=== PATIENT | male | born 1965 | race Caucasian/White ===

== ENCOUNTER 2017-12-07 05:53 | Inpatient (IN) | payer OTHER, SELFPAY ==
[2017-12-07] VITALS (35 sets, daily range): BP systolic 93–149; BP diastolic 59–102; PULSE 58–123; RESP 14–29; TEMP 36.5–36.9; O2SAT 84–98; BMI 33.0; BMI 33.1
[2017-12-07] MEDS: Heparin 10,000 UNITS/10 ML Vial 4000 UNITS IV (05:59)
[2017-12-07] MEDS: TICAGRELOR 90 MG TABLET 180 MG PO (06:00)
--- NOTE | 2017-12-07 06:00 | EKG12_ITS ---
Test Reason : RIGHT SIDED EKG Blood Pressure : / mmHG Vent. Rate : 061 BPM Atrial Rate : 111 BPM P-R Int : 000 ms QRS Dur : 126 ms QT Int : 470 ms P-R-T Axes : 057 -15 119 degrees QTc Int : 473 ms Poor data quality, interpretation may be adversely affected Sinus tachycardia with complete heart block and Wide QRS rhythm Left bundle branch block Abnormal ECG Confirmed by RAMON JEAN BAPTISTE, KATLIN ([id number]), associate entertainment editor MIREYA GUADALUPE ([id number]) on 12/10/2017 3:07:50 PM Referred By: Tena Freed Confirmed By:KATLIN NAVARRO MD
--- NOTE | 2017-12-07 06:00 | RAD_ITS ---
STUDY: X-RAY CHEST REASON FOR EXAM: Male, 52 years old. Chest pain TECHNIQUE: Single frontal view of the chest. COMPARISON: None. FINDINGS: The lungs are clear and expanded. There is no demonstrated pleural abnormality. Normal size heart. Normal mediastinum and tigre. Normal visualized pulmonary arteries. Normal visualized aortic arch and descending thoracic aorta. Normal visualized thoracic spine. There is degenerative osteoarthritis of the bilateral shoulders. There is no demonstrated abnormality of the visualized soft tissue structures of the upper abdomen. RAD/Chest 1 View (Portable) IMPRESSION: No acute pulmonary findings. Electronically Signed: Lang Cao MD at 6:20 EDT Tel , Service support ,
[2017-12-07] MEDS: 0.9% Normal Saline 1,000 ML 150 ML IV (06:06)
--- NOTE | 2017-12-07 06:06 | ED.DCSUM_ITS ---
- ER Visit Summary Date of Service: 12/07/17 Chief Complaint: Chest tightness History of Present Illness: The patient is a 52 M presents to the emergency department with chest tightness. Patient states he woke about 4 this morning to use the bathroom. States he got up and began to feel very dizzy and lightheaded. He began to have some significant chest pressure and mild shortness of breath. He did call squad. On squad arrival, patient was diaphoretic. EKG done in the field showed inferior ST elevation. The patient denies any history of cardiac disease. He does not follow with primary care physician. He states he has not seen a doctor in years. He does smoke but denies any history of diabetes or hypertension. He states that he was actually out square dancing last night and had no pain. He does not take any daily medications. Physical Examination: Vital signs reviewed General: Well-nourished, well-developed Head: Normocephalic, atraumatic Eyes: Pupils equal and reactive, extraocular muscles intact Neck, supple, no lymphadenopathy Heart: Regular rate and rhythm Respiratory: No distress, clear bilaterally Abdomen: Soft, nontender, nondistended, no peritoneal signs Back: Nontender Extremities: Nontender, no edema, no cords Skin: Normal color no rash Neuro: Alert and oriented, no focal or lateralizing deficits Test Results: [] Emergency Department Course and Treatment: EKG was repeated on arrival. The patient has inferior ST elevation with some mild lateral elevation. There is anterior depression. STEMI had already been activated prior to patient arrival. I discussed the patient with Dr. Mansfield. The patient had artery received aspirin. He was given Brilinta and heparin on arrival. He was consented for cardiac catheterization. Patient will be transported to [facility] for cardiac intervention. Treatment Plan: [] Disposition: To [facility] Impression: 1. STEMI This note was generated with Pop[employer]it dictation software. It may contain incorrect words, spelling, and punctuation that were not noted in review of the chart prior to signing ED Disposition - Plan for ED Patient: Chief Complaint: Chest Pain Referrals: Care Physician,No Primary [Primary Care Provider] -
--- NOTE | 2017-12-07 06:20 | EKG12_ITS ---
Test Reason : STEMI Blood Pressure : / mmHG Vent. Rate : 068 BPM Atrial Rate : 066 BPM P-R Int : 000 ms QRS Dur : 120 ms QT Int : 434 ms P-R-T Axes : 000 -12 116 degrees QTc Int : 461 ms Wide QRS rhythm Incomplete left bundle branch block ST elevation consider inferolateral injury or acute infarct ACUTE ME / STEMI Consider right ventricular involvement in acute inferior infarct Abnormal ECG Confirmed by RAMON JEAN BAPTISTE, KATLIN ([id number]), supervising editor news reel MIREYA GUADALUPE ([id number]) on 12/10/2017 3:12:57 PM Referred By: Tena Freed Confirmed By:KATLIN NAVARRO MD
[2017-12-07 06:26] LABS: Prothrombin Time (Protime)PT. 12.9 SECONDS (11.7-14.9)
[2017-12-07 06:27] LABS: Partial Thromboplast Time 24.1 Seconds (24.1-36.2)
[2017-12-07 06:32] LABS: Absolute Lymphocyte Count 6.23 X10^3/ul (0.83-4.51); Basophil# 0.04 X10^3/uL; Basophil% 0.2 % (0-1); Eosinophil# 0.34 X10^3/uL; Hematocrit 47.7 % (40-54); Hemoglobin 16.2 g/dl (13.0-16.5); Lymphocyte # 6.23 X10^3/ul (4.0); Lymphocyte % 37.6 % (19-41); Mean Corpuscular Hgb 29.8 pg (27.0-32.0); Mean Corpuscular Volume 87.7 fL (80-94); Mean Platelet Vol. 10.4 fl (6.2-12.0); Monocyte# 1.97 X10^3/uL; Monocyte% 11.9 % (0-10); Neutrophil # 7.95 X10^3/uL (2.7-7.7); Neutrophil % 47.9 % (47-70); Platelet Count 301 K/mm3 (150-450); RBC Distribution Width CV 12.7 % (11.6-14.6); RBC Distribution Width SD 40.4 fl (35.1-43.9); Red Blood Count 5.44 M/mm3 (4.6-6.2); White Blood Count 16.6 K/mm3 (4.4-11.0)
[2017-12-07 06:39] LABS: Differential Indicated SCAN CRITERIA MET; POSITIVE COUNT NO; POSITIVE DIFFERENTIAL YES; POSITIVE MORPHOLOGY YES
--- NOTE | 2017-12-07 06:49 | ED.RN ---
LAB CALLS WITH CRITICAL RESULT, BLOOD GLUCOSE [id number], ICU STAFF MADE AWARE.
[2017-12-07 06:50] LABS: Anion Gap 14 (5-15); BUN 18 mg/dL (7-18); BUN/Creat Ratio 12.1 RATIO (10-20); Chloride 93 mmol/L (98-107); Creatinine, Serum 1.49 mg/dL (0.70-1.30); EST Glomerular Filtration Rate 52 mL/min (>60); Est Glom Filt Rate - Afr Amer 63 mL/min (>60); Estimated Creatinine Clearance 62.21 ml/min; Glucose 539 mg/dL (74-106); Potassium 3.6 mmol/L (3.5-5.1); Sodium Level 131 mmol/L (136-145)
[2017-12-07 07:09] LABS: Differential Comment SCANNED; Reactive Lymphocyte 3+
[2017-12-07 07:51] LABS: ACT Activated Clotting Time 208 sec (74-137)
--- NOTE | 2017-12-07 07:52 | CL.I_ITS ---
Patient Name: HUMBLE ECHOLS Study Date: 12/07/2017 Performing: Reilly Mansfield MD Ht: 72.04 inches 183 cm : 1965 Wt: 244.71 lbs 111 kg Age: 52 Gender: male BSA: 2.32 PROCEDURE(S) PERFORMED [id number]/COR/LV [id number], ONELIA AND/OR PTCA, ARTERY OR GRAFT, SINGLE VESSEL CLINICAL PROFILE AND CO-MORBIDITIES Indications: New Onset Angina <= 2 months, ACS <= 24 hrs, Cardiac Transplantation evaluation - po stoperative Heart Failure: None Stress/Imaging Stress/Image Study Performed: No Angina Classification Anginal Classification w/in 2 Weeks: No symptoms CAD Presentations: STEMI. Symptom onset Date/Time: 12/07/2017 Time Not Available Comorbidities/Risk Factors: Hypertension Current/Recent Smoker (< 1year) CONCLUSIONS Single vessel CAD of the LCX Non obstructive coronary arteries Segmented LV systolic dysfunction- Moderate Successful PCI with Drug eluting stent and PTCA to the with thrombectomy assistance utilizing a 3.0 x 16 Promus Synergy, post dilated to 3.5 and 4.0 proximally; unable to cannulate OM branch despite mul tiple attempts with multiple wires due to acute angle of OM takeoff. RECOMMENDATIONS Referred for immediate PCI Highly recommend quitting all tobacco products Follow up with primary buildings and grounds coordinator Risk factor modification ASA Indefinitley Brilinta for life. Routine post interventional care Refer for Outpatient Cardiac Rehab Manual sheath removal per protocol Follow up with Dr. Mansfield Medical managment of OM ostial lesion. DESCRIPTION OF PROCEDURE The patient arrived to the procedure lab. The risks and benefits of the procedure as well as a full d escription of our services here and lack of surgical backup were fully explained to the patient and/o r their significant other prior to the catheterization. The Timeout was completed, verifying the makenzie ect patient and procedure. The patient's procedural site was prepped and draped in the usual fashion. Local anesthetic was given subcutaneously to right groin region with Lidocaine 2%. Using a modified Seldinger technique, arterial access was obtained via the right femoral artery, a 6Fr sheath was inse rted.. Left Coronary Artery selective angiography was performed in multiple views using a 4 Fr. JL5 catheter. Right Coronary Artery selective angiography was then performed in multiple views using a 4 Fr. 3DRC catheter. Left Ventriculography was performed in GIRALDO projection using a 4 Fr. Pigtail cathet er. LV to AO pullback pressures were then recorded ebu 3.75 Guide catheter was inserted and engaged into the LCA. runthrough Guide wire was advanced to the Circumflex. Campo AP inserted Pass # 1 Campo AP Removed emerge 2.0x12 Balloon catheter was inse rted. PTCA balloon inflated at 8 atms for 14 secs PTCA balloon inflated at 8 atms for 8 secs bmw Guid e wire was inserted as a gabriela wire to OM Angiogram performed post balloon dilatation. synergy 3.00x1 6 Drug Eluting stent was inserted Angiogram performed post stent deployment. nc emerge 4.00x8 Balloon catheter was inserted. PTCA balloon inflated at 10 atms for 10 secs PTCA balloon inflated at 12 atms for 10 secs Campo AP inserted Pass # 2 Campo AP Removed Angiogram performed post balloon dilatatio n. zinger Guide wire was advanced to the 1st OM. nc emerge 3.50x12 Balloon catheter was inserted. nc emerge 3.50x8 Balloon catheter was inserted. PTCA balloon inflated at 12 atms for 9 secs PTCA balloon inflated at 14 atms for 9 secs PTCA balloon inflated at 12 atms for 9 secs 4.00x8 Balloon catheter w as inserted. PTCA balloon inflated at 12 atms for 11 secs PTCA balloon inflated at 14 atms for 14 sec s Angiogram performed post balloon dilatation. runthrough Guide wire was inserted to OM zinger Guide wire was advanced to the 1st OM. emerge 2.00x8 Balloon catheter was inserted. Angiogram performed pos t balloon dilatation.. . The arterial sheath was sutured in place and capped. CORONARY ANGIOGRAPHY DOMINANCE: Left Dominant LEFT HEART ASSESSMENT Left Ventricular Ejection Fraction: by LV Gram 45-50 % Depressed Left Ventricular systolic function Inferior Mid Hypokinesis - Moderate LEFT MAIN: Angiographically normal LEFT ANTERIOR DECENDING ARTERY: MID LAD: Mild luminal irregularities less than 30% CIRCUMFLEX ARTERY: is occluded RIGHT CORONARY ARTERY: Mild luminal irregularities less than 30% INTERVENTION INFORMATION LESION SITE: Circumflex (Proximal) Lesion Complexity: High/C, lesion at bifurcation: Yes, thrombus present: Yes, lesion length: 16 mm, c ulprit lesion: Yes Pre intervention MARTÍNEZ flow: 0 PROCEDURE: Balloon Angioplasty, Drug Eluting Stent with pre and post dilatation, Thrombectomy Post Stenosis: 0 % Post intervention MARTÍNEZ flow: 3 Lesion Devices: Medtronic 6 Fr. Campo AP Aspiration Catheter Medtronic 6 Fr EBU3.75 100cm Guide Catheter Yonis Sci EMERGE MR 2.00x12 BALLOON Cuellar .014 BMW Rudyard Straight 190cm Yonis Sci Synergy MR ONELIA 3.00x16 Yonis Sci NC EMERGE MR 4.00x08 BALLOON Yonis Sci NC EMERGE MR 3.50x12 BALLOON Medtronic .014 Zinger medium wire 180cm straight Yonis Sci NC EMERGE MR 3.50x08 BALLOON Terumo .014 Runthrough Extra Floppy 180cm straight Medtronic .014 Zinger medium wire 180cm straight Yonis Sci EMERGE MR 2.00x08 BALLOON Yonis Sci .014 Choice PT Xtra Support wire 182cm COMPLICATIONS No Complications PROCEDURE MEDICATIONS Fentanyl 25 mcg IV Oxygen: 2 L/min via nasal cannula Oxygen: 100 % FiO2 via non-rebreather mask Atropine 1mg/10ml 0.25 mg @ 12/07/2017 06:42:17 Heparin 6000 unit(s) IV 12/07/2017 06:41:38 Heparin 4000 unit(s) IV 12/07/2017 07:20:32 Heparin 4000 unit(s) IV 12/07/2017 07:39:37 Nitro 200 mcg IC 12/07/2017 06:47:31 Nitro 200 mcg IC 12/07/2017 06:47:31 Zofran 2 mg IV 12/07/2017 06:50:45 IV Bolus: .9 NaCl 1500ml total 12/07/2017 06:37:04 SUMMARY OF HEMODYNAMIC DATA Time AIR REST ECG 06:24:13 AO 89/62 (72) SA 06:41:03 LV 111/-1, 20 07:36:08 LV 111/-1, 20 07:36:15 LVp 113/-2, 18 07:36:20 AOp 95/64 (75) 07:36:25 ECG 07:42:12 Signed By Reilly Mansfield MD On 12/07/2017 07:51:33 Reilly Mansfield MD
--- NOTE | 2017-12-07 07:52 | EKG12_ITS ---
Test Reason : POST STENT Blood Pressure : / mmHG Vent. Rate : 099 BPM Atrial Rate : 099 BPM P-R Int : 194 ms QRS Dur : 074 ms QT Int : 362 ms P-R-T Axes : 044 103 084 degrees QTc Int : 464 ms Normal sinus rhythm Low voltage QRS ST elevation consider inferior injury or acute infarct ACUTE DE / STEMI Consider right ventricular involvement in acute inferior infarct Abnormal ECG Confirmed by RAMON JEAN BAPTISTE, KATLIN ([id number]), video effects editor MIREYA GUADALUPE ([id number]) on 12/10/2017 3:50:18 PM Referred By: Tena Freed Confirmed By:KATLIN NAVARRO MD
[2017-12-07 08:26] LABS: Hematocrit 47.2 % (40-54); Hemoglobin 16.9 g/dl (13.0-16.5); Mean Corp Hgb Conc 35.8 g/gl (32-36); Mean Corpuscular Hgb 30.4 pg (27.0-32.0); Mean Corpuscular Volume 84.9 fL (80-94); Mean Platelet Vol. 10.1 fl (6.2-12.0); Platelet Count 296 K/mm3 (150-450); RBC Distribution Width CV 12.6 % (11.6-14.6); RBC Distribution Width SD 38.6 fl (35.1-43.9); Red Blood Count 5.56 M/mm3 (4.6-6.2); White Blood Count 16.6 K/mm3 (4.4-11.0)
[2017-12-07 08:27] LABS: Scan Indicated on CBC? Y/N NO
[2017-12-07 08:57] LABS: CPK Total, Creatine Kinase 6534 U/L (39-308)
--- NOTE | 2017-12-07 08:57 | NURSING ---
dr dobson notified pulse ox sats 88 on 4l continous moist cough, pt states feels like drowning given lasix 40mg ivp as per order
[2017-12-07] MEDS: Furosemide 40 MG/4 ML Vial IV (08:59)
[2017-12-07 09:48] LABS: M R Staph aureus DNA By PCR Negative (Negative); Probe Check PASS; Specimen Processing Control PASS
--- NOTE | 2017-12-07 10:04 | PCM.PN.BLA ---
Progress Note Patient is scheduled for a post hospital/STEMI follow-up with the [facility] on January 06 at 2:00 PM with Cassandra Physician Mold Machine Operator. He will follow-up with Dr. Grubbs longterm. If he has has questions, concerns, or needs to reschedule this appointment, he should contact the [facility] at [phone].
--- NOTE | 2017-12-07 10:24 | PCM.HP.STD ---
Problem List (1) Acute ST elevation myocardial infarction (STEMI) Status: Acute Qualifiers: Involved coronary artery: other inferior wall coronary artery Qualified Code(s): I21.19 - ST elevation (STEMI) myocardial infarction involving other coronary artery of inferior wall (2) Nicotine use disorder Status: Chronic History of Present Illness Date of Admission: 12/07/17 Chief Complaint: Chest pain. The patient is a 52 year old M with chronic smoker comes in with complaints of chest pain described as substernal central pressure, which started this morning around 4:00. Patient woke up and started having central chest pressure associated with lightheadedness and diaphoresis and feeling of just not being well. He called the EMS and was found to be diaphoretic, EKG done showed acute STEMI in the inferior leads. Patient was brought to the ED, vitals were stable, STEMI alert was called, patient was sent to the [facility]. Findings included CAD of the left circumflex with successful thrombectomy and ONELIA placement. Patient was seen and examined in ICU. He had complained of shortness of breath. Apparently was given about 4 L of fluid in the ED. Patient's oxygen saturation was 88% on 3 L of oxygen. Giving Lasix 40 mg IV ?1. Being managed per Post cardiac cath protocol Past Medical History Past Medical History (Chronic Problems): Chronic Problems Nicotine use disorder (Chronic) Allergies No Known Allergies Allergy (Verified 12/07/17 06:05) Home Medications: Ambulatory Orders Medication Instructions Recorded NK [NK] 12/07/17 Surgical History: no surgical history Psychiatric History: No pertinent psych hx Lives: Alone Smoking Status: Light Smoker (<10/day) Tobacco Use: Cigarettes Alcohol: None Drugs: None - *Family History Maternal History Items: COPD Paternal History Items: No pertinent history Review of Systems Constitutional: Denies: Anorexia, Chills, Fever, Weakness, Weight Change Eyes: Denies: Blurred vision, Cataracts, Conjunctivae Inflammation HEENT: Denies: Head Aches, Hearing Changes, Nasal bleeding, Sinus Congestion, Sinus Drainage Cardiovascular: Reports: Chest Pain, Chest Pressure, Chest Tightness, Light Headedness. Denies: Orthopnea, Palpitations, Paroxysmal Noc. Dyspnea, Syncope Respiratory: Denies: Cough, Hemoptysis, Pleuritic Pain, Shortness of breath at rest, Shortness of breath upon exertion, Sputum production Gastrointestinal: Denies: Abdominal Pain, Constipation, Hematemesis, Hematochezia, Nausea, Vomiting Genitourinary: Denies: Dysuria, Frequency, Incontinence, Nocturia Musculoskeletal: Denies: Arm Pain, Back Pain, Joint Pain, Joint stiffness, Joint swelling, Joint Tenderness Skin: Denies: Dryness, Jaundice, Pruritis, Rash, Wounds Neurological: Denies: Difficulty swallowing, Focal weakness, Numbness, Tingling Psychiatric: Denies: Anxiety, Depression, Homicidal Ideations, Suicidal Ideations Hematologic/ Lymphatic: Denies: Easy Bruising, Easy Bleeding VTE Information - Inpt Only VTE Present on Admission: No VTE Pharm Prophylaxis ordered?: Yes Patient Problems: Active and Suspected Problems Acute ST elevation myocardial infarction (STEMI) (Acute) - Physical Exam General: Alert, Oriented x3, Cooperative, - - slightly SOB, able to answer questions. HEENT: Atraumatic, PERRLA, EOMI, Normocephalic Oral: Moist Mucosa Neck: Supple Lungs: Clear to auscultation, Normal air movement Cardiovascular: Regular rate, Regular Rhythm, Normal S1, Normal S2, No murmurs Abdomen: Bowel Sounds Present, Soft, Non Tender, Non-Distended, No Hepato-splenomegaly Extremities: No edema Skin: No rashes, No breakdown Musculoskeletal: No Tenderness to Palpation of Joints or Extremities Lymphatic: No Cervical, Supraclavicular, or Inguinal Adenopathy Neurological: Cranial nerves II-XII grossly intact Psych/Mental Status: Normal Affect, Appropriate Vital Signs Temp Pulse Resp BP Pulse Ox 97.7 F L 105 H 25 H 136/100 H 95 12/07/17 08:15 12/07/17 09:30 12/07/17 09:30 12/07/17 09:30 12/07/17 09:30 Oxygen Flow Rate (L/min) 15 Oxygen Delivery Method Non-Rebreather Weight: 110.3 kg Body Mass Index (BMI) 33.0 Laboratory Tests Past 24 Hrs 12/07/17 12/07/17 12/07/17 08:05 08:17 08:17 WBC 16.6 H RBC 5.56 Hgb 16.9 H Hct 47.2 MCV 84.9 MCH 30.4 MCHC 35.8 RDW 12.6 RDW Differential 38.6 Plt Count 296 MPV 10.1 Total Creatine Kinase 6534 H Troponin I MRSA (PCR) Negative 12/07/17 08:17 WBC RBC Hgb Hct MCV MCH MCHC RDW RDW Differential Plt Count MPV Total Creatine Kinase Troponin I 123.00 H* MRSA (PCR) Assessment/Plan Active and Suspected Problems Acute ST elevation myocardial infarction (STEMI) (Acute) 52 year old M with chronic smoker comes in with complaints of chest pain described as substernal central pressure, which started this morning around 4:00. Patient woke up and started having central chest pressure associated with lightheadedness and diaphoresis and feeling of just not being well. 1. Acute STEMI, MARTÍNEZ score 3/4, status post cardiac cath, status post ONELIA and thrombectomy to left circumflex. Obtuse marginal artery reportedly involved. On aspirin, Brilinta, statin, metoprolol, Lisinopril, managed in ICU per protocol, monitor telemetry closely 2. Hyperglycemia, newly diagnosed DM, HbA1c is 11.0, will start patient on Levemir will require dietitian, and close follow-up with endocrinology. 3. Hypertension, lisinopril and metoprolol, will continue to monitor closely on telemetry 4. Leucocytosis, likely reactive, no signs of infection, would monitor with repeat lab in a.m. 5. Chronic nicotine use disorder, will put on replacement 6. DVT prophylaxis with Lovenox subcu Code Visit Inpatient E&M: [id number] Init Hosp L3
[2017-12-07 10:25] LABS: ACT Activated Clotting Time 158 sec (74-137)
--- NOTE | 2017-12-07 11:01 | ECHOCS_ITS ---
Reason For Study: CAD/ASHD Procedure This was a 2D Doppler, Color Flow transthoracic echocardiogram. The study was technically difficult. Contrast injection was performed. Exam performed portable in ICU/CCU. Left Ventricle Normal size and thickness. The estimated ejection fraction is 45-50 %. Normal diastology for age. There are regional wall motion abnormalities as specified. Lateral-Basal: Mildly hypokinetic. Posterior-Basal: Mildly hypokinetic. Infero-Basal: Mildly hypokinetic. Right Ventricle Normal size and thickness. Normal systolic function. Atria Normal left atrium. Normal right atrium. Normal atrial septum. Mitral Valve The mitral valve is structurally normal. No prolapse or stenosis seen. Tricuspid Valve Normal tricuspid valve. Trivial tricuspid valve insufficiency. Right ventricular systolic pressure estimated to be 26 mmHg. Aortic Valve Normal aortic valve. Trisinus/trileaflet aortic valve. Pulmonic Valve Normal pulmonic valve. Great Vessels Normal aortic root. Normal arch. Normal inferior vena cava. Inferior vena cava collapse with sniff. Pericardium/Pleural No pericardial effusion. Medication Diluted definity 1.0ml given slow IV push to enhance endocardial definition. MMode/2D Measurements & Calculations LVIDd: 4.5 cm IVSd: 1.3 cm Ao root diam: 3.1 cm LVIDs: 3.4 cm LVPWd: 1.3 cm FS: 23.6 % LAV(MOD-bp): 52.7 ml LA A4 area: 16.7 cm2 LAV(MOD-bp) Indexed: 22.8 ml/m2 LAV(MOD-sp2): 51.8 ml LAV(MOD-sp4): 48.2 ml Doppler Measurements & Calculations MV E max vinod: 76.4 cm/sec Lat Peak E' Vinod: 5.2 cm/sec Med Peak E' Vinod: 4.3 cm/sec MV A max vinod: 57.4 cm/sec E/E' lat: 14.5 E/E' med: 17.6 MV E/A: 1.3 Ao V2 max: 85.5 cm/sec LV V1 max: 68.9 cm/sec PA V2 max: 72.8 cm/sec Ao max P.9 mmHg LV V1 max P.9 mmHg TR max vinod: 230.9 cm/sec TR max P.3 mmHg Interpretation Summary The estimated ejection fraction is 45-50 %. Normal diastology for age. There are regional wall motion abnormalities as specified. Lateral-Basal: Mildly hypokinetic Posterior-Basal: Mildly hypokinetic Infero-Basal: Mildly hypokinetic Trivial tricuspid valve insufficiency. Right ventricular systolic pressure estimated to be 26 mmHg. The study was technically difficult. There is no comparison study available. Contrast injection was performed. Ordering Physician: Reilly Mansfield Referring Physician: Tena Freed Performed By: Dee Lucero RDCS, RVT
--- NOTE | 2017-12-07 11:55 | CRPHASE1 ---
Patient Data/Charges Start Phase II:: FOLLOWING OFFICE VISIT WITH PERMASTONE MECHANIC Risk Factors/Lifestyle Smoking Status: Current every day smoker Hx Hypertension: Yes Hx Diabetes Mellitus Type 1: No - BLOOD SUGARS EXTREMELY HIGH THIS ADMISSION Hx Diabetes Mellitus Type 2: No Hx Metabolic Disorders: Yes Hx Dyslipidemia: Yes Hx Obesity: Yes Height: 6 ft - BMI 33.0 Stress: Home/Family Substance Abuse: No Risk Factor for Sedentary Lifestyle: Moderate Risk Phase I Education Given On:: [place], Nutrition, Antiplatelet medication, Smoking cessation Issues Affecting Care:: None Knowledge of Condition:: Yes Learning Preferences: Verbal, Written Hospital Course Presenting Symptoms:: EMERGENT PCI / UNSTABLE ANGINA Medical/Surgical History [place]:: No Angina:: Yes Diabetes:: No Hypertension:: Yes Dyslipidemia:: Yes Discharge/Home/Social Eval Discharge Disposition: Home
--- NOTE | 2017-12-07 11:58 | CRPHASE1_ITS ---
Patient Data/Charges Start Phase II:: FOLLOWING OFFICE VISIT WITH FRUIT ROOM HAND Risk Factors/Lifestyle Smoking Status: Current every day smoker Hx Hypertension: Yes Hx Diabetes Mellitus Type 1: No - BLOOD SUGARS EXTREMELY HIGH THIS ADMISSION Hx Diabetes Mellitus Type 2: No Hx Metabolic Disorders: Yes Hx Dyslipidemia: Yes Hx Obesity: Yes Height: 6 ft - BMI 33.0 Stress: Home/Family Substance Abuse: No Risk Factor for Sedentary Lifestyle: Moderate Risk Phase I Education Given On:: [place], Nutrition, Antiplatelet medication, Smoking cessation Issues Affecting Care:: None Knowledge of Condition:: Yes Learning Preferences: Verbal, Written Hospital Course Presenting Symptoms:: EMERGENT PCI / UNSTABLE ANGINA Medical/Surgical History [place]:: No Angina:: Yes Diabetes:: No Hypertension:: Yes Dyslipidemia:: Yes Discharge/Home/Social Eval Discharge Disposition: Home
--- NOTE | 2017-12-07 11:58 | CRPH1.INSTRU ---
General Education CAD and cardiac anatomy and function:: Patient communicates acknowledgment Explanation of diagnoses and procedures:: Patient communicates acknowledgment Sign/Symptoms of [place]:: Patient communicates acknowledgment Antiplatelet therapy: Patient communicates acknowledgment Proper use of NTG-SL: Patient communicates acknowledgment Emergency procedures and activation of EMS: Patient communicates acknowledgment Compliance of all prescribed medications: Patient communicates acknowledgment Smoking Patient Nicotine/Smoking Risk Factors Are:: Cigarettes Recommendations Include:: Participation in a smoking cessation program Nicotine/Smoking Response Code:: Patient communicates acknowledgment Dyslipidemia Patient Dyslipidemia Risk Factors Are:: Total Cholesterol, Triglycerides, HDL, LDL Recommendations Include:: Lipid profile not available, Reviewed NCEP/ATP guidelines, Therapeutic Lifestyle Change dietary guidelines Dyslipidemia Response Code:: Patient communicates acknowledgment Overweight/Obesity Patient Overweight/Obesity Risk Factors Are:: Obesity - > or = 30 Recommendations Include:: Weight loss of 5-10%, Reduced calorie diet, Exercise 5-7 times/week Overweight/Obesity:: Patient communicates acknowledgment Hypertension Recommendations Include:: Maintain BP <130/85, DASH dietary guidelines, Decrease/maintain normal body weight, Moderation of ETOH Hypertension:: Patient communicates acknowledgment Heart Disease Heart Disease Response Code:: Patient communicates acknowledgment Diabetes Patient Diabetes Risk Factors Are:: No documented hx of diabetes - BLOOD SUGARS EXTREMELY HIGH THIS ADMISSION BUT NOT YET DIAGNOSED WITH DIABETES Metabolic Syndrome Patient Metabolic Syndrome Risk Factors Are [3 of 5]:: Waist circumference > 35 [female] or 40 [male], High triglyceride >150, Hypertension, Low HDL <40 [male] or < 50 [female] Recommendations Include:: Reinforce compliance to risk factor modifications, Encouraged follow-up with Primary Care Physician Metabolic Syndrome Response Code:: Patient communicates acknowledgment Sedentary Patient Sedentary Risk Factors Are:: Lack of regular exercise Recommendations Include:: Aerobic exercise 5-7 times/week for 20-30 minutes continuously, Benefits of regular exercise, Discussed home walking program, Monitored Outpatient Cardiac Rehab Sedentary Response Code:: Patient communicates acknowledgment Stress Recommendations Include:: Identification of stressors, and assessment of coping skills, Stress management techniques Stress Response Code:: Patient communicates acknowledgment
--- NOTE | 2017-12-07 12:01 | CRPH1.INST_ITS ---
General Education CAD and cardiac anatomy and function:: Patient communicates acknowledgment Explanation of diagnoses and procedures:: Patient communicates acknowledgment Sign/Symptoms of [place]:: Patient communicates acknowledgment Antiplatelet therapy: Patient communicates acknowledgment Proper use of NTG-SL: Patient communicates acknowledgment Emergency procedures and activation of EMS: Patient communicates acknowledgment Compliance of all prescribed medications: Patient communicates acknowledgment Smoking Patient Nicotine/Smoking Risk Factors Are:: Cigarettes Recommendations Include:: Participation in a smoking cessation program Nicotine/Smoking Response Code:: Patient communicates acknowledgment Dyslipidemia Patient Dyslipidemia Risk Factors Are:: Total Cholesterol, Triglycerides, HDL, LDL Recommendations Include:: Lipid profile not available, Reviewed NCEP/ATP guidelines, Therapeutic Lifestyle Change dietary guidelines Dyslipidemia Response Code:: Patient communicates acknowledgment Overweight/Obesity Patient Overweight/Obesity Risk Factors Are:: Obesity - > or = 30 Recommendations Include:: Weight loss of 5-10%, Reduced calorie diet, Exercise 5 -7 times/week Overweight/Obesity:: Patient communicates acknowledgment Hypertension Recommendations Include:: Maintain BP <130/85, DASH dietary guidelines, Decrease /maintain normal body weight, Moderation of ETOH Hypertension:: Patient communicates acknowledgment Heart Disease Heart Disease Response Code:: Patient communicates acknowledgment Diabetes Patient Diabetes Risk Factors Are:: No documented hx of diabetes - BLOOD SUGARS EXTREMELY HIGH THIS ADMISSION BUT NOT YET DIAGNOSED WITH DIABETES Metabolic Syndrome Patient Metabolic Syndrome Risk Factors Are [3 of 5]:: Waist circumference > 35 [female] or 40 [male], High triglyceride >150, Hypertension, Low HDL <40 [ male] or < 50 [female] Recommendations Include:: Reinforce compliance to risk factor modifications, Encouraged follow-up with Primary Care Physician Metabolic Syndrome Response Code:: Patient communicates acknowledgment Sedentary Patient Sedentary Risk Factors Are:: Lack of regular exercise Recommendations Include:: Aerobic exercise 5-7 times/week for 20-30 minutes continuously, Benefits of regular exercise, Discussed home walking program, Monitored Outpatient Cardiac Rehab Sedentary Response Code:: Patient communicates acknowledgment Stress Recommendations Include:: Identification of stressors, and assessment of coping skills, Stress management techniques Stress Response Code:: Patient communicates acknowledgment
[2017-12-07 12:05] LABS: Bedside Glucose 417 mg/dL (70-110)
[2017-12-07] MEDS: Metoprolol Tartrate 25 MG Tablet 12.5 MG PO ×2 (13:13→21:15)
[2017-12-07] MEDS: Lisinopril 2.5 MG Tablet PO (13:13)
[2017-12-07] MEDS: 0.9% NaCl Peripheral Flush Adult/Peds IV (13:14)
--- NOTE | 2017-12-07 13:59 | CASEMGMT ---
See RN CM assessment Link. DC Plan: home on discharge. Brilinta savings card given and explained. Pt will f/u with cardiology on dc; list of PCP's given. Billy YUN RN ACM
[2017-12-07 14:33] LABS: Pathologist Review Reviewed
[2017-12-07 14:42] LABS: Hematocrit 47.3 % (40-54); Mean Corp Hgb Conc 35.9 g/gl (32-36); Mean Corpuscular Volume 83.6 fL (80-94); Mean Platelet Vol. 10.3 fl (6.2-12.0); Platelet Count 290 K/mm3 (150-450); RBC Distribution Width CV 12.5 % (11.6-14.6); RBC Distribution Width SD 38.1 fl (35.1-43.9); Red Blood Count 5.66 M/mm3 (4.6-6.2); Scan Indicated on CBC? Y/N NO; White Blood Count 19.9 K/mm3 (4.4-11.0)
[2017-12-07 15:35] LABS: ACT Activated Clotting Time 147 sec (74-137)
[2017-12-07 16:06] LABS: CPK Total, Creatine Kinase 8014 U/L (39-308)
[2017-12-07 16:56] LABS: Bedside Glucose 407 mg/dL (70-110)
[2017-12-07 20:02] LABS: Hematocrit 47.8 % (40-54); Hemoglobin 16.7 g/dl (13.0-16.5); Mean Corp Hgb Conc 34.9 g/gl (32-36); Mean Corpuscular Hgb 30.4 pg (27.0-32.0); Mean Corpuscular Volume 87.1 fL (80-94); Mean Platelet Vol. 10.2 fl (6.2-12.0); Platelet Count 253 K/mm3 (150-450); RBC Distribution Width CV 12.7 % (11.6-14.6); RBC Distribution Width SD 40.5 fl (35.1-43.9); Red Blood Count 5.49 M/mm3 (4.6-6.2); Scan Indicated on CBC? Y/N NO; White Blood Count 19.6 K/mm3 (4.4-11.0)
[2017-12-07] MEDS: TICAGRELOR 90 MG TABLET PO (20:07)
[2017-12-07] MEDS: Atorvastatin Calcium 80 MG Tablet PO (21:15)
[2017-12-07 21:25] LABS: CPK Total, Creatine Kinase 5926 U/L (39-308)
[2017-12-07 21:26] LABS: Bedside Glucose 326 mg/dL (70-110)
[2017-12-08] VITALS (23 sets, daily range): BP systolic 87–122; BP diastolic 64–80; PULSE 72–100; RESP 16–23; TEMP 36.5–37.3; O2SAT 90–95
[2017-12-08 03:33] LABS: Hematocrit 44.4 % (40-54); Hemoglobin 15.3 g/dl (13.0-16.5); Mean Corp Hgb Conc 34.5 g/gl (32-36); Mean Corpuscular Hgb 29.7 pg (27.0-32.0); Mean Corpuscular Volume 86.2 fL (80-94); Mean Platelet Vol. 10.1 fl (6.2-12.0); Platelet Count 223 K/mm3 (150-450); RBC Distribution Width CV 12.7 % (11.6-14.6); RBC Distribution Width SD 39.8 fl (35.1-43.9); Red Blood Count 5.15 M/mm3 (4.6-6.2); White Blood Count 17.3 K/mm3 (4.4-11.0)
[2017-12-08 03:38] LABS: Scan Indicated on CBC? Y/N NO
[2017-12-08 03:58] LABS: Anion Gap 10 (5-15); BUN 19 mg/dL (7-18); BUN/Creat Ratio 18.6 RATIO (10-20); Calcium,Total 8.7 mg/dL (8.5-10.1); Chloride 98 mmol/L (98-107); Cholesterol 145 mg/dL (200); Creatinine, Serum 1.02 mg/dL (0.70-1.30); EST Glomerular Filtration Rate 81 mL/min (>60); Est Glom Filt Rate - Afr Amer 98 mL/min (>60); Estimated Creatinine Clearance 90.87 ml/min; Glucose 294 mg/dL (74-106); High Density Lipoprotein 26 mg/dL; Potassium 3.8 mmol/L (3.5-5.1); Sodium Level 134 mmol/L (136-145); Triglycerides 345 mg/dL; Very Low Density Lipoprotein 69 mg/dL (5-40)
[2017-12-08 06:51] LABS: Bedside Glucose 292 mg/dL (70-110)
--- NOTE | 2017-12-08 07:42 | PCM.PN.HOSP ---
Patient Problems: Active and Suspected Problems Acute ST elevation myocardial infarction (STEMI) (Acute) Subjective: Patient was seen and examined. No acute events overnight. He feels better. He denies any chest pressure, dizziness or palpitations. BS are better but not controlled. Objective: Physical Exam General: Alert, Oriented x3, Cooperative,not pale or jaundiced, obese HEENT: Atraumatic, PERRLA, EOMI, Normocephalic Oral: Moist Mucosa Neck: Supple Lungs: Clear to auscultation, Normal air movement Cardiovascular: Regular rate, Regular Rhythm, Normal S1, Normal S2, No murmurs Abdomen: Bowel Sounds Present, Soft, Non Tender, Non-Distended, No Hepato-splenomegaly Extremities: No edema Skin: No rashes, No breakdown Musculoskeletal: No Tenderness to Palpation of Joints or Extremities Lymphatic: No Cervical, Supraclavicular, or Inguinal Adenopathy Neurological: Cranial nerves II-XII grossly intact Psych/Mental Status: Normal Affect, Appropriate Vitals/I&O's: Vital Signs Temp Pulse Resp BP Pulse Ox 98.2 F 86 17 99/75 93 12/08/17 04:00 12/08/17 07:25 12/08/17 07:00 12/08/17 07:00 12/08/17 07:00 Oxygen Flow Rate (L/min) 2 Oxygen Delivery Method Room Air Weight: 110.5 kg Body Mass Index (BMI) 33.0 Intake and Output for Last 24 Hours 12/06/17 12/07/17 12/08/17 23:59 23:59 23:59 Intake Total 1050 / 1050 150 / 150 Output Total 3150 / 3150 250 / 250 Balance -2100 / -2100 -100 / -100 Laboratory Results 12/07/17 08:05: MRSA (PCR) Negative 12/07/17 08:17: Total Creatine Kinase 6534 H 12/07/17 08:17: WBC 16.6 H, RBC 5.56, Hgb 16.9 H, Hct 47.2, MCV 84.9, MCH 30.4, MCHC 35.8, RDW 12.6, RDW Differential 38.6, Plt Count 296, MPV 10.1 12/07/17 08:17: Troponin I 123.00 H* 12/07/17 10:11: Activated Clotting Time 158 H 12/07/17 12:01: POC Glucose 417 H 12/07/17 14:20: WBC 19.9 H, RBC 5.66, Hgb 17.0 H, Hct 47.3, MCV 83.6, MCH 30.0, MCHC 35.9, RDW 12.5, RDW Differential 38.1, Plt Count 290, MPV 10.3 12/07/17 14:20: Total Creatine Kinase 8014 H 12/07/17 14:20: Troponin I > 200.00 H* 12/07/17 16:49: POC Glucose 407 H 12/07/17 19:55: WBC 19.6 H, RBC 5.49, Hgb 16.7 H, Hct 47.8, MCV 87.1, MCH 30.4, MCHC 34.9, RDW 12.7, RDW Differential 40.5, Plt Count 253, MPV 10.2 12/07/17 19:55: Total Creatine Kinase 5926 H 12/07/17 19:55: Troponin I > 200.00 H* 12/07/17 21:12: POC Glucose 326 H 12/08/17 03:11: WBC 17.3 H, RBC 5.15, Hgb 15.3, Hct 44.4, MCV 86.2, MCH 29.7, MCHC 34.5, RDW 12.7, RDW Differential 39.8, Plt Count 223, MPV 10.1 12/08/17 03:11: Sodium 134 L, Potassium 3.8, Chloride 98, Carbon Dioxide 26.0, Anion Gap 10, BUN 19 H, Creatinine 1.02, Estim Creat Clear Calc 90.87, Est GFR (MDRD) Af Amer 98, Est GFR (MDRD) Non-Af 81, BUN/Creatinine Ratio 18.6, Glucose 294 H, Calcium 8.7, Triglycerides 345 H, Cholesterol 145, LDL Cholesterol 50, VLDL Cholesterol 69 H, HDL Cholesterol 26 L 12/08/17 06:46: POC Glucose 292 H Current Medications Acetaminophen (Tylenol) 325 - 650 mg PO Q6H PRN PRN PRN Reason: PAIN Aspirin (Ecotrin) 81 mg PO DAILY@0800 [facility] Atorvastatin Calcium (Lipitor) 80 mg PO QHS [facility] Last Admin: 12/07/17 21:15 Dose: 80 mg Atropine Sulfate () 0.5 mg IV UD PRN PRN Reason: HR <50 bpm Dextrose (D50w Syringe) 0 gm IV X1 PRN; Protocol PRN Reason: Hypoglycemia Dextrose (D50w Syringe) 0 gm IV X1 PRN; Protocol PRN Reason: Hypoglycemia Diazepam (Valium) 5 mg PO Q6H PRN PRN PRN Reason: BACK SPASMS/ANXIETY Enoxaparin Sodium (Lovenox) 40 mg SC DAILY [facility] Glucagon () 1 mg IM .X1 PRN PRN Reason: Hypoglycemia Glucagon () 1 mg IM .X1 PRN PRN Reason: Hypoglycemia Sodium Chloride () 1,000 mls @ 15 mls/hr IV .Q48H [facility] Last Admin: 12/07/17 20:05 Dose: Not Given Insulin Aspart (Novolog Flexpen (Bkc)) 5 units SC DINNER [facility] Last Admin: 12/07/17 17:39 Dose: 5 u Insulin Aspart (Novolog Flexpen (Bkc)) 5 units SC BREAKFAST [place]EN[place] Insulin Aspart (Novolog Flexpen (Bkc)) 5 units SC LUNCH KEN[place] Insulin Aspart (Novolog Flexpen (Bkc)) 0 units SC ACHS [facility] PRN Reason: Protocol Last Admin: 12/07/17 21:14 Dose: 8 u Insulin Detemir (Levemir (Bkc)) 15 units SC QHS [facility] Lisinopril (Zestril) 2.5 mg PO DAILY [facility] Last Admin: 12/07/17 13:13 Dose: 2.5 mg Metoclopramide HCl (Reglan) 5 mg IV Q6H PRN PRN PRN Reason: NAUSEA/VOMITING Metoprolol Tartrate (Lopressor (Beta Silvestre)) 12.5 mg PO BID [facility] Last Admin: 12/07/17 21:15 Dose: 12.5 mg Nicotine (Nicoderm Cq (Pbkc)) 21 mg TRANSDERM. DAILY [facility] Nicotine Polacrilex (Rugby Nicotine (Bkc)) 2 mg PO Q2H PRN PRN PRN Reason: Nicotine Craving Sodium Chloride () 500 ml IV BOLUS PRN PRN Reason: VASO-VAGAL PROTOCOL Sodium Chloride () 5 - 30 ml IV UD PRN PRN Reason: SALINE FLUSH Last Admin: 12/07/17 13:14 Dose: 10 ml Ticagrelor (Brilinta) 90 mg PO BID [facility] Last Admin: 12/07/17 20:07 Dose: 90 mg Medical Necessity - Tobacco Use Smoking Status: Light Smoker (<10/day) Tobacco Use: Cigarettes Assessment/Plan Active and Suspected Problems Acute ST elevation myocardial infarction (STEMI) (Acute) 52 year old M with chronic smoker comes in with complaints of chest pain described as substernal central pressure, which started this morning around 4:00. Patient woke up and started having central chest pressure associated with lightheadedness and diaphoresis and feeling of just not being well. 1. Acute STEMI, MARTÍNEZ score 3, status post cardiac cath, status post ONELIA and thrombectomy to left circumflex artery, CAD, stable, no acute telemetry events, On aspirin, Brilinta, statin, metoprolol, Lisinopril, managed in ICU per protocol, monitor telemetry closely 2. Newly diagnosed DM, HbA1c is 11.0, BS are uncontrolled, started on Levemir 10 units, with pre-meal insulin, would increase Levemir to 15 units, 5 units NovoLog pre-meal as well as insulin sliding scale, dietitian consulted, patient will need intensive education as he is quite in denial that he has diabetes. 3. Hypertension, controlled, on lisinopril and metoprolol. 4. Leucocytosis, likely reactive, no signs of infection, improving, will continue to monitor 5. Chronic nicotine use disorder, continue nicotine replacement 6. Hyperlipidemia, triglycerides at 345, total cholesterol 45, LDL is 50, HDL is 26, on atorvastatin 80 mg p.o. daily, continue with low fat diet 7. DVT prophylaxis with Lovenox subcu 8. Disposition: Per cardiology recommendation; patient is stable to be in PCU status Code Visit Inpatient E&M: 10734 Subs Hosp L2
--- NOTE | 2017-12-08 07:52 | EKG12_ITS ---
Test Reason : AM Blood Pressure : / mmHG Vent. Rate : 089 BPM Atrial Rate : 089 BPM P-R Int : 166 ms QRS Dur : 084 ms QT Int : 384 ms P-R-T Axes : 062 -81 -04 degrees QTc Int : 467 ms Normal sinus rhythm Left axis deviation Inferior-posterior infarct , possibly acute ACUTE MT / STEMI Abnormal ECG When compared with ECG of 07-DEC-2017 06:13, MANUAL COMPARISON REQUIRED, DATA IS UNCONFIRMED Confirmed by RAMON JEAN BAPTISTE, KATLIN ([id number]), editor newspaper MIREYA GUADALUPE ([id number]) on 12/10/2017 3:50:01 PM Referred By: Tena Freed Confirmed By:KATLIN NAVARRO MD
[2017-12-08] MEDS: Aspirin E.C. 81 MG Tablet PO (07:55)
[2017-12-08 08:10] LABS: Bedside Glucose 320 mg/dL (70-110)
[2017-12-08 08:18] LABS: Hematocrit 41.1 % (40-54); Hemoglobin 14.5 g/dl (13.0-16.5); Mean Corp Hgb Conc 35.3 g/gl (32-36); Mean Corpuscular Hgb 30.6 pg (27.0-32.0); Mean Corpuscular Volume 86.7 fL (80-94); Mean Platelet Vol. 10.4 fl (6.2-12.0); Platelet Count 225 K/mm3 (150-450); RBC Distribution Width CV 12.6 % (11.6-14.6); RBC Distribution Width SD 39.3 fl (35.1-43.9); Red Blood Count 4.74 M/mm3 (4.6-6.2); White Blood Count 15.5 K/mm3 (4.4-11.0)
[2017-12-08 08:19] LABS: Scan Indicated on CBC? Y/N NO
[2017-12-08] MEDS: Lisinopril 2.5 MG Tablet PO (09:16)
[2017-12-08] MEDS: Metoprolol Tartrate 25 MG Tablet 12.5 MG PO ×2 (09:16→21:19)
[2017-12-08] MEDS: Enoxaparin 40 MG/0.4 ML Syringe SC (09:16)
[2017-12-08] MEDS: TICAGRELOR 90 MG TABLET PO ×2 (09:16→21:19)
--- NOTE | 2017-12-08 11:15 | PN.CARD_ITS ---
Subjectve: Patient did well overnight, no chest pain, right groin is clean/dry/intact, no thrills, bruits or hematoma. Telemetry showed normal sinus rhythm with rare PVC. Hemoglobin and creatinine stable. Troponin peaked over 200, CKs over 6000 but rapidly trending downward suggesting washout. Objective: Vital Signs Temp Pulse Resp BP Pulse Ox 98.0 F 95 20 H 98/73 95 12/08/17 07:51 12/08/17 09:16 12/08/17 09:00 12/08/17 09:16 12/08/17 09:00 Oxygen Flow Rate (L/min) 2 Oxygen Delivery Method Room Air Weight: 243 lb 9.773 oz Body Mass Index (BMI) 33.0 Intake and Output for Last 24 Hours 12/06/17 12/07/17 12/08/17 23:59 23:59 23:59 Intake Total 1050 / 1050 150 / 150 Output Total 3150 / 3150 250 / 250 Balance -2100 / -2100 -100 / -100 General: Awake, Alert, Oriented x 3 HEENT: PERRL, EOMI, Sclera Non Icteric Neck: Supple, Good ROM, No Lymph Node Enlargement Lungs: Clear to auscultation Cardiovascular: Regular Rhythm, Normal S1, Normal S2, No Murmurs, No Rubs, No Gallops Vascular: No Carotid Bruits, Normal Femoral Pulses, Normal Radial Pulses, Normal Dorsalis Pedal Pulse, Normal Posterior Tibial Pulses Abdomen: Bowel Sounds Present, Soft, Non Tender, No HSM, No Organomegaly Extremities: No Cyanosis, No Clubbing, No edema Neurological: No Focal Motor or Sensory Deficit 12/07/17 14:20: WBC 19.9 H, RBC 5.66, Hgb 17.0 H, Hct 47.3, MCV 83.6, MCH 30.0, MCHC 35.9, RDW 12.5, RDW Differential 38.1, Plt Count 290, MPV 10.3 12/07/17 14:20: Troponin I > 200.00 H* 12/07/17 19:55: WBC 19.6 H, RBC 5.49, Hgb 16.7 H, Hct 47.8, MCV 87.1, MCH 30.4, MCHC 34.9, RDW 12.7, RDW Differential 40.5, Plt Count 253, MPV 10.2 12/07/17 19:55: Troponin I > 200.00 H* 12/08/17 03:11: WBC 17.3 H, RBC 5.15, Hgb 15.3, Hct 44.4, MCV 86.2, MCH 29.7, MCHC 34.5, RDW 12.7, RDW Differential 39.8, Plt Count 223, MPV 10.1 12/08/17 03:11: Sodium 134 L, Potassium 3.8, Chloride 98, Carbon Dioxide 26.0, Anion Gap 10, BUN 19 H, Creatinine 1.02, Est GFR (MDRD) Af Amer 98, Est GFR ( MDRD) Non-Af 81, BUN/Creatinine Ratio 18.6, Glucose 294 H, Calcium 8.7, Triglycerides 345 H, Cholesterol 145, LDL Cholesterol 50, VLDL Cholesterol 69 H , HDL Cholesterol 26 L 12/08/17 08:00: WBC 15.5 H, RBC 4.74, Hgb 14.5, Hct 41.1, MCV 86.7, MCH 30.6, MCHC 35.3, RDW 12.6, RDW Differential 39.3, Plt Count 225, MPV 10.4 Rhythm: EKG: ECHO: LVEF of 45-50% with mild to moderate inferior, posterior and lateral hypokinesis. Normal RVSP. No MR noted. Stress Test: Cardiac Cath: PCI: CT Surgery: Holter monitor: EPS: PPM: CXR: Chest CT Scan: Medical Necessity - Tobacco Use Smoking Status: Light Smoker (<10/day) Tobacco Use: Cigarettes Assessment/Plan 1. Coronary artery disease status post acute inferior lateral wall myocardial infarction with emergent thrombectomy, angioplasty and drug-eluting stent to the proximal left circumflex. Due to the acute angle of the obtuse marginal we were unable to cannulate it with 3 different wires. Patient's LVEF at the end of the procedure was around 45% with inferior posterior hypokinesis, confirmed by echocardiogram. Patient's troponins have peaked over 200 and his CKs are rapidly trending downwards, hopefully suggesting rapid washout of thrombotic particles. I recommended continuing Lopressor 12.5 mg's p.o. twice daily, low-dose lisinopril for his hypertension, aspirin and Brilinta. Patient status may be decreased to stepdown but would request that he remain in the ICU for arrhythmia monitoring. If the patient's bed is needed for an acute patient he may be transferred down to PCU. 2. Hyperlipidemia: The patient's LDL is 50 and HDL is 26. Lipitor started. Repeat lipid profile in 6 weeks time. Hopefully tobacco cessation will improve his HDL. 3. Diabetes: The patient apparently was a non-diagnosed diabetic, and diabetic management per hospitalist. 4. Thank you very much for the opportunity to participate in the cardiac care of your patient. Code Visit Inpatient E&M: 82885 Subs Hosp L2
[2017-12-08 13:21] LABS: Bedside Glucose 326 mg/dL (70-110)
[2017-12-08 20:26] LABS: Bedside Glucose 292 mg/dL (70-110)
[2017-12-08] MEDS: Atorvastatin Calcium 80 MG Tablet PO (21:20)
[2017-12-08 21:36] LABS: Bedside Glucose 244 mg/dL (70-110)
[2017-12-09 02:36] LABS: Bedside Glucose 233 mg/dL (70-110)
[2017-12-09 02:39] VITALS: BP 93/59; PULSE 72; RESP 22; TEMP 36.8; O2SAT 95
[2017-12-09 03:43] VITALS: PULSE 79
[2017-12-09 04:55] LABS: Anion Gap 7 (5-15); BUN 20 mg/dL (7-18); BUN/Creat Ratio 20.1 RATIO (10-20); Calcium,Total 8.1 mg/dL (8.5-10.1); Chloride 100 mmol/L (98-107); Creatinine, Serum 0.99 mg/dL (0.70-1.30); EST Glomerular Filtration Rate 83 mL/min (>60); Est Glom Filt Rate - Afr Amer 101 mL/min (>60); Estimated Creatinine Clearance 93.63 ml/min; Glucose 242 mg/dL (74-106); Potassium 3.6 mmol/L (3.5-5.1); Sodium Level 136 mmol/L (136-145)
--- NOTE | 2017-12-09 05:55 | EKG12_ITS ---
Test Reason : AM Blood Pressure : / mmHG Vent. Rate : 081 BPM Atrial Rate : 081 BPM P-R Int : 226 ms QRS Dur : 080 ms QT Int : 388 ms P-R-T Axes : 057 268 -69 degrees QTc Int : 450 ms Sinus rhythm with 1st degree A-V block with occasional Premature ventricular complexes Inferior-posterior infarct , age undetermined Abnormal ECG Confirmed by RAMON JEAN BAPTISTE, KATLIN ([id number]), visual effects editor MIREYA GUADALUPE ([id number]) on 12/13/2017 2:40:05 PM Referred By: Tena Freed Confirmed By:KATLIN NAVARRO MD
[2017-12-09 06:42] VITALS: O2SAT 95
[2017-12-09 06:55] LABS: Bedside Glucose 288 mg/dL (70-110)
[2017-12-09 07:49] VITALS: BP 91/69; PULSE 80; RESP 14; TEMP 36.4; O2SAT 95
[2017-12-09] MEDS: Aspirin E.C. 81 MG Tablet PO (07:57)
--- NOTE | 2017-12-09 07:57 | DCINST_ITS ---
- Discharge Diagnoses Current Active Problems: Current Active and Chronic Problems Acute ST elevation myocardial infarction (STEMI) (Acute) Nicotine use disorder (Chronic) Reason(s) for Visit for Discharge Instructions: Chest pain You will use the following diet at home:: Calorie/Carbohydrate Controlled ( specify 1200, 1400, etc), Cardiac Your food should be the consistency of: Regular Your liquids should be the consistency of: Regular/Thin Discharge Activity: Return to Normal Activity Additional Instructions: Follow all the instructions as given by the cardiology team including follow-up. Take all your medications as instructions. Go to the ED or call your doctor if you develop chest pain. Keep a log of your blood sugars and follow-up with endocrinology in the outpatient within 2 weeks. Note the signs of low blood sugar. Follow a strict low calorie diet, cardiac as taught in the hospital. Allergies/Adverse Reactions: Allergies No Known Allergies Allergy (Verified 12/07/17 06:05) Medications to take at Discharge Aspirin E.C. [Ecotrin] 81 mg PO DAILY@0800 #30 tab 12/09/17 Atorvastatin Calcium [Lipitor] 80 mg PO QHS #30 tab 12/09/17 Insulin Detemir [Levemir FlexPen] 25 units SC QHS #1 insuln.pen 12/09/17 Lisinopril [Zestril] 2.5 mg PO DAILY #30 tab 12/09/17 Metformin HCl [Glucophage] 500 mg PO BIDCM #60 tab 12/09/17 Metoprolol Tartrate [Lopressor (beta suleman)] 12.5 mg PO BID #60 tab 12/09/17 Ticagrelor [Brilinta] 90 mg PO BID #60 tab 12/09/17 The following prescriptions were given: Aspirin E.C. [Ecotrin] 81 mg PO DAILY@0800 #30 tab Atorvastatin Calcium [Lipitor] 80 mg PO QHS #30 tab Insulin Detemir [Levemir FlexPen] 25 units SC QHS #1 insuln.pen Lisinopril [Zestril] 2.5 mg PO DAILY #30 tab Metformin HCl [Glucophage] 500 mg PO BIDCM #60 tab Metoprolol Tartrate [Lopressor (beta suleman)] 12.5 mg PO BID #60 tab Ticagrelor [Brilinta] 90 mg PO BID #60 tab Primary Care Physician: Care Physician,No Primary [Primary Care Provider] - Please follow up with your Primary Care Physician in: within 2 weeks Please Follow Up With: Reilly Mansfield MD When: as scheduled Please Follow Up With: Alondra Graham NP-C When: within 2 weeks Proposed Discharge Date: 12/09/17
--- NOTE | 2017-12-09 07:57 | PCM.DC.SUM ---
Discharge Date and Diagnosis Date of Admission: 12/07/17 Date of Discharge: 12/09/17 - Primary Discharge Diagnosis Active and Suspected Problems Acute ST elevation myocardial infarction (STEMI) (Acute) CAD s/p ONELIA Newly diagnosed DM Hyperlipidemia Hypertension Leucocytosis - Secondary Discharge Diagnosis Chronic Problems Nicotine use disorder (Chronic) Hospital Course and Treatment Imaging Results: Clinical Impression(s) from Imaging Studies Chest X-Ray 12/07/17 06:00 IMPRESSION: No acute pulmonary findings. Electronically Signed: Lang Cao MD at 6:20 EDT Tel , Service support , None Operations: None Procedures: None Summary of Care Provided: 52 year old M with chronic smoker comes in with complaints of chest pain described as substernal central pressure, which started this morning around 4:00. Patient woke up and started having central chest pressure associated with lightheadedness and diaphoresis and feeling of just not being well. 1. Acute STEMI, MARTÍNEZ score 3, status post cardiac cath, status post ONELIA and thrombectomy to left circumflex artery, CAD, on aspirin, Brilinta, statin, metoprolol, Lisinopril, managed in ICU , no acute events. Discharged home on above, to follow-up with cardiology per post cath protocol 2. Newly diagnosed DM, HbA1c is 11.0, BS were uncontrolled, started on Levemir, discharged on Levemir 20 units and metformin. 3. Hypertension, controlled, on low dose lisinopril and metoprolol. 4. Leucocytosis, likely reactive, no signs of infection. 5. Chronic nicotine use disorder, advised to quit, started on nicotine replacement. 6. Hyperlipidemia, triglycerides at 345, total cholesterol 45, LDL is 50, HDL is 26, on atorvastatin 80 mg p.o. daily, advised on low-fat diet, exercises. Discharge Diet: Low fat/ Low Cholesterol, 2000 mg Sodium Diet, Carb Control Diet Discharge Activity: Return to Normal Activity Home Medications: Medications to take at Discharge Aspirin E.C. [Ecotrin] 81 mg PO DAILY@0800 #30 tab 12/09/17 Atorvastatin Calcium [Lipitor] 80 mg PO QHS #30 tab 12/09/17 Insulin Detemir [Levemir FlexPen] 25 units SC QHS #1 insuln.pen 12/09/17 Lisinopril [Zestril] 2.5 mg PO DAILY #30 tab 12/09/17 Metformin HCl [Glucophage] 500 mg PO BIDCM #60 tab 12/09/17 Metoprolol Tartrate [Lopressor (beta silvestre)] 12.5 mg PO BID #60 tab 12/09/17 Ticagrelor [Brilinta] 90 mg PO BID #60 tab 12/09/17 Following Prescrptions Were Given to Patient: Aspirin E.C. [Ecotrin] 81 mg PO DAILY@0800 #30 tab Atorvastatin Calcium [Lipitor] 80 mg PO QHS #30 tab Insulin Detemir [Levemir FlexPen] 25 units SC QHS #1 insuln.pen Lisinopril [Zestril] 2.5 mg PO DAILY #30 tab Metformin HCl [Glucophage] 500 mg PO BIDCM #60 tab Metoprolol Tartrate [Lopressor (beta silvestre)] 12.5 mg PO BID #60 tab Ticagrelor [Brilinta] 90 mg PO BID #60 tab Other Amb Orders: Glucometer Location: None Selected Primary Care Physician: Care Physician,No Primary [Primary Care Provider] - Please follow up with your Primary Care Physician in: within 2 weeks Please Follow Up With: Reilly Mansfield MD When: as scheduled Please Follow Up With: Alondra Graham PRODUCT PICKER-C When: within 2 weeks Disposition: Home Minutes spent on discharge:: 45 Patient Condition:: Stable Medical Necessity - Tobacco Use Smoking Status: Light Smoker (<10/day) Tobacco Use: Cigarettes Meaningful Use Info Meaningful Use Diagnoses (Choose all that apply): AMI - AMI Aspirin given w/in 24hrs of arrival?: Yes ASA at discharge?: Yes Statins at discharge?: Yes Silviano/ARB at discharge?: Yes Beta Silvestre at discharge?: Yes Done w/ Acute [place] measure.: Yes Code Visit Inpatient E&M: 45016 Disch Hosp
--- NOTE | 2017-12-09 08:01 | DS.PCM_ITS ---
Discharge Date and Diagnosis Date of Admission: 12/07/17 Date of Discharge: 12/09/17 - Primary Discharge Diagnosis Active and Suspected Problems Acute ST elevation myocardial infarction (STEMI) (Acute) CAD s/p ONELIA Newly diagnosed DM Hyperlipidemia Hypertension Leucocytosis - Secondary Discharge Diagnosis Chronic Problems Nicotine use disorder (Chronic) Hospital Course and Treatment Imaging Results: Clinical Impression(s) from Imaging Studies Chest X-Ray 12/07/17 06:00 IMPRESSION: No acute pulmonary findings. Electronically Signed: Lang Cao MD at 6:20 EDT Tel , Service support , None Operations: None Procedures: None Summary of Care Provided: 52 year old M with chronic smoker comes in with complaints of chest pain described as substernal central pressure, which started this morning around 4: 00. Patient woke up and started having central chest pressure associated with lightheadedness and diaphoresis and feeling of just not being well. 1. Acute STEMI, MARTÍNEZ score 3, status post cardiac cath, status post ONELIA and thrombectomy to left circumflex artery, CAD, on aspirin, Brilinta, statin, metoprolol, Lisinopril, managed in ICU , no acute events. Discharged home on above, to follow-up with cardiology per post cath protocol 2. Newly diagnosed DM, HbA1c is 11.0, BS were uncontrolled, started on Levemir, discharged on Levemir 20 units and metformin. 3. Hypertension, controlled, on low dose lisinopril and metoprolol. 4. Leucocytosis, likely reactive, no signs of infection. 5. Chronic nicotine use disorder, advised to quit, started on nicotine replacement. 6. Hyperlipidemia, triglycerides at 345, total cholesterol 45, LDL is 50, HDL is 26, on atorvastatin 80 mg p.o. daily, advised on low-fat diet, exercises. Discharge Diet: Low fat/ Low Cholesterol, 2000 mg Sodium Diet, Carb Control Diet Discharge Activity: Return to Normal Activity Home Medications: Medications to take at Discharge Aspirin E.C. [Ecotrin] 81 mg PO DAILY@0800 #30 tab 12/09/17 Atorvastatin Calcium [Lipitor] 80 mg PO QHS #30 tab 12/09/17 Insulin Detemir [Levemir FlexPen] 25 units SC QHS #1 insuln.pen 12/09/17 Lisinopril [Zestril] 2.5 mg PO DAILY #30 tab 12/09/17 Metformin HCl [Glucophage] 500 mg PO BIDCM #60 tab 12/09/17 Metoprolol Tartrate [Lopressor (beta silvestre)] 12.5 mg PO BID #60 tab 12/09/17 Ticagrelor [Brilinta] 90 mg PO BID #60 tab 12/09/17 Following Prescrptions Were Given to Patient: Aspirin E.C. [Ecotrin] 81 mg PO DAILY@0800 #30 tab Atorvastatin Calcium [Lipitor] 80 mg PO QHS #30 tab Insulin Detemir [Levemir FlexPen] 25 units SC QHS #1 insuln.pen Lisinopril [Zestril] 2.5 mg PO DAILY #30 tab Metformin HCl [Glucophage] 500 mg PO BIDCM #60 tab Metoprolol Tartrate [Lopressor (beta silvestre)] 12.5 mg PO BID #60 tab Ticagrelor [Brilinta] 90 mg PO BID #60 tab Other Amb Orders: Glucometer Location: None Selected Primary Care Physician: Care Physician,No Primary [Primary Care Provider] - Please follow up with your Primary Care Physician in: within 2 weeks Please Follow Up With: Reilly Mansfield MD When: as scheduled Please Follow Up With: Alondra Graham [employer]AIN[employer]ACHINE-C When: within 2 weeks Disposition: Home Minutes spent on discharge:: 45 Patient Condition:: Stable Medical Necessity - Tobacco Use Smoking Status: Light Smoker (<10/day) Tobacco Use: Cigarettes Meaningful Use Info Meaningful Use Diagnoses (Choose all that apply): AMI - AMI Aspirin given w/in 24hrs of arrival?: Yes ASA at discharge?: Yes Statins at discharge?: Yes Silviano/ARB at discharge?: Yes Beta Silvestre at discharge?: Yes Done w/ Acute ME measure.: Yes Code Visit Inpatient E&M: 50624 Disch Hosp
--- NOTE | 2017-12-09 09:50 | PN.CARD_ITS ---
Subjectve: Patient feeling great, no chest pain, no arrhythmias, vital signs are stable. Patient ambulated around the unit yesterday without difficulty. Right groin is clean/dry/intact. Objective: Vital Signs Temp Pulse Resp BP Pulse Ox 97.5 F L 80 14 91/69 95 12/09/17 07:49 12/09/17 07:49 12/09/17 07:49 12/09/17 07:49 12/09/17 07:49 Oxygen Flow Rate (L/min) 2 Oxygen Delivery Method Room Air Weight: 247 lb 5.738 oz Body Mass Index (BMI) 33.0 Intake and Output for Last 24 Hours 12/07/17 12/08/17 12/09/17 23:59 23:59 23:59 Intake Total 1050 / 1050 1150 / 1150 400 / 400 Output Total 3150 / 3150 1625 / 1625 300 / 300 Balance -2100 / -2100 -475 / -475 100 / 100 General: Awake, Alert, Oriented x 3 HEENT: PERRL, EOMI, Sclera Non Icteric Neck: Supple, Good ROM, No Lymph Node Enlargement Lungs: Clear to auscultation Cardiovascular: Regular Rhythm, Normal S1, Normal S2, No Murmurs, No Rubs, No Gallops Vascular: No Carotid Bruits, Normal Femoral Pulses, Normal Radial Pulses, Normal Dorsalis Pedal Pulse, Normal Posterior Tibial Pulses Abdomen: Bowel Sounds Present, Soft, Non Tender, No HSM, No Organomegaly Extremities: No Cyanosis, No Clubbing, No edema Neurological: No Focal Motor or Sensory Deficit 12/09/17 04:30: Sodium 136, Potassium 3.6, Chloride 100, Carbon Dioxide 29.0, Anion Gap 7, BUN 20 H, Creatinine 0.99, Est GFR (MDRD) Af Amer 101, Est GFR ( MDRD) Non-Af 83, BUN/Creatinine Ratio 20.1 H, Glucose 242 H, Calcium 8.1 L Rhythm: Normal sinus rhythm, no ventricular arrhythmias. EKG: Normal sinus rhythm with recent inferior posterior wall myocardial infarction. ECHO: Echocardiogram from 12/08/17 showed mild inferior posterior and lateral hypokinesis with an EF of approximately 45-50%. Normal RVSP. Stress Test: Cardiac Cath: PCI: CT Surgery: Holter monitor: EPS: PPM: CXR: Chest CT Scan: Medical Necessity - Tobacco Use Smoking Status: Light Smoker (<10/day) Tobacco Use: Cigarettes Assessment/Plan 1. Coronary artery disease status post acute inferior lateral wall myocardial infarction with emergent thrombectomy, angioplasty and drug-eluting stent to the proximal left circumflex. Due to the acute angle of the obtuse marginal we were unable to cannulate it with 3 different wires. Patient's LVEF at the end of the procedure was around 45% with inferior posterior hypokinesis, confirmed by echocardiogram. Patient's troponins have peaked over 200 and his CKs are rapidly trending downwards, hopefully suggesting rapid washout of thrombotic particles. We will confirm this with repeat echocardiogram at the conclusion of cardiac rehab in 3 months time. I recommended continuing Lopressor 12.5 mg's p.o. twice daily, low-dose lisinopril for his hypertension, aspirin and Brilinta. Patient may be discharged home with follow-up with Dr. Mansfield going forward. 2. Hyperlipidemia: The patient's LDL is 50 and HDL is 26. Lipitor started. Repeat lipid profile in 6 weeks time. Hopefully tobacco cessation will improve his HDL. 3. Diabetes: The patient apparently was a non-diagnosed diabetic, and diabetic management per hospitalist. 4. Thank you very much for the opportunity to participate in the cardiac care of your patient. Patient may be discharged home. I given the patient's instructions not to go back to work for at least 2 weeks time. Cardiac rehab to start at the end of December. Patient voiced understanding and agrees to comply. Code Visit Inpatient E&M: 84224 Subs Hosp L2
== END 2017-12-09 09:40 | disposition home or self-care (01) | DRG 247 ==
LOC: ED 06:27 → ICU 07:24
PROVIDERS: Internal Medicine Cardiovascular Disease; Admitting Provider Internal Medicine; Emergency Provider Emergency Medicine; Visit Provider Internal Medicine
DX: I21.19 ST elevation (STEMI) myocardial infarction involving other coronary artery of inferior wall (principal); I25.119 Atherosclerotic heart disease of native coronary artery with unspecified angina pectoris; I10 Essential (primary) hypertension; F17.210 Nicotine dependence, cigarettes, uncomplicated; E11.65 Type 2 diabetes mellitus with hyperglycemia; E78.5 Hyperlipidemia, unspecified; D72.829 Elevated white blood cell count, unspecified; Z79.82 Long term (current) use of aspirin; Z79.4 Long term (current) use of insulin; Z79.84 Long term (current) use of oral hypoglycemic drugs; Z79.899 Other long term (current) drug therapy
CPT/HCPCS: 71045; 80048; 80061; 82550; 82962; 83036; 84484; 85025; 85027; 85347; 85610; 85730; 87641; 92941; 93005; 93306; 93458; 97802; 99152; 99153; 99285; J7030; Q9957; Q9967; A4216; C1725; C1757; C1769; C1874; C1887; C8929; C9606; J1940; J2405

== ENCOUNTER 2017-12-11 20:39 | Emergency (ER) | payer OTHER, SELFPAY ==
[2017-12-11 20:41] VITALS: BP 100/57; PULSE 80; RESP 18; TEMP 37; O2SAT 96; BMI 32.2
--- NOTE | 2017-12-11 21:00 | RAD_ITS ---
STUDY: X-RAY CHEST REASON FOR EXAM: Male, 52 years old. MS. Weakness and dizziness. TECHNIQUE: Single frontal view of the chest. COMPARISON: 12/07/2017. FINDINGS: Normal lung volumes. Mild but increasing diffuse interstitial prominence and Miles B lines. Findings are consistent with mild interstitial edema. No focal infiltrates. No pleural effusions. Normal size heart. Normal mediastinum and tigre. Normal visualized pulmonary arteries. Normal visualized aortic arch and descending thoracic aorta. Normal visualized thoracic spine. Normal visualized ribs, clavicles, and shoulders. There is no demonstrated abnormality of the visualized soft tissue structures of the upper abdomen. RAD/Chest 1 View (Portable) IMPRESSION: Mild but increasing diffuse interstitial prominence and Miles B lines. Findings are consistent with mild interstitial edema. Electronically Signed: Ford Lara MD at 21:29 EDT , Service support ,
--- NOTE | 2017-12-11 21:00 | EKG12_ITS ---
Test Reason : Blood Pressure : / mmHG Vent. Rate : 078 BPM Atrial Rate : 078 BPM P-R Int : 174 ms QRS Dur : 076 ms QT Int : 372 ms P-R-T Axes : 038 -83 -18 degrees QTc Int : 424 ms Normal sinus rhythm Left anterior fascicular block Inferior-posterior infarct , age undetermined Nonspecific T wave abnormality Abnormal ECG Confirmed by THIEN JEAN BAPTISTE, HOLLY ([id number]), editor map MIREYA GUADALUPE ([id number]) on 12/15/2017 1:50:47 PM Referred By: MIGEL Confirmed By:HOLLY NEUMANN MD
--- NOTE | 2017-12-11 21:01 | ED.VISSUMM ---
- ER Visit Summary Date of Service: 12/11/17 Chief Complaint: Dizziness History of Present Illness: The patient is a 52 M with newly diagnosed diabetes, and status post cardiac catheterization discharged 2 days ago who presents for dizziness. Patient states he felt well when he was discharged 2 days ago. He was not on any medications when he was admitted for his acute coronary syndrome, and now is on aspirin, atorvastatin, insulin, metformin, lisinopril, metoprolol and Brilinta. Yesterday he began feeling dizzy, feeling like the room was pulsing. No change with position. No spinning sensation or sensation that he is going to pass out. He felt like his head was actually moving, and stated the head was shaking. He has had episodes of shortness of breath while sleeping, where he feels he needs to take a deep breath. Currently denies any shortness of breath, chest pain, nausea, vomiting, abdominal pain, numbness or weakness in the arms or legs. No vision changes. Physical Examination: Vital signs: afebrile, mildly hypotensive, no hypoxia on room air General: well nourished, well developed, in no distress Skin: warm, dry, no rash, no pallor HEENT: normocephalic and atraumatic; PERRL, EOMI, moist mucous membranes Cardiovascular: regular rate and rhythm without murmurs, no peripheral edema, 2+ pulses all distal extremities Respiratory: No increased work of breathing, mild rhonchi right lung, left lung is clear Abdominal: Abdomen is soft, nontender with normoactive bowel sounds, no guarding or rebound, no masses MSK: Moves all extremities, no deformities, normal strength Neuro: Awake and alert, oriented ?4. No facial droop, sensation and motor function intact and symmetric Test Results: Abnormal Lab Results 12/11/17 12/11/17 12/11/17 21:20 21:20 21:20 WBC 12.6 H RBC 4.74 Hgb 14.2 Hct 40.8 MCV 86.1 MCH 30.0 MCHC 34.8 RDW 12.5 RDW Differential 39.4 Plt Count 246 MPV 10.6 Immature Gran % (Auto) 0.300 Neut % (Auto) 61.3 Lymph % (Auto) 27.6 [place] % (Auto) 9.8 Eos % (Auto) 0.9 Baso % (Auto) 0.1 Absolute Neuts (auto) 7.7 Absolute Lymphs (auto) 3.47 Total Counted Not Reportable PT Cancelled INR Cancelled APTT Cancelled Sodium 134 L Potassium 4.8 Chloride 106 Carbon Dioxide 20.0 L Anion Gap 8 BUN 18 Creatinine 0.92 Estim Creat Clear Calc 100.75 Est GFR (MDRD) Af Amer 110 Est GFR (MDRD) Non-Af 91 BUN/Creatinine Ratio 19.6 Glucose 196 H Calcium 8.2 L Magnesium 1.8 Troponin I 18.20 H* TSH 4.89 H 12/11/17 21:50 WBC RBC Hgb Hct MCV MCH MCHC RDW RDW Differential Plt Count MPV Immature Gran % (Auto) Neut % (Auto) Lymph % (Auto) [place] % (Auto) Eos % (Auto) Baso % (Auto) Absolute Neuts (auto) Absolute Lymphs (auto) Total Counted PT 13.9 INR 1.1 APTT 26.3 Sodium Potassium Chloride Carbon Dioxide Anion Gap BUN Creatinine Estim Creat Clear Calc Est GFR (MDRD) Af Amer Est GFR (MDRD) Non-Af BUN/Creatinine Ratio Glucose Calcium Magnesium Troponin I TSH Clinical Impression(s) from Imaging Studies Chest X-Ray 12/11/17 21:00 IMPRESSION: Mild but increasing diffuse interstitial prominence and Miles B lines. Findings are consistent with mild interstitial edema. Electronically Signed: Ford Lara MD at 21:29 EDT , Service support , Emergency Department Course and Treatment: Patient is on multiple new medications since his heart attack and catheterization. His complaint of dizziness and not feeling well in conjunction with a low blood pressure on multiple new medications, patient was given IV hydration. Afterwards he stated that he felt better and the dizziness had resolved. EKG was performed that showed no ischemic changes and no new findings compared to a prior EKG. Troponin elevated at 18, which is an improvement compared to greater than 200 a few days ago. Chest x-ray showed mild interstitial edema. At this finding, fluids were discontinued, and patient received 700 cc. Patient was discussed with Dr. Navarro, who suspected that the patient's complaints are secondary to the new medications he is on, with the shortness of breath possibly being due to the Brilinta. However the benefits of the medications currently outweighed the risks and patient should continue. Patient was instructed to continue his medications and to call Dr. Mansfield's office on Wednesday to set up a follow-up appointment for reevaluation. Upon further discussion with the patient he stated he had had a 4 hour coughing episode productive of mucus 2 nights ago, and felt better afterwards. He attributed it to taking the lisinopril. He does not have a constant cough or any signs of angioedema, and thus was encouraged to continue the medication until he can follow-up with Dr. Mansfield to see if a change needs to be made. Patient was feeling much better at time of discharge. He will return if any further concerns. Discharge home. Treatment Plan: [] Disposition: [] Impression: Medication side effects, recent diagnosis of diabetes and acute coronary syndrome This note was generated with [employer]ation software. It may contain incorrect words, spelling, and punctuation that were not noted in review of the chart prior to signing ED Disposition - Plan for ED Patient: Disposition: Home or Assisted Living Chief Complaint: Weakness Instructions: ED Drug React Adverse Other Referrals: Reilly Mansfield MD [STAFF PHYSICIAN] - 2 Days Care Physician,No Primary [Primary Care Provider] - Additional Instructions: Your dizziness and other symptoms today are most likely due to the medications you have been on since your heart attack. These medications are important, so please continue to take them until you can follow-up with your allergy physician on Wednesday. Please call Dr. Mansfield's office first thing Wednesday morning to schedule a follow-up. If you have any worsening of your dizziness, shortness of breath, develop any chest pain, vomiting, fever, lightheadedness or have any other concerns, please return immediately to the emergency department for another evaluation or call 911.
[2017-12-11 21:29] VITALS: O2SAT 96
[2017-12-11] MEDS: 0.9% Normal Saline 1,000 ML 1000 ML IV (21:30)
[2017-12-11 21:32] LABS: Absolute Lymphocyte Count 3.47 X10^3/ul (0.83-4.51); Absolute Neutrophil Count 7.7 X10^3/uL (2.0-7.7); Basophil# 0.01 X10^3/uL; Basophil% 0.1 % (0-1); Eosinophil# 0.11 X10^3/uL; Eosinophils% 0.9 % (0-5); Hematocrit 40.8 % (40-54); Hemoglobin 14.2 g/dl (13.0-16.5); Lymphocyte # 3.47 X10^3/ul (4.0); Lymphocyte % 27.6 % (19-41); Mean Corp Hgb Conc 34.8 g/gl (32-36); Mean Corpuscular Volume 86.1 fL (80-94); Mean Platelet Vol. 10.6 fl (6.2-12.0); Monocyte# 1.23 X10^3/uL; Monocyte% 9.8 % (0-10); Neutrophil % 61.3 % (47-70); Platelet Count 246 K/mm3 (150-450); RBC Distribution Width CV 12.5 % (11.6-14.6); RBC Distribution Width SD 39.4 fl (35.1-43.9); Red Blood Count 4.74 M/mm3 (4.6-6.2); White Blood Count 12.6 K/mm3 (4.4-11.0)
[2017-12-11 21:33] LABS: POSITIVE COUNT NO; POSITIVE DIFFERENTIAL NO; POSITIVE MORPHOLOGY NO
--- NOTE | 2017-12-11 21:34 | ED.RN ---
PT STATES THAT HE FEELS THAT HE COUGHS AND FEELS LIKE HE IS DROWNING WHEN HE TAKES THE LISINOPRIL.
--- NOTE | 2017-12-11 21:52 | ED.RN ---
AWARE OF TROPONIN 18.2.
[2017-12-11 21:53] LABS: Anion Gap 8 (5-15); BUN 18 mg/dL (7-18); BUN/Creat Ratio 19.6 RATIO (10-20); Calcium,Total 8.2 mg/dL (8.5-10.1); Chloride 106 mmol/L (98-107); Creatinine, Serum 0.92 mg/dL (0.70-1.30); EST Glomerular Filtration Rate 91 mL/min (>60); Est Glom Filt Rate - Afr Amer 110 mL/min (>60); Estimated Creatinine Clearance 100.75 ml/min; Glucose 196 mg/dL (74-106); Magnesium 1.8 mg/dL (1.6-2.6); Potassium 4.8 mmol/L (3.5-5.1); Sodium Level 134 mmol/L (136-145); Thyroid Stim Hormone (TSH) 4.89 uIU/mL (0.358-3.74)
[2017-12-11 22:03] LABS: International Normalized Ratio 1.1; Partial Thromboplast Time 26.3 Seconds (24.1-36.2); Prothrombin Time (Protime)PT. 13.9 SECONDS (11.7-14.9)
[2017-12-11 22:28] VITALS: BP 105/72; PULSE 74; RESP 16; O2SAT 96
--- NOTE | 2017-12-11 22:54 | ED.DEP ---
ED Disposition - Plan for ED Patient: Disposition: Home or Assisted Living Chief Complaint: Weakness Instructions: ED Drug React Adverse Other Referrals: Care Physician,No Primary [Primary Care Provider] - Reilly Mansfield MD [STAFF PHYSICIAN] - 2 Days Additional Instructions: Your dizziness and other symptoms today are most likely due to the medications you have been on since your heart attack. These medications are important, so please continue to take them until you can follow-up with your loan servicing specialist on Wednesday. Please call Dr. Mansfield's office first thing Wednesday to schedule a follow-up. If you have any worsening of your dizziness, shortness of breath, develop any chest pain, vomiting, fever, lightheadedness or have any other concerns, please return immediately to the emergency department for another evaluation or call 911.
[2017-12-11 22:57] VITALS: BP 105/72; PULSE 74; RESP 16; O2SAT 94
--- NOTE | 2017-12-11 22:57 | DCINST.ED_ITS ---
ED Disposition - Plan for ED Patient: Disposition: Home or Assisted Living Chief Complaint: Weakness Instructions: ED Drug React Adverse Other Referrals: Care Physician,No Primary [Primary Care Provider] - Reilly Mansfield MD [STAFF PHYSICIAN] - 2 Days Additional Instructions: Your dizziness and other symptoms today are most likely due to the medications you have been on since your heart attack. These medications are important, so please continue to take them until you can follow-up with your mill roll rewinder on Wednesday. Please call Dr. Mansfield's office first thing Wednesday to schedule a follow-up. If you have any worsening of your dizziness, shortness of breath, develop any chest pain, vomiting, fever, lightheadedness or have any other concerns, please return immediately to the emergency department for another evaluation or call 911.
[2017-12-11 22:58] VITALS: BP 105/72; PULSE 74; RESP 16; O2SAT 94
== END 2017-12-11 23:10 | disposition home or self-care (01) ==
PROVIDERS: Emergency Provider Emergency Medicine
DX: R42 Dizziness and giddiness (principal); T50.905A Adverse effect of unspecified drugs, medicaments and biological substances, initial encounter; Y92.9 Unspecified place or not applicable; I25.10 Atherosclerotic heart disease of native coronary artery without angina pectoris; I25.2 Old myocardial infarction; I10 Essential (primary) hypertension; E11.9 Type 2 diabetes mellitus without complications; E66.9 Obesity, unspecified; Z68.32 Body mass index [BMI] 32.0-32.9, adult; Z79.4 Long term (current) use of insulin; Z79.84 Long term (current) use of oral hypoglycemic drugs; Z79.82 Long term (current) use of aspirin; Z79.899 Other long term (current) drug therapy
CPT/HCPCS: 71045; 80048; 83735; 84443; 84484; 85025; 85610; 85730; 93005; 96360; 99285; J7030; A4216

== ENCOUNTER → 2017-12-14 11:47 | Outpatient (CLI) | payer OTHER, SELFPAY ==
[2017-12-14 12:39] LABS: Absolute Lymphocyte Count 2.76 X10^3/ul (0.83-4.51); Absolute Neutrophil Count 8.8 X10^3/uL (2.0-7.7); Basophil# 0.01 X10^3/uL; Basophil% 0.1 % (0-1); Eosinophil# 0.13 X10^3/uL; Hematocrit 42.1 % (40-54); Hemoglobin 14.2 g/dl (13.0-16.5); Lymphocyte # 2.76 X10^3/ul (4.0); Lymphocyte % 21.5 % (19-41); Mean Corp Hgb Conc 33.7 g/gl (32-36); Mean Corpuscular Hgb 29.5 pg (27.0-32.0); Mean Corpuscular Volume 87.5 fL (80-94); Mean Platelet Vol. 10.9 fl (6.2-12.0); Monocyte# 1.09 X10^3/uL; Monocyte% 8.5 % (0-10); Neutrophil # 8.81 X10^3/uL (2.7-7.7); Neutrophil % 68.7 % (47-70); Platelet Count 292 K/mm3 (150-450); RBC Distribution Width CV 12.7 % (11.6-14.6); RBC Distribution Width SD 40.7 fl (35.1-43.9); Red Blood Count 4.81 M/mm3 (4.6-6.2); White Blood Count 12.8 K/mm3 (4.4-11.0)
[2017-12-14 12:42] LABS: POSITIVE COUNT NO; POSITIVE DIFFERENTIAL NO; POSITIVE MORPHOLOGY NO
[2017-12-14 13:14] LABS: ALB/GLOB Ratio 0.7 RATIO (0.9-2.4); AST(SGOT) 35 U/L (15-37); Alanine Aminotransfer ALT/SGPT 54 U/L (16-61); Albumin, Serum 2.8 g/dL (3.2-5.0); Alkaline Phosphatase 133 U/L (45-117); Anion Gap 10 (5-15); BUN 16 mg/dL (7-18); BUN/Creat Ratio 17.5 RATIO (10-20); CPK Total, Creatine Kinase 281 U/L (39-308); Calcium,Total 8.4 mg/dL (8.5-10.1); Chloride 105 mmol/L (98-107); Creatinine, Serum 0.91 mg/dL (0.70-1.30); EST Glomerular Filtration Rate 92 mL/min (>60); Est Glom Filt Rate - Afr Amer 111 mL/min (>60); Globulin 3.8 g/dL (2.2-4.2); Glucose 202 mg/dL (74-106); Potassium 3.8 mmol/L (3.5-5.1); Protein, Total 6.6 g/dL (6.4-8.2); Sodium Level 139 mmol/L (136-145)
== END ==
PROVIDERS: Visit Provider Physician Assistant Medical
DX: I25.10 Atherosclerotic heart disease of native coronary artery without angina pectoris (principal); I10 Essential (primary) hypertension; E78.5 Hyperlipidemia, unspecified
CPT/HCPCS: 36415; 80053; 82550; 85025

== ENCOUNTER 2018-01-05 11:28 | Outpatient (RCR) | payer OTHER, SELFPAY ==
--- NOTE | 2018-01-06 10:49 | PCM.CR.HP2 ---
CR - History & Physical - General Arrival date:: 01/06/18 Arrival time:: 10:49 Date of Referral:: 12/07/17 Date of CR Evaluation:: 01/06/18 Referring Physician: Dr. Uriel Grubbs for Dr. Reilly Mansfield Primary Diagnosis: STEMI w/PCI intervention and coronary stent - History of Present Cardiac Event Onset Date: Enter Onset Date of cardiac illnesses in Comment field below Acute Myocardial Infarction within 12 months:: Yes - STEMI 12/07/2017 PTCA or coronary stenting:: Yes - 12/07/2017 Type of Symptoms:: diaphoretic, sweating profusely, dioriented/confusion. Interventions with present event:: immediate cath and stented within an hour. Were there any complications?: low blood pressure after procedure; adjusted medications - Medications Home Medications: Ambulatory Orders Medication Instructions Recorded Aspirin E.C. [Ecotrin] 81 mg PO DAILY@0800 #30 tab 12/09/17 Atorvastatin Calcium [Lipitor] 80 mg PO QHS #30 tab 12/09/17 Ticagrelor [Brilinta] 90 mg PO BID #60 tab 12/09/17 insulin detemir (U-100) 100 13 unit SC QHS #1 ml 12/14/17 unit/mL (3 mL) subcutaneous pen furosemide 20 mg tablet 20 mg PO QDAY #30 tab 12/16/17 Metformin HCl [Metformin HCl ER] 1,000 mg PO 01/06/18 - Allergies Allergies/Adverse Reactions: Allergies No Known Allergies Allergy (Verified 12/14/17 10:47) - Sleep Disorder Evaluation Hx of Sleep Apnea: Yes Do you snore loudly (louder than talking or can be heard through closed doors)?: Yes Do you often feel tired/ fatigued/ sleepy during daytime?: No Has anyone observed you stop breathing during sleep?: No History of Hypertension (for STOP score): Yes - was told had ANIYAH test doen in [facility]; refuses to accept it. STOP Results: Positive Advanced Directives - Advanced Directives Power of Heavy Duty Press Operator: No Living Will: No Advance Directives Information Provided: Yes Advance Directives on File: No DNR Order?:: No - MOLST See MOLST form: No Past Medical History - Past Medical Illness Medical History: Past Medical History (Last Updated 12/14/17 @ 10:56 by GRUPO Good) Cardiomyopathy, ischemic (Acute) I25.5 EF 40% Hyperlipidemia (Acute) E78.5 Essential hypertension (Acute) I10 Diabetes (Acute) E11.9 CAD (coronary artery disease) (Acute) I25.10 Stent to Circumflex 12/07/2017 Nicotine use disorder (Chronic) F17.200 - Past Surgical History Surgical History: Past Surgical History (Last Reviewed 12/14/17 @ 10:47 by Adriana Araiza) S/P coronary artery stent placement (Acute) Z95.5 Stent to Circumflex 12/07/2017 Surgical History: no surgical history - Family History Summary Family History: Family History (Last Updated 12/14/17 @ 10:48 by Adriana Araiza) Mother Heart disease Father CVA (cerebral vascular accident) Myocardial infarction Social History - Smoking History Smoking Status: Former smoker Years Smokin Packs Smoked per Day: 10 - <less than 10 cigarettes Hx Smoking Cessation Date: 2015 Hx Tobacco Use: Yes Hx Smoking Exposure: No - Alcohol Use Alcohol Usage: No - Substance Abuse Hx Substance Use: No - Occupation Occupation (List type of work in comments):: Employed Hours worked per day:: 10 - summer time 10 hours Returned to work on:: 01/10/18 - released to return. Social Environment - Current Living Arrangements Living Environment:: Spouse - significant other - Assistance Do you need any assistance at home?: none Review of Systems - Review of Systems Hints: Right click = Denies ([place]). Left click = Reports ([place]) Review of Present Symptoms: Reports: Appetite - Normal, Appetite - Special Diet - Cardiac-Diabetic Diet, Sleep - Normal - 7-8 hours a night. Denies: Shortness of Breath at Rest, Shortness of Breath with Exertion, Dizziness/Lightheadedness, Fatigue, Heart Arrhythmia/Irregularities, Sexual Changes - Pain Is Patient Pain Free?: No Pain Location: none Risk Factor Assessment - Vital Signs Temperature: 98.7 F Respiratory Rate: 16 Pulse Ox: 96 Blood Pressure: 118/74 Nailbeds:: Kathleen - Pulse Pulse Rate: 71 Pulse Rhythm: Regular - Diabetes Diabetic History: Type II - new onset DM diagnosed Nutrition Referral for Diabetes: Yes - Obesity Height: 6 ft Weight:: 227 lb 12.8 oz Weight in Pounds: 227.8 lbs Body Mass Index (BMI): 30.9 Nutritional Referral for Obesity: Yes - Physical Inactivity Physical Inactivity: Reg Exercise 30 min/day, Physically demanding job, Recreational activity - Square Dancing - Risk Stratification Risk Guidelines: Lowest Risk: Risk Factor for Smoking, Risk Factor for Dyslipidemia, Risk Factor for Hypertension, Risk Factor for Sedentary Lifestyle, Risk Factor for Depression, Highest Risk: Risk Factor for Diabetes, Risk Factor for Obesity - For Smoking Smoking Risk Guidelines: Smoking Low Risk: None or quit greater than 6 months ago. Smoking Moderate Risk: Smoker or quit 6 months or less ago. Smoking High Risk: Smoker - For Dyslipidemia Dyslipidemia Risk Guidelines: Low Risk: Moderate Risk: High Risk: 15-25% fat 25.1-29% fat >/= 30% fat. <7% sat fat 7-9% sat fat >9% sat fat. <150 mg chol 150-299 mg chol >/= 300 mg chol. LDL <100 LDL 100-129 LDL >/= 130. Chol/HDL ratio <5.0 Chol/HDL ratio 5.0-6.0 Chol/HDL ratio >6.0. Triglycerides <100 Triglycerides 100-149 Triglycerides >/= 150 - For Diabetes Mellitus Diabetes Risk Guidelines: Diabetes Low Risk: HgA1c <6.5% and/or FBG <120. Diabetes Moderate Risk: HgA1c 6.6-7.9% and/or FBG 120-180. Diabetes High Risk: HgA1c >/= 8% and/or FBG >180 - For Obesity/Overweight Obesity/Overweight Risk Guidelines: Obesity Low Risk: BMI <25.0. Obesity Moderate Risk: BMI 25-29.9. Obesity High Risk: BMI >/= 30.0 - For Hypertension Hypertension Risk Guidelines: Hypertension Low Risk: Systolic <120 and Diastolic <80. Hypertension Moderate Risk: Systolic 120-139 and Diastolic 80-89. Hypertension High Risk: Systolic >/= 140 and Diastolic >/= 90 - For Sedentary Lifestyle Sedentary Lifestyle Risk Guidelines: Sedentary Lifestyle Low Risk: >/= 1,500 kcal/week. Sedentary Lifestyle Moderate Risk: 700-1,499 kcal/week. Sedentary Lifestyle High Risk: < 700 kcal/week - For Depression Depression Risk Guidelines: Depression Low Risk: Not clinically depressed. Depression Moderate Risk: Mildly depressed. Depression High Risk: Clinically depressed - Family History Family History: Family History (Last Updated 12/14/17 @ 10:48 by Adriana Araiza) Mother Heart disease Father CVA (cerebral vascular accident) Myocardial infarction Motivation - Motivation to Participate On a scale of 1 to 10, how prepared are you to commit to attending program?: 10 - unable to do the program due to 10 hour work schedule/CR hours conflict What do you see as barriers to successfully being able to complete the program?: hours of the program/work schedule. Patient is interested in [employer]. Do you have a spouse or signficant other, family or friends who will help support you to complete the program?: yes
--- NOTE | 2018-01-06 11:00 | CR.HP_ITS ---
CR - History & Physical - General Arrival date:: 01/06/18 Arrival time:: 10:49 Date of Referral:: 12/07/17 Date of CR Evaluation:: 01/06/18 Referring Physician: Dr. Uriel Grubbs for Dr. Reilly Mansfield Primary Diagnosis: STEMI w/PCI intervention and coronary stent - History of Present Cardiac Event Onset Date: Enter Onset Date of cardiac illnesses in Comment field below Acute Myocardial Infarction within 12 months:: Yes - STEMI 12/07/2017 PTCA or coronary stenting:: Yes - 12/07/2017 Type of Symptoms:: diaphoretic, sweating profusely, dioriented/confusion. Interventions with present event:: immediate cath and stented within an hour. Were there any complications?: low blood pressure after procedure; adjusted medications - Medications Home Medications: Ambulatory Orders Medication Instructions Recorded Aspirin E.C. [Ecotrin] 81 mg PO DAILY@0800 #30 tab 12/09/17 Atorvastatin Calcium [Lipitor] 80 mg PO QHS #30 tab 12/09/17 Ticagrelor [Brilinta] 90 mg PO BID #60 tab 12/09/17 insulin detemir (U-100) 100 13 unit SC QHS #1 ml 12/14/17 unit/mL (3 mL) subcutaneous pen furosemide 20 mg tablet 20 mg PO QDAY #30 tab 12/16/17 Metformin HCl [Metformin HCl ER] 1,000 mg PO 01/06/18 - Allergies Allergies/Adverse Reactions: Allergies No Known Allergies Allergy (Verified 12/14/17 10:47) - Sleep Disorder Evaluation Hx of Sleep Apnea: Yes Do you snore loudly (louder than talking or can be heard through closed doors)? : Yes Do you often feel tired/ fatigued/ sleepy during daytime?: No Has anyone observed you stop breathing during sleep?: No History of Hypertension (for STOP score): Yes - was told had ANIYAH test doen in [facility] 6; refuses to accept it. STOP Results: Positive Advanced Directives - Advanced Directives Power of Vegetable Tier: No Living Will: No Advance Directives Information Provided: Yes Advance Directives on File: No DNR Order?:: No - MOLST See MOLST form: No Past Medical History - Past Medical Illness Medical History: Past Medical History (Last Updated 12/14/17 @ 10:56 by GRUPO Good) Cardiomyopathy, ischemic (Acute) I25.5 EF 40% Hyperlipidemia (Acute) E78.5 Essential hypertension (Acute) I10 Diabetes (Acute) E11.9 CAD (coronary artery disease) (Acute) I25.10 Stent to Circumflex 12/07/2017 Nicotine use disorder (Chronic) F17.200 - Past Surgical History Surgical History: Past Surgical History (Last Reviewed 12/14/17 @ 10:47 by Adriana Araiza) S/P coronary artery stent placement (Acute) Z95.5 Stent to Circumflex 12/07/2017 Surgical History: no surgical history - Family History Summary Family History: Family History (Last Updated 12/14/17 @ 10:48 by Adriaan Araiza) Mother Heart disease Father CVA (cerebral vascular accident) Myocardial infarction Social History - Smoking History Smoking Status: Former smoker Years Smokin Packs Smoked per Day: 10 - <less than 10 cigarettes Hx Smoking Cessation Date: 2015 Hx Tobacco Use: Yes Hx Smoking Exposure: No - Alcohol Use Alcohol Usage: No - Substance Abuse Hx Substance Use: No - Occupation Occupation (List type of work in comments):: Employed Hours worked per day:: 10 - summer time 10 hours Returned to work on:: 01/10/18 - released to return. Social Environment - Current Living Arrangements Living Environment:: Spouse - significant other - Assistance Do you need any assistance at home?: none Review of Systems - Review of Systems Hints: Right click = Denies (Slash). Left click = Reports ([place]) Review of Present Symptoms: Reports: Appetite - Normal, Appetite - Special Diet - Cardiac-Diabetic Diet, Sleep - Normal - 7-8 hours a night. Denies: Shortness of Breath at Rest, Shortness of Breath with Exertion, Dizziness/Lightheadedness , Fatigue, Heart Arrhythmia/Irregularities, Sexual Changes - Pain Is Patient Pain Free?: No Pain Location: none Risk Factor Assessment - Vital Signs Temperature: 98.7 F Respiratory Rate: 16 Pulse Ox: 96 Blood Pressure: 118/74 Nailbeds:: [place] - Pulse Pulse Rate: 71 Pulse Rhythm: Regular - Diabetes Diabetic History: Type II - new onset DM diagnosed Nutrition Referral for Diabetes: Yes - Obesity Height: 6 ft Weight:: 227 lb 12.8 oz Weight in Pounds: 227.8 lbs Body Mass Index (BMI): 30.9 Nutritional Referral for Obesity: Yes - Physical Inactivity Physical Inactivity: Reg Exercise 30 min/day, Physically demanding job, Recreational activity - Square Dancing - Risk Stratification Risk Guidelines: Lowest Risk: Risk Factor for Smoking, Risk Factor for Dyslipidemia, Risk Factor for Hypertension, Risk Factor for Sedentary Lifestyle , Risk Factor for Depression, Highest Risk: Risk Factor for Diabetes, Risk Factor for Obesity - For Smoking Smoking Risk Guidelines: Smoking Low Risk: None or quit greater than 6 months ago. Smoking Moderate Risk: Smoker or quit 6 months or less ago. Smoking High Risk: Smoker - For Dyslipidemia Dyslipidemia Risk Guidelines: Low Risk: Moderate Risk: High Risk: 15-25% fat 25.1-29% fat >/= 30% fat. <7% sat fat 7-9% sat fat >9% sat fat. <150 mg chol 150-299 mg chol >/= 300 mg chol. LDL <100 LDL 100-129 LDL >/= 130. Chol/HDL ratio <5.0 Chol/HDL ratio 5.0-6.0 Chol/HDL ratio >6.0. Triglycerides <100 Triglycerides 100-149 Triglycerides >/= 150 - For Diabetes Mellitus Diabetes Risk Guidelines: Diabetes Low Risk: HgA1c <6.5% and/or FBG <120. Diabetes Moderate Risk: HgA1c 6.6-7.9% and/or FBG 120-180. Diabetes High Risk: HgA1c >/= 8% and/or FBG >180 - For Obesity/Overweight Obesity/Overweight Risk Guidelines: Obesity Low Risk: BMI <25.0. Obesity Moderate Risk: BMI 25-29.9. Obesity High Risk: BMI >/= 30.0 - For Hypertension Hypertension Risk Guidelines: Hypertension Low Risk: Systolic <120 and Diastolic <80. Hypertension Moderate Risk: Systolic 120-139 and Diastolic 80-89. Hypertension High Risk: Systolic >/= 140 and Diastolic >/= 90 - For Sedentary Lifestyle Sedentary Lifestyle Risk Guidelines: Sedentary Lifestyle Low Risk: >/= 1 ,500 kcal/week. Sedentary Lifestyle Moderate Risk: 700-1,499 kcal/week. Sedentary Lifestyle High Risk: < 700 kcal/week - For Depression Depression Risk Guidelines: Depression Low Risk: Not clinically depressed. Depression Moderate Risk: Mildly depressed. Depression High Risk: Clinically depressed - Family History Family History: Family History (Last Updated 12/14/17 @ 10:48 by Adriana Araiza) Mother Heart disease Father CVA (cerebral vascular accident) Myocardial infarction Motivation - Motivation to Participate On a scale of 1 to 10, how prepared are you to commit to attending program?: 10 - unable to do the program due to 10 hour work schedule/CR hours conflict What do you see as barriers to successfully being able to complete the program? : hours of the program/work schedule. Patient is interested in [facility]. Do you have a spouse or signficant other, family or friends who will help support you to complete the program?: yes
[2018-01-06 11:42] VITALS: BP 118/74; PULSE 71; RESP 16; TEMP 37.1; O2SAT 96; BMI 30.9
== END 2018-01-06 23:59 ==
LOC: DC 11:28
PROVIDERS: Visit Provider Family Medicine
DX: E11.8 Type 2 diabetes mellitus with unspecified complications (principal); Z79.4 Long term (current) use of insulin
CPT/HCPCS: 97802

== ENCOUNTER → 2018-01-06 10:43 | Outpatient (CLI) | payer OTHER, SELFPAY | PROVIDERS: Visit Provider Internal Medicine Cardiovascular Disease | DX: E11.8 Type 2 diabetes mellitus with unspecified complications (principal); Z79.4 Long term (current) use of insulin ==

== ENCOUNTER 2018-01-25 14:00 | Outpatient (RCR) | payer OTHER, SELFPAY ==
[2018-01-07 01:21] VITALS: BP 118/74; PULSE 71; RESP 16; TEMP 37.1; O2SAT 96
== END 2018-02-05 23:59 ==
LOC: DC 14:00
PROVIDERS: PCP Family Medicine; Visit Provider Family Medicine
DX: E11.8 Type 2 diabetes mellitus with unspecified complications (principal); Z79.4 Long term (current) use of insulin; Z71.3 Dietary counseling and surveillance
CPT/HCPCS: 97803; G0108

== ENCOUNTER 2018-02-22 17:00 | Outpatient (RCR) | payer OTHER, SELFPAY ==
[2018-02-06 01:05] VITALS: BP 118/74; PULSE 71; RESP 16; TEMP 37.1; O2SAT 96
== END 2018-03-08 23:59 ==
LOC: DC 17:00
PROVIDERS: PCP Family Medicine; Visit Provider Family Medicine
DX: E11.8 Type 2 diabetes mellitus with unspecified complications (principal); Z79.4 Long term (current) use of insulin; Z71.3 Dietary counseling and surveillance
CPT/HCPCS: 97803; G0109

== ENCOUNTER → 2018-03-11 08:56 | Outpatient (CLI) | payer OTHER, SELFPAY ==
--- NOTE | 2018-03-11 08:58 | ECHOCS_ITS ---
Reason For Study: CAD Procedure This was a 2D Doppler, Color Flow transthoracic echocardiogram. Exam performed in department. Left Ventricle Normal size and thickness. The estimated ejection fraction is 40 %. There are regional wall motion abnormalities as specified. Posterior-Basal: Mildly hypokinetic. Infero-Basal: Mildly hypokinetic. Mid-Posterior: Mildly hypokinetic. Right Ventricle Normal size and thickness. Normal systolic function. Atria The left atrium is mildly enlarged. Normal right atrium. Normal atrial septum. Mitral Valve The mitral valve is structurally normal. No prolapse or stenosis seen. Trivial mitral valve insufficiency. Tricuspid Valve Normal tricuspid valve. Trivial tricuspid valve insufficiency. Right ventricular systolic pressure estimated to be 38 mmHg. Mild pulmonary hypertension. Aortic Valve Normal aortic valve. Trisinus/trileaflet aortic valve. Pulmonic Valve Normal pulmonic valve. Great Vessels Normal aortic root. Normal arch. Normal inferior vena cava. Inferior vena cava collapse with sniff. Pericardium/Pleural No pericardial effusion. Medication 22 gauge I.V. with prn adaptor inserted into right arm. Diluted definity 5ml given slow IV push to enhance endocardial definition. MMode/2D Measurements & Calculations LVIDd: 4.7 cm IVSd: 1.0 cm Ao root diam: 2.9 cm LVIDs: 3.8 cm LVPWd: 1.0 cm LA dimension: 4.3 cm RVDd: 3.1 cm FS: 18.2 % LAV(MOD-bp): 62.5 ml LVAd ap4: 38.7 cm2 EDV(MOD-sp2): 106.5 ml LAV(MOD-bp) Indexed: 27.7 ml/m2 EDV(MOD-sp4): 133.4 ml EF(MOD-sp2): 37.8 % LAV(MOD-sp2): 63.1 ml EDV(sp4-el): 144.4 ml LAV(MOD-sp4): 59.9 ml LVAs ap4: 25.9 cm2 ESV(MOD-sp4): 74.6 ml ESV(sp4-el): 76.6 ml EF(MOD-sp4): 44.1 % EF(sp4-el): 47.0 % SV(MOD-sp4): 58.9 ml SV(MOD-sp2): 40.3 ml SV(sp4-el): 67.8 ml LA A4 area: 21.2 cm2 RA A4 area: 13.6 cm2 Time Measurements MV dec time: 0.19 sec Doppler Measurements & Calculations MV E max vinod: 96.3 cm/sec Lat Peak E' Vinod: 7.9 cm/sec Med Peak E' Vinod: 7.1 cm/sec MV A max vinod: 31.7 cm/sec E/E' lat: 12.2 E/E' med: 13.6 MV E/A: 3.0 Ao V2 max: 111.4 cm/sec LV V1 max: 89.4 cm/sec PA V2 max: 73.8 cm/sec Ao max P.0 mmHg LV V1 max P.2 mmHg TR max vinod: 286.3 cm/sec TR max P.8 mmHg Interpretation Summary The estimated ejection fraction is 40 %. There are regional wall motion abnormalities as specified. The left atrium is mildly enlarged. Trivial mitral valve insufficiency. Right ventricular systolic pressure estimated to be 38 mmHg. Mild pulmonary hypertension. Compared to echo report dated 12/07/2017, no appreciable changes noted. The study was technically difficult. Contrast injection was performed. Ordering Physician: Cassandra Snyder/Reilly Mansfield Referring Physician: Cassandra Snyder Performed By: Jacque Daly, SILVERIO, RVT
== END ==
PROVIDERS: PCP Family Medicine; Visit Provider Physician Assistant Medical
DX: I25.10 Atherosclerotic heart disease of native coronary artery without angina pectoris (principal); I25.5 Ischemic cardiomyopathy; I10 Essential (primary) hypertension
CPT/HCPCS: 93306; Q9957; A4216; C8929

== ENCOUNTER 2018-03-29 08:52 | Outpatient (RCR) | payer OTHER, SELFPAY ==
[2018-03-09 01:02] VITALS: BP 118/74; PULSE 71; RESP 16; TEMP 37.1; O2SAT 96
== END 2018-04-08 23:59 ==
LOC: DC 08:52
PROVIDERS: PCP Family Medicine; Visit Provider Family Medicine
DX: E11.8 Type 2 diabetes mellitus with unspecified complications (principal); Z79.4 Long term (current) use of insulin; Z71.3 Dietary counseling and surveillance
CPT/HCPCS: 97803

== ENCOUNTER 2018-04-14 11:55 | Outpatient (RCR) | payer OTHER, SELFPAY ==
[2018-04-09 01:08] VITALS: BP 118/74; PULSE 71; RESP 16; TEMP 37.1; O2SAT 96
== END 2018-05-08 23:59 ==
LOC: DC 11:55
PROVIDERS: PCP Family Medicine; Visit Provider Family Medicine
DX: E11.8 Type 2 diabetes mellitus with unspecified complications (principal); Z79.4 Long term (current) use of insulin; Z71.3 Dietary counseling and surveillance
CPT/HCPCS: G0109

== ENCOUNTER 2018-05-12 08:36 | Outpatient (RCR) | payer OTHER, SELFPAY ==
[2018-05-09 00:53] VITALS: BP 118/74; PULSE 71; RESP 16; TEMP 37.1; O2SAT 96
== END 2018-06-08 23:59 ==
LOC: DC 08:36
PROVIDERS: PCP Family Medicine; Visit Provider Family Medicine
DX: E11.8 Type 2 diabetes mellitus with unspecified complications (principal); Z79.4 Long term (current) use of insulin; Z71.3 Dietary counseling and surveillance
CPT/HCPCS: G0109

== ENCOUNTER 2018-06-15 09:56 | Outpatient (RCR) | payer OTHER, SELFPAY ==
[2018-06-09 00:56] VITALS: BP 118/74; PULSE 71; RESP 16; TEMP 37.1; O2SAT 96
== END 2018-07-08 23:59 ==
LOC: DC 09:56
PROVIDERS: PCP Family Medicine; Visit Provider Family Medicine
DX: E11.8 Type 2 diabetes mellitus with unspecified complications (principal); Z79.4 Long term (current) use of insulin; Z71.3 Dietary counseling and surveillance
CPT/HCPCS: G0109

== ENCOUNTER 2018-07-21 15:58 | Outpatient (RCR) | payer OTHER, SELFPAY ==
[2018-03-18 09:09] VITALS: BMI 31.7
[2018-07-09 00:55] VITALS: BP 118/74; PULSE 71; RESP 16; TEMP 37.1; O2SAT 96
== END 2018-08-08 23:59 ==
LOC: DC 15:58
PROVIDERS: PCP Family Medicine; Visit Provider Family Medicine
DX: E11.8 Type 2 diabetes mellitus with unspecified complications (principal); Z79.4 Long term (current) use of insulin; Z71.3 Dietary counseling and surveillance
CPT/HCPCS: 97803

== ENCOUNTER 2018-09-22 09:18 | Outpatient (RCR) | payer OTHER, SELFPAY ==
[2018-03-18 09:09] VITALS: BMI 31.7
[2018-08-09 00:44] VITALS: BP 118/74; PULSE 71; RESP 16; TEMP 37.1; O2SAT 96
== END 2018-10-06 23:59 ==
LOC: DC 09:18
PROVIDERS: PCP Family Medicine; Visit Provider Family Medicine
DX: E11.8 Type 2 diabetes mellitus with unspecified complications (principal); Z79.4 Long term (current) use of insulin; Z71.3 Dietary counseling and surveillance
CPT/HCPCS: 97803

== ENCOUNTER 2018-11-21 20:30 | Emergency (ER) | payer OTHER, SELFPAY ==
[2018-10-14 14:41] VITALS: BMI 30.7
[2018-11-21 20:32] VITALS: BP 148/100; PULSE 72; RESP 18; TEMP 36.6; O2SAT 98; BMI 29.5
--- NOTE | 2018-11-21 22:11 | ED.VISSUMM ---
- ER Visit Summary Date of Service: 11/21/18 Chief Complaint: Umbilical hernia History of Present Illness: The patient is a 53 M presenting with abdominal pain. Patient states he has an umbilical hernia that he has had for several years. Today he was leaning against a counter and his hernia came out. He was unable to reduce it for the next few hours. He states he then had 2 hours when it was reduced and felt comfortable. It then came out again. He states it was out for an additional 2 hours. On arrival to the ED his hernia is now reduced. Physical Examination: Vitals are stable. Patient is afebrile. Alert no acute distress. HEENT exam is unremarkable. Neck is supple. Lungs are clear and equal bilaterally. Heart is regular rate and rhythm. Abdomen is soft nontender nondistended. Reducible umbilical hernia Extremities are unremarkable. Skin is warm and dry. No focal neurologic deficit. Remainder of exam is unremarkable. Emergency Department Course and Treatment: Patient is pain-free and his hernia is reducible. Discussed with Dr. Casillas and she will see him in the office tomorrow at 2 PM. Patient is comfortable with this plan. Advised return to ED if worsening complaints. Disposition: Discharge home Impression: Umbilical hernia, reducible This note was generated with [employer] dictation software. It may contain incorrect words, spelling, and punctuation that were not noted in review of the chart prior to signing ED Disposition - Plan for ED Patient: Disposition: Home or Assisted Living Instructions: What Is a Hernia? Referrals: Dario Blank MD [Primary Care Provider] - Corazon Casillas MD [STAFF PHYSICIAN] - Additional Instructions: Follow up with Dr Casillas tomorrow at 2pm.
[2018-11-21 22:22] VITALS: BP 127/79; PULSE 68; RESP 17; O2SAT 95
== END 2018-11-21 22:23 | disposition home or self-care (01) ==
PROVIDERS: Emergency Provider Emergency Medicine; Family Provider Family Medicine; PCP Family Medicine
DX: K42.9 Umbilical hernia without obstruction or gangrene (principal); I25.10 Atherosclerotic heart disease of native coronary artery without angina pectoris; E11.9 Type 2 diabetes mellitus without complications; Z79.4 Long term (current) use of insulin; Z79.84 Long term (current) use of oral hypoglycemic drugs; Z79.82 Long term (current) use of aspirin; Z79.899 Other long term (current) drug therapy
CPT/HCPCS: 99283

== ENCOUNTER 2018-11-24 15:38 | Outpatient (RCR) | payer OTHER, SELFPAY ==
[2018-03-18 09:09] VITALS: BMI 31.7
[2018-10-07 00:18] VITALS: BP 118/74; PULSE 71; RESP 16; TEMP 37.1; O2SAT 96
== END 2018-12-06 23:59 ==
LOC: DC 15:38
PROVIDERS: Family Provider Family Medicine; PCP Family Medicine; Visit Provider Family Medicine
DX: E11.8 Type 2 diabetes mellitus with unspecified complications (principal); Z79.4 Long term (current) use of insulin; Z71.3 Dietary counseling and surveillance
CPT/HCPCS: 97803

== ENCOUNTER → 2018-11-29 10:24 | Outpatient (CLI) | payer OTHER, SELFPAY ==
[2018-11-21 20:32] VITALS: BMI 29.5
--- NOTE | 2018-11-29 10:34 | STEWCON_ITS ---
Reason For Study: CAD/ASHD, PRE-OP Stress Results Protocol: Dobutamine Stress Echocardiogram Maximum Predicted HR: 165 bpm Target HR: 140 bpm % Maximum Predicted HR: 88 % Heart Stage Duration Rate BP Dose Comment (mm:ss) (bpm) BASELINE 71 116/79 RARE ISOLATED PVC DSE- 10 MCG 3:41 75 125/6010.00RARE PVC DSE- 20 MCG 3:06 125 139/7420.00RARE PVCS, RARE VENTRICULAR COUPLETS DSE- 30 RARE PVCS, RARE VENTRICULAR COUPLETS, ONE VENTRICULAR MCG 3:42 146 149/9530.00TRIPLET. NO CP RECOVERY 88 125/63 Stress Duration: 10:29 mm:ss Maximum Stress HR: 146 bpm Baseline Echocardiogram Findings The estimated ejection fraction is 45 %. Stress Echo Wall motion Data Resting WM Intermediate WM Stress WM Resting Wall Motion Wall Motion Stress Posterior-Basal: Mildly All ordoñez contracted normally. hypokinetic. Infero-Basal: Mildly hypokinetic. Mid-Lateral : Mildly hypokinetic. EKG Data The baseline ECG displays normal sinus rhythm. The patient was titrated from 10 mcg to a maximun of 30 mcg of dobutamine during the stress. The maximum heart rate attained was 146 beats per minute. This was 88% of maximum predicted heart rate. During dobutamine infusion, there were no ST or T wave changes noted to suggest ischemia. No clinical angina was noted. Interpretation Summary The estimated ejection fraction is 45 %. Normal, adequate, dobutamine echocardiogram. The patient at baseline inferior lateral hypokinesis, which appeared to augment well at peak infusion. All other ordoñez contract normally. No anginal symptoms noted. Rare PVC noted. Appropriate blood pressure response to dobutamine. Test terminated due to attainment of target heart rate. Final LVEF of 65%. Ordering Physician: Donal^Reilly^^^ Referring Physician: Reilly Mansfield Performed By:
== END ==
PROVIDERS: Family Provider Family Medicine; PCP Family Medicine; Referring Provider Internal Medicine Cardiovascular Disease; Visit Provider Internal Medicine Cardiovascular Disease
DX: Z01.818 Encounter for other preprocedural examination (principal); I25.10 Atherosclerotic heart disease of native coronary artery without angina pectoris; I25.2 Old myocardial infarction; I25.5 Ischemic cardiomyopathy; Z95.5 Presence of coronary angioplasty implant and graft
CPT/HCPCS: 93017; 93350; J7040; A4216

== ENCOUNTER 2018-12-22 16:40 | Outpatient (RCR) | payer OTHER, SELFPAY ==
[2018-12-07 00:22] VITALS: BP 118/74; PULSE 71; RESP 16; TEMP 37.1; O2SAT 96
== END 2019-01-06 23:59 ==
LOC: DC 16:40
PROVIDERS: Family Provider Family Medicine; PCP Family Medicine; Visit Provider Family Medicine
DX: E11.8 Type 2 diabetes mellitus with unspecified complications (principal); Z79.4 Long term (current) use of insulin; Z71.3 Dietary counseling and surveillance
CPT/HCPCS: 97803

== ENCOUNTER → 2019-06-06 13:40 | Outpatient (CLI) | payer OTHER, SELFPAY ==
[2019-06-01 15:27] VITALS: BMI 30.5
--- NOTE | 2019-06-06 13:42 | ART_ITS ---
Reason For Study: Decreased pedal pulses Procedure A bilateral lower extremity continuous wave Doppler with analog waveform analysis,segmental pressures,and ankle brachial indexes without exercise. Left Segmental Pressures Left brachial= 104mmHg. Left posterior tibial artery = 119mmHg. Left dorsalis pedis artery = 120mmHg. Left digit = 107 mmHg. The left dorsalis pedis waveforms are triphasic. The left posterior tibial artery waveforms are triphasic. Right Segmental Pressures Right brachial= 108mmHg. Right posterior tibial artery = 118mmHg. Right dorsalis pedis artery = 119mmHg. Right digit = 86 mmHg. The right dorsalis pedis waveforms are triphasic. The right posterior tibial artery waveforms are triphasic. Indices The right ankle brachial index by the dorsalis pedis is 1.10. The right ankle brachial index by the posterior tibial artery is 1.09. The right digital-brachial index is 0.80. The left ankle brachial index by the dorsalis pedis is 1.11. The left ankle brachial index by the posterior tibial artery is 1.10. The left digital-brachial index is 0.99. Interpretation Summary Resting ankle-brachial indices appear bilaterally normal. Ordering Physician: Cassandra Snyder Referring Physician: Manuel Blank Performed By: Vicky Zhu RVT
== END ==
PROVIDERS: Family Provider Family Medicine; PCP Family Medicine; Referring Provider Physician Assistant Medical; Visit Provider Physician Assistant Medical
DX: I25.10 Atherosclerotic heart disease of native coronary artery without angina pectoris (principal); I73.9 Peripheral vascular disease, unspecified; I10 Essential (primary) hypertension; E78.00 Pure hypercholesterolemia, unspecified
CPT/HCPCS: 93923

== ENCOUNTER → 2019-12-16 09:44 | Outpatient (CLI) | payer OTHER, SELFPAY ==
[2019-12-15 10:07] VITALS: BMI 29.7
[2019-12-16 10:57] LABS: AST(SGOT) 19 U/L (15-37); Alanine Aminotransfer ALT/SGPT 29 U/L (16-61); Albumin, Serum 3.8 g/dL (3.2-5.0); Alkaline Phosphatase 86 U/L (45-117); Bilirubin, Direct 0.15 mg/dL (0.00-0.30); Cholesterol 195 mg/dL (200); Globulin 3.1 g/dL (2.2-4.2); High Density Lipoprotein 42 mg/dL; Protein, Total 6.9 g/dL (6.4-8.2); Triglycerides 115 mg/dL; Very Low Density Lipoprotein 23 mg/dL (5-40)
== END ==
PROVIDERS: PCP Family Medicine; Referring Provider Internal Medicine Cardiovascular Disease; Visit Provider Internal Medicine Cardiovascular Disease
DX: I25.10 Atherosclerotic heart disease of native coronary artery without angina pectoris (principal); E78.5 Hyperlipidemia, unspecified
CPT/HCPCS: 36415; 80061; 80076

== ENCOUNTER 2020-04-13 12:50 | Emergency (ER) | payer OTHER, SELFPAY ==
[2019-12-15 10:07] VITALS: BMI 29.7
[2020-04-13 12:52] VITALS: BP 160/101; PULSE 63; RESP 18; TEMP 36.3; O2SAT 99; BMI 30.6
--- NOTE | 2020-04-13 13:04 | ED.VIS.GEN ---
History of Present Illness Informant: Patient Onset: Today Current Severity: Moderate Narrative: 54-year-old male with PMH HTN, HLD, DM 2, ME status post stents presents with complaints of right shoulder pain that started upon awakening this morning. No known injury. States sometimes his shoulders will hurt in the morning but it is never felt like this. His shoulder has limited range of motion due to pain. This morning when the pain was severe he had transient nausea and diaphoresis. Denies chest pain tightness of breath and states this does not feel like his previous ME. His fevers, chills, cough, neck pain, radicular pain, numbness, or tingling. <Cammie Cotter - Last Filed: 04/13/20 15:23> <Sandra Fernández - Last Filed: 04/13/20 16:52> Chief Complaint: Upper Extremity Injury Past Medical History Past Medical History: - - ME s/p stents Surgical History: no surgical history Smoking Status: Former smoker - Family History Maternal Family History: Family History (Last Reviewed 12/15/19 @ 10:10 by Natalie Roth) Mother Heart disease Father CVA (cerebral vascular accident) Myocardial infarction Family History: Reports: COPD Paternal Family History: Family History (Last Reviewed 12/15/19 @ 10:10 by Natalie Roth) Mother Heart disease Father CVA (cerebral vascular accident) Myocardial infarction Family History: Reports: No pertinent history <Cammie Cotter - Last Filed: 04/13/20 15:23> - Family History Maternal Family History: Family History (Last Reviewed 12/15/19 @ 10:10 by Natalie Roth) Mother Heart disease Father CVA (cerebral vascular accident) Myocardial infarction Paternal Family History: Family History (Last Reviewed 12/15/19 @ 10:10 by Natalie Roth) Mother Heart disease Father CVA (cerebral vascular accident) Myocardial infarction <Sandra Fernández - Last Filed: 04/13/20 16:52> - Allergies and Home Meds Allergies/Adverse Reactions: Allergies losartan Adverse Reaction (Intermediate, Verified 04/13/20 12:54) myalgias lisinopril Adverse Reaction (Verified 04/13/20 12:54) cough Primary Care Physician: Dario Blank MD [Primary Care Provider] - Review of Systems General: Denies: Chills, Fever, Sweats Eyes: Denies: Visual changes - bilaterally, Diplopia ENT: Denies: Rhinorrhea, Sore throat Cardiovascular: Denies: Chest pain, Palpitations Respiratory: Denies: Dyspnea, Cough, Dyspnea on exertion Gastrointestinal: Denies: Abdominal pain, Nausea, Vomiting, Diarrhea, Melena, Hematochezia Genitourinary: Denies: Dysuria, Hematuria, Frequency Musculoskeletal: Reports: - - Shoulder pain. Denies: Back pain Skin: Denies: Rash, Wounds Neurological: Denies: Headache, Weakness, Numbness <Cammie Cotter - Last Filed: 04/13/20 15:23> Physical Exam Vital Signs/Narrative: Vital Signs Temp Pulse Resp BP Pulse Ox 04/13/20 12:52 97.4 F L 63 18 160/101 H 99 Inital Vital Signs reviewed: Yes General: Well nourished, Well developed, No Acute Distress Head: Normocephalic, Atraumatic Eyes: EOMI ENT: Moist mucous membranes, No rhinorrhea Neck: Supple, Nontender Cardiovascular: Regular rate, Regular rhythm, No murmurs Respiratory: No distress, CTA bilaterally, Chest nontender Back: Nontender, Normal Inspection Extremities: No edema, - - Normal inspection of both shoulders. Tender to palpation over anterior shoulder and pain with any range of motion. Passive range of motion intact to 90 degrees with flexion and abduction. 2+ radial pulses. Strength and sensation intact. Skin: Normal color, No rash Neurological: Alert, Oriented x3, Cranial nerves II-XII grossly intact, Normal Strength, Normal Sensation Psychological: Normal affect, Normal Mood <Cammie Cotter - Last Filed: 04/13/20 15:23> Vital Signs/Narrative: Vital Signs Temp Pulse Resp BP Pulse Ox 04/13/20 15:30 51 L 16 120/83 H 96 04/13/20 12:52 97.4 F L 63 18 160/101 H 99 <Sandra Fernández - Last Filed: 04/13/20 16:52> Diagnostic/Tx/Re-eval Clinical Impression(s) from Imaging Studies Shoulder X-Ray 04/13/20 13:29 IMPRESSION: Chronic moderate degenerative joint disease. Electronically Signed: Javed Fairbanks, at 14:02 EDT Tel , Service support , - Medical Decision Making Patient presented with acute right shoulder pain with no trauma. He is neurovascularly intact on exam. His shoulder pain is very reproducible with palpation and movement of the right upper extremity. He has no chest pain or cardiac symptoms and I have no suspicion for ACS. Patient was given morphine and on reassessment had decreased pain and improved ROM. X-ray shows chronic degenerative changes but no acute process. Patient has an orthopedist that he can follow-up with. I recommended ice, tylenol (he states he cannot take NSAIDs), and gentle range of motion. He was also given a short prescription of prednisone and advised that this will raise his blood sugars. His last A1c was 6.0 and he states he has been on steroid burst before with minimal issues. Patient was agreeable with this plan and discharged home in stable condition. <Cammie Cotter - Last Filed: 04/13/20 15:23> - Medical Decision Making Patient evaluated independently and in conjunction with physician project construction assistant manager. Agree with note above unless documented otherwise. Patient has significant pain with decreased range of motion of his shoulder. Initially he is not moving his arm but it all seems to be purely muscle skeletal no associated with his shoulder pain. He actively fights passive range of motion and does have strength and sensation of his arm. I do not think this is a neurovascular process. With pain control he does have increased range of motion. X-ray obtained which shows degenerative changes. Patient be given steroids and orthopedic follow-up. Exam is limited secondary to his pain and decreased ability to cooperate with exam. <Sandra Fernández - Last Filed: 04/13/20 16:52> ED Disposition <Cammie Cotter - Last Filed: 04/13/20 15:23> <Sandra Fernández - Last Filed: 04/13/20 16:52> - Plan for ED Patient: Disposition: Home or Assisted Living Diagnosis: Right anterior shoulder pain, Osteoarthritis Instructions: ED Shoulder Pain Uncertain Cause Prescriptions: Prednisone 20 mg PO DAILY 5 Days #5 tab Prescription Printed Referrals: Dario Blank MD [Primary Care Provider] -
--- NOTE | 2020-04-13 13:29 | RAD_ITS ---
STUDY: X-RAY - RIGHT SHOULDER REASON FOR EXAM: Male, 54 years old. no injury, woke up with right shoulder pain, hasn''t gone away all day TECHNIQUE: 4 view(s) of the shoulder. COMPARISON: None. FINDINGS: Normal glenohumeral articulation. Normal acromioclavicular joint. Normal acromion. There are moderate degenerative changes in the glenohumeral compartment. Normal humeral head and visualized proximal humerus. The soft tissue structures are unremarkable. Normal visualized pulmonary apex. RAD/Shoulder min 2 Views IMPRESSION: Chronic moderate degenerative joint disease. Electronically Signed: Javed Fairbanks, at 14:02 EDT Tel , Service support ,
[2020-04-13] MEDS: Morphine 4 MG/ML Syringe IM ×2 (13:31→14:45)
[2020-04-13 15:30] VITALS: BP 120/83; PULSE 50; PULSE 51; RESP 16; O2SAT 96
== END 2020-04-13 15:32 | disposition home or self-care (01) ==
PROVIDERS: Emergency Provider Physician Assistant; PCP Family Medicine
DX: M19.011 Primary osteoarthritis, right shoulder (principal); I10 Essential (primary) hypertension; I25.2 Old myocardial infarction; E11.9 Type 2 diabetes mellitus without complications; E78.5 Hyperlipidemia, unspecified; Z95.5 Presence of coronary angioplasty implant and graft; Z79.4 Long term (current) use of insulin; Z79.899 Other long term (current) drug therapy; Z87.891 Personal history of nicotine dependence
CPT/HCPCS: 73030; 96372; 99282

== ENCOUNTER → 2021-01-31 07:51 | Outpatient (CLI) | payer OTHER, SELFPAY ==
[2021-01-24 08:33] VITALS: BMI 32.3
--- NOTE | 2021-01-31 07:52 | ECHOCS_ITS ---
Reason For Study: ISCH CMP Procedure This was a 2D Doppler, Color Flow transthoracic echocardiogram. The study was technically difficult. Contrast injection was performed. Exam performed in department. Left Ventricle Normal LV size. Mild segmental systolic dysfunction (see wall motion). The estimated ejection fraction is 40 %. No evidence for diastolic dysfunction. Lateral-Basal: Hypokinetic. Posterior- Basal: Hypokinetic. Infero-Basal: Hypokinetic. Mid-Anterior : Hypokinetic. Mid-Lateral : Hypokinetic. Mid-Inferior: Hypokinetic. Anterior [place] : Hypokinetic. Lateral [place] : Hypokinetic. Right Ventricle Normal RV size. Normal systolic function. Atria The left atrium is mildly enlarged. Normal right atrium. No doppler evidence for ASD. Mitral Valve There is no mitral annular calcification. Normal mitral valve. Mild (1+) mitral valve insufficiency. Tricuspid Valve Normal tricuspid valve. Trivial tricuspid valve insufficiency. Unable to estimate RV systolic pressure/pulmonary artery pressure due to technically difficult study. Aortic Valve Trisinus/trileaflet aortic valve. Normal aortic valve. Pulmonic Valve The pulmonic valve is not well visualized. Great Vessels The aortic root is not well visualized. Pericardium/Pleural No pericardial effusion. Medication Diluted definity 3ml given slow IV push to enhance endocardial definition. MMode/2D Measurements & Calculations LVIDd: 5.0 cm IVSd: 1.3 cm LA dimension: 4.2 cm LVIDs: 3.9 cm LVPWd: 1.1 cm FS: 20.9 % LAV(MOD-bp): 49.2 ml LA A4 area: 20.3 cm2 RA A4 area: 12.3 cm2 LAV(MOD-bp) Indexed: 21.5 ml/m2 LAV(MOD-sp2): 44.1 ml LAV(MOD-sp4): 54.1 ml Time Measurements MV dec time: 0.22 sec Doppler Measurements & Calculations MV E max vinod: 99.3 cm/sec Lat Peak E' Vinod: 10.6 cm/sec Med Peak E' Vinod: 8.5 cm/sec MV A max vinod: 70.2 cm/sec E/E' lat: 9.3 E/E' med: 11.7 MV E/A: 1.4 MV V2 max: 94.9 cm/sec MV P1/2t max vinod: 95.4 cm/sec Ao V2 max: 125.8 cm/sec MV max P.6 mmHg MV P1/2t: 125.8 msec Ao max P.3 mmHg MV V2 mean: 51.3 cm/sec MV dec slope: 222.2 cm/sec2 MV mean P.2 mmHg MV V2 VTI: 36.0 cm MVA(P1/2t): 1.7 cm2 LV V1 max: 94.5 cm/sec PA V2 max: 75.1 cm/sec LV V1 max P.6 mmHg ECHO/Echo Complete W/ Contrast Interpretation Summary The study was technically difficult. Contrast injection was performed. Mild segmental systolic dysfunction (see wall motion). The estimated ejection fraction is 40 %. The left atrium is mildly enlarged. Mild (1+) mitral valve insufficiency. Trivial tricuspid valve insufficiency. Unable to estimate RV systolic pressure/pulmonary artery pressure due to techni hugh difficult study. No evidence for diastolic dysfunction. Ordering Physician: Williams Noel Referring Physician: Manuel Blank Performed By: Darrell Sherman RCS
== END ==
PROVIDERS: PCP Family Medicine; Referring Provider Nurse Practitioner Family; Visit Provider Nurse Practitioner Family
DX: I25.5 Ischemic cardiomyopathy (principal); I25.10 Atherosclerotic heart disease of native coronary artery without angina pectoris; I10 Essential (primary) hypertension; Z95.5 Presence of coronary angioplasty implant and graft
CPT/HCPCS: 93306; Q9957; A4216; C8929; J3490

== ENCOUNTER → 2021-04-25 08:13 | Outpatient (CLI) | payer OTHER, SELFPAY ==
[2021-04-25 10:21] LABS: Vitamin B12 427 pg/mL (211-911); Vitamin D,25 Hydroxy 31.9 ng/mL
[2021-04-25 10:31] LABS: AST(SGOT) 17 U/L (15-37); Alanine Aminotransfer ALT/SGPT 37 U/L (16-61); Albumin, Serum 3.3 g/dL (3.2-5.0); Alkaline Phosphatase 99 U/L (45-117); Anion Gap 6 (5-15); BUN 18 mg/dL (7-18); Calcium,Total 8.8 mg/dL (8.5-10.1); Chloride 101 mmol/L (98-107); Cholesterol 119 mg/dL (200); Creatinine, Serum 0.95 mg/dL (0.70-1.30); EST Glomerular Filtration Rate 87 mL/min (>60); Est Glom Filt Rate - Afr Amer 105 mL/min (>60); Globulin 3.4 g/dL (2.2-4.2); Glucose 176 mg/dL (74-106); High Density Lipoprotein 40 mg/dL; Potassium 3.7 mmol/L (3.5-5.1); Protein, Total 6.7 g/dL (6.4-8.2); Sodium Level 138 mmol/L (136-145); Thyroid Stim Hormone (TSH) 1.66 uIU/mL (0.358-3.74); Triglycerides 90 mg/dL; Very Low Density Lipoprotein 18 mg/dL (5-40)
[2021-04-25 10:35] LABS: Microalbumin,Random Urine 12.4 mg/L (NO RANGE EST.); Microalbumin:Creatinine Ratio 7.3 mg/g CRE (<30 mg/g CRE)
== END ==
PROVIDERS: PCP Family Medicine; Referring Provider Nurse Practitioner Family; Visit Provider Nurse Practitioner Family
DX: E11.8 Type 2 diabetes mellitus with unspecified complications (principal)
CPT/HCPCS: 36415; 80053; 80061; 82043; 82306; 82570; 82607; 84443

== ENCOUNTER → 2022-01-30 | Outpatient (CLI) | payer OTHER, SELFPAY ==
--- NOTE | 2022-01-30 07:43 | ECHOCS_ITS ---
Reason For Study: S/P LA Procedure This was a 2D Doppler, Color Flow transthoracic echocardiogram. The study was technically difficult. Contrast injection was performed. Exam performed in department. Left Ventricle Normal LV size. Mild segmental systolic dysfunction (see wall motion). The estimated ejection fraction is 45 %. No evidence for diastolic dysfunction. Posterior-Basal: Hypokinetic. Infero-Basal: Hypokinetic. Mid-Anterior : Hypokinetic. Mid-Lateral : Hypokinetic. Mid-Posterior: Hypokinetic. Mid- Inferior: Hypokinetic. Anterior [place] : Hypokinetic. Inferior [place] : Hypokinetic. Right Ventricle Normal RV size. Normal systolic function. Atria The left atrium is mildly enlarged. Normal right atrium. No doppler evidence for ASD. Mitral Valve There is no mitral annular calcification. Normal mitral valve. Trivial mitral valve insufficiency. Tricuspid Valve Normal tricuspid valve. Trivial tricuspid valve insufficiency. Unable to estimate RV systolic pressure/pulmonary artery pressure due to technically difficult study. Aortic Valve The aortic valve is not well visualized. Pulmonic Valve The pulmonic valve is not well visualized. Great Vessels The aortic root is not well visualized. Pericardium/Pleural No pericardial effusion. Medication 22 gauge I.V. with prn adaptor inserted into right arm. Diluted definity 2ml given slow IV push to enhance endocardial definition. MMode/2D Measurements & Calculations LVIDd: 4.7 cm IVSd: 1.2 cm LAV(MOD-bp): 80.5 ml LVIDs: 3.6 cm LVPWd: 1.4 cm RVDd: 3.1 cm FS: 22.8 % LAV(MOD-bp) Indexed: 35.5 ml/m2 LAV(MOD-sp2): 86.7 ml LAV(MOD-sp4): 70.7 ml SV(MOD-sp4): 99.5 ml SV(sp4-el): 101.7 ml LVAd ap4: 40.9 cm2 LVLd ap4: 9.0 cm EDV(MOD-sp4): 153.6 ml EDV(sp4-el): 157.8 ml LVAs ap4: 21.7 cm2 LVLs ap4: 7.1 cm ESV(MOD-sp4): 54.1 ml ESV(sp4-el): 56.1 ml EF(MOD-sp4): 64.8 % EF(sp4-el): 64.4 % LA A4 area: 22.5 cm2 RA A4 area: 12.8 cm2 Doppler Measurements & Calculations MV E max vinod: 95.0 cm/sec Lat Peak E' Vinod: 8.4 cm/sec Med Peak E' Vinod: 6.2 cm/sec MV A max vinod: 82.3 cm/sec E/E' lat: 11.3 E/E' med: 15.3 MV E/A: 1.2 Ao V2 max: 126.3 cm/sec LV V1 max: 90.9 cm/sec Ao max P.4 mmHg LV V1 max P.3 mmHg ECHO/Echo Complete W/ Contrast Interpretation Summary The study was technically difficult. Contrast injection was performed. Mild segmental systolic dysfunction (see wall motion). The estimated ejection fraction is 45 %. The left atrium is mildly enlarged. Trivial mitral valve insufficiency. Trivial tricuspid valve insufficiency. Unable to estimate RV systolic pressure/pulmonary artery pressure due to techni hugh difficult study. No evidence for diastolic dysfunction. Ordering Physician: Uriel Grubbs Referring Physician: Uriel Grubbs Performed By: Dafne Carbajal RCS
== END | disposition home or self-care (01) ==
LOC: CVS 07:43
PROVIDERS: Referring Provider Internal Medicine Cardiovascular Disease; Visit Provider Internal Medicine Cardiovascular Disease
DX: I25.2 Old myocardial infarction (principal)
CPT/HCPCS: 93306; Q9957; A4216; C8929

== ENCOUNTER → 2022-05-01 | Outpatient (CLI) | payer OTHER, SELFPAY ==
[2022-05-01 12:22] LABS: Absolute Lymphocyte Count 2.74 X10^3/uL (0.83-4.51); Absolute Neutrophil Count 5.4 X10^3/uL (2.0-7.7); Basophil# 0.04 X10^3/uL; Basophil% 0.4 % (0-1); Eosinophil# 0.26 X10^3/uL; Eosinophils% 2.8 % (0-5); Hematocrit 45.5 % (40-54); Hemoglobin 14.8 g/dL (13.0-16.5); Lymphocyte # 2.74 X10^3/ul (0.83-4.51); Lymphocyte % 29.1 % (19-41); Mean Corp Hgb Conc 32.5 g/dL (32-36); Mean Corpuscular Hgb 28.6 pg (27.0-32.0); Monocyte# 0.96 X10^3/uL; Monocyte% 10.2 % (0-10); NRBC Flagged by Analyzer 0 % (0-5); Neutrophil # 5.37 X10^3/uL (2.7-7.7); Neutrophil % 57.2 % (47-70); Platelet Count 265 K/mm3 (150-450); RBC Distribution Width CV 12.9 % (11.6-14.6); RBC Distribution Width SD 41.8 fl (35.1-43.9); Red Blood Count 5.17 M/mm3 (4.6-6.2); White Blood Count 9.4 K/mm3 (4.4-11.0)
[2022-05-01 12:40] LABS: Vitamin D,25 Hydroxy 31.5 ng/mL
[2022-05-01 12:55] LABS: ALB/GLOB Ratio 1.1 RATIO (0.9-2.4); AST(SGOT) 18 U/L (15-37); Alanine Aminotransfer ALT/SGPT 33 U/L (16-61); Albumin, Serum 3.6 g/dL (3.2-5.0); Alkaline Phosphatase 90 U/L (45-117); Anion Gap 7 (5-15); BUN 15 mg/dL (7-18); Calcium,Total 9.1 mg/dL (8.5-10.1); Chloride 102 mmol/L (98-107); Cholesterol 111 mg/dL (200); Creatinine, Serum 0.88 mg/dL (0.70-1.30); EST Glomerular Filtration Rate 94 mL/min (>60); Est Glom Filt Rate - Afr Amer 114 mL/min (>60); Globulin 3.3 g/dL (2.2-4.2); Glucose 123 mg/dL (74-106); High Density Lipoprotein 41 mg/dL; PSA,Total - Annual Screen 0.56 ng/mL (0.00-4.00); Potassium 4.1 mmol/L (3.5-5.1); Protein, Total 6.9 g/dL (6.4-8.2); Sodium Level 139 mmol/L (136-145); Thyroid Stim Hormone (TSH) 1.69 uIU/mL (0.358-3.74); Triglycerides 118 mg/dL; Very Low Density Lipoprotein 24 mg/dL (5-40)
== END | disposition home or self-care (01) ==
LOC: BIMLAB 10:24
PROVIDERS: Referring Provider Internal Medicine; Visit Provider Internal Medicine
DX: I25.10 Atherosclerotic heart disease of native coronary artery without angina pectoris (principal); E11.8 Type 2 diabetes mellitus with unspecified complications; I10 Essential (primary) hypertension; E55.9 Vitamin D deficiency, unspecified; E78.00 Pure hypercholesterolemia, unspecified; E66.09 Other obesity due to excess calories; Z68.31 Body mass index [BMI] 31.0-31.9, adult; Z95.5 Presence of coronary angioplasty implant and graft; Z12.5 Encounter for screening for malignant neoplasm of prostate
CPT/HCPCS: 36415; 80053; 80061; 82306; 84153; 84443; 85025; G0103

== ENCOUNTER → 2022-06-25 | Outpatient (CLI) | payer OTHER, SELFPAY ==
[2022-06-25 17:45] LABS: Anion Gap 5 (5-15); BUN 20 mg/dL (7-18); Calcium,Total 9.1 mg/dL (8.5-10.1); Chloride 102 mmol/L (98-107); Creatinine, Serum 0.95 mg/dL (0.70-1.30); EST Glomerular Filtration Rate 86 mL/min (>60); Est Glom Filt Rate - Afr Amer 104 mL/min (>60); Glucose 137 mg/dL (74-106); Potassium 5.1 mmol/L (3.5-5.1); Sodium Level 139 mmol/L (136-145); Thyroid Stim Hormone (TSH) 2.26 uIU/mL (0.358-3.74)
== END | disposition home or self-care (01) ==
LOC: LAB 16:48
PROVIDERS: Visit Provider Nurse Practitioner Gerontology
DX: I48.91 Unspecified atrial fibrillation (principal)
CPT/HCPCS: 36415; 80048; 83735; 84443

== ENCOUNTER → 2022-07-24 | Outpatient (CLI) | payer OTHER, SELFPAY | END | disposition home or self-care (01) | PROVIDERS: Referring Provider Nurse Practitioner Gerontology; Visit Provider Nurse Practitioner Gerontology | DX: I48.91 Unspecified atrial fibrillation (principal); G47.10 Hypersomnia, unspecified | CPT/HCPCS: 93225; 93226; 95811 ==

== ENCOUNTER → 2022-07-30 | Outpatient (CLI) | payer OTHER, SELFPAY | END | disposition home or self-care (01) | PROVIDERS: Visit Provider Nurse Practitioner Gerontology | DX: I48.91 Unspecified atrial fibrillation (principal) | CPT/HCPCS: 93225; 93226 ==

== ENCOUNTER → 2022-08-05 | Outpatient (CLI) | payer OTHER, SELFPAY ==
[2022-08-05 16:52] LABS: International Normalized Ratio 2.7; Prothrombin Time (Protime)PT. 28.6 SECONDS (11.7-14.9)
== END | disposition home or self-care (01) ==
LOC: LAB 15:54
PROVIDERS: Visit Provider Nurse Practitioner Gerontology
DX: Z79.01 Long term (current) use of anticoagulants (principal); I48.91 Unspecified atrial fibrillation
CPT/HCPCS: 36415; 85610

== ENCOUNTER → 2022-08-24 | Outpatient (CLI) | payer OTHER, SELFPAY | END | disposition home or self-care (01) | LOC: SL 07:59 | PROVIDERS: Visit Provider Nurse Practitioner Acute Care | DX: G47.10 Hypersomnia, unspecified (principal) ==

== ENCOUNTER 2022-08-26 15:49 | Outpatient (RCR) | payer OTHER, SELFPAY ==
[2022-08-14 17:15] LABS: Prothrombin Time (Protime)PT. 30.9 SECONDS (11.7-14.9)
[2022-08-19 17:45] LABS: International Normalized Ratio 3.1; Prothrombin Time (Protime)PT. 31.8 SECONDS (11.7-14.9)
[2022-08-19 17:58] LABS: Anion Gap 6 (5-15); BUN 21 mg/dL (7-18); BUN/Creat Ratio 22.4 RATIO (10-20); Calcium,Total 9.4 mg/dL (8.5-10.1); Chloride 103 mmol/L (98-107); Creatinine, Serum 0.94 mg/dL (0.70-1.30); EST Glomerular Filtration Rate 88 mL/min (>60); Est Glom Filt Rate - Afr Amer 106 mL/min (>60); Glucose 103 mg/dL (74-106); Sodium Level 142 mmol/L (136-145)
== END 2022-08-26 18:00 | disposition home or self-care (01) ==
LOC: LAB 15:49
PROVIDERS: Nurse Practitioner Family; Referring Provider Nurse Practitioner Gerontology; Visit Provider Nurse Practitioner Gerontology
DX: I48.91 Unspecified atrial fibrillation (principal); Z79.01 Long term (current) use of anticoagulants
CPT/HCPCS: 36415; 80048; 85610

== ENCOUNTER 2022-08-27 15:36 | Outpatient (CLI) | payer OTHER, SELFPAY ==
[2022-08-27 16:27] LABS: International Normalized Ratio 2.9; Prothrombin Time (Protime)PT. 30.1 SECONDS (11.7-14.9)
== END 2022-08-27 23:59 | disposition home or self-care (01) ==
LOC: LAB 15:37
PROVIDERS: Referring Provider Nurse Practitioner Gerontology; Visit Provider Nurse Practitioner Gerontology
DX: I48.91 Unspecified atrial fibrillation (principal); Z79.01 Long term (current) use of anticoagulants
CPT/HCPCS: 85610

== ENCOUNTER 2022-09-05 14:22 | Emergency (ER) | payer OTHER, SELFPAY ==
[2022-09-05 14:24] VITALS: BP 123/87; PULSE 84; RESP 16; TEMP 36.7; O2SAT 95; BMI 32.1
--- NOTE | 2022-09-05 14:39 | EKG12_ITS ---
Test Reason : SYNCOPE Blood Pressure : / mmHG Vent. Rate : 082 BPM Atrial Rate : 246 BPM P-R Int : 000 ms QRS Dur : 090 ms QT Int : 372 ms P-R-T Axes : 085 -32 009 degrees QTc Int : 434 ms Atrial flutter with variable A-V block Left axis deviation Inferior infarct , age undetermined T wave abnormality, consider lateral ischemia Abnormal ECG Confirmed by RAMON JEAN BAPTISTE, KATLIN ([id number]), photographic editor JESSICA PARDO ([id number]) on 09/07/2022 9:37:13 AM Referred By: Confirmed By:KATLIN NAVARRO MD
--- NOTE | 2022-09-05 14:40 | EX.ED.DYSGE1 ---
HPI History of Present Illness Chief Complaint: Syncope Informant: patient Onset/Context/Timing Onset: Today (JPTA) Context: Gradual Onset Timing: - (once; less than 1 min) Quality: near-syncope Current Severity: Gone Maximum Severity: Moderate Worsened by: standing up Relieved by: rest Narrative Narrative: Patient has had and cough productive of yellow and green sputum for the past 4 days. He went to urgent care near the onset and tested negative for COVID and influenza. They told him to drink plenty of fluids. He has a history of atrial flutter, he is anticoagulated on warfarin, he is on carvedilol without any recent medication changes, and has plans to follow-up with cardiology in order to attempt cardioversion when his INR has been therapeutic for 3 weeks. Today, he was sitting in his recliner with his home pulse oximeter on his finger, he was watching his oxygen levels and his heart rate both drop whenever he would be coughing. When his oxygen levels will drop down to 87%, he then would feel himself gasp for air transiently. Just after 1 of these episodes, he stood up, felt lightheaded, was near syncopal, his significant other was there to help him down to the ground, he states he remembers hearing her the whole time and did not lose consciousness completely and within less than 1 minute he was feeling better and back to normal while lying on the floor. It is for this reason he presents to the ER. He had no other prodromal symptoms such as chest pain, headache, focal neurologic symptoms, or acute dyspnea. He has had no leg pain or swelling recently. He states he has had paroxysmal nocturnal dyspnea in the past 4 days since he has been ill never had that before. [facility] Medical History Atherosclerotic heart disease of [place] coronary artery without angina pectoris Cardiomyopathy, ischemic Contact with and (suspected) exposure to other viral communicable diseases Diabetes Essential hypertension History of non-ST elevation myocardial infarction (NSTEMI) (12/07/17) Hyperlipidemia Nicotine use disorder Obesity Paresthesia URI (upper respiratory infection) Home Medications docusate sodium 100 mg capsule 100 mg PO DAILY stool softener 07/15/20 [History Last Taken Unknown] furosemide 20 mg tablet 20 mg PO QDAY PRN edema 06/25/22 [History Last Taken Unknown] insulin detemir U-100 100 unit/mL (3 mL) subcutaneous pen 28 unit subcut QHS diabetes 06/25/22 [History Last Taken Unknown] vitamins A,C,M-opqn-[id number] 4,296 mcg-226 mg-90 mg capsule (ICaps AREDS) 1 cap PO BID supplement 06/25/22 [History Last Taken Unknown] carvedilol 25 mg tablet 25 mg PO BID blood pressure/heart rate 08/11/22 [History Last Taken Unknown] benzonatate 200 mg capsule 200 mg PO TID PRN cough #20 caps 09/03/22 [Rx Last Taken Unknown] amoxicillin 875 mg-potassium clavulanate 125 mg tablet 875 mg PO Q12H #20 TABLETS 09/05/22 [Rx Last Taken Unknown] aspirin 81 mg tablet,delayed release 81 mg PO DAILY@0800 heart health 09/05/22 [History Last Taken Unknown] dulaglutide 3 mg/0.5 mL subcutaneous pen injector (Trulicity) 3 mg subcut QWEEK diabetes 09/05/22 [History Last Taken Unknown] duloxetine 30 mg capsule,delayed release 30 mg PO DAILY depression 09/05/22 [History Last Taken Unknown] metformin 500 mg 24 hr tablet,extended release 500 mg PO BID diabetes 09/05/22 [History Last Taken Unknown] rosuvastatin 10 mg tablet 10 mg PO DAILY cholesterol 09/05/22 [History Last Taken Unknown] valsartan 40 mg tablet 40 mg PO DAILY blood pressure 09/05/22 [History Last Taken Unknown] warfarin 4 mg tablet 2 - 4 mg PO DAILY blood thinner 09/05/22 [History Last Taken Unknown] Allergy/AdvReac Type Severity Reaction Status Date / Time losartan AdvReac Intermediate myalgias Verified 09/05/22 14:23 lisinopril AdvReac cough Verified 09/05/22 14:23 Family History Mother Heart disease Breast cancer Father CVA (cerebral vascular accident) Myocardial infarction Surgical History History of hernia repair S/P coronary artery stent placement (12/07/17) Social History Smoking Status: Former smoker Tobacco: How many years used: 5 alcohol intake: never substance use type: does not use caffeine: No what type of physical activity do you participate in: none seatbelt use: sometimes do you feel safe at home: Yes ROS ROS ED Constitutional Constitutional ED: Denies chills or fever(s) Eyes Eyes: Denies change in vision or diplopia ENT ENT ED: Reports rhinorrhea; Denies ear pain or sore throat Cardiovascular Cardiovascular: Reports as per HPI, lightheadedness and paroxysmal nocturnal dyspnea; Denies chest pain, orthopnea or palpitations Respiratory/Chest Respiratory/Chest: Reports cough, dyspnea, paroxysmal nocturnal dyspnea and sputum; Denies orthopnea Gastrointestinal Gastrointestinal: Denies abdominal pain, diarrhea, nausea or vomiting Genitourinary Genitourinary ED: Denies dysuria or hematuria Musculoskeletal Musculoskeletal: Denies back pain or neck pain Integumentary Denies abscess or rash Neurologic Neurologic: Denies headache(s), paresthesias or weakness Psychiatric Psychiatric: Denies anxiety or suicidal thoughts EXAM Physical Exam Const Vital Signs: 09/05/22 14:24 09/05/22 14:26 09/05/22 15:02 Temperature 98.0 F Temperature Source Oral Pulse Rate 84 84 Respiratory Rate 16 20 H Respiratory Effort Normal Non-Labored Respiratory Pattern Normal Blood Pressure 123/87 H 91/68 Blood Pressure Mean 99 75 Pulse Ox 95 94 Oxygen Delivery Method Room Air Room Air 09/05/22 16:00 Temperature Temperature Source Pulse Rate 87 Respiratory Rate 21 H Respiratory Effort Respiratory Pattern Blood Pressure 141/98 H Blood Pressure Mean 112 Pulse Ox 94 Oxygen Delivery Method Room Air Positive well nourished and well developed General Appearance ED: well developed and NAD HEENT Reports moist mucous membranes normocephalic and atraumatic Eyes PERRL and EOMs intact bilaterally Neck full ROM and supple Resp normal respiratory effort and clear to auscultation bilaterally Cardio no murmurs Rate: Negative for bradycardia or tachycardic Rhythm: abnormal rhythm irregularly irregular GI non-tender and non-distended Auscultation: normoactive bowel sounds Palpation: soft Back/Spine no CVA tenderness General Back: other FROM Extremity normal to inspection, full ROM and no calf tenderness General Extremety ED: Negative for edema, pulses abnormal or tenderness General Extremity: Negative for edema or pulses abnormal Neuro oriented x3, CN's II-XII intact bilaterally and no sensory deficits noted Sensorium / Orientation: awake and alert Motor Exam: strength 5/5 throughout Skin no rashes or lesions noted and no wounds MDM MDM MDM Narrative Medical decision making narrative: I reviewed the outside cardiology clinic note from his recent visit this month, several weeks ago. His current EKG shows atrial flutter, patient states he was diagnosed with that in the office. He has no acute ischemic abnormalities right now. I also reviewed his last echocardiogram from January last year that showed an ejection fraction of 45% a mildly enlarged left atrium. Patient states that his heart rate was going down into the 40s at times while he was watching his pulse ox. My suspicion is if he was mildly hypoxic and mildly bradycardic, then suddenly stood up from his chair, he had limited blood flow to the brain and had a near syncopal episode as a result of this. He had no other dangerous prodromal symptoms just lightheadedness. His heart rate is in the 80s now. He is on a relatively high dose of carvedilol, twice daily. 25 mg. He states that was recently increased from half that because he was tachycardic in the office. I discussed with Dr. Hoskins, he agrees with decreasing the dose and having the patient follow-up. I would recommend that he decrease to 12.5 mg twice daily, and if he becomes too tachycardic to go back up, taking care not to stand up too quickly especially if he is relatively bradycardic. I think that is why he had a near syncopal episode today, patient is in agreement with all of that. With regards to his two-view chest x-ray, my interpretation it does show some decreased airspace in the right base, radiology recommended a CT to further evaluate why his right hemidiaphragm is elevated acutely. I reviewed the CT images, appears to show an infiltrate in the right base which is probably causing this appearance. My interpretation of the CT disagrees with that of the radiologist. Therefore I spoke with the radiologist Dr. Rutherford regarding this, he reviewed the images and states that this appears to represent a noninfectious compressive atelectasis in the right lower lobe. Since the patient has cough, dyspnea, transient hypoxemia, and a mild leukocytosis, we will treat the patient empirically for pneumonia with antibiotics as an outpatient after an initial dose of Rocephin here; he is not hypoxic here or bradycardic, he has been between 70-95 throughout his stay and feeling fine at rest. He is comfortable treating as an outpatient as well. Close outpatient follow-up advised. Lab Data Attestation: I reviewed the patient's lab results. Labs: Laboratory Results - last 24 hr 09/05/22 09/05/22 09/05/22 14:32 14:32 14:32 WBC 12.4 H RBC 5.10 Hgb 14.2 Hct 44.8 MCV 87.8 MCH 27.8 MCHC 31.7 L RDW Std Deviation 41.7 RDW Coeff of Nusrat 12.8 Plt Count 300 MPV 10.0 Immature Gran % (Auto) 0.500 Neut % (Auto) 63.9 Lymph % (Auto) 20.1 [place] % (Auto) 13.2 H Eos % (Auto) 1.9 Baso % (Auto) 0.4 Absolute Neuts (auto) 7.9 H Absolute Lymphs (auto) 2.48 Nucleated RBC % 0 Differential Comment SCANNED Diff Path Review May foll PT INR Sodium 139 Potassium 4.4 Chloride 100 Carbon Dioxide 33.0 H Anion Gap 6 BUN 17 Creatinine 0.95 Estim Creat Clear Calc 91.89 Est GFR (MDRD) Af Amer 105 Est GFR (MDRD) Non-Af 86 BUN/Creatinine Ratio 17.9 Glucose 171 H Calcium 9.4 Troponin I High Sens 13 B-Natriuretic Peptide 135.7 H 09/05/22 14:32 WBC RBC Hgb Hct MCV MCH MCHC RDW Std Deviation RDW Coeff of Nusrat Plt Count MPV Immature Gran % (Auto) Neut % (Auto) Lymph % (Auto) [place] % (Auto) Eos % (Auto) Baso % (Auto) Absolute Neuts (auto) Absolute Lymphs (auto) Nucleated RBC % Differential Comment Diff Path Review PT 15.2 H INR 1.2 Sodium Potassium Chloride Carbon Dioxide Anion Gap BUN Creatinine Estim Creat Clear Calc Est GFR (MDRD) Af Amer Est GFR (MDRD) Non-Af BUN/Creatinine Ratio Glucose Calcium Troponin I High Sens B-Natriuretic Peptide Radiography Diagnostic Testing: Clinical Impression(s) from Imaging Studies Chest X-Ray 09/05/22 15:05 IMPRESSION: Elevated right hemidiaphragm, possible subpleural effusion versus other subphrenic process. Consider chest CT with contrast for evaluation. No acute consolidative process. Electronically Signed: Siddharth Rutherford MD at 15:25 EST , Chest CT 09/05/22 15:31 IMPRESSION: No acute pulmonary findings. Electronically Signed: Siddharth Rutherford MD at 16:46 EST , Rhythm Strip Rhythm Strip: Atrial flutter Rate: 85 Ectopy: None EKG Initial EKG: Attestation: I personally reviewed and interpreted this EKG as follows: Interpretation: No Acute Injury Pattern, Atrial Flutter (With variable conduction) and LAFB Prior EKG tracings: available for review (Morphology and axis is similar) Discharge Plan Triage Chief Complaint: Syncope ED Provider: Maynor Doyle Dx/Rx/DC Orders Clinical Impression: Pneumonia, Postural dizziness with near syncope, Atrial flutter, Subtherapeutic international normalized ratio (INR) Instructions: Orthostatic Hypotension, ED Pneumonia (Adult) Prescriptions: New amoxicillin-pot clavulanate [amoxicillin-pot clavulanate] 875-125 mg tablet 875 mg PO Q12H Qty: 20 0RF No Action docusate sodium 100 mg capsule 100 mg PO DAILY ICaps AREDS [id number] capsule 1 cap PO BID furosemide 20 mg tablet 20 mg PO QDAY PRN (Reason: edema) Rx Instructions: q 3rd day insulin detemir U-100 100 unit/mL (3 mL) insulin pen 28 unit SC QHS benzonatate 200 mg capsule 200 mg PO TID PRN (Reason: cough) Qty: 20 0RF aspirin 81 mg tablet,delayed release (DR/EC) 81 mg PO DAILY@0800 warfarin 4 mg tablet 2 - 4 mg PO DAILY Protocol: Dose Management Condition: Wednesday Dose/Route: 2 mg Instruction: 0.5 x 4 mg tablets Condition: Wednesday Dose/Route: 2 mg Instruction: 0.5 x 4 mg tablets Condition: Wednesday Dose/Route: 4 mg Instruction: 1 x 4 mg tablet Condition: Wednesday Dose/Route: 2 mg Instruction: 0.5 x 4 mg tablets Condition: Dose/Route: 4 mg Instruction: 1 x 4 mg tablet Condition: Wednesday Dose/Route: 2 mg Instruction: 0.5 x 4 mg tablets Condition: Wednesday Dose/Route: 2 mg Instruction: 0.5 x 4 mg tablets Protocol Text: Adjustment Start Date: 08/27/22 INR Value: 2.9 INR Date: 08/27/22 Recheck Date: 09/02/22 Rx Instructions: 2 SA, 4 valsartan 40 mg tablet 40 mg PO DAILY rosuvastatin 10 mg tablet 10 mg PO DAILY duloxetine 30 mg capsule,delayed release(DR/EC) 30 mg PO DAILY metformin 500 mg tablet,ER natty.retention 24 hr 500 mg PO BID Trulicity 3 mg/0.5 mL pen injector 3 mg subcut QWEEK Rx Instructions: carvedilol 25 mg tablet 25 mg PO BID Rx Instructions: must administer with a meal/food Primary Care Provider: Yaa Shelton Referrals: Yaa Shelton MD [Primary Care Provider] - 3-5 Days if not improving (and follow up with your manager revenue within the 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 If your heart rate stays in the 120-140 range, you may try going back to your 25 mg twice daily dosing, but be careful not to stand up too fast if your heart rate is below 50. Disposition Disposition: Home, Self Care
[2022-09-05 14:57] LABS: Absolute Lymphocyte Count 2.48 X10^3/uL (0.83-4.51); Absolute Neutrophil Count 7.9 X10^3/uL (2.0-7.7); Basophil# 0.05 X10^3/uL; Basophil% 0.4 % (0-1); Eosinophil# 0.23 X10^3/uL; Eosinophils% 1.9 % (0-5); Hematocrit 44.8 % (40-54); Hemoglobin 14.2 g/dL (13.0-16.5); Lymphocyte # 2.48 X10^3/ul (0.83-4.51); Lymphocyte % 20.1 % (19-41); Mean Corp Hgb Conc 31.7 g/dL (32-36); Mean Corpuscular Hgb 27.8 pg (27.0-32.0); Mean Corpuscular Volume 87.8 fL (80-94); Monocyte# 1.63 X10^3/uL; Monocyte% 13.2 % (0-10); NRBC Flagged by Analyzer 0 % (0-5); Neutrophil % 63.9 % (47-70); POSITIVE DIFFERENTIAL YES; Platelet Count 300 K/mm3 (150-450); RBC Distribution Width CV 12.8 % (11.6-14.6); RBC Distribution Width SD 41.7 fl (35.1-43.9); White Blood Count 12.4 K/mm3 (4.4-11.0)
[2022-09-05 14:59] LABS: Differential Indicated SCAN CRITERIA MET
[2022-09-05 15:02] VITALS: BP 91/68; PULSE 84; RESP 20; O2SAT 94
[2022-09-05 15:03] LABS: International Normalized Ratio 1.2; Prothrombin Time (Protime)PT. 15.2 SECONDS (11.7-14.9)
--- NOTE | 2022-09-05 15:05 | RAD_ITS ---
INDICATION: Cough and dyspnea EXAMINATION/TECHNIQUE: X-RAY - XR Chest 2 Views COMPARISON: 12/11/2017 FINDINGS: LINES/DEVICES: None. LUNGS: Interval elevation right hemidiaphragm. No consolidation or vascular congestion. MEDIASTINUM AND CARDIOVASCULAR STRUCTURES: Cardiac silhouette not enlarged. Central airways and mediastinal contour are unremarkable. BONES AND SOFT TISSUES: No acute changes. RAD/Chest PA and Lateral IMPRESSION: Elevated right hemidiaphragm, possible subpleural effusion versus other subphrenic process. Consider chest CT with contrast for evaluation. No acute consolidative process. Electronically Signed: Siddharth Rutherford MD at 15:25 EST ,
[2022-09-05 15:18] LABS: Anion Gap 6 (5-15); BUN 17 mg/dL (7-18); BUN/Creat Ratio 17.9 RATIO (10-20); Calcium,Total 9.4 mg/dL (8.5-10.1); Chloride 100 mmol/L (98-107); Creatinine, Serum 0.95 mg/dL (0.70-1.30); EST Glomerular Filtration Rate 86 mL/min (>60); Est Glom Filt Rate - Afr Amer 105 mL/min (>60); Estimated Creatinine Clearance 91.89 ml/min; Glucose 171 mg/dL (74-106); Potassium 4.4 mmol/L (3.5-5.1); Sodium Level 139 mmol/L (136-145); Troponin-I HS 13 pg/mL (3.0-78.0)
--- NOTE | 2022-09-05 15:31 | CT_ITS ---
INDICATION: sob, cough, abn CXR EXAMINATION: CT CHEST WITH CONTRAST - CT Chest W/ Contrast Injection TECHNIQUE: Helically acquired images were obtained of the chest following IV contrast. A radiation dose optimization technique was used for this scan. IV Contrast dosage and agent: 100 cc [id number] COMPARISON: Chest x-ray same date FINDINGS: LUNGS, PLEURA AND LARGE AIRWAYS: Elevated right hemidiaphragm with overlying right lower lobe subsegmental atelectasis. No consolidation or pleural effusion. No pulmonary mass lesion. No pneumothorax. THYROID: No thyroid lesions. HEART AND PERICARDIUM: Heart size is normal. No pericardial effusion. VESSELS: Thoracic aorta is not dilated. No aortic dissection. No obvious central pulmonary embolism although this study was not performed with the pulmonary embolism protocol. MEDIASTINUM AND JAMES: No mediastinal or hilar adenopathy. Esophagus is unremarkable. No hiatal hernia. UPPER ABDOMEN: No acute pathology. BONES: No acute or aggressive abnormality. CT/Chest WITH Contrast IMPRESSION: No acute pulmonary findings. Electronically Signed: Siddharth Rutherford MD at 16:46 EST ,
[2022-09-05 15:32] LABS: Differential Comment SCANNED
[2022-09-05 15:53] LABS: BNP,B-Type NATRIURETIC PEPTIDE 135.7 pg/mL (0-100)
[2022-09-05 16:00] VITALS: BP 141/98; PULSE 87; RESP 21; O2SAT 94
[2022-09-05] MEDS: Ceftriaxone 1 GM/50 ML BAG IV (16:50)
[2022-09-05 17:00] VITALS: BP 141/100; PULSE 97; RESP 20; O2SAT 94
[2022-09-07 13:51] LABS: Pathologist Review Reviewed
== END 2022-09-05 17:38 | disposition home or self-care (01) ==
PROVIDERS: Emergency Provider Emergency Medicine; Visit Provider Emergency Medicine
DX: J18.9 Pneumonia, unspecified organism (principal); I48.92 Unspecified atrial flutter; E11.9 Type 2 diabetes mellitus without complications; Z79.4 Long term (current) use of insulin; R79.1 Abnormal coagulation profile; R55 Syncope and collapse; R42 Dizziness and giddiness; E78.5 Hyperlipidemia, unspecified; I25.10 Atherosclerotic heart disease of native coronary artery without angina pectoris; I10 Essential (primary) hypertension; I25.2 Old myocardial infarction; I25.5 Ischemic cardiomyopathy; R06.00 Dyspnea, unspecified; Z87.891 Personal history of nicotine dependence; Z95.5 Presence of coronary angioplasty implant and graft; Z79.899 Other long term (current) drug therapy; Z79.82 Long term (current) use of aspirin; Z79.84 Long term (current) use of oral hypoglycemic drugs
CPT/HCPCS: 71046; 71260; 80048; 83880; 84484; 85025; 85610; 87811; 93005; 96361; 96365; 99285; J7040; Q9967

== ENCOUNTER 2022-09-30 16:09 | Outpatient (RCR) | payer OTHER, SELFPAY ==
[2022-09-17 17:09] LABS: International Normalized Ratio 1.5; Prothrombin Time (Protime)PT. 17.5 SECONDS (11.7-14.9)
[2022-09-24 17:28] LABS: Prothrombin Time (Protime)PT. 22.7 SECONDS (11.7-14.9)
[2022-09-30 17:39] LABS: International Normalized Ratio 3.2
== END 2022-09-30 18:00 | disposition home or self-care (01) ==
LOC: LAB 16:09
PROVIDERS: Referring Provider Nurse Practitioner Gerontology; Visit Provider Nurse Practitioner Gerontology
DX: I48.91 Unspecified atrial fibrillation (principal); Z79.01 Long term (current) use of anticoagulants
CPT/HCPCS: 36415; 85610

== ENCOUNTER 2022-10-16 10:39 | Day surgery (SDC) | payer OTHER, SELFPAY ==
[2022-10-13 16:53] LABS: Anion Gap 6 (5-15); BUN 19 mg/dL (7-18); BUN/Creat Ratio 20.3 RATIO (10-20); Calcium,Total 9.4 mg/dL (8.5-10.1); Chloride 101 mmol/L (98-107); Creatinine, Serum 0.94 mg/dL (0.70-1.30); EST Glomerular Filtration Rate 88 mL/min (>60); Est Glom Filt Rate - Afr Amer 106 mL/min (>60); Glucose 106 mg/dL (74-106); Potassium 3.8 mmol/L (3.5-5.1); Sodium Level 140 mmol/L (136-145)
[2022-10-15 08:09] VITALS: BMI 32.9
--- NOTE | 2022-10-16 08:52 | HP.PCM_ITS ---
History and Physical Date of Admission: 10/16/22 [facility] [address] [place], [place] [address] OFFICE VISIT Date of Service:? 09/30/22 MR#: [id number] Acct: [id number] Name:HUMBLE MELO Rep #: [id number] : 1965 ?Provider: ?GRUPO Snyder Age/Sex:? 57/M Location: [facility] Status: Signed HPI HPI History of Present Illness Details: HUMBLE ECHOLS, is a 57 year old white male who presents to the office today for a cardiovascular follow-up visit.? In December 2017 he was admitted to [facility] for acute inferior lateral wall myocardial infarction.? He underwent thrombectomy with angioplasty and stenting of his circumflex.? His LAD and RCA had minimal nonobstructive disease.? Ejection fraction was noted to be 40 to 45%.? He does have a history of coronary artery disease post STEMI post PCI, ischemic cardiomyopathy, hypertension, hyperlipidemia and diabetes.? In June 2022 he was noted to be in atrial fibrillation.? He was started on anticoagulation.? However he could not help afford his Eliquis.? He has since been switched to warfarin and we are trying to have 30 days of therapeutic INRs.? He tells me that he is concerned about his heart rate where he tells me at home they have consistently been between 101 130.? He is also just getting over pneumonia.? Patient states that he does note that he is short of breath when he bends over.? He might have a little bit more shortness of breath with exertion.? He does not have any chest discomfort.? He does not have any lower extremity edema.? He does not have any lightheadedness or dizziness. Intake Vital Signs ? 09/05/2313:24 09/30/2313:59 Height 6 ft 6 ft Weight: ? 243 lb BMI ? 32.9 BP ? 132/106 H Blood Pressure Location ? Lt brachial Position ? Sitting Respiration ? 18 Pulse ? 128 H Pulse Source ? Monitor Intake Visit Reasons:?ER for atrial flutter, pneumonia Yo[employer] De [employer] Test Manager Required: No Is patient in pain?: No Allergies losartan Adverse Reaction (Intermediate, Verified 09/30/22 14:57) myalgiaslisinopril Adverse Reaction (Verified 09/30/22 14:57) cough Medications docusate sodium 100 mg capsule 100 mg PO DAILY stool softener 07/15/20 [History Confirmed 09/30/22] furosemide 20 mg tablet 20 mg PO QDAY PRN edema 06/25/22 [History Confirmed 09/10 10/01] insulin detemir U-100 100 unit/mL (3 mL) subcutaneous pen 28 unit subcut QHS diabetes 06/25/22 [History Confirmed 09/30/22] vitamins A,C,Y-ksqa-gxjtwx 4,296 mcg-226 mg-90 mg capsule (ICaps AREDS) 1 cap PO BID supplement 06/25/22 [History Confirmed 09/30/22] carvedilol 25 mg tablet 25 mg PO BID blood pressure/heart rate 08/11/22 [History Confirmed 09/30/22] benzonatate 200 mg capsule 200 mg PO TID PRN cough #20 caps 09/03/22 [Rx Confirmed 09/30/22] aspirin 81 mg tablet,delayed release 81 mg PO DAILY@0800 heart health 09/05/22 [History Confirmed 09/30/22] dulaglutide 3 mg/0.5 mL subcutaneous pen injector (Trulicity) 3 mg subcut QWEEK diabetes 09/05/22 [History Confirmed 09/30/22] metformin 500 mg 24 hr tablet,extended release 500 mg PO BID diabetes 09/05/22 [History Confirmed 09/30/22] rosuvastatin 10 mg tablet 10 mg PO DAILY cholesterol 09/05/22 [History Confirmed 09/30/22] valsartan 40 mg tablet 40 mg PO DAILY blood pressure 09/05/22 [History Confirmed 09/30/22] warfarin 4 mg tablet 2 - 4 mg PO DAILY blood thinner 09/05/22 [History Confirmed 09/30/22] duloxetine 30 mg capsule,delayed release 30 mg PO DAILY depression #90 caps 09/17/22 [Rx Confirmed 09/30/22] apixaban 5 mg tablet (Eliquis) 5 mg PO BID #60 tabs 09/30/22 [Rx Confirmed 09/30/22] diltiazem HCl 120 mg capsule,24 hr,extended release 120 mg PO DAILY #30 caps 09/30/22 [Rx Confirmed 09/30/22] [facility] Medical History? Atherosclerotic heart disease of [place] coronary artery without angina pectoris Cardiomyopathy, ischemic Contact with and (suspected) exposure to other viral communicable diseases Diabetes Essential hypertension History of non-ST elevation myocardial infarction (NSTEMI) (12/07/17) Hyperlipidemia Nicotine use disorder Obesity Paresthesia URI (upper respiratory infection) Surgical History? History of hernia repair S/P coronary artery stent placement (12/07/17) Family History? Mother?? Heart disease Breast cancerFather?? CVA (cerebral vascular accident) Myocardial infarction Social History? Smoking Status:? Former smoker Tobacco: How many years used:? 5 alcohol intake:? never substance use type:? does not use caffeine:? No what type of physical activity do you participate in:? none seatbelt use:? sometimes do you feel safe at home:? Yes ROS Const Const: Negative for fatigue, weakness, body ache, fever(s) or chills ENT ENT: Negative for dizziness or Nosebleed/epistaxis Cardio Chest Pain: No Palpitations: No Edema: None Muscle aches with walking: None Resp Respiratory: Positive for SOB with activity (bending forward); Negative for SOB at rest, SOB orthopnea\SOB lying down, Cough or paroxysmal nocturnal dyspnea GI GI: Negative nausea, vomiting blood/hematemesis, bright, red blood in stools or black,tarry stools : Negative for hematuria or frequent nighttime urination/ nocturia Musc Musc: Negative for muscle aches/ myalgia Skin Skin: Negative non-healing lesions or rash Neuro Neuro: Negative for dizziness, lightheadedness, near syncope, syncope, orthostatic symptoms or weakness Endo Endo: Negative for fatigue Allergy Allergy/Immunology: Negative for rash Cardiology Exam Const Appearance: cooperative, healthy appearing, comfortable, no acute distress and well developed Orientation: alert, awake and oriented x3 Head Head: normal to inspection Ears: hearing grossly normal bilaterally Nose: external nose normal Face and Sinus: face symmetric Mouth: oral mucosae normal, lip normal and moist mucous membranes Eyes General: appearance normal, both eyes and all related structures Eyelids: eyelids normal Conjunctivae: conjunctivae normal Pupils: PERRL EOM: EOM intact bilaterally Neck Neck: normal visual inspection and trachea midline; Negative no JVD Carotids: Negative bruit Chest Chest inspection: normal inspection of the chest Auscultation: Bilateral: Clear to Auscultation Cardio Palpation: normal PMI Rate: tachycardic Rhythm: irregularly irregular Heart sounds: S1 normal and S2 normal; Negative rub, gallop or murmur GI GI: soft, no hepatosplenomegaly and bowel sounds present Neuro General: patient alert, patient awake, patient oriented x3 and CN's II-XI intact bilaterally Extremities Pulses: Normal: Right Posterior Tibial Pulse, Left Posterior Tibial Pulse, Right Radial Pulse and Left Radial Pulse Lower Extremity Edema: None: Bilateral Psych Psychological: normal affect Supplemental Info Supplemental Information Echocardiogram 01/30/2022: Interpretation Summary The study was technically difficult. Contrast injection was performed. ? Mild segmental systolic dysfunction (see wall motion). The estimated ejection fraction is 45 %. The left atrium is mildly enlarged. Trivial mitral valve insufficiency. Trivial tricuspid valve insufficiency. Unable to estimate RV systolic pressure/pulmonary artery pressure due to technically difficult study. No evidence for diastolic dysfunction. Transthoracic echocardiogram: 01-31-2021 Interpretation Summary The study was technically difficult. Contrast injection was performed. ? Mild segmental systolic dysfunction (see wall motion). The estimated ejection fraction is 40 %. The left atrium is mildly enlarged. Mild (1+) mitral valve insufficiency. Trivial tricuspid valve insufficiency. Unable to estimate RV systolic pressure/pulmonary artery pressure due to technically difficult study. No evidence for diastolic dysfunction. Heart catheterization from 12/07/2017: CONCLUSIONS Single vessel CAD of the LCX Non obstructive coronary arteries Segmented LV systolic dysfunction- Moderate Successful PCI with Drug eluting stent and PTCA to the with thrombectomy assistance utilizing a 3.0 x 16 Promus Synergy, post dilated to 3.5 and 4.0 proximally; unable to cannulate OM branch despite multiple attempts with multiple wires due to acute angle of OM takeoff. RECOMMENDATIONS Referred for immediate PCI Highly recommend quitting all tobacco products Follow up with primary measurement superintendent Risk factor modification ASA Indefinitley Brilinta for life. Routine post interventional care Refer for Outpatient Cardiac Rehab Manual sheath removal per protocol Follow up with Dr. Mansfield Medical managment of OM ostial lesion. CORONARY ANGIOGRAPHY DOMINANCE:? Left Dominant LEFT HEART ASSESSMENT Left Ventricular Ejection Fraction: by LV Gram 45-50 % Depressed Left Ventricular systolic function Inferior Mid Hypokinesis - Moderate LEFT MAIN: Angiographically normal LEFT ANTERIOR DESCENDING ARTERY: MID LAD: Mild luminal irregularities less than 30% CIRCUMFLEX ARTERY: is occluded RIGHT CORONARY ARTERY: Mild luminal irregularities less than 30% Stress echocardiogram from 11/29/2018: Interpretation Summary The estimated ejection fraction is 45 %. Normal, adequate, dobutamine echocardiogram. The patient at baseline inferior lateral hypokinesis, which appeared to augment well at peak infusion. All other ordoñez contract normally. No anginal symptoms noted. Rare PVC noted. Appropriate blood pressure response to dobut amine. Test terminated due to attainment of target heart rate. Final LVEF of 65%. Holter monitor from 07/30/2022: Minimum heart rate 68 bpm. Average heart rate 109 bpm. Maximal heart 152 bpm. Ventricular ectopy 3.4%. Supraventricular ectopy 0.0%. Longest R to R interval 1.0 seconds. Atrial fibrillation at 96.6%. 1 ventricular run at 4 beats. The patient kept a diary with no symptoms noted. Labs: ?? ? No Data to Display Diagnostics: ?? ? Electrocardiogram ? Chest X-Ray ? Pulmonary: ?? ? No Data to Display Assessment and Plan Assessment and Plan (1) Atrial fibrillation: ?Status:?Acute ?Plan: This has been persistent.? Unfortunately his INRs have not been therapeutic.? We will see if he can obtain Eliquis through a co-pay card.? He will call us back with an update.? After his INRs have been therapeutic or if he has been able to switch to Eliquis he has been on them for 3 weeks we will then proceed with a cardioversion.? In the meantime he will continue with his current dose of metoprolol.? I am adding diltiazem to help with his heart rate. (2) S/P coronary artery stent placement: ?Status:?Chronic ?Comment: Stent to Circumflex 12/07/2017 ?Plan: Patient has a history of coronary artery disease with stent placement in 2018 to his circumflex. He appears stable at this time, and denies any recent symptoms or events. He will continue with his current medical therapy, along with aggressive risk factor and lifestyle modifications. (3) Cardiomyopathy, ischemic: ?Status:?Chronic ?Comment: EF 40% ?Plan: Ischemic cardiomyopathy: Echocardiogram 01/30/2022-EF: 45% Twelve-lead EC08/14/2022-atrial fibrillation at rate of 88 bpm and QRS 106 [place] [employer] Functional Class: 1 ACC/AHA stage: C Guideline Directed Medical Therapy: Carvedilol 25 mg p.o. twice daily Valsartan 40 mg p.o. daily Lasix 20 mg p.o. as needed Patient currently does not have any symptoms of acute congestive heart failure.? Will not make any changes. (4) Hyperlipidemia: ?Status:?Chronic ?Qualifiers: ?Hyperlipidemia type:?pure hypercholesterolemia? Qualified Code(s):? E78.00 - Pure hypercholesterolemia, unspecified; E78.0 - Pure hypercholesterolemia ?Plan: Patient has a history of hyperlipidemia. His most recent lipid panel from 05/01/2022: cholesterol 111, HDL 41, LDL 46, triglycerides 118. He will continue rosuvastatin 10mg daily, along with aggressive risk factor and lifestyle modifications. (5) Essential hypertension: ?Status:?Chronic ?Plan: Blood pressure is slightly elevated, would like to add diltiazem.? Feel that this will also help with his heart rate.? Will reevaluate after cardioversion. (6) DENISE (dyspnea on exertion): ?Status:?Acute (7) ANYIAH (obstructive sleep apnea): ?Status:?Acute ?Comment: AHI noted to be 31.3 start trial of CPAP 5 cm of water ?Plan: Patient does continue with his CPAP. ? ? ? Orders: Orders 12 Lead EKG performed by [facility] 09/30/22 I48.91 - Unspeci fied atrial fibrillation ? Medications: New apixaban (Eliquis) 5 mg? PO BID 60 tabs 11RF ? ? diltiazem HCl ER 120 mg? PO DAILY 30 caps 3RF ? ? Plan Details Additional Comments: Thank you for allowing us to participate in the patients plan of care, if you have any questions please do not hesitate to call. This note was generated using a voice recognition system and there may be incorrect words, spelling or punctuation that were not noted when reviewing the office note prior to saving. Portions of this documentation were copied and pasted from previous office visit notes to provide a cohesive continuity of the history. The note has been reviewed, edited, and updated, as necessary. Coding Level of Care Code Off vis,est,level 4 Diagnoses Atrial fibrillation? I48.91 S/P coronary artery stent placement? Z95.5 Cardiomyopathy, ischemic? I25.5 Hyperlipidemia? E78.00; E78.0 ? ? ? Hyperlipidemia type: pure hypercholesterolemia Essential hypertension? I10 DENISE (dyspnea on exertion)? R06.09 ANIYAH (obstructive sleep apnea)? G47.33 Coding Level of Care Code Off vis,est,level 4 Diagnoses Atrial fibrillation? I48.91 S/P coronary artery stent placement? Z95.5 Cardiomyopathy, ischemic? I25.5 Hyperlipidemia? E78.00; E78.0 ? ? ? Hyperlipidemia type: pure hypercholesterolemia Essential hypertension? I10 DENISE (dyspnea on exertion)? R06.09 ANIYAH (obstructive sleep apnea)? G47.33 10/01/22 1353 <Electronically signed by Cassandra LOMBARDO> Date Cassandra LOMBARDO Cosigner Signature: Date (if applicable) CC:? Yaa Shelton MD ~ Assessment & Plan Addt'l Comments Addendum: 10/16/2022 I have examined the patient the following changes are noted: The patient is reported as having appropriate anticoagulation therapy between his various anticoagulants for an appropriate period of time to proceed with synchronized biphasic DC cardioversion. The patient's case was discussed and reviewed with him. The procedure and risk were discussed and reviewed with him. He was agreeable to this approach. This note was generated using a voice recognition system and there may be incorrect words, spelling or punctuation that were not noted when reviewing the office note prior to saving.
--- NOTE | 2022-10-16 12:57 | PCM.OP.PRO ---
Procedure Report Date of Procedure: 10/16/22 CONSCIOUS SEDATION REPORT DATE OF SERVICE: October 16, 2022 BRIEF HISTORY OF PRESENT ILLNESS: The patient is a 57-year-old male who presented to [facility] for elective outpatient cardioversion due to underlying atrial flutter/fibrillation. The patient has never previously undergone a cardioversion. He denied any prior anesthetic complications. He is systemically anticoagulated on Eliquis. His last surface echocardiogram demonstrated an ejection fraction of approximately 45%. The patient does have a history of obstructive sleep apnea, for which he reports compliance with use of nocturnal CPAP therapy. PHYSICAL EXAMINATION: VITAL SIGNS: Reviewed and were acceptable. GENERAL: The patient is an obese male, in no apparent distress, speaking in full sentences. HEENT: Normocephalic, atraumatic. Mucous membranes are moist and pink. Good mouth opening noted. Trachea is midline. Good neck mobility. CHEST: S1, S2 irregularly irregular. No murmurs, rubs or gallops were noted. LUNGS: Clear to auscultation bilaterally without appreciable wheezes, rales or rhonchi. ABDOMEN: Soft, nontender, nondistended. Positive bowel sounds. EXTREMITIES: There is no clubbing, cyanosis or edema. ASA Class: II DESCRIPTION OF PROCEDURE: After confirmation of informed consent, the patient's anesthesia plan was reviewed in detail. Propofol was chosen. Risks and benefits were reviewed and the patient agreed to proceed. At 1238, the patient was given 40 mg of propofol. The patient achieved an appropriate level of sedation, which then facilitated 2 separate attempts at cardioversion, the first at 50 J and the second at 200 J, the latter of which was successful in achieving normal sinus rhythm. The patient was monitored until 1250, at which time he reached his baseline mental status and function. The patient tolerated the procedure well. COMPLICATIONS: None ESTIMATED BLOOD LOSS: None RECOMMENDATIONS: Okay to recover in usual fashion. Procedures Pulmonary 9xxxx: [id number] Con Sedation
--- NOTE | 2022-10-16 13:16 | CARDIOVERS ---
Cardioversion Cardioversion: Date: 10-16-2022 Procedure: Synchronized Biphasic DC Cardioversion Indications: Atrial flutter Consent: Per the Patient Anesthesia: per Dr. Dudley of pulmonology and critical care medicine with propofol 40 mg IV push total Procedure: Synchronized Biphasic DC Cardioversion: 50 J x 1: Result: Atrial fibrillation Synchronized Biphasic DC cardioversion: 200 J x 1: Result: Sinus rhythm Complications: no apparent complications This note was generated with [employer] software. It may contain incorrect words, spelling, and punctuation that were not noted in checking the note before signing.
== END 2022-10-16 13:50 | disposition home or self-care (01) ==
LOC: CLSP 10:40
PROVIDERS: Physician Assistant Medical; Referring Provider Internal Medicine Cardiovascular Disease; Visit Provider Internal Medicine Cardiovascular Disease
DX: I48.91 Unspecified atrial fibrillation (principal); I48.92 Unspecified atrial flutter; E11.9 Type 2 diabetes mellitus without complications; Z79.4 Long term (current) use of insulin; I25.5 Ischemic cardiomyopathy; I25.10 Atherosclerotic heart disease of native coronary artery without angina pectoris; G47.33 Obstructive sleep apnea (adult) (pediatric); I10 Essential (primary) hypertension; I25.2 Old myocardial infarction; E78.00 Pure hypercholesterolemia, unspecified; Z95.5 Presence of coronary angioplasty implant and graft; Z79.82 Long term (current) use of aspirin; Z79.84 Long term (current) use of oral hypoglycemic drugs; Z79.899 Other long term (current) drug therapy; Z87.891 Personal history of nicotine dependence
CPT/HCPCS: 36415; 80048; 92960; 93005; J7040

== ENCOUNTER → 2022-10-24 | Outpatient (CLI) | payer OTHER, SELFPAY ==
[2022-10-24 10:04] LABS: Anion Gap 7 (5-15); BUN 15 mg/dL (7-18); BUN/Creat Ratio 15.9 RATIO (10-20); Calcium,Total 9.4 mg/dL (8.5-10.1); Chloride 101 mmol/L (98-107); Creatinine, Serum 0.94 mg/dL (0.70-1.30); EST Glomerular Filtration Rate 87 mL/min (>60); Est Glom Filt Rate - Afr Amer 105 mL/min (>60); Glucose 157 mg/dL (74-106); Potassium 4.3 mmol/L (3.5-5.1); Sodium Level 141 mmol/L (136-145)
[2022-10-24 10:06] LABS: Microalbumin,Random Urine 9.5 mg/L (NO RANGE EST.); Microalbumin:Creatinine Ratio 8.6 mg/g CRE (<30 mg/g CRE)
[2022-10-24 10:32] LABS: Cholesterol 95 mg/dL (200); High Density Lipoprotein 35 mg/dL; Thyroid Stim Hormone (TSH) 2.35 uIU/mL (0.358-3.74); Triglycerides 101 mg/dL; Very Low Density Lipoprotein 20 mg/dL (5-40)
[2022-10-26 08:22] LABS: Vitamin D,25 Hydroxy 36.6 ng/mL
== END | disposition home or self-care (01) ==
LOC: LAB 09:05
PROVIDERS: Internal Medicine Endocrinology, Diabetes & Metabolism; PCP Internal Medicine; Visit Provider Nurse Practitioner Gerontology
DX: R06.09 Other forms of dyspnea (principal); E11.8 Type 2 diabetes mellitus with unspecified complications; I10 Essential (primary) hypertension; E78.00 Pure hypercholesterolemia, unspecified; E55.9 Vitamin D deficiency, unspecified
CPT/HCPCS: 36415; 80048; 80061; 82043; 82306; 82570; 83880; 84443

== ENCOUNTER 2023-03-11 10:26 | Day surgery (SDC) | payer OTHER, SELFPAY ==
[2023-03-10 11:54] LABS: Anion Gap 4 (5-15); BUN 16 mg/dL (7-18); BUN/Creat Ratio 17.8 RATIO (10-20); Calcium,Total 9.2 mg/dL (8.5-10.1); Chloride 103 mmol/L (98-107); EST Glomerular Filtration Rate 92 mL/min (>60); Est Glom Filt Rate - Afr Amer 111 mL/min (>60); Glucose 134 mg/dL (74-106); Potassium 3.6 mmol/L (3.5-5.1); Sodium Level 138 mmol/L (136-145)
[2023-03-10 14:21] VITALS: BMI 33.6
--- NOTE | 2023-03-11 12:51 | PCM.OP.PRO ---
Procedure Report Date of Procedure: 03/11/23 CONSCIOUS SEDATION REPORT BRIEF HISTORY OF PRESENT ILLNESS: The patient is a 57-year-old male who presented to [facility] for an elective outpatient cardioversion due to underlying atrial fibrillation. The patient reports no PO intake since midnight, but is currently therapeutic on anticoagulation. The patient does have a history of obstructive sleep apnea and is compliant with therapy. The patient reports reports history of smoking, but has not been formally diagnosed with COPD. The patient denies any recent constitutional symptoms such as fevers, chills, nausea or vomiting. The patient denies previous applicable anesthetic complications. Patient's last known ejection fraction was 45%. Patient did have a previous cardioversion in October 2022 using propofol and tolerated this well. PHYSICAL EXAMINATION: VITAL SIGNS: Reviewed and were acceptable. GENERAL: The patient is a male, in no apparent distress, speaking in full sentences. HEENT: Normocephalic, atraumatic. Mucous membranes are moist and pink. Good mouth opening noted. Trachea is midline. Good neck mobility. MP II CHEST: S1, S2 irregularly irregular. No murmurs, rubs or gallops were noted. LUNGS: Clear to auscultation bilaterally without appreciable wheezes, rales or rhonchi. ABDOMEN: Soft, nontender, nondistended. Positive bowel sounds. EXTREMITIES: There is no clubbing, cyanosis or edema. ASA Class: II DESCRIPTION OF PROCEDURE: After confirmation of informed consent, the patient's anesthesia plan was reviewed in detail. Propofol was chosen. Risks and benefits were reviewed and the patient agreed to proceed. At 11:46 AM, the patient was given 40 mg of propofol. The patient achieved an appropriate level of sedation and received 1 attempt synchronized cardioversion, at [address] Navarro at the bedside. This was successful in achieving normal sinus rhythm. The patient was monitored until 12 PM, at which time the patient reached their baseline mental status and function. The patient tolerated the procedure well. COMPLICATIONS: None ESTIMATED BLOOD LOSS: None RECOMMENDATIONS: Okay to recover in usual fashion. Procedures Pulmonary 9xxxx: [id number] Con Sedation
--- NOTE | 2023-03-11 12:54 | PRO.PCM_ITS ---
Procedure Report Date of Procedure: 03/11/23 DC cardioversion 57-year-old male with a history of atrial flutter patient has been on antico agulation. The patient was brought to the cardiac catheterization lab in the postabsorptive nonsedated state. Informed consent was obtained. The patient was seen by Dr. Bustos of the critical care division. Anterior-posterior pads were applied. The patient was administered 40 mg of intravenous propofol. 300 J of synchronized DC cardioversion energy were applied with prompt reversal to sinus rhythm. Patient tolerated the procedure well. Conclusion: Successful DC cardioversion from atrial flutter to sinus rhythm.
== END 2023-03-11 12:50 | disposition home or self-care (01) ==
LOC: CLSP 10:27
PROVIDERS: Physician Assistant Medical; PCP Internal Medicine; Referring Provider Internal Medicine Cardiovascular Disease; Visit Provider Internal Medicine Cardiovascular Disease
DX: I48.91 Unspecified atrial fibrillation (principal); I48.92 Unspecified atrial flutter; Z79.01 Long term (current) use of anticoagulants; Z87.891 Personal history of nicotine dependence
CPT/HCPCS: 36415; 80048; 92960; 93005; J7040

== ENCOUNTER 2023-05-01 13:01 | Emergency (ER) | payer OTHER, SELFPAY ==
[2023-05-01 13:03] VITALS: BP 131/76; PULSE 116; RESP 16; TEMP 36.2; O2SAT 99
[2023-05-01 13:08] VITALS: BP 131/76; PULSE 110; RESP 16; TEMP 38.8; O2SAT 98; BMI 34.0
[2023-05-01 14:09] LABS: Absolute Lymphocyte Count 1.19 X10^3/uL (0.83-4.51); Basophil# 0.05 X10^3/uL; Basophil% 0.3 % (0-1); Eosinophil# 0.42 X10^3/uL; Eosinophils% 2.3 % (0-5); Hematocrit 43.9 % (40-54); Hemoglobin 14.6 g/dL (13.0-16.5); Lymphocyte # 1.19 X10^3/ul (0.83-4.51); Lymphocyte % 6.5 % (19-41); Mean Corp Hgb Conc 33.3 g/dL (32-36); Mean Corpuscular Hgb 28.5 pg (27.0-32.0); Mean Corpuscular Volume 85.6 fL (80-94); Monocyte# 2.49 X10^3/uL; Monocyte% 13.7 % (0-10); NRBC Flagged by Analyzer 0 % (0-5); Neutrophil # 13.95 X10^3/uL (2.7-7.7); Neutrophil % 76.4 % (47-70); POSITIVE DIFFERENTIAL YES; Platelet Count 193 K/mm3 (150-450); RBC Distribution Width CV 13.2 % (11.6-14.6); RBC Distribution Width SD 41.3 fl (35.1-43.9); Red Blood Count 5.13 M/mm3 (4.6-6.2); White Blood Count 18.2 K/mm3 (4.4-11.0)
[2023-05-01 14:13] LABS: Differential Indicated SCAN CRITERIA MET
--- NOTE | 2023-05-01 14:19 | EDS_ITS ---
HPI History of Present Illness Chief Complaint: Complaint Informant: patient Narrative Narrative: 57-year-old male presenting to the emergency department chief complaint of fever. Patient has coronary artery disease history and notes that last night he developed urinary frequency incontinence and now fever. He denies any abdominal pain. No URI symptoms. No vomiting or diarrhea. He denies any rectal pain. He states he does not feel that he has been emptying his bladder. He is on Eliquis for atrial fibrillation. He is a diabetic. He states he was tested for COVID at urgent care and was negative. They did dip urine and said that was negative. [facility] Medical History Atherosclerotic heart disease of [place] coronary artery without angina pectoris Cardiomyopathy, ischemic Contact with and (suspected) exposure to other viral communicable diseases Diabetes Essential hypertension Glucosuria Hematuria with proteinuria History of non-ST elevation myocardial infarction (NSTEMI) (12/07/17) Hyperlipidemia Neuropathy Nicotine use disorder Obesity Paresthesia Tachycardia URI (upper respiratory infection) Home Medications docusate sodium 100 mg capsule 100 mg PO DAILY stool softener 07/15/20 [History Last Taken Unknown] furosemide 20 mg tablet 20 mg PO QDAY PRN edema 06/25/22 [History Last Taken Unknown] benzonatate 200 mg capsule 200 mg PO TID PRN cough #20 caps 09/03/22 [Rx Last Taken Unknown] aspirin 81 mg tablet,delayed release 81 mg PO DAILY@0800 [facility] 09/05/22 [History Last Taken Unknown] valsartan 40 mg tablet 40 mg PO DAILY blood pressure 09/05/22 [History Last Taken Unknown] apixaban 5 mg tablet (Eliquis) 5 mg PO BID #60 tabs 09/30/22 [Rx Last Taken 03/11/23] Trulicity 4.5 mg/0.5 mL subcutaneous pen injector (dulaglutide) 4.5 mg (0.5 mL) subcut QWEEK #6 mL 10/23/22 [Rx Last Taken Unknown] insulin detemir U-100 100 unit/mL (3 mL) subcutaneous pen 32 unit (0.32 mL) subcut QHS diabetes #30 mL 10/23/22 [Rx Last Taken Unknown] metformin 500 mg 24 hr tablet,extended release 500 mg PO BID diabetes #180 tabs 10/23/22 [Rx Last Taken Unknown] duloxetine 30 mg capsule,delayed release 30 mg PO DAILY depression #90 caps 10/29/22 [Rx Last Taken Unknown] carvedilol 25 mg tablet 25 mg PO BID #180 tabs 12/11/22 [Rx Last Taken Unknown] cholecalciferol (vitamin D3) 25 mcg (1,000 unit) tablet 25 mcg PO DAILY 12/11/22 [History Last Taken Unknown] vit C 250 mg-vit E 90 mg-zinc 40 mg-copper 1 [id number] capsule (PreserVision AREDS-2) 1 tab PO BID 12/11/22 [History Last Taken Unknown] rosuvastatin 10 mg tablet 10 mg PO DAILY cholesterol 12/18/22 [History Last Taken Unknown] diltiazem HCl 120 mg capsule,extended release 24 hr 120 mg PO DAILY #30 caps 04/20/23 [Rx Last Taken Unknown] ciprofloxacin HCl 500 mg tablet 500 mg PO BID #20 TABLETS 05/01/23 [Rx Last Taken Unknown] Allergy/AdvReac Type Severity Reaction Status Date / Time losartan AdvReac Intermediate myalgias Verified 05/01/23 13:02 lisinopril AdvReac cough Verified 05/01/23 13:02 Family History Mother Heart disease Breast cancer Father CVA (cerebral vascular accident) Myocardial infarction Surgical History History of cardioversion (10/16/22) History of hernia repair S/P coronary artery stent placement (12/07/17) Social History Smoking Status: Former smoker Tobacco: How many years used: 5 how long ago did patient quit smokin years ago alcohol intake: never substance use type: does not use caffeine: No what type of physical activity do you participate in: none seatbelt use: sometimes do you feel safe at home: Yes ROS ROS ED Constitutional Constitutional ED: Reports chills and fever(s); Denies weight loss Eyes Eyes: Denies change in vision or diplopia ENT ENT ED: Denies ear pain, rhinorrhea or sore throat Cardiovascular Cardiovascular: Denies chest pain, orthopnea, palpitations or racing heartbeat Respiratory/Chest Respiratory/Chest: Denies cough, dyspnea or orthopnea Gastrointestinal Gastrointestinal: Reports other Details: Anorexia ; Denies abdominal pain, diarrhea, nausea or vomiting Genitourinary Genitourinary ED: Reports urinary frequency and other Details: Urinary incontinence ; Denies hematuria Musculoskeletal Musculoskeletal: Denies arthralgias or myalgias Integumentary Denies abscess or rash Neurologic Neurologic: Denies headache(s) or weakness Psychiatric Psychiatric: Denies anxiety, depression, suicidal ideation or suicidal thoughts Endocrine Endocrinology: Denies polydipsia, polyphagia or polyuria Allergic/Immunologic Allergic/Immunologic ED: Denies mouth swelling, tongue swelling or urticaria EXAM Physical Exam Const Vital Signs: 05/01/23 13:03 05/01/23 13:08 05/01/23 14:53 Temperature 97.1 F L 102 F H 101 F H Temperature Source Temporal Oral Oral Pulse Rate 116 H 110 H 110 H Respiratory Rate 16 16 18 Blood Pressure 131/76 H 131/76 H 116/80 Blood Pressure Mean 94 94 92 Pulse Ox 99 98 96 Oxygen Delivery Method Room Air Room Air Room Air 05/01/23 15:38 Temperature 99.4 F H Temperature Source Oral Pulse Rate 104 H Respiratory Rate 18 Blood Pressure 127/80 H Blood Pressure Mean 95 Pulse Ox 92 Oxygen Delivery Method Room Air Positive well nourished and well developed General Appearance ED: well developed HEENT Reports normocephalic, head/scalp atraumatic and moist mucous membranes Eyes PERRL and EOMs intact bilaterally Neck no lymphadenopathy, supple and no JVD Resp normal respiratory effort and clear to auscultation bilaterally Cardio regular rate, regular rhythm and no murmurs Rate: tachycardic GI normal to inspection, nondistended, normoactive bowel sounds and non-tender Palpation: soft Back/Spine no CVA tenderness and normal ROM Extremity normal to inspection General Extremety ED: Negative for edema General Extremity: Negative for edema Neuro oriented x3 and CN's II-XII intact bilaterally Sensorium / Orientation: alert Motor Exam: strength 5/5 throughout Psych mental status grossly normal Mood & Affect: Negative for depressed or tearful Skin no rashes or lesions noted and no wounds MDM MDM MDM Narrative Medical decision making narrative: Oral temperature taken by this physician shows a temperature of 102.0. Bedside ultrasound performed by this physician demonstrates no evidence of urinary retention. White count returns elevated 18.2. Urinalysis is positive nitrates 1+ bacteria 10-25 white cells. Cultures were sent. He received a liter of IV fluids and Tylenol. Fever has broken. He is feeling significantly better and he is perfusing and mentating normally. We will await cultures but in the interim I will place him on ciprofloxacin. We talked about following up with primary care and if continued urinary symptoms or recurrent UTI would recommend urologic follow-up Lab Data Attestation: I reviewed the patient's lab results. Labs: Laboratory Results - last 24 hr 05/01/23 05/01/23 13:55 15:33 WBC 18.2 H RBC 5.13 Hgb 14.6 Hct 43.9 MCV 85.6 MCH 28.5 MCHC 33.3 RDW Std Deviation 41.3 RDW Coeff of Nursat 13.2 Plt Count 193 MPV 10.0 Immature Gran % (Auto) 0.800 Neut % (Auto) 76.4 H Lymph % (Auto) 6.5 L [place] % (Auto) 13.7 H Eos % (Auto) 2.3 Baso % (Auto) 0.3 Absolute Neuts (auto) 14.0 H Absolute Lymphs (auto) 1.19 Nucleated RBC % 0 Differential Comment SCANNED Diff Path Review December foll PT 16.2 H INR 1.3 APTT 33.3 Sodium 134 L Potassium 3.4 L Chloride 100 Carbon Dioxide 28.0 Anion Gap 6 BUN 11 Creatinine 0.91 Estim Creat Clear Calc 93.09 Est GFR (MDRD) Af Amer 110 Est GFR (MDRD) Non-Af 91 BUN/Creatinine Ratio 12.1 Glucose 230 H Lactic Acid 1.3 Calcium 8.9 Total Bilirubin 2.20 H AST 11 L ALT 28 Alkaline Phosphatase 109 Total Protein 7.2 Albumin 3.4 Globulin 3.8 Albumin/Globulin Ratio 0.9 Urine Color Yellow Urine Clarity Sl. Cloudy Urine pH 6.5 Ur Specific [place] 1.010 Urine Protein 30 H Urine Glucose (UA) 250 H Urine Ketones 15 H Urine Occult Blood 250 H Urine Nitrite Positive H Urine Bilirubin Negative Urine Urobilinogen 1 H Ur Leukocyte Esterase 100 H Urine RBC 0-5 SEEN Urine WBC 10-25 SEEN Ur Squamous Epith Cells 0 SEEN Urine Bacteria 1+ Urine Mucus 0 SEEN Discharge Plan Triage Chief Complaint: Complaint ED Provider: Reilly Olmstead Dx/Rx/DC Orders Clinical Impression: Acute UTI, Acute febrile illness Instructions: Urinary Tract Infections in Men Prescriptions: New ciprofloxacin HCl [ciprofloxacin HCl] 500 mg tablet 500 mg PO BID Qty: 20 0RF No Action docusate sodium 100 mg capsule 100 mg PO DAILY furosemide 20 mg tablet 20 mg PO QDAY PRN (Reason: edema) Rx Instructions: q 3rd day insulin detemir U-100 100 unit/mL (3 mL) insulin pen 32 unit SC QHS Qty: 30 3RF metformin 500 mg tablet,ER natty.retention 24 hr 500 mg PO BID Qty: 180 3RF Trulicity 4.5 mg/0.5 mL pen injector 4.5 mg subcut QWEEK Qty: 6 3RF PreserVision AREDS-2 250-90-40-1 mg capsule 1 tab PO BID cholecalciferol (vitamin D3) 25 mcg (1,000 unit) tablet 25 mcg PO DAILY carvedilol 25 mg tablet 25 mg PO BID Qty: 180 3RF benzonatate 200 mg capsule 200 mg PO TID PRN (Reason: cough) Qty: 20 0RF Eliquis 5 mg tablet 5 mg PO BID Qty: 60 11RF aspirin 81 mg tablet,delayed release (DR/EC) 81 mg PO DAILY@0800 valsartan 40 mg tablet 40 mg PO DAILY rosuvastatin 10 mg tablet 10 mg PO DAILY duloxetine 30 mg capsule,delayed release(DR/EC) 30 mg PO DAILY Qty: 90 1RF diltiazem HCl 120 mg capsule,extended release 24hr 120 mg PO DAILY Qty: 30 11RF Primary Care Provider: Yaa Shelton Referrals: Yaa Shelton MD [Primary Care Provider] - As Needed Disposition Disposition: Home, Self Care
[2023-05-01] MEDS: Acetaminophen 500 MG Tablet 1000 MG PO (14:26)
[2023-05-01] MEDS: 0.9% Normal Saline (1000mL) 1,000 ML 999 ML IV (14:26)
[2023-05-01 14:28] LABS: International Normalized Ratio 1.3; Prothrombin Time (Protime)PT. 16.2 SECONDS (11.7-14.9)
[2023-05-01 14:29] LABS: Partial Thromboplast Time 33.3 Seconds (24.1-36.2)
[2023-05-01 14:39] LABS: Lactic Acid 1.3 mmol/L (0.4-1.9)
[2023-05-01 14:40] LABS: ALB/GLOB Ratio 0.9 RATIO (0.9-2.4); AST(SGOT) 11 U/L (15-37); Alanine Aminotransfer ALT/SGPT 28 U/L (16-61); Albumin, Serum 3.4 g/dL (3.2-5.0); Alkaline Phosphatase 109 U/L (45-117); Anion Gap 6 (5-15); BUN 11 mg/dL (7-18); BUN/Creat Ratio 12.1 RATIO (10-20); Calcium,Total 8.9 mg/dL (8.5-10.1); Chloride 100 mmol/L (98-107); Creatinine, Serum 0.91 mg/dL (0.70-1.30); EST Glomerular Filtration Rate 91 mL/min (>60); Est Glom Filt Rate - Afr Amer 110 mL/min (>60); Estimated Creatinine Clearance 93.09 ml/min; Globulin 3.8 g/dL (2.2-4.2); Glucose 230 mg/dL (74-106); Potassium 3.4 mmol/L (3.5-5.1); Protein, Total 7.2 g/dL (6.4-8.2); Sodium Level 134 mmol/L (136-145)
[2023-05-01 14:53] VITALS: BP 116/80; PULSE 110; RESP 18; TEMP 38.3; O2SAT 96
[2023-05-01 14:57] LABS: Differential Comment SCANNED
[2023-05-01 15:38] VITALS: BP 127/80; PULSE 104; RESP 18; TEMP 37.4; O2SAT 92
[2023-05-01 15:41] LABS: Mucous, Urine 0 SEEN /hpf (<or=2+); Squamous Epithelial Cells - UA 0 SEEN /hpf (0-5)
[2023-05-01 15:47] LABS: Color, Urine Yellow (Yellow); Glucose, Dipstick 250 mg/dl (Normal); Ketone-Dipstick 15 mg/dl (Negative); Leukocyte Esterase-Dipstick 100 /ul (Negative); Nitrite-Dipstick Positive (Negative); Occult Blood-Urine 250 /ul (Negative); Protein-Dipstick 30 mg/dl (Negative); Urine Bilirubin Dipstick Negative (Negative); Urine Clarity Sl. Cloudy (Clear); Urine Urobilinogen 1 mg/dl (Normal); Urine pH 6.5 (5.0 - 8.0)
[2023-05-01 15:57] LABS: Bacteria 1+ /hpf (None Seen); Red Blood Cells-Urine 0-5 SEEN /hpf (0-5); White Blood Cells 10-25 SEEN /hpf (0-5)
[2023-05-04 08:52] LABS: Pathologist Review Reviewed
== END 2023-05-01 16:29 | disposition home or self-care (01) ==
PROVIDERS: Emergency Provider Emergency Medicine; PCP Internal Medicine; Visit Provider Emergency Medicine
DX: N39.0 Urinary tract infection, site not specified (principal); I48.91 Unspecified atrial fibrillation; I25.10 Atherosclerotic heart disease of native coronary artery without angina pectoris; R50.9 Fever, unspecified; I25.2 Old myocardial infarction; Z87.891 Personal history of nicotine dependence; Z95.5 Presence of coronary angioplasty implant and graft; Z79.01 Long term (current) use of anticoagulants
CPT/HCPCS: 80053; 81001; 83605; 85025; 85610; 85730; 87040; 87077; 87086; 87088; 87186; 96360; 99284; J7030; A4216

== ENCOUNTER → 2023-05-02 | Outpatient (CLI) | payer OTHER, SELFPAY ==
[2023-05-02 15:38] LABS: Mucous, Urine 0 SEEN /hpf (<or=2+)
[2023-05-02 16:01] LABS: Color, Urine Yellow (Yellow); Glucose, Dipstick 1000 mg/dl (Normal); Ketone-Dipstick 5 mg/dl (Negative); Leukocyte Esterase-Dipstick 100 /ul (Negative); Nitrite-Dipstick Positive (Negative); Occult Blood-Urine 250 /ul (Negative); Protein-Dipstick 30 mg/dl (Negative); Urine Bilirubin Dipstick Negative (Negative); Urine Clarity Sl. Cloudy (Clear); Urine Urobilinogen 1 mg/dl (Normal); Urine pH 6.5 (5.0 - 8.0)
[2023-05-02 16:42] LABS: Amorphous Sediment 1+ URATE; Bacteria 2+ /hpf (None Seen); Red Blood Cells-Urine 10-25 SEEN /hpf (0-5); Squamous Epithelial Cells - UA 0-5 SEEN /hpf (0-5); White Blood Cells 10-25 SEEN /hpf (0-5)
== END | disposition home or self-care (01) ==
PROVIDERS: PCP Internal Medicine; Visit Provider Physician Assistant
DX: N39.0 Urinary tract infection, site not specified (principal)
CPT/HCPCS: 81001; 87077; 87086; 87088; 87186

== ENCOUNTER → 2023-05-04 | Outpatient (CLI) | payer OTHER, SELFPAY ==
[2023-05-04 16:54] LABS: Bacteria 0 SEEN /hpf (None Seen); Mucous, Urine 0 SEEN /hpf (<or=2+); Red Blood Cells-Urine 0 SEEN /hpf (0-5); Squamous Epithelial Cells - UA 0 SEEN /hpf (0-5)
[2023-05-04 17:07] LABS: Color, Urine Yellow (Yellow); Glucose, Dipstick Normal (Normal); Ketone-Dipstick Negative (Negative); Leukocyte Esterase-Dipstick 25 /ul (Negative); Nitrite-Dipstick Negative (Negative); Occult Blood-Urine 10 /ul (Negative); Protein-Dipstick 30 mg/dl (Negative); Urine Bilirubin Dipstick Negative (Negative); Urine Clarity Clear (Clear); Urine Urobilinogen 1 mg/dl (Normal)
[2023-05-04 17:14] LABS: White Blood Cells 0-5 SEEN /hpf (0-5)
== END | disposition home or self-care (01) ==
LOC: LAB 16:50
PROVIDERS: PCP Internal Medicine; Referring Provider Internal Medicine; Visit Provider Internal Medicine
DX: N39.0 Urinary tract infection, site not specified (principal); Z12.5 Encounter for screening for malignant neoplasm of prostate
CPT/HCPCS: 36415; 81001; 84153; G0103

== ENCOUNTER → 2023-09-17 | Outpatient (CLI) | payer OTHER, SELFPAY ==
--- NOTE | 2023-09-17 10:41 | ECHOD_ITS ---
Reason For Study: ATRIAL FLUTTER Procedure This was a 2D Doppler, Color Flow transthoracic echocardiogram. The study was technically difficult. Contrast injection was performed. Exam performed in department. Left Ventricle Normal LV size. Mild concentric left ventricular hypertrophy. The left ventricular ejection fraction is 45 %. There is a large sized inferior, posterior, and lateral wall motion abnormality with hypokinesis to akinesis of the segments. Right Ventricle Normal RV size. Mild global right ventricular systolic dysfunction. Atria The left and right atria are normal. Mitral Valve Trivial mitral valve insufficiency. Tricuspid Valve Trivial tricuspid valve insufficiency. Unable to estimate RV systolic pressure due to insufficient tricuspid regurgitant envelope. Aortic Valve Trisinus/trileaflet aortic valve. Pulmonic Valve The pulmonic valve is not well visualized. Great Vessels Normal sized aortic root. Pericardium/Pleural No pericardial effusion. Medication 22 gauge I.V. with prn adaptor inserted into right arm. Diluted definity 2ml given slow IV push to enhance endocardial definition. MMode/2D Measurements & Calculations LVIDd: 4.2 cm IVSd: 1.3 cm LVOT diam: 2.0 cm LVIDs: 2.3 cm LVPWd: 0.97 cm RVDd: 3.8 cm FS: 45.2 % LVOT area: 3.0 cm2 Ao root diam: 3.5 cm LAV(MOD-bp): 51.5 ml LVAd ap4: 30.5 cm2 LAV(MOD-bp) Indexed: 22.6 ml/m2 LVLd ap4: 7.3 cm LAV(MOD-sp2): 64.5 ml EDV(MOD-sp4): 102.2 ml LAV(MOD-sp4): 40.4 ml EDV(sp4-el): 107.9 ml LVAs ap4: 20.7 cm2 LVLs ap4: 6.2 cm ESV(MOD-sp4): 54.1 ml ESV(sp4-el): 58.3 ml EF(MOD-sp4): 47.0 % EF(sp4-el): 46.0 % LVAd ap2: 36.2 cm2 SV(MOD-sp4): 48.1 ml SV(MOD-sp2): 51.3 ml LVLd ap2: 7.9 cm EDV(MOD-sp2): 133.7 ml EDV(sp2-el): 140.1 ml LVAs ap2: 26.8 cm2 LVLs ap2: 6.8 cm ESV(MOD-sp2): 82.5 ml ESV(sp2-el): 89.4 ml EF(MOD-sp2): 38.3 % SV(sp4-el): 49.6 ml LA dimension(2D): 5.0 cm LA A4 area: 16.8 cm2 RA A4 area: 12.4 cm2 TAPSE: 1.0 cm Time Measurements MV dec time: 0.23 sec Doppler Measurements & Calculations MV E max vinod: 99.7 cm/sec Lat Peak E' Vinod: 6.7 cm/sec Med Peak E' Vinod: 7.1 cm/sec E/E' lat: 14.9 E/E' med: 14.1 Ao V2 max: 110.6 cm/sec LV V1 max: 73.5 cm/sec SV(LVOT): 48.1 ml Ao max P.9 mmHg LV V1 max P.2 mmHg Ao V2 mean: 79.3 cm/sec LV V1 mean P.2 mmHg Ao mean P.9 mmHg LV V1 mean: 50.3 cm/sec Ao V2 VTI: 23.0 cm LV V1 VTI: 15.8 cm AV (velocity ratio): 0.69 PAPO(I,D): 2.1 cm2 PAPO(V,D): 2.0 cm2 PA V2 max: 81.4 cm/sec PA max PG (full): 1.8 mmHg ECHO/Echo Complete W/ Contrast Interpretation Summary Mild concentric left ventricular hypertrophy. The left ventricular ejection fraction is 45 %. There is a large sized inferior, posterior, and lateral wall motion abnormality with hypokinesis to akinesis of the segments. Mild global right ventricular systolic dysfunction. Ordering Physician: MADY THOMAS Referring Physician: Yaa Shelton M.D. Performed By: Inés Mccartney RDCS
--- OUTSIDE RECORDS SUMMARY | 2023-09-17 11:14 | XMS RPT_ITS | CCD ---
Author Name Unknown Address [address] [place] [address] Organization [facility] Care Team Providers Care Qa Tester Name Role Phone JOELLEN GASTON () Unavailable Unav ailable NED LYNCH Admitting Unavailable NED LYNCH Attending Unavailable MADY THOMAS Attending Unavailable KATLIN NAVARRO Referring Unavailable Allergies Allergy Classification Reported Allergen(s) Allergy Type Date of Onset Reaction(s) Facility (1 source) Lisinopril; Translations: [LISINOPRIL] Drug Allergy 01-28-2018 [facility] Repository (1 source) Losartan; Translations: [LOSARTAN] Drug Allergy 07-26-2018 [facility] Repository (1 source) quinapril; Translations: [QUINAPRIL HCL] Drug Allergy 10-19-2018 [facility] Repository Problems Problem Classification Problem Date Documented Date Episodic/Chronic Acute myocardial infarction (1 source) ST elevation (STEMI) myocardial infarction involving left circumflex coronary artery; Translations: [ST elevation (STEMI) myocardial infarction involving left circumflex coronary artery] Onset: 12-30-2017 Chronic Cardiac dysrhythmias (6 sources) Typical atrial flutter; Translations: [Unspecified atrial flutter] Onset: 05-24-2023 Chronic Cardiac dysrhythmias (2 sources) Tachycardia, unspecified; Translations: [Tachycardia, unspecified] Onset: 06-30-2023 Episodic Coronary atherosclerosis and other heart disease (7 sources) Atherosclerotic heart disease of alutiiq coronary artery without angina pectoris; Translations: [Old myocardial infarction] Onset: 12-29-2017 Chronic Coronary atherosclerosis and other heart disease (2 sources) Presence of coronary angioplasty implant and graft; Translations: [Presence of coronary angioplasty implant and graft] Onset: 05-24-2023 Episodic Other lower respiratory disease (1 source) Snoring; Translations: [Snoring] Onset: 12-30-2017 Episodic Other nervous system disorders (1 source) Other acute postprocedural pain; Translations: [Postoperative pain] Onset: 12-06-2018 Episodic Results Test Name Value Interpretation Reference Range Facil ity Encounters Encounter Date Encounter Type Care Provider Facility Start: 06-30-2023 ambulatory MADY THOMAS Facil ity:[facility] Start: 05-24-2023 ambulatory MADY VOGTOSTINJanusz Facilit y:[facility] Start: 12-06-2018 End: 12-06-2018 Patient encounter procedure NED LYNCH [facility] Start: 12-30-2017 End: 12-30-2017 [facility] Date Payer Category Payer Private Health Insurance [id number] 1965 Unknown [id number] 1965 Unknown [id number] Progress note 03-21-2021 Note Date & Type Note Facility 03-21-2021 Note HNO ID: [id number] Author: Aba Best Service: ? Author Type: Physician Type: Progress Notes Filed: 03/21/2021 8:51 AM Note Text: Initial Office Visit Subjective: This 55 year old male presents to clinic for diabetic foot check. Patient has no complaints at this time. He does have neuropathy but is now taking cymbalta and that has helped. Patient admits to being diabetic for 3 years now. Patient +B/T/N in feet at this time. Patient -pain in legs when walking. No other pedal complaints at this time. No change in medications or medical history since last visit. PAIN EVALUATION No data found in the last 1 encounters. Hemoglobin A1C (%) Date Value 02/11/2021 6.7 08/10/2020 6.6 10/17/2019 6.8 04/06/2019 6.1 10/17/2018 6.9 PCP: Joellen Gaston MD PAST MEDICAL HISTORY Diagnosis Date - ACS (acute coronary syndrome) (HCC) - ASHD (arteriosclerotic heart disease) - Diabetes mellitus, type II (HCC) - Hammertoes of both feet - Obesity (BMI 30.0-34.9) - ANIYAH (obstructive sleep apnea) severe - PVC (premature ventricular contraction) - Snoring - STEMI (ST elevation myocardial infarction) ([facility]) [facility] s/p stent to circumflex, ONELIA Current Outpatient Medications Medication Sig - carvedilol (COREG) 3.125 mg tablet Take 1 tablet by mouth twice daily. - insulin detemir U-100 (LEVEMIR) 100 unit/mL (3 mL) injection pen Inject 36 Units subcutaneously daily at bedtime. - rosuvastatin (CRESTOR) 20 mg tablet Take 1 tablet by mouth daily at bedtime. - metFORMIN ER (GLUCOPHAGE XR) 500 mg 24 hr tablet Take 2 tablets by mouth daily with breakfast. - furosemide (LASIX) 20 mg tablet Take 1 tablet by mouth every 72 hours. - valsartan (DIOVAN) 80 mg tablet Take 0.5 tablets by mouth once daily. - DULoxetine (CYMBALTA) 30 mg capsule Take 1 capsule by mouth once daily. - aspirin, enteric coated (ASPIR-LOW) 81 mg EC tablet Take 1 tablet by mouth once daily. - blood sugar diagnostic (BLOOD GLUCOSE TEST) test strip Test blood sugar(s) 1 times daily. Dx: Type 2 DM - Controlled E11.9 Insulin: Yes - docusate sodium (COLACE) 100 mg capsule Take 1 capsule by mouth twice daily as needed for Constipation. No current facility-administered medications for this visit. ALLERGIES Allergen Reactions - Accupril [Quinapril* Cough - Atorvastatin Myalgia - Lisinopril Cough - Losartan Myalgia PAST SURGICAL HISTORY Procedure Laterality Date - COLONOSCOPY AND BIOPSY 09/09/2018 - HEART CATHETERIZATION 12/2017 stent to circumflex - REPAIR UMBILICAL KEVYN,5+Y/O,REDUC 12/06/2018 Hernia repair, umbilical >5yr FAMILY HISTORY Problem Relation Age of Onset - Cancer Mother liver, tongue, breast - other (tuberculosis) Mother - Heart Father x3 - Stroke Father x7 - Diabetes Father - Diabetes Maternal Grandmother - Diabetes Maternal Grandfather Social History Tobacco Use - Smoking status: Former Smoker Packs/day: 0.25 Years: 10.00 Pack years: 2.50 Types: Cigarettes Quit date: 11/29/2017 Years since quittin.3 - Smokeless tobacco: Never Used Substance Use Topics - Alcohol use: No - Drug use: No REVIEW OF SYSTEMS GENERAL: Negative for Malaise, significant weight loss, fever RESPIRATORY: Negative for cough, wheezing and shortness of breath CARDIOVASCULAR: Negative for chest pain, leg swelling and palpitations GI: Negative for abdominal discomfort, blood in stools or black stools and change in bowel habits : Negative for dysuria, frequency and incontinence MUSCULOSKELETAL: Negative for joint pain or swelling, back pain, and muscle pain. SKIN: Negative for lesions, rash, and itching. HEMATOLOGY/LYMPHOLOGY Negative for prolonged bleeding, bruising easily, and swollen nodes. ENDOCRINE: Negative for cold or heat intolerance, polyuria, polydipsia and goiter. NEURO: negative The remainder of the review of systems is noncontributory. Objective: Patient presents to clinic ambulating in [facility] Constitutional: Pt is a well developed 55 year old male who is alert, oriented, cooperative and in no apparent distress. Eyes: Following during examination. No redness or drainage. Respiratory: RR normal and nonlabored. Even breathing. No evidence of distress. Psychology: Patient is engaged during conversation. Normal affect and mood. Does not appear depressed or anxious. Vasc: DP and PT pulses are palpable bilateral. CFT is less than 5 seconds bilateral. Skin temperature is warm to warm proximal to distal bilateral. There is no edema or varicosities noted. Hair growth present. Neuro: Protective sensation is intact to the foot and toes when tested with the 5.07 SWM bilateral. Vibratory sensation is decreased at the hallux bilateral. + Significant neurological defecits. Derm: Inspection and palpation performed. Nails 1-5 b/l are normal in length and thickness. Skin is of normal turgor and texture. Hyperkeratosis noted to not pr (more content not included)... [facility] Progress note 02-14-2021 Note Date & Type Note Facility 02-14-2021 Note HNO ID: [id number] Author: Joellen Gaston MD Service: ? Author Type: Physician Type: Progress Notes Filed: 02/14/2021 9:13 AM Note Text: Chief Complaint Patient presents with: 6 Month Exam In lieu of an in person visit due to coronavirus 19 pandemic concerns, a phone visit was performed with patient. Patient is aware that I am not fully able to assess symptoms and do a full physical exam including vital signs at this time. Patient consents to the visit. MARYANN Echols is a 55 year old male who presents here today for 6 month follow up. DIABETES MELLITUS: Mr. Echols was last seen 6 months ago. Since our last visit he denies excessive thirst or increased frequency of urination, new or unusual visual symptoms and low sugar/hypoglycemic reactions. Admits to neuropathy in his feet. Checking on a daily basis. Follows a diabetic diet most of the time. He is compliant with medication(s) and is tolerating med(s) without any side effects. He reports checking his glucose on a once a day schedule with sugars in the fasting 110-120 range. Patient's last HgA1C was Hemoglobin A1C (%) Date Value 02/11/2021 6.7 08/10/2020 6.6 ) Last Ophthalmology exam was within the past 12 months Last Podiatry exam was within the past 12 months [facility] s/p ONELIA to circumflex: following up with Dr. Mansfield every 6 months. Discontinued Brillinta in December 2019. Advised to continue ASA, statin, and ARB. Had paradoxical reaction to beta suleman and cannot tolerate. Had follow up in the last 6 weeks where they recommended he take his valsartan every other day. Started on Coreg after recent echo showed EF in the 40's%. Tolerating well without side effects. Needs to schedule Pap titration for ANIYAH still. Past medical history, appointments, medications, allergies reviewed. Previous Medical History PAST MEDICAL HISTORY Diagnosis Date - ACS (acute coronary syndrome) ([facility]) - ASHD (arteriosclerotic heart disease) - Diabetes mellitus, type II ([facility]) - Hammertoes of both feet - Obesity (BMI 30.0-34.9) - ANIYAH (obstructive sleep apnea) severe - PVC (premature ventricular contraction) - Snoring - STEMI (ST elevation myocardial infarction) ([facility]) [facility] s/p stent to circumflex, ONELIA Previous Surgical History PAST SURGICAL HISTORY Procedure Laterality Date - COLONOSCOPY AND BIOPSY 09/09/2018 - HEART CATHETERIZATION 12/2017 stent to circumflex - REPAIR UMBILICAL KEVYN,5+Y/O,REDUC 12/06/2018 Hernia repair, umbilical >5yr Family History FAMILY HISTORY Problem Relation Age of Onset - Cancer Mother liver, tongue, breast - other (tuberculosis) Mother - Heart Father x3 - Stroke Father x7 - Diabetes Father - Diabetes Maternal Grandmother - Diabetes Maternal Grandfather Patient Allergies ALLERGIES Allergen Reactions - Accupril [Quinapril* Cough - Atorvastatin Myalgia - Lisinopril Cough - Losartan Myalgia Current Medications Current Outpatient Medications on File Prior to Visit Medication Sig - carvedilol (COREG) 3.125 mg tablet Take 1 tablet by mouth twice daily. - metFORMIN ER (GLUCOPHAGE XR) 500 mg 24 hr tablet Take 2 tablets by mouth daily with breakfast. - furosemide (LASIX) 20 mg tablet Take 1 tablet by mouth every 72 hours. - insulin detemir U-100 (LEVEMIR) 100 unit/mL (3 mL) injection pen Inject 34 Units subcutaneously daily at bedtime. (Patient taking differently: Inject 36 Units subcutaneously daily at bedtime. ) - aspirin, enteric coated (ASPIR-LOW) 81 mg EC tablet Take 1 tablet by mouth once daily. - blood sugar diagnostic (BLOOD GLUCOSE TEST) test strip Test blood sugar(s) 1 times daily. Dx: Type 2 DM - Controlled E11.9 Insulin: Yes - rosuvastatin (CRESTOR) 10 mg tablet Take 1 tablet by mouth daily at bedtime. - docusate sodium (COLACE) 100 mg capsule Take 1 capsule by mouth twice daily as needed for Constipation. - valsartan (DIOVAN) 80 mg tablet Take 0.5 tablets by mouth once daily. (Patient not taking: Reported on 02/14/2021 ) No current facility-administered medications on file prior to visit. Social History Social History Tobacco Use - Smoking status: Former Smoker Packs/day: 0.25 Years: 10.00 Pack years: 2.50 Types: Cigarettes Quit date: 11/29/2017 Years since quittin.2 - Smokeless tobacco: Never Used Substance Use Topics - Alcohol use: No - Drug use: No Review of Symptoms REVIEW OF SYSTEMS GENERAL: No weight loss, malaise or fevers RESPIRATORY: Negative for cough, hemoptysis, wheezing, COPD, dyspnea or shortness of breath CARDIOVASCULAR: Negative for chest pain, leg swelling, hypertension, CHF or palpitations GI: No nausea, vomiting, or diarrhea SKIN: Negative for lesions, rash, and itching EXAM: BP 121/80 Pulse 70 General Appearance: Well sounding, alert, able to talk in complete sentences without SOB, cough or wheezing. . Health Maintenance List DTAP,TDAP,TD(1 - Tdap) Fely (more content not included)... [facility] Progress note 01-14-2021 Note Date & Type Note Facility 01-14-2021 Note HNO ID: [id number] Author: Suresh Adams Service: ? Author Type: ? Type: Progress Notes Filed: 01/14/2021 4:35 PM Note Text: POPULATION HEALTH NAVIGATION OUTREACH Action/FYI Patient had diabetic eye exam last week outside [facility] Contact made with patient or family member? YES Pt identified by name and : YES Outreach Outcome/Action Spoke to patient or caregiver: Patient declined Reason for Outreach Care Gap or Scheduling/Wellness visits Payer: Payor: [employer] / Plan: [employer] CHOICE POS II / Product Type: POS / Care Gap Reviewed:: Diabetic Eye Exam Reminder: Reminder note to check Health Maintenance for items below Health Maintenance items due: COVID-19 VACCINE(1) Never done DTAP,TDAP,TD(1 - Tdap) Never done SHINGRIX VACCINE(1 of 2) Never done DEPRESSION SCREENING due on 01/28/2019 DILATED RETINAL EXAM Advanced Directives Completed: Have you ever planned for future healthcare decisions with a power of business attorney, living will, or advance directives? Referrals: Message Sent to Practice: Navigation Signature: Suresh Adams January 14, 2021 4:25 PM [facility] Clinical Note 01-14-2021 Note Date & Type Note Facility 01-14-2021 Note Patient Outreach (NE TNAV) CECI ECHOLS ([id number]) 1965 M Date Time Provider Department 01/14/21 MAGGIE MAI During your visit today, we recorded the following information about you: Suresh Adams 01/14/2021 4:35 PM Signed POPULATION HEALTH NAVIGATION OUTREACH Action/FYI Patient had diabetic eye exam last week outside [facility] Contact made with patient or family member? YES Pt identified by name and : YES Outreach Outcome/Action Spoke to patient or caregiver: Patient declined Reason for Outreach Care Gap or Scheduling/Wellness visits Payer: Payor: [employer] / Plan: [employer] CHOICE POS II / Product Type: POS / Care Gap Reviewed:: Diabetic Eye Exam Reminder: Reminder note to check Health Maintenance for items below Health Maintenance items due: COVID-19 VACCINE(1) Never done DTAP,TDAP,TD(1 - Tdap) Never done SHINGRIX VACCINE(1 of 2) Never done DEPRESSION SCREENING due on 01/28/2019 DILATED RETINAL EXAM Advanced Directives Completed: Have you ever planned for future healthcare decisions with a power of business attorney, living will, or advance directives? Referrals: Message Sent to Practice: Navigation Signature: Suresh Adams January 14, 2021 4:25 PM Allergies As of Date: 01/14/2021 Noted Allergy Reaction ACCUPRIL (QUINAPRIL HCL) 10/19/2018 3 - Cough ATORVASTATIN 10/20/2019 17 - Myalgia LISINOPRIL 01/28/2018 3 - Cough LOSARTAN 07/26/2018 17 - Myalgia Date Reviewed: 09/09/2020 Reviewed by: Mabel Metzger RN - Fully Assessed Reason for Visit: Population Health Navigation Outreach [3910] Cmt: Deferred Care Prescriptions as of 01/14/2021 Sig: METFORMIN ER 500 MG TABLET,EX* Take 2 tablets by mouth daily* FUROSEMIDE 20 MG TABLET Take 1 tablet by mouth every * INSULIN DETEMIR (U-100) 100 U* Inject 34 Units subcutaneousl* ASPIRIN 81 MG TABLET,DELAYED * Take 1 tablet by mouth once d* BLOOD GLUCOSE TEST STRIPS Test blood sugar(s) 1 times d* VALSARTAN 80 MG TABLET Take 0.5 tablets by mouth onc* ROSUVASTATIN 10 MG TABLET Take 1 tablet by mouth daily * DOCUSATE SODIUM 100 MG CAPSULE Take 1 capsule by mouth twice* Problem List As Of Date 01/14/2021 Noted Resolved Diabetes mellitus, type II (HCC) [E11.9] STEMI (ST elevation myocardial infarction) (HCC* ASHD (arteriosclerotic heart disease) [I25.10] ANIYAH (obstructive sleep apnea) [G47.33] Obesity (BMI 30.0-34.9) [E66.9] Hammertoes of both feet [M20.41, M20.42] Encounter Status:Closed by SURESH ADDISON on 01/14/21 [facility] Summary Purpose Family History No Family History Records FoundNo Family History Records FoundNo Family History Records FoundNo Family History Records Found Advance Directives No Advanced Directives Records FoundNo Advanced Directives Records FoundNo Advanced Directives Records FoundNo Advanced Directives Records Found Additional Source Comments (unrecognized sect ion and content) No Status Records FoundNo Status Records FoundNo Status Records FoundNo Status Records Found INFORMATION SOURCE (unrecogn ized section and content) DATE CREATED AUTHOR AUTHOR'S ORGANIZ ATION 12/10/2018 [facility] DATE CREATED AUTHOR AUTHOR'S ORGANIZ ATION 09/26/2021 [facility] DATE CREATED AUTHOR AUTHOR'S ORGANIZ ATION 07/06/2023 [facility] FOR RECORDS PERTAINING TO PATIENTS WHO ARE OR HAVE BEEN ENROLLED IN A CHEMICAL DEPENDENCY/SUBSTANCEABUSE PROGRAM, SOME INFORMATION MAY BE OMITTED. This clinical summary was aggregated from multiple sources. Caution should be exercised in using it in the provision of clinical care. This summary normalizes information from multiple sources, and as a consequence, information in this document may materially change the coding, format and clinical context of patient data. In addition, data may be omitted in some cases. CLINICAL DECISIONS SHOULD BE BASED ON THE PRIMARY CLINICAL RECORDS. [facility] [employer] [facility]. provides no warranty or guarantee of the accuracy or completeness of information in this document.
== END | disposition home or self-care (01) ==
LOC: CVS 10:38
PROVIDERS: PCP Internal Medicine; Referring Provider Internal Medicine Cardiovascular Disease; Visit Provider Internal Medicine Cardiovascular Disease
DX: I48.3 Typical atrial flutter (principal)
CPT/HCPCS: 93306; Q9957; A4216; C8929

== ENCOUNTER → 2024-04-14 | Outpatient (CLI) | payer OTHER, SELFPAY ==
--- NOTE | 2024-04-14 06:13 | ECHOCS_ITS ---
Reason For Study: Afib, Aflutter Procedure This was a 2D Doppler, Color Flow transthoracic echocardiogram. Contrast injection was performed. Exam performed in department. Left Ventricle Normal LV size. The left ventricular ejection fraction is 50 %. Stage 2 diastolic dysfunction. Mild segmental systolic dysfunction (see wall motion). Mid-Inferior: Mildly hypokinetic. Basal inferoseptal: Hypokinetic. Infero-Basal: Akinetic. Right Ventricle Normal RV size. Normal systolic function. Mitral Valve Normal mitral valve. Tricuspid Valve Normal tricuspid valve. Mild (1+) tricuspid valve insufficiency. Pulmonary artery systolic pressure is 40 mmHg. Aortic Valve Trisinus/trileaflet aortic valve. Pulmonic Valve Normal pulmonic valve. Great Vessels Normal aortic root. The pulmonary artery is normal size. Normal inferior vena cava. Pericardium/Pleural No pericardial effusion. Medication Diluted definity 2.5ml given slow IV push to enhance endocardial definition. MMode/2D Measurements & Calculations LVIDd: 4.8 cm IVSd: 1.1 cm Ao root diam: 2.9 cm LVIDs: 3.9 cm LVPWd: 0.98 cm RVDd: 3.0 cm FS: 19.0 % LAV(MOD-bp): 51.6 ml LVAd ap4: 30.3 cm2 SV(MOD-sp4): 37.9 ml LAV(MOD-bp) Indexed: 22.1 ml/m2 LVLd ap4: 8.2 cm LAV(MOD-sp2): 71.5 ml EDV(MOD-sp4): 91.5 ml LAV(MOD-sp4): 37.1 ml EDV(sp4-el): 94.9 ml LVAs ap4: 20.6 cm2 LVLs ap4: 6.9 cm ESV(MOD-sp4): 53.7 ml ESV(sp4-el): 51.8 ml EF(MOD-sp4): 41.4 % EF(sp4-el): 45.4 % SV(sp4-el): 43.1 ml LA A4 area: 17.1 cm2 LA dimension(2D): 4.6 cm RA A4 area: 9.4 cm2 TAPSE: 1.8 cm Time Measurements MV dec time: 0.16 sec Doppler Measurements & Calculations MV E max vinod: 107.3 cm/sec Lat Peak E' Vinod: 7.0 cm/sec Med Peak E' Vinod: 6.6 cm/sec MV A max vinod: 49.5 cm/sec E/E' lat: 15.3 E/E' med: 16.2 MV E/A: 2.2 Ao V2 max: 124.9 cm/sec LV V1 max: 89.6 cm/sec MV dec slope: 682.9 cm/sec2 Ao max P.2 mmHg LV V1 max P.2 mmHg Ao V2 mean: 93.0 cm/sec Ao mean P.7 mmHg Ao V2 VTI: 28.0 cm PA V2 max: 55.4 cm/sec TR max vinod: 298.1 cm/sec TR max P.5 mmHg ECHO/Echo Complete W/ Contrast Interpretation Summary The left ventricular ejection fraction is 50 %. Normal LV size. Stage 2 diastolic dysfunction. Pulmonary artery systolic pressure is 40 mmHg. Ordering Physician: Lizbeth Dover Referring Physician: Yaa Shelton Performed By: Lila Noel RDCS, RVT
--- NOTE | 2024-04-14 17:20 | STRESSREP ---
Stress Test Report Pharmacologic myocardial perfusion stress test. 58-year-old man with a history of coronary artery disease Resting EKG demonstrates sinus rhythm with a rate of 64 bpm. Resting blood pressure is 124/9 mmHg. 0.4 mg of regadenoson was infused per usual protocol followed by rapid intravenous saline flush injection. Continuous EKG monitoring was performed. The maximum heart rate was 82 bpm which was 51% of max impacted heart rate the maximum workload was 1 metabolic equivalent. At rest there were no ST or T wave changes noted to suggest ischemia and at peak infusion nonspecific ST changes were noted which did not meet the criteria for ischemia. No clinical angina is noted. The final blood pressure was 110/70 mmHg. Myocardial perfusion protocol. 14.5 mCi of technetium 99m sestamibi was injected at rest. 0.4 mg of regadenoson was infused per usual protocol. At peak infusion 44 point mCi of technetium 99m sestamibi was injected stress images were obtained stress and rest images were reconstructed and compared in the short axis vertical long and horizontal long axis. Gated images were also obtained. Perfusion SPECT analysis: Review of the stress images demonstrate normal uptake of tracer noted in all areas of the myocardium, with a defect noted in the inferolateral wall which is persistent on the resting images. The above is suggestive of a previous inferolateral infarct with no areas of reversibility suggesting ischemia. Gated SPECT analysis: The gated ejection fraction is 47%. Conclusion: Normal pharmacologic myocardial perfusion stress test. Previous inferolateral infarct no ischemia Reduced ejection fraction.
== END | disposition home or self-care (01) ==
LOC: CVS 06:13
PROVIDERS: PCP Internal Medicine; Referring Provider Nurse Practitioner Gerontology; Visit Provider Nurse Practitioner Gerontology
DX: I48.91 Unspecified atrial fibrillation (principal); I25.10 Atherosclerotic heart disease of native coronary artery without angina pectoris; Z95.5 Presence of coronary angioplasty implant and graft
CPT/HCPCS: 78452; 93017; 93306; A9500; Q9957; A4216; C8929; J2785

== ENCOUNTER → 2024-08-12 | Outpatient (CLI) | payer OTHER, SELFPAY ==
[2024-08-12 12:00] LABS: Absolute Lymphocyte Count 2.52 X10^3/uL (0.83-4.51); Absolute Neutrophil Count 6.3 X10^3/uL (2.0-7.7); Basophil# 0.03 X10^3/uL; Basophil% 0.3 % (0-1); Eosinophil# 0.21 X10^3/uL; Eosinophils% 2.1 % (0-5); Hematocrit 45.2 % (40-54); Hemoglobin 14.9 g/dL (13.0-16.5); Lymphocyte # 2.52 X10^3/ul (0.83-4.51); Lymphocyte % 24.7 % (19-41); Mean Corpuscular Hgb 28.4 pg (27.0-32.0); Mean Corpuscular Volume 86.1 fL (80-94); Mean Platelet Vol. 9.8 fl (6.2-12.0); Monocyte# 1.09 X10^3/uL; Monocyte% 10.7 % (0-10); NRBC Flagged by Analyzer 0 % (0-5); Neutrophil # 6.32 X10^3/uL (2.7-7.7); Neutrophil % 61.9 % (47-70); Platelet Count 273 K/mm3 (150-450); RBC Distribution Width CV 13.2 % (11.6-14.6); Red Blood Count 5.25 M/mm3 (4.6-6.2); White Blood Count 10.2 K/mm3 (4.4-11.0)
[2024-08-12 12:33] LABS: AST(SGOT) 19 U/L (15-37); Alanine Aminotransfer ALT/SGPT 31 U/L (16-61); Albumin, Serum 3.7 g/dL (3.2-5.0); Alkaline Phosphatase 121 U/L (45-117); Anion Gap 5 (5-15); BUN 17 mg/dL (7-18); BUN/Creat Ratio 18.5 RATIO (10-20); Calcium,Total 9.2 mg/dL (8.5-10.1); Chloride 102 mmol/L (98-107); Cholesterol 159 mg/dL (200); Creatinine, Serum 0.92 mg/dL (0.70-1.30); EST Glomerular Filtration Rate 89 mL/min (>60); Est Glom Filt Rate - Afr Amer 108 mL/min (>60); Globulin 3.6 g/dL (2.2-4.2); Glucose 128 mg/dL (74-106); High Density Lipoprotein 41 mg/dL; Magnesium 1.9 mg/dL (1.6-2.6); PSA,Total - Annual Screen 0.49 ng/mL (0.00-4.00); Potassium 3.9 mmol/L (3.5-5.1); Protein, Total 7.3 g/dL (6.4-8.2); Sodium Level 139 mmol/L (136-145); Triglycerides 162 mg/dL; Very Low Density Lipoprotein 32 mg/dL (5-40)
[2024-08-12 12:51] LABS: Microalbumin,Random Urine 12.2 mg/L (NO RANGE EST.); Microalbumin:Creatinine Ratio 6.6 mg/g CRE (<30 mg/g CRE)
[2024-08-12 13:13] LABS: Hemoglobin A1c 7.1 % (3.8-5.6)
[2024-08-14 09:30] LABS: Vitamin D,25 Hydroxy 37.4 ng/mL
== END | disposition home or self-care (01) ==
LOC: LAB 11:41
PROVIDERS: Internal Medicine Endocrinology, Diabetes & Metabolism; PCP Internal Medicine; Referring Provider Internal Medicine; Visit Provider Internal Medicine
DX: R97.20 Elevated prostate specific antigen [PSA] (principal); I48.91 Unspecified atrial fibrillation; E11.8 Type 2 diabetes mellitus with unspecified complications; R06.09 Other forms of dyspnea; Z95.5 Presence of coronary angioplasty implant and graft; E78.00 Pure hypercholesterolemia, unspecified; I10 Essential (primary) hypertension; G47.33 Obstructive sleep apnea (adult) (pediatric); E55.9 Vitamin D deficiency, unspecified
CPT/HCPCS: 36415; 80053; 80061; 82043; 82306; 82570; 83036; 83735; 84153; 84443; 85025; G0103

== ENCOUNTER → 2025-02-03 | Outpatient (CLI) | payer OTHER, SELFPAY ==
--- OUTSIDE RECORDS SUMMARY | 2025-02-03 12:50 | XMS RPT_ITS | CCD ---
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 Dario Blank Primary Care Provider Dr. Dario Blank Referring Provider Dr. Tereso Gonzales Attending Provider [phone] Uriel Grubbs Attending Provider MD Yaa Shelton Primary Care Provider Unavail able Dr. Dario Blank Referring Provider Dr. Tereso Gonzales Attending Provider MD Yaa Shelton Primary Care Provider Unavail able MD Nikita Yaa Referring Provider Unavailrenetta Dover ENTRY LEVEL MANUFACTURING ENGINEER, ENTRY LEVEL MANUFACTURING ENGINEER-C Lizbeth Attending Provider Marcel ENTRY LEVEL MANUFACTURING ENGINEER, ENTRY LEVEL MANUFACTURING ENGINEER-C Geovanna Attending Provider MD Yaa Shelton Primary Care Provider Unavail able Sadie ENTRY LEVEL MANUFACTURING ENGINEER, ENTRY LEVEL MANUFACTURING ENGINEER-C Williams Higginbotham Attending Provider Rosario LOMBARDO, GRUPO Thorpe Attending Provider Lillian LOMBARDO, GRUPO Thorpe Attending Provider Dr. Uriel Grubbs Attending Provider Dr. Uriel Grubbs Other Provider Dr. Uriel Grubbs Referring Provider Dr. Yemi Dudley Attending Provider MD Yaa Jones Primary Care Provider Shannan vailable MD Yaa Jones Referring Provider Honey Rod ENTRY LEVEL MANUFACTURING ENGINEER, ENTRY LEVEL MANUFACTURING ENGINEER-C Geovanna Attending Provider [phone] [facility] ENTRY LEVEL MANUFACTURING ENGINEER, ENTRY LEVEL MANUFACTURING ENGINEER-C Williams Higginbotham Attending Provider GRUPO Mclean Attending Provider GRUPO Graf Attending Provider Dr. Uriel Grubbs Attending Provider Dr. Uriel Grubbs Other Provider Dr. Uriel Bonner Referring Provider Dr. Yemi Dudley Attending Provider Dr. Tereso Gonzales Attending Provider [phone] MD Yaa Jones Referring Provider Honey Noel ENTRY LEVEL MANUFACTURING ENGINEER, ENTRY LEVEL MANUFACTURING ENGINEER-C Williams Higginbotham Attending Provider Dr. Yaa Shelton Primary Care Provider Dr. Yaa Shelton Referring Provider Marcel ENTRY LEVEL MANUFACTURING ENGINEER, ENTRY LEVEL MANUFACTURING ENGINEER-C Geovanna Attending Provider Dr. Yaa Shelton Attending Provider Natalie Evans Attending Provider Unavailable GRUPO Graf Attending Provider Dr. Juan Navarro Referring Provider Dr. Juan Navarro Other Provider Dr. Tuan Bustos Attending Provider Dr. Juan Navarro Attending Provider Dr. Yaa Shelton Primary Care Provider Dr. Yaa Shelton Referring Provider GRUPO Mclean Attending Provider MD Yaa Jones Referring Provider Dr. Tereso Read Attending Provider Dr. Yaa Shelton Primary Care Provider Dr. Yaa Shelton Referring Provider Lillian LOMBARDO, PA Cassandra Thorpe Attending Provider Dr. Yemi Dudley Attending Provider Dr. Tereso Gonzales Attending Provider Dr. Segun Bond Attending Provider Melanie JEAN BAPTISTE, [place] S Unavailable Nikita JEAN BAPTISTE, Dr. Mon Primary Care Provider Nikita JEAN BAPTISTE, Dr. Mon Referring Provider King ITA, Dr. Sanchez Attending Provider Marcel ENTRY LEVEL MANUFACTURING ENGINEER-C, Geovanna Attending Provider Shine ENTRY LEVEL MANUFACTURING ENGINEER-C, Lorie Thorpe Attending Provider Cassandra Graf Attending Provider Nikita JEAN BAPTISTE, Dr. Mon Attending Provider Marcel ENTRY LEVEL MANUFACTURING ENGINEER, Geovanna Attending Unavailable Nikita, Yaa Referring Unavailable Nikita, Yaa Primary Care Unavailable Tereso Gonzales Attending Unavailable Nikita, Yaa Referring Unavailable Nikita, Yaa Primary Care Unavailable Nikita, Yaa Attending Unavailable Nikita, Yaa Primary Care Unavailable Nikita, Yaa Primary Care Unavailable Tereso Gonzales Attending Unavailable Nikita, Yaa Referring Unavailable Stanislaw ENTRY LEVEL MANUFACTURING ENGINEER, Lizbeth Attending Unavailable Nikita, Yaa Primary Care Unavailable Nikita, Yaa Primary Care Unavailable Stanislaw ENTRY LEVEL MANUFACTURING ENGINEER, Lizbeth Referring Unavailable Stanislaw ENTRY LEVEL MANUFACTURING ENGINEER, Lizbeth Attending Unavailable Nikita, Yaa Attending Unavailable Nikita, Yaa Referring Unavailable Nikita, Yaa Primary Care Unavailable Nikita, Yaa Primary Care Unavailable Melanie, [place] Attending Unavailable Dover ENTRY LEVEL MANUFACTURING ENGINEER, Lizbeth Attending Unavailable Nikita, Yaa Primary Care Unavailable Nikita, Yaa Referring Unavailable Nikita, Yaa Primary Care Unavailable Nikita, Yaa Attending Unavailable Melanie, Juan Attending Unavailable Nikita, Yaa Primary Care Unavailable Nikita, Yaa Referring Unavailable Nikita, Yaa Attending Unavailable Nikita, Yaa Primary Care Unavailable Cassandra Graf Attending Unavail able Nikita, Yaa Referring Unavailable Nikita, Yaa Primary Care Unavailable Rufener, Lorie M Attending Unavailable Yaa Shelton Referring Unavailable Yaa Shelton Primary Care Unavailable RODRIGUEZ MEIER Attending Unavailable SELF, SELF Referring Unavailable SELF, SELF Referring Unavailable BELINDA ROSARIO Attending Unavailable Allergies Allergy Classification Reported Allergen(s) Allergy Type Date of Onset Reaction(s) Facility Angiotensin 2 Receptor Blockers (ARB) (1 source) Losartan Drug Allergy 09-30-2023 [facility] Work Phone: HMG-CoA Reductase Inhibitors (statins) (1 source) atorvastatin Drug Allergy 10-20-2019 Myalgia [facility] (20 sources) Lisinopril; Translations: [LISINOPRIL] Drug Allergy 01-28-2018 [facility] (20 sources) Losartan; Translations: [LOSARTAN] Drug Allergy 07-26-2018 [facility] (1 source) quinapril; Translations: [QUINAPRIL HCL] Drug Allergy 10-19-2018 [facility] Repository (2 sources) atorvastatin Drug Allergy 09-13-2023 Myalgias [facility] (2 sources) rosuvastatin Drug Allergy 09-13-2023 myalgias [facility] (2 sources) atorvastatin Drug Allergy 10-20-2019 Myalgia [facility] (1 source) atorvastatin Drug Allergy 01-11-2025 [facility] Repository (1 source) rosuvastatin Drug Allergy 01-11-2025 [facility] Repository Medications Current Medications Medication Drug Class(es) Dates Sig (Normalized) Sig (Original) apixaban 5 mg oral tablet (20 sources) Factor Xa Inhibitor Start: 01-25-2024 End: 01-25-2024 5 mg, Oral, EVERY 12 HOURS, First dose on Wed01/25/24 at 0700, Until Discontinued, Due to the rapid onset of action of apixaban, no overlap is needed with other anticoagulants (e.g. enoxaparin, heparin)., Indications: Atrial Fibrillation Start: 09-30-2023 End: 09-30-2023 5 mg, Oral, EVERY 12 HOURS, First dose on Wed09/30/23 at 1430, Until Discontinued, Due to the rapid onset of action of apixaban, no overlap is needed with other anticoagulants (e.g. enoxaparin, heparin)., Indications: Atrial Fibrillation Start: 09-30-2022 End: 12-14-2024 take 1 tablet by mouth twice daily Apixaban (Eliquis) 5 mg tablet Active 5 mg PO TWICE A DAY 180 December 14, 2024 9:47am Start: 06-25-2022 End: 07-21-2022 take 1 tablet by mouth twice daily Apixaban (Eliquis) 5 mg tablet Discontinued 5 mg PO TWICE A DAY 60 June 25, 2022 1:00am July 21, 2022 11:41am ascorbic acid 113 mg / copper gluconate 0.4 mg / docosahexaenoic acid 87.5 mg / eicosapentaenoic acid 163 mg / lutein 2.5 mg / tocopherol acetate 100 unt / zeaxanthin 0.5 mg / zinc oxide 17.4 mg oral capsule (3 sources) Vitamin C take 1 capsule by mouth twice daily Multiple Vitamins-Minerals (PreserVision AREDS 2) capsule Take 1 capsule by mouth 2 times daily. Active carvedilol 12.5 mg oral tablet (20 sources) alpha-Adrenergi c Suleman, beta-Adrenergic Suleman Start: 12-09-19 take 1 tablet by mouth twice daily Carvedilol 12.5 mg tablet Active 12.5 mg PO TWICE A DAY 180 December 08, 2024 8:55am Start: 12-08-2024 End: 12-08-2024 Carvedilol 25 mg tablet Discontinued 12.5 mg PO TWICE A DAY December 08, 2024 8:29am December 08, 2024 8:57am Start: 06-11-2023 End: 06-11-2023 Carvedilol 25 mg tablet Discontinued 12.5 mg PO TWICE A DAY June 11, 2023 3:39pm June 11, 2023 3:48pm Start: 06-11-2023 End: 06-11-2023 take 12.5 mg by mouth twice daily Carvedilol Discontinued 12.5 MG PO TWICE A DAY June 11, 2023 2:39pm June 11, 2023 2:48pm Start: 12-11-2022 End: 12-11-2022 take 2 tablets by mouth twice daily Carvedilol 12.5 mg tablet Discontinued 25 mg PO TWICE A DAY December 11, 2022 9:14am December 11, 2022 9:15am Start: 12-11-2022 End: 12-11-2022 take 25 mg by mouth twice daily Carvedilol Discontinue d 25 MG PO TWICE A DAY December 11, 2022 8:14am December 11, 2022 8:15am Start: 12-11-2022 End: 12-11-2022 take 1 tablet by mouth twice daily Carvedilol 12.5 mg tablet Discontinued 12.5 mg PO TWICE A DAY December 11, 2022 12:00am December 11, 2022 9:15am Start: 08-11-2022 End: 12-08-2024 Start: 01-30-2022 End: 08-11-2022 take 1 tablet by mouth twice daily at mealtime Carvedilol 12.5 mg tablet Discontinued 12.5 mg PO TWICE A DAY March 23, 2022 4:24pm August 11, 2022 7:40pm must administer with a meal/food Start: 03-13-2021 End: 01-30-2022 take 1 tablet by mouth twice daily at mealtime Carvedilol 6.25 mg tablet Discontinued 6.25 mg PO TWICE A DAY April 01, 2021 8:27am January 30, 2022 3:48pm must administer with a meal/food Start: 02-03-2021 End: 03-13-2021 take 1 tablet by mouth twice daily at mealtime Carvedilol (Coreg) 3.125 mg tablet Discontinued 3.125 mg PO TWICE A DAY February 03, 2021 12:00am March 13, 2021 4:06pm must administer with a meal/food cholecalciferol 0.025 mg oral tablet (8 sources) Vitamin D Start: 12-11-2022 take 1 tablet by mouth once daily Cholecalciferol (Vitamin D3) 25 mcg (1,000 unit) tablet Active 25 ug PO DAILY December 11, 2022 12:00am take 1 tablet by mouth once didi y cholecalciferol 25 MCG (1000 UNIT) tablet Take 1 tablet by mouth daily. Active docusate sodium 100 mg oral capsule (20 sources) Start: 01-26-2024 End: 01-25-2024 Start: 07-15-2020 take 1 capsule by [facility] once daily Docusate Sodium 100 mg capsule Active 100 mg PO DAILY July 15, 2020 5:09pm Start: 03-18-2018 End: 07-15-2020 take 1 capsule by mouth twice daily Docusate Sodium 100 mg capsule Discontinued 100 mg PO TWICE A DAY March 18, 2018 12:00am July 15, 2020 5:09pm DULoxetine 20 mg delayed release oral capsule (20 sources) Serotonin and Norepinephrine Reuptake Inhibitor Start: 03-02-2024 End: 10-06-2024 take 1 capsule by mouth once daily Duloxetine 20 mg capsule,delayed release(DR/EC) Active 20 mg PO DAILY October 06, 2024 5:38pm Start: 01-12-2022 End: 03-02-2024 Start: 11-03-2021 End: 01-12-2022 take 1 capsule by mouth once daily Duloxetine 60 mg capsule,delayed release(DR/EC) Discontinued 60 mg PO DAILY November 03, 2021 12:00am January 12, 2022 5:19pm Start: 04-18-2021 End: 11-03-2021 take 1 capsule by mouth once daily Duloxetine 30 mg capsule,delayed release(DR/EC) Discontinued 30 mg PO DAILY September 11, 2021 11:59am November 03, 2021 4:47pm Insulin Degludec (Tresiba Flextouch U-200) 200 unit/mL (3 mL) insulin pen (1 source) Start: 12-08-2024 Insulin Deglud ec (Tresiba Flextouch U-200) 200 unit/mL (3 mL) insulin pen Active 40 U SC DAILY December 08, 2024 8:30am 24 hr metFORMIN hydrochlorid e 500 mg extended release oral tablet (20 sources) Biguanide Start: 10-09-2024 Metformin 500 mg tablet extended release 24 hr Active 1000 mg PO daily October 09, 2024 1:37pm Start: 03-17-2024 End: 10-09-2024 Metformin 500 mg tablet exte nded release 24 hr Discontinued 1000 mg PO ONCE October 06, 2024 5:29pm October 09, 2024 1:37pm Start: 09-16-2023 End: 03-17-2024 take 1 tablet by mouth twice daily Metformin 500 mg tablet extended release 24 hr Discontinued 500 mg PO TWICE A DAY September 16, 2023 1:00am March 17, 2024 8:53am Start: 09-05-2022 End: 09-16-2023 take 1 tablet by mouth twice daily Metformin 500 mg tablet,ER natty.retention 24 hr Discontinued 500 mg PO TWICE A DAY 180 September 13, 2023 5:12pm September 16, 2023 12:00pm Start: 01-06-2018 End: 09-05-2022 take 1 tablet by mouth once daily Metformin 500 mg tablet,ER natty.retention 24 hr Discontinued 1000 mg PO DAILY 180 March 20, 2022 3:16pm May 01, 2022 9:58am Start: 01-06-2018 End: 01-06-2018 take 1 tablet by mouth every twenty-four hours Metformin 500 MG tablet,ER natty.retention 24 hr Discontinued 1000 mg PO January 06, 2018 12:00am January 06, 2018 2:23pm Start: 12-09-2017 End: 01-25-2024 take 1 tablet by mouth twice daily at mealtime Metformin 500 MG tablet Discontinued 500 mg PO TWICE DAILY WITH MEALS 60 December 09, 2017 12:00am December 16, 2017 11:31am On Hold: diarrhea pravastatin sodium 20 mg oral tablet (9 sources) HMG-CoA Reductase Inhibitor Start: 05-08-2024 take 1 tablet by mouth at bedtime Pravastatin 20 mg tablet Active 20 mg PO AT BEDTIME May 08, 2024 9:20am Start: 01-26-2024 End: 01-25-2024 Start: 06-11-2023 End: 05-08-2024 take 1 tablet by mouth at bedtime Pravastatin 20 mg tablet Discontinued 20 mg PO AT BEDTIME June 15, 2023 10:27am May 08, 2024 9:20am Semaglutide (Ozempic) 2 mg/d ose (8 mg/3 mL) pen injector (4 sources) Start: 10-06-2024 Semaglutide (O zempic) 2 mg/dose (8 mg/3 mL) pen injector Active 2 mg SC EVERY WEEK October 06, 2024 5:29pm Start: 03-31-2024 End: 10-06-2024 Semaglutide (Ozempic) 2 mg/d ose (8 mg/3 mL) pen injector Discontinued 2 mg SC EVERY WEEK March 31, 2024 8:25am October 06, 2024 5:29pm Start: 01-06-2024 End: 03-31-2024 Semaglutide (Ozempic) 2 mg/d ose (8 mg/3 mL) pen injector Discontinued 2 mg SC EVERY WEEK January 06, 2024 12:06pm March 31, 2024 8:25am Start: 12-29-2023 End: 01-06-2024 Semaglutide (Ozempic) 2 mg/d ose (8 mg/3 mL) pen injector Discontinued 2 mg SC EVERY WEEK December 29, 2023 12:00am January 06, 2024 12:06pm Semaglutide (OZEMPIC, 2 MG/DOSE, SC) (1 source) Semaglutide (OZEMPIC, 2 MG/DOSE, SC) Inject 2.5 mg under the skin. Active valsartan 40 mg oral tablet (20 sources) Angiotensin 2 Receptor Suleman Start: End: take 1 tablet by mouth once daily Valsartan 40 mg tablet Active 40 mg PO DAILY August 07, 2024 10:02am Start: 06-16-2023 End: 11-12-2023 take 1 tablet by mouth once daily Valsartan 40 mg tablet Discontinued 40 mg PO DAILY June 24, 2023 1:06pm November 12, 2023 2:58pm Start: 02-17-2021 End: 06-11-2023 take 1 tablet by mouth once daily Valsartan 40 mg tablet Discontinued 40 mg PO DAILY May 12, 2023 11:30am June 11, 2023 3:54pm Start: 01-24-2021 End: 02-03-2021 take 1 tablet by mouth every other day Valsartan 40 mg tablet Discontinued 40 mg PO every other day January 24, 2021 8:37am February 03, 2021 9:54am Start: 07-15-2020 End: 01-24-2021 Valsartan 40 mg tablet Disco ntinued 40 mg PO .QODAY 45 90 July 15, 2020 1:00am January 24, 2021 8:37am Start: 06-01-2019 End: 05-10-2020 Valsartan 80 mg tablet Disco ntinued 40 mg PO DAILY 45 October 24th, 2019 4:32pm May 10, 2020 9:43am Start: 06-01-2019 End: 05-10-2020 take 40 mg by mouth once daily Valsartan Discontinued 40 MG PO DAILY June 01, 2019 3:32pm May 10, 2020 8:43am Vit C,R-Ws-Ggwhq-Lutein-Zeax an (Preservision Areds-2) 250-90-40-1 mg capsule (5 sources) Start: 12-11-2022 take 2 capsules by mouth twice daily Vit C,M-Rv-Vcmqm-Lutein-Zeaxan (Preservision Areds-2) 250-90-40-1 mg capsule Active 1 {tbl} PO TWICE A DAY December 11, 2022 12:00am Start: 12-11-2022 Vit C,E-Zn-Artisan Plasterer ui-Qlkkyp-Kuhqye (Preservision Areds-2) 250-90-40-1 mg capsule Active 1 TABLET PO TWICE A DAY December 10, 2022 11:00pm Start: 12-11-2022 Vit C,E-Zn-Artisan Plasterer lc-Xwijlo-Vkpiqj (Preservision Areds-2) 250-90-40-1 mg capsule Active 1 TABLET PO TWICE A DAY December 11, 2022 12:00am Completed/Discontinued Medications Medication Drug Class(es) Dates Sig (Normalized) Sig (Original) acetaminophen 325 mg oral tablet (2 sources) Start: 01-25-2024 End: 01-25-2024 take 1 tablet by mouth every six hours as needed 650 mg, Oral, EVERY 6 HOURS NEEDED, Starting on Wed01/25/24 at 1010, Until e 01/25/24 at 2228, Mild Pain, Maximum dose of acetaminophen is 4000 mg from all sources in 24 hours., Post-op/Post-Proc Start: 09-30-2023 End: 09-30-2023 take 1 tablet by mouth every six hours as needed 650 mg, Oral, EVERY 6 HOURS NEEDED, Starting on Lilly 09/30/23 at 1028, Until Lilly 09/30/23 at 1718, Mild Pain, Maximum dose of acetaminophen is 4000 mg from all sources in 24 hours., Post-op/Post-Proc aluminum hydroxide 40 mg/ml / magnesium hydroxide 40 mg/ml / simethicone 4 mg/ml oral suspension (2 sources) Start: 01-25-2024 End: 01-25-2024 take 30 mL by mouth every six hours as needed 30 mL, Oral, EVERY 6 HOURS NEEDED, Starting on Wed01/25/24 at 1010, Until Wed01/25/24 at 2228, Indigestion, Per 5 mL is equivalent to: (Alum-Mag Hydroxide 200-225 mg and Simethicone 20 mg) and (Alum-Mag Hydroxide 200-200 mg and Simethicone 20 mg), Post-op/Post-Proc Start: 09-30-2023 End: 09-30-2023 take 30 mL by mouth every six hours as needed 30 mL, Oral, EVERY 6 HOURS NEEDED, Starting on Wed09/30/23 at 1028, Until Wed09/30/23 at 1718, Indigestion, Per 5 mL is equivalent to: (Alum-Mag Hydroxide 200-225 mg and Simethicone 20 mg) and (Alum-Mag Hydroxide 200-200 mg and Simethicone 20 mg), Post-op/Post-Proc amoxicillin 875 mg / clavulanate 125 mg oral tablet (11 sources) Penicillin-class Antibacterial Start: 09-05-2022 End: 09-30-2022 take 1 tablet by mouth every twelve hours Amoxicillin-Pot Clavulanate 875-125 mg tablet Discontinued 875 mg PO Q12H September 05, 2022 1:00am September 30, 2022 3:59pm aspirin 81 mg chewable tablet (20 sources) Platelet Aggregation Inhibitor, Nonsteroidal Anti-inflammatory Drug Start: 01-25-2024 End: 01-25-2024 take 81 mg by mouth once daily 81 mg, Oral, DAILY, First dose on Wed01/25/24 at 0730, Until Discontinued Start: 12-09-2017 End: 09-05-2022 take 1 tablet by mouth once daily Aspirin 81 mg tablet,delayed release (DR/EC) Discontinued 81 mg PO DAILY@0800 90 January 06, 2018 2:33pm September 05, 2022 4:24pm atorvastatin 80 mg oral tablet (20 sources) HMG-CoA Reductase Inhibitor Start: 01-06-2018 End: 06-01-2019 Atorvastatin 80 mg tablet Discontinued 40 mg PO AT BEDTIME January 06, 2018 2:28pm June 01, 2019 3:30pm Start: 01-06-2018 End: 06-01-2019 take 40 mg by mouth at bedtime Atorvastatin Discontinu ed 40 MG PO AT BEDTIME January 06, 2018 1:28pm June 01, 2019 2:30pm Start: 12-09-2017 End: 01-06-2018 take 1 tablet by mouth at bedtime Atorvastatin 80 MG tablet Discontinued 80 mg PO AT BEDTIME December 09, 2017 12:00am January 06, 2018 2:28pm benzonatate 200 mg oral capsule (14 sources) Non-narcotic Antitussive Start: 09-03-2022 End: 07-14-2023 take 1 capsule by mouth three times daily as needed for cough Benzonatate 200 mg capsule Discontinued 200 mg PO THREE TIMES A DAY as needed for cough September 03, 2022 1:00am July 14, 2023 3:13pm ciprofloxacin 500 mg oral tablet (4 sources) Quinolone Antimicrobial Start: 05-01-2023 End: 06-11-2023 take 1 tablet by mouth twice daily Ciprofloxacin Hcl 500 mg tablet Discontinued 500 mg PO TWICE A DAY May 01, 2023 12:00am June 11, 2023 3:47pm clopidogrel 75 mg oral tablet (17 sources) P2Y12 Platelet Inhibitor Start: 01-06-2018 End: 03-16-2018 take 1 tablet by mouth once daily Clopidogrel (Plavix) 75 mg tablet Discontinued 75 mg PO daily January 06, 2018 12:00am March 16, 2018 4:51pm 24 hr dilTIAZem hydrochloride 120 mg extended release oral capsule (20 sources) Calcium Channel Suleman Start: 04-20-2023 End: 12-08-2024 take 1 capsule by mouth once daily Diltiazem Hcl 120 mg capsule,extended release 24hr Discontinued 120 mg PO DAILY September 11, 2024 10:26am December 08, 2024 8:55am Start: 09-30-2022 End: 12-11-2022 take 1 capsule by mouth once daily Diltiazem Hcl 120 mg capsule,extended release 24 hr Discontinued 120 mg PO DAILY November 23, 2022 12:29pm December 11, 2022 9:14am Dulaglutide (20 sources) GLP-1 Receptor Agonist Start: 09-13-2023 End: 01-06-2024 Dulaglutide (Trulicity) 4.5 mg/0.5 mL pen injector Discontinued 4.5 mg SC EVERY WEEK 6 September 13, 2023 5:09pm January 06, 2024 12:06pm Start: 09-13-2023 Dulaglutide (T rulicity) 4.5 mg/0.5 mL pen injector Active 4.5 MG SC EVERY WEEK 6 September 13, 2023 4:09pm Start: 10-23-2022 End: 10-23-2022 Dulaglutide (Trulicity) 4.5 mg/0.5 mL pen injector Discontinued 4.5 mg SC EVERY WEEK 6 October 23, 2022 12:00am October 23, 2022 4:07pm Start: 10-23-2022 End: 09-13-2023 Dulaglutide (Trulicity) 4.5 mg/0.5 mL pen injector Discontinued 4.5 mg SC EVERY WEEK 6 October 23, 2022 12:00am September 13, 2023 5:12pm Start: 10-23-2022 End: 10-23-2022 Dulaglutide (Trulicity) 4.5 mg/0.5 mL pen injector Discontinued 4.5 MG SC EVERY WEEK 6 October 22, 2022 11:00pm October 23, 2022 3:07pm Start: 10-23-2022 End: 09-13-2023 Dulaglutide (Trulicity) 4.5 mg/0.5 mL pen injector Discontinued 4.5 MG SC EVERY WEEK 6 October 22, 2022 11:00pm September 13, 2023 4:12pm Start: 10-23-2022 Dulaglutide (T rulicity) 4.5 mg/0.5 mL pen injector Active 4.5 MG SC EVERY WEEK 6 October 23, 2022 12:00am Start: 10-23-2022 End: 10-23-2022 Dulaglutide (Trulicity) 4.5 mg/0.5 mL pen injector Discontinued 4.5 MG SC EVERY WEEK 6 October 23, 2022 12:00am October 23, 2022 4:07pm Start: 09-05-2022 End: 10-23-2022 Dulaglutide (Trulicity) 3 mg /0.5 mL pen injector Discontinued 3 mg SC EVERY WEEK September 05, 2022 4:24pm October 23, 2022 4:03pm Start: 09-05-2022 End: 10-23-2022 Dulaglutide (Trulicity) 3 mg /0.5 mL pen injector Discontinued 3 MG SC EVERY WEEK September 05, 2022 3:24pm October 23, 2022 3:03pm Start: 09-05-2022 End: 10-23-2022 Dulaglutide (Trulicity) 3 mg /0.5 mL pen injector Discontinued 3 MG SC EVERY WEEK September 05, 2022 4:24pm October 23, 2022 4:03pm Start: 09-05-2022 Dulaglutide (T rulicity) 3 mg/0.5 mL pen injector Active 3 MG SC EVERY WEEK September 05, 2022 3:24pm Start: 05-18-2022 End: 09-05-2022 Dulaglutide (Trulicity) 3 mg /0.5 mL pen injector Discontinued 3 mg SC EVERY WEEK 2 May 18, 2022 8:54am September 05, 2022 4:24pm Start: 05-18-2022 End: 09-05-2022 Dulaglutide (Trulicity) 3 mg /0.5 mL pen injector Discontinued 3 MG SC EVERY WEEK 2 May 18, 2022 8:54am September 05, 2022 4:24pm Start: 05-18-2022 End: 09-05-2022 Dulaglutide (Trulicity) 3 mg /0.5 mL pen injector Discontinued 3 MG SC EVERY WEEK 2 May 18, 2022 7:54am September 05, 2022 3:24pm Start: 05-18-2022 Dulaglutide (T rulicity) 3 mg/0.5 mL pen injector Active 3 MG SC EVERY WEEK 2 May 18, 2022 7:54am Start: 05-01-2022 End: 05-18-2022 Dulaglutide (Trulicity) 3 mg /0.5 mL pen injector Discontinued 3 mg SC EVERY WEEK 6 May 01, 2022 9:59am May 18, 2022 8:55am Start: 05-01-2022 End: 05-18-2022 Dulaglutide (Trulicity) 3 mg /0.5 mL pen injector Discontinued 3 MG SC EVERY WEEK 6 May 01, 2022 9:59am May 18, 2022 8:55am Start: 05-01-2022 End: 05-18-2022 Dulaglutide (Trulicity) 3 mg /0.5 mL pen injector Discontinued 3 MG SC EVERY WEEK 6 May 01, 2022 8:59am May 18, 2022 7:55am Start: 05-01-2022 End: 05-01-2022 Dulaglutide (Trulicity) 3 mg /0.5 mL pen injector Discontinued 3 mg SC EVERY WEEK 2 May 01, 2022 12:00am May 01, 2022 9:59am Start: 05-01-2022 End: 05-01-2022 Dulaglutide (Trulicity) 3 mg /0.5 mL pen injector Discontinued 3 MG SC EVERY WEEK 2 May 01, 2022 12:00am May 01, 2022 9:59am Start: 05-01-2022 End: 05-01-2022 Dulaglutide (Trulicity) 3 mg /0.5 mL pen injector Discontinued 3 MG SC EVERY WEEK 2 April 30, 2022 11:00pm May 01, 2022 8:59am Start: 11-03-2021 End: 05-01-2022 Dulaglutide (Trulicity) 1.5 mg/0.5 mL pen injector Discontinued 1.5 mg SC EVERY WEEK 2 November 26, 2021 11:46am May 01, 2022 9:55am Start: 04-18-2021 End: 11-03-2021 Dulaglutide (Trulicity) 0.75 mg/0.5 mL pen injector Discontinued 0.75 mg SC EVERY WEEK 2 April 21, 2021 8:14am November 03, 2021 4:41pm Dulaglutide (Trulicity) 4.5 MG/0.5ML Solution Pen-injector (3 sources) End: 01-25-2024 inject 4.5 mg by subcutaneous injection every week Dulaglutide (Trulicity) 4.5 MG/0.5ML Solution Pen-injector Inject 4.5 mg under the skin once a week. 01/25/2024 Discontinued (Medication Reconciliation (suppress cancel msg)) inject 4.5 mg by sub cutaneous injection every week Dulaglutide (Trulicity) 4.5 MG/0.5ML Solution Pen-injector Inject 4.5 mg under the skin once a week. Active furosemide 20 mg oral tablet (20 sources) Loop Diuretic Start: 12-16-2017 End: 06-11-2023 take 1 tablet by mouth once daily Furosemide 20 mg tablet Discontinued 20 mg PO daily June 11, 2023 3:39pm June 11, 2023 3:48pm q 3rd DAY gabapentin 100 mg oral capsule (2 sources) Anti-epileptic Agent Start: 05-05-2024 End: 10-06-2024 take 1 capsule by mouth twice daily Gabapentin 100 mg capsule Discontinued 100 mg PO TWICE A DAY 180 June 23, 2024 2:40pm October 06, 2024 4:59pm 1 ml HYDROmorphone hydrochloride 1 mg/ml cartridge (2 sources) Opioid Agonist Start: 01-25-2024 End: 01-25-2024 0.2 mg, Intravenous, EVERY 10 MINUTES NEEDED, 10 doses, Starting on 01/25/24 at 0726, Until 01/25/24 at 2228, Moderate Pain, Severe Pain, May give a total of 2mg in PACU., Recovery Start: 09-30-2023 End: 09-30-2023 take 0.2 mg intravenously every two hours as needed 0.2 mg, Intravenous, EVERY 2 HOURS NEEDED, Starting on Lilly 09/30/23 at 1028, Until Lilly 09/30/23 at 1718, Severe Pain, If unable to tolerate PO, Post-op/Post-Proc 3 ml insulin degludec 200 unt/ml pen injector (4 sources) Insulin Analog Start: 10-06-2024 End: 12-08-2024 Insulin Degludec (Tresiba Flextouch U-200) 200 unit/mL (3 mL) insulin pen Discontinued 50 U SC DAILY October 06, 2024 5:28pm December 08, 2024 8:31am Start: 09-13-2023 End: 10-06-2024 Insulin Degludec (Tresiba Fl extouch U-200) 200 unit/mL (3 mL) insulin pen Discontinued 40 U SC DAILY September 13, 2023 1:00am October 06, 2024 5:29pm Insulin Degludec (Tresiba FlexTouch) 200 UNIT/ML Solution Pen-injector injection Inject 40 Units under the skin every evening at 6 PM. Took 1/2 dose 01/23 Active insulin detemir (20 sources) Insulin Analog Start: 07-14-2023 End: 09-13-2023 Insulin Detemir U-100 Discon tinued 36 UNIT SC AT BEDTIME July 14, 2023 2:14pm September 13, 2023 4:10pm Start: 10-23-2022 End: 07-14-2023 Insulin Detemir U-100 Discon tinued 32 UNIT SC AT BEDTIME October 23, 2022 3:04pm July 14, 2023 2:15pm Start: 10-23-2022 Insulin Detemi r U-100 Active 32 UNIT SC AT BEDTIME October 23, 2022 4:04pm Start: 06-25-2022 End: 10-23-2022 Insulin Detemir U-100 100 un it/mL (3 mL) insulin pen Discontinued 28 U SC AT BEDTIME June 25, 2022 5:05pm October 23, 2022 4:07pm Start: 06-25-2022 Insulin Detemi r U-100 Active 26 UNIT SC AT BEDTIME June 25, 2022 4:05pm Start: 11-03-2021 End: 06-25-2022 Insulin Detemir U-100 100 un it/mL (3 mL) insulin pen Discontinued 23 U SC AT BEDTIME May 01, 2022 9:54am June 25, 2022 5:05pm Start: 01-24-2021 End: 11-03-2021 Insulin Detemir U-100 100 un it/mL (3 mL) insulin pen Discontinued 36 U SC AT BEDTIME August 26, 2021 5:08pm November 03, 2021 4:49pm Start: 10-14-2018 End: 01-24-2021 Insulin Detemir U-100 100 un it/mL (3 mL) insulin pen Discontinued 32 U SC AT BEDTIME October 14, 2018 3:42pm January 24, 2021 8:37am Start: 03-18-2018 End: 10-14-2018 Insulin Detemir U-100 100 un it/mL (3 mL) insulin pen Discontinued 28 U SC AT BEDTIME March 18, 2018 9:13am October 14, 2018 3:43pm Start: 12-14-2017 End: 03-18-2018 Insulin Detemir U-100 100 un it/mL (3 mL) insulin pen Discontinued 13 U SC AT BEDTIME December 14, 2017 11:27am March 18, 2018 9:14am Start: 12-09-2017 End: 12-14-2017 Insulin Detemir U-100 100 UN ITS/ML insulin pen Discontinued 25 U SC AT BEDTIME December 09, 2017 12:00am December 14, 2017 11:27am Start: 12-09-2017 End: 12-14-2017 Insulin Detemir U-100 Discon tinued 25 UNITS SC AT BEDTIME December 08, 2017 11:00pm December 14, 2017 10:27am End: 01-25-2024 inject 36 [IU] by subcutaneous injection at bedtime Insulin detemir 100 UNIT/ML vial Inject 36 Units under the skin at bedtime. 01/25/2024 Discontinued (Medication Reconciliation (suppress cancel msg)) Insulin Detemir U-100 100 unit/mL (3 mL) insulin pen (2 sources) Start: 07-14-2023 End: 09-13-2023 Insulin Detemir U-100 100 un it/mL (3 mL) insulin pen Discontinued 36 U SC AT BEDTIME July 14, 2023 3:14pm September 13, 2023 5:10pm Start: 10-23-2022 End: 07-14-2023 Insulin Detemir U-100 100 un it/mL (3 mL) insulin pen Discontinued 32 U SC AT BEDTIME October 23, 2022 4:04pm July 14, 2023 3:15pm insulin glargine-yfgn (SEMGLEE) injection 40 Units (1 source) Start: 01-25-2024 End: 01-25-2024 iohexol (OMNIPAQUE) 350 MG/ML injection 1-171 mL (1 source) Start: 01-24-2024 End: 01-24-2024 1-171 mL, Intravenous, ONCE, 1 dose, On 01/24/24 at 1500, Extravasation Risk, CT Procedure lisinopril 2.5 mg oral tablet (20 sources) Angiotensin Converting Enzyme Inhibitor Start: 03-16-2018 End: 03-16-2018 take 1 tablet by mouth once daily Lisinopril 2.5 mg tablet Discontinued 2.5 mg PO daily March 16, 2018 12:00am March 16, 2018 4:55pm Start: 12-09-2017 End: 12-14-2017 take 1 tablet by mouth once daily Lisinopril 2.5 MG tablet Discontinued 2.5 mg PO DAILY December 09, 2017 12:00am December 14, 2017 11:11am losartan potassium 25 mg oral tablet (20 sources) Angiotensin 2 Receptor Suleman Start: 03-18-2018 End: 10-14-2018 take 0.5 tablet by mouth once daily Losartan 25 mg tablet Discontinued 25 mg PO .March 18, 2018 9:13am October 14, 2018 3:43pm 25 mg PO 0.5 tablet daily Start: 03-16-2018 End: 03-18-2018 take 1 tablet by mouth once daily Losartan 25 mg tablet Discontinued 25 mg PO daily March 16, 2018 12:00am March 18, 2018 9:14am magnesium oxide 400 mg oral tablet (1 source) Start: 01-25-2024 End: 01-25-2024 800 mg, Oral, ADMINISTER DIRECTED, Starting on Wed01/25/24 at 1010, Until Wed01/25/24 at 2228, See admin instructions, For Magnesium 1.6 - 2.0, give 800 mg of Magnesium oxide, Post-op/Post-Proc 50 ml magnesium sulfate 80 mg/ml injection (1 source) Start: 01-25-2024 End: 01-25-2024 4 g, Intravenous, Administer over 4 Hours, ADMINISTER DIRECTED, Starting on Wed01/25/24 at 1010, Until Wed01/25/24 at 2228, Other, Magnesium Replacement Therapy, If Magnesium less than 1.6, give 4 g Magnesium Sulfate IVPB over 4 hours (may give over 1 hour if arrhythmias present)., Post-op/Post-Proc melatonin 3 mg oral tablet (2 sources) Start: 01-25-2024 End: 01-25-2024 take 3 mg by mouth once daily at bedtime as needed 3 mg, Oral, DAILY AT BEDTIME NEEDED, Starting on Wed01/25/24 at 1010, Until Wed01/25/24 at 2228, Insomnia, Post-op/Post-Proc Start: 09-30-2023 End: 09-30-2023 take 3 mg by mouth once daily at bedtime as needed 3 mg, Oral, DAILY AT BEDTIME NEEDED, Starting on Lilly 09/30/23 at 1028, Until Lilly 09/30/23 at 1718, Insomnia, Post-op/Post-Proc metoprolol tartrate 25 mg oral tablet (17 sources) beta-Adrenergic Suleman Start: 12-09-2017 End: 12-16-2017 Metoprolol Tartrate 25 MG tablet Discontinued 12.5 mg PO TWICE A DAY 60 December 09, 2017 12:00am December 16, 2017 11:42am Start: 12-09-2017 End: 12-16-2017 take 12.5 mg by mouth twice daily Metoprolol Tartrate Discontinued 12.5 MG PO TWICE A DAY 60 December 08, 2017 11:00pm December 16, 2017 10:42am 2 ml ondansetron 2 mg/ml injection (3 sources) Serotonin-3 Receptor Antagonist Start: 01-25-2024 End: 01-25-2024 4 mg, Intravenous, EVERY 4 HOURS NEEDED, Starting on 01/25/24 at 1010, Until 01/25/24 at 2228, Nausea / Vomiting, Post-op/Post-Proc Start: 01-25-2024 End: 01-25-2024 4 mg, Intravenous, ONCE N EEDED, 1 dose, Starting on 01/25/24 at 0725, Until 01/25/24 at 2228, Nausea / Vomiting, FIRST line antiemetic, Do not administer within 6 hours of intra-operative dose., Recovery Start: 09-30-2023 End: 09-30-2023 4 mg, Intravenous, EVERY 4 H OURS NEEDED, Starting on Lilly 09/30/23 at 1028, Until Lilly 09/30/23 at 1718, Nausea / Vomiting, Post-op/Post-Proc oxyCODONE (2 sources) Opioid Agonist Start: 01-25-2024 End: 01-25-2024 take 1 tablet by mouth every four hours as needed oxyCODONE (ROXICODONE) tablet 5 mg Start: 09-30-2023 End: 09-30-2023 take 1 tablet by mouth every four hours as needed oxyCODONE (ROXICODONE) tablet 5 mg polyethylene glycol [id number] [id number] mg powder for oral solution (2 sources) Osmotic Laxative Start: 01-25-2024 End: 01-25-2024 17 g, Oral, DAILY NEEDED, Starting on Wed01/25/24 at 1010, Until Wed01/25/24 at 2228, Constipation 1st Line, Post-op/Post-Proc Start: 09-30-2023 End: 09-30-2023 17 g, Oral, DAILY NEEDED, Starting on Lilly 09/30/23 at 1028, Until Lilly 09/30/23 at 1718, Constipation 1st Line, Post-op/Post-Proc microencapsulated potassium chloride 20 meq extended release oral tablet (2 sources) Start: 01-25-2024 End: 01-25-2024 take 60 mEq by mouth every eight hours 40-60 mEq, Oral, ADMINISTER DIRECTED, Starting on Wed01/25/24 at 1010, Until Wed01/25/24 at 2228, See admin instructions, If Cr less than 2.0 mg/dL 1. For Potassium 3.6 - 4.0, give 40 mEq of Potassium Chloride orally, recheck in the AM. 2. For Potassium less than 3.6, give 60 mEq Potassium Chloride orally, recheck in 8 hours. 3. If potassium is low please administer magnesium first if indicated., Post-op/Post-Proc Start: 01-25-2024 End: 01-25-2024 20 mEq, Oral, ADMINISTER DIRECTED, Starting on Wed01/25/24 at 1010, Until Wed01/25/24 at 2228, See admin instructions, If Cr 2.0 - 2.5 mg/dL For Potassium less than 3.6, give 20 mEq Potassium Chloride orally, recheck in AM. If Cr greater than 2.5 mg/dL contact physician/LIP for Potassium less than 3.6 for replacement orders. If potassium is low please administer magnesium first if indicated, Post-op/Post-Proc predniSONE 20 mg oral tablet (17 sources) Start: 04-13-2020 End: 04-18-2020 take 1 tablet by mouth once daily Prednisone 20 MG tablet Discontinued 20 mg PO DAILY 12 11April 13, 2020 12:00am April 17, 2020 12:00am April 18, 2020 12:02am quinapril 5 mg oral tablet (17 sources) Angiotensin Converting Enzyme Inhibitor Start: 11-21-2018 End: 06-01-2019 take 1 tablet by mouth once daily Quinapril 5 MG tablet Discontinued 5 mg PO DAILY November 21, 2018 12:00am June 01, 2019 3:32pm rosuvastatin calcium 10 mg oral tablet (20 sources) HMG-CoA Reductase Inhibitor Start: 12-18-2022 End: 06-11-2023 take 1 tablet by mouth once daily Rosuvastatin 10 mg tablet Discontinued 10 mg PO DAILY December 18, 2022 8:52am June 11, 2023 3:52pm Start: 12-11-2022 End: 12-18-2022 take 2 tablets by mouth once daily Rosuvastatin 10 mg tablet Discontinued 20 mg PO DAILY December 11, 2022 8:39am December 18, 2022 8:53am Start: 12-11-2022 End: 12-18-2022 take 20 mg by mouth once daily Rosuvastatin Discontinu ed 20 MG PO DAILY December 11, 2022 7:39am December 18, 2022 7:53am Start: 06-01-2019 End: 12-11-2022 take 1 tablet by mouth once daily Rosuvastatin 10 mg tablet Discontinued 10 mg PO DAILY September 05, 2022 4:24pm December 11, 2022 8:40am sacubitril 24 mg / valsartan 26 mg oral tablet (2 sources) Angiotensin 2 Receptor Suleman Start: 06-11-2023 End: 06-16-2023 Sacubitril-Valsartan (Entresto) 24-26 mg tablet Discontinued 1 {tbl} PO TWICE A DAY 60 June 11, 2023 12:00am June 16, 2023 2:37pm 1000 ml sodium chloride 9 mg/ml injection (6 sources) Start: 01-25-2024 End: 01-25-2024 Intravenous, at 80 mL/hr, CONTINUOUS, Starting on Wed01/25/24 at 1015, Until Wed01/25/24 at 2228 Start: 01-24-2024 End: 01-24-2024 1-100 mL, Intravenous, ONCE NEEDED, 1 dose, Starting on Wed01/24/24 at 1452, Until Wed01/24/24 at 1510, Flush, CT Procedure Start: 09-30-2023 End: 09-30-2023 Intravenous, at 1 mL/hr, CON TINUOUS NEEDED, Starting on Lilly 09/30/23 at 1028, Until Lilly 09/30/23 at 1718, See administration instructions, Per pressure bag for all transduced lines., Post-op/Post-Proc Start: 09-30-2023 End: 09-30-2023 Intravenous, at 20 mL/hr, CO NTINUOUS, Starting on Lilly 09/30/23 at 0630, Until Lilly 09/30/23 at 1718, KVO fluids, start the morning of procedure., Pre-op/Pre-Proc ticagrelor 90 mg oral tablet (17 sources) Start: 12-09-2017 End: 07-15-2020 take 1 tablet by mouth twice daily Ticagrelor 90 MG tablet Discontinued 90 mg PO TWICE A DAY 60 December 09, 2017 12:00am July 15, 2020 5:09pm Vitamins A,C,Z-Nhsg-Hnipnh (Icaps Areds) 14,320-226-200 ivaj-qi-ccft capsule (16 sources) Start: 06-25-2022 End: 12-11-2022 Vitamins A,C,I-Izft-Czkvbh (Icaps Areds) 14,320-226-200 ihkg-np-cdiw capsule Discontinued 1 NMA PO TWICE A DAY June 25, 2022 1:00am December 11, 2022 8:39am Start: 06-25-2022 End: 12-11-2022 take 1 capsule by mouth twice daily Vitamins A,C,S-Neci-Byekqf (Icaps Areds) 14,320-226-200 ingq-zs-bdkn capsule Discontinued 1 CAP PO TWICE A DAY June 25, 2022 12:00am December 11, 2022 7:39am Start: 06-25-2022 End: 12-11-2022 take 1 capsule by mouth twice daily Vitamins A,C,Y-Mgrs-Kbcvps (Icaps Areds) 14,320-226-200 rsua-kl-ztaz capsule Discontinued 1 CAP PO TWICE A DAY June 25, 2022 1:00am December 11, 2022 8:39am Start: 06-25-2022 take 1 capsule by [facility] twice daily Vitamins A,C,B-Lzsp-Clbexm (Icaps Areds) 14,320-226-200 fnui-qs-uham capsule Active 1 CAP PO TWICE A DAY June 25, 2022 1:00am Start: 06-25-2022 take 1 capsule by mo [facility] twice daily Vitamins A,C,Y-Gezd-Lfiplp (Icaps Areds) 14,320-226-200 izig-je-lrht capsule Active 1 CAP PO TWICE A DAY June 25, 2022 12:00am warfarin sodium 4 mg oral tablet (20 sources) Vitamin K Antagonist Start: 09-05-2022 End: 10-05-2022 Warfarin 4 mg tablet Discontinued 2 - 4 mg PO DAILY September 05, 2022 4:24pm October 05, 2022 10:45am 2 [facility] [address] Please contact the information source for Protocol details. Start: 07-21-2022 End: 10-05-2022 take 1 tablet by mouth once daily Warfarin 4 mg tablet Discontinued 4 mg PO DAILY July 21, 2022 1:00am September 05, 2022 4:24pm Please contact the information source for Protocol details. Problems Problem Classification Problem Date Documented Date Episodic/Chronic Acquired foot deformities (3 sources) Hammer toe; Translations: [Other hammer toe(s) (acquired), right foot] Onset: 07-03-2023 07-03-2023 Chronic Acute myocardial infarction (20 sources) ST elevation (STEMI) myocardial infarction involving left circumflex coronary artery; Translations: [Acute ST segment elevation myocardial infarction] Onset: 12-07-2017 04-13-2020 Chronic Cardiac dysrhythmias (20 sources) Atrial fibrillation; Translations: [Unspecified atrial fibrillation] Onset: 07-03-2023 Chronic Comment on above: DCCV in October 2022;a blation 09/2023: Ablation January 2024 Cardiac dysrhythmias (6 sources) Tachycardia; Translations: [Tachycardia, unspecified] 05-01-2023 Episodic Conditions associated with dizziness or vertigo (11 sources) Postural dizziness; Translations: [Dizziness and giddiness] 09-05-2022 Episodic Coronary atherosclerosis and other heart disease (20 sources) Atherosclerotic heart disease of [place] coronary artery without angina pectoris; Translations: [History of non-ST segment elevation myocardial infarction] Onset: 12-07-2017 Chronic Comment on above: Stent to Circumflex 12/07/2017 EF 40% Coronary atherosclerosis and other heart disease (20 sources) Presence of coronary angioplasty implant and graft; Translations: [Percutaneous transluminal coronary angioplasty status] Onset: 12-07-2017 Episodic Diabetes mellitus with complications (1 source) Type 2 diabetes mellitus with unspecified complications; Translations: [Type 2 diabetes mellitus with unspecified complications] Onset: 01-11-2025 Chronic Diabetes mellitus without complication (20 sources) Diabetes mellitus; Translations: [Type 2 diabetes mellitus without complications] Onset: 07-03-2023 Chronic Diabetes mellitus without complication (6 sources) Glycosuria; Translations: [Glycosuria] 05-01-2023 Episodic Disorders of lipid metabolism (20 sources) Hyperlipidemia; Translations: [Hyperlipidemia, unspecified] Onset: 01-11-2025 Chronic Essential hypertension (20 sources) Essential hypertension; Translations: [Essential (primary) hypertension] Onset: 01-11-2025 Chronic Fever of unknown origin (4 sources) Fever; Translations: [Fever, unspecified] 05-01-2023 Episodic Genitourinary symptoms and ill-defined conditions (6 sources) Blood in urine; Translations: [Hematuria, unspecified] 05-01-2023 Episodic Immunizations and screening for infectious disease (17 sources) Contact with and (suspected) exposure to other viral communicable diseases; Translations: [Contact with or suspected exposure to other viral communicable disease] 09-03-2022 Episodic Osteoarthritis (17 sources) Osteoarthritis; Translations: [Unspecified osteoarthritis, unspecified site] 04-14-2020 Chronic Other aftercare (15 sources) Long-term current use of anticoagulant; Translations: [retirement (current) use of anticoagulants] 07-21-2022 Episodic Other lower respiratory disease (1 source) Snoring; Translations: [Snoring] Onset: 12-30-2017 Episodic Other lower respiratory disease (8 sources) Dyspnea on exertion; Translations: [Other forms of dyspnea] 09-30-2022 Episodic Other lower respiratory disease (6 sources) Other forms of dyspnea; Translations: [Other respiratory abnormalities] Onset: 01-11-2025 09-30-2022 Episodic Other nervous system disorders (1 source) Other acute postprocedural pain; Translations: [Postoperative pain] Onset: 12-06-2018 Episodic Other nervous system disorders (17 sources) Paresthesia; Translations: [Paresthesia of skin] 04-18-2021 Episodic Other non-traumatic joint disorders (17 sources) Shoulder pain; Translations: [Pain in right shoulder] 04-14-2020 Episodic Other nutritional; endocrine; and metabolic disorders (20 sources) Obesity; Translations: [Obesity, unspecified] 04-18-2021 Chronic Other nutritional; endocrine; and metabolic disorders (16 sources) Obesity, unspecified; Translations: [Obesity, unspecified] Chronic Other nutritional; endocrine; and metabolic disorders (3 sources) Obese class I; Translations: [Obesity, unspecified] Onset: 07-03-2023 07-03-2023 Chronic Other nutritional; endocrine; and metabolic disorders (1 source) Other obesity due to excess calories; Translations: [Other obesity due to excess calories] Onset: 03-31-2024 Chronic Other nutritional; endocrine; and metabolic disorders (1 source) Body mass index (BMI) 31.0-31.9, adult; Translations: [Body mass index [BMI] 31.0-31.9, adult] Onset: 03-31-2024 Chronic Other screening for suspected conditions (not mental disorders or infectious disease) (15 sources) Deviation of international normalized ratio from target range; Translations: [Abnormal coagulation profile] Onset: 01-11-2025 09-05-2022 Episodic Other upper respiratory infections (17 sources) Upper respiratory infection; Translations: [Acute upper respiratory infection, unspecified] 09-03-2022 Episodic Pneumonia (except that caused by tuberculosis or sexually transmitted disease) (11 sources) Pneumonia; Translations: [Pneumonia, unspecified organism] 09-05-2022 Episodic Residual codes; unclassified (16 sources) Hypersomnia; Translations: [Hypersomnia, unspecified] 06-25-2022 Chronic Residual codes; unclassified (10 sources) Hypersomnia, unspecified; Translations: [Hypersomnia, unspecified] Chronic Residual codes; unclassified (18 sources) Obstructive sleep apnea syndrome; Translations: [Obstructive sleep apnea (adult) (pediatric)] Onset: 07-03-2023 08-07-2022 Chronic Comment on above: AHI noted to be 31.3 start trial of CPAP 5 cm of water Residual codes; unclassified (16 sources) Obstructive sleep apnea (adult) (pediatric); Translations: [Obstructive sleep apnea (adult)(pediatric)] Onset: 07-03-2023 Chronic Residual codes; unclassified (17 sources) History of hernia repair; Translations: [Other specified postprocedural states] 08-26-2021 Episodic Substance-related disorders (18 sources) Nicotine dependence; Translations: [Nicotine dependence, unspecified, uncomplicated] 04-13-2020 Chronic Comment on above: 1/2 ppd for 7 years quit 2015, not eligible for LDCT Urinary tract infections (4 sources) Acute urinary tract infection; Translations: [Urinary tract infection, site not specified] 05-01-2023 Episodic Results Test Name Value Interpretation Reference Range Facility [email or web address] 01-11-2025 [email or web address] [address] [place] [address] OFFICE VISIT Date of Service: 01/11/25 MR#: [id number] Acct: [id number] Name: UMAIR ECHOLS Rep #: [id number] : 1965 Provider: Dr. Yaa cleaning MD Age/Sex: 59/M Location: [email or web address] Status: Signed Intake Vital Signs 07/12/24 15:52 12/08/24 08:29 01/11/25 16:01 Height 5 ft 11 in 5 ft 11 in 5 ft 11 in Weight: 254 lb 259 lb BMI 35.4 36.1 BP 114/77 139/89 H Blood Pressure Location Lt brachial Rt brachial Position Sitting Sitting Respiration 18 16 Pulse 72 73 Pulse Source NIBP Monitor Temp 98.6 F Temp Source Temporal Pulse Oximetry (%) 93 Oxygen Delivery Method room air Intake Visit Reasons: Annual/Physical Chief Complaint: Annual/Physical Business Solutions Architect Required: No Accompanied by: Self Is patient in pain?: Yes (Bilateral legs) Pain scale (1-10): 6 Allergies atorvastatin Adverse Reaction (Intermediate, Verified 01/11/25 15:56) Myalgias losartan Adverse Reaction (Intermediate, Verified 01/11/25 15:56) myalgias rosuvastatin Adverse Reaction (Intermediate, Verified 01/11/25 15:56) myalgias lisinopril Adverse Reaction (Verified 01/11/25 15:56) cough Medications ???Medication ???Instructions ???Recorded ???Confirmed ???Type docusate sodium 100 mg capsule 100 mg PO DAILY stool softener 02/2501/11/25 History aspirin 81 mg tablet,delayed 81 mg PO DAILY@0800 heart health 0 09/05/22 01/11/25 History release cholecalciferol (vitamin D3) 25 25 mcg PO DAILY 12/11/22 01/11/25 History mcg (1,000 unit) tablet vit C 250 mg-vit E 90 mg-zinc 40 1 tab PO BID 12/11/22 01/11/25 His tory mg-copper 1 yc-ocwecv-byuhxh capsule (PreserVision AREDS-2) furosemide 20 mg tablet 20 mg PO QDAY PRN edema 06/11/23 0 01/11/25 History BD Ultra-Fine Elidia Pen Needle 32 #100 ea 09/13/23 01/11/25 Rx gauge x 5/32 (pen needle, diabetic) pravastatin 20 mg tablet 20 mg PO QHS #90 TABLETS 05/08/24 01/11/25 Rx valsartan 40 mg tablet 40 mg PO DAILY #90 TABLETS 4 01/11/25 Rx duloxetine 20 mg capsule,delayed 20 mg PO DAILY depression #90 caps 10/06/24 01/11/25 Rx release semaglutide 2 mg/dose (8 mg/3 mL) 2 mg (0.75 mL) subcut QWEEK #9 mL 10/06/24 01/11/25 Rx subcutaneous pen injector (Ozempic) metformin 500 mg tablet,extended 1,000 mg (2 x 500 mg) PO QDAY #90 10/09/24 01/11/25 Rx release 24 hr tabs carvedilol 12.5 mg tablet 12.5 mg PO BID #180 tabs 12/08/24 01/11/25 Rx insulin degludec 200 unit/mL (3 40 unit subcut DAILY 12/08/2412/31 History mL) subcutaneous pen (Tresiba FlexTouch U-200 insulin) apixaban 5 mg tablet (Eliquis) 5 mg PO BID #180 tabs 12/14/2412/31 Rx PFSH Medical History (Updated 01/12/25 @ 09:[address] Yaa Shelton MD) Spinal stenosis Bilateral leg and foot pain Tachycardia Hematuria with proteinuria Glucosuria Neuropathy Contact with and (suspected) exposure to other viral communicable diseases URI (upper respiratory infection) Paresthesia Obesity History of non-ST elevation myocardial infarction (NSTEMI) (12/07/17) Atherosclerotic heart disease of [place] coronary artery without angina pectoris Cardiomyopathy, ischemic Hyperlipidemia Essential hypertension Diabetes Nicotine use disorder Surgical History History of cardiac radiofrequency ablation History of cardioversion (10/16/22) History of hernia repair S/P coronary artery stent placement (12/07/17) Family History Mother Heart disease Breast cancer Father CVA (cerebral vascular accident) Myocardial infarction Social History Smoking Status: Former smoker Tobacco: How many years used: 5 how long ago did patient quit smokin years ago alcohol intake: never substance use type: does not use caffeine: No what type of physical activity do you participate in: none seatbelt use: sometimes do you feel safe at home: Yes HPI HPI Chief Complaint: Annual/Physical Details: UMAIR ECHOLS, is a 59 M who presents to the office today for annual follow-up. Patient has a history of type 2 diabetes, largely managed through endocrinology. He is on Tresiba, metformin, Ozempic regimen. Hypertension on carvedilol, valsartan. Hyperlipidemia on pravastatin. Has a history of CAD, ischemic cardiomyopathy, and long-term anticoagulation for atrial fibrillation using Eliquis. He is on aspirin as well. Medications they are managed largely through cardiology who he follows regularly with. Cardiology discontinued diltiazem, stable post ablation. Main concern today is worsening back and leg pain. He has a history of low (more content not included)... Normal [facility] Cardiology Visit [place] Cardiology Visit Report [place] [facility] [address] [place] [address] OFFICE VISIT Date of Service: 12/08/24 MR#: [id number] Acct: [id number] Name: UMAIR ECHOLS Rep #: [id number] : 1965 Provider: GRUPO Vergara Age/Sex: 59/M Location: [facility] Status: Signed HPI HPI History of Present Illness Details: UMAIR ECHOLS, is a 58 year old white male who presents to the office today for a cardiovascular follow up visit. He is status post ablation in January for atrial fibrillation. In December 2017 he was admitted to [facility] for acute inferior lateral wall myocardial infarction. He underwent thrombectomy with angioplasty and stenting of his circumflex. His LAD and RCA had minimal nonobstructive disease. Ejection fraction was noted to be 40 to 45%. He does have a history of coronary artery disease post STEMI post PCI, ischemic cardiomyopathy, hypertension, hyperlipidemia and diabetes. In June 2022 he was noted to be in atrial fibrillation. He was started on anticoagulation. However he could not help afford his Eliquis. He has since been switched to warfarin. He proceeded with cardioversion at 50 J that resulted in ongoing atrial fibrillation. This was followed by cardioversion at 200 J with successful conversion in October 2022. Unfortunately this did not hold and had a second DCCV in 03/2023. This did not hold also. He did see EP at [facility]. He did undergo an Atrial flutter ablation 09/30/23. Unfortunately this was not successful. He therefore underwent transseptal puncture with left atrial mapping a flutter activation as well as pulmonary vein isolation using the pulsed field ablation technique it appears that he had a successful ablation and he also had a CT after that. From a cardiac standpoint, the patient is doing well. He denies any palpitations, chest pain, pressure or heaviness. He does have SOB with bending over. He denies Orthopnea, and PND. He does not have bleeding issues; no blood in urine, stool or nosebleeds. He denies any decrease in energy level, myalgias, or claudication. He does not have edema, or sudden weight gain. He denies dizziness, lightheadedness, syncopal or near syncopal episodes, and headaches. Intake Vital Signs 02/24/24 16:24 11/24/24 08:14 12/08/24 08:29 Height 5 ft 11 in 5 ft 11 in 5 ft 11 in Weight: 254 lb BMI 35.4 BP 114/77 Blood Pressure Location Lt brachial Position Sitting Respiration 18 Pulse 72 Pulse Source NIBP Intake Visit Reasons: 9 M FU Business Solutions Architect Required: No Accompanied by: Self Is patient in pain?: No Allergies atorvastatin Adverse Reaction (Intermediate, Verified 12/08/24 08:32) Myalgias losartan Adverse Reaction (Intermediate, Verified 12/08/24 08:32) myalgias rosuvastatin Adverse Reaction (Intermediate, Verified 12/08/24 08:32) myalgias lisinopril Adverse Reaction (Verified 12/08/24 08:32) cough Medications ???Medication ???Instructions ???Recorded ???Confirmed ???Type docusate sodium 100 mg capsule 100 mg PO DAILY stool softener 02/2512/08/24 History aspirin 81 mg tablet,delayed 81 mg PO DAILY@0800 heart health 0 09/05/22 12/08/24 History release cholecalciferol (vitamin D3) 25 25 mcg PO DAILY 12/11/22 12/08/24 History mcg (1,000 unit) tablet vit C 250 mg-vit E 90 mg-zinc 40 1 tab PO BID 12/11/22 12/08/24 His tory mg-copper 1 rp-alzcyq-vcwfbi capsule (PreserVision AREDS-2) furosemide 20 mg tablet 20 mg PO QDAY PRN edema 06/11/23 0 12/08/24 History BD Ultra-Fine Elidia Pen Needle 32 #100 ea 09/13/23 12/08/24 Rx gauge x 5/32 (pen needle, diabetic) pravastatin 20 mg tablet 20 mg PO QHS #90 TABLETS 05/08/24 12/08/24 Rx valsartan 40 mg tablet 40 mg PO DAILY #90 TABLETS 4 12/08/24 Rx duloxetine 20 mg capsule,delayed 20 mg PO DAILY depression #90 caps 10/06/24 12/08/24 Rx release semaglutide 2 mg/dose (8 mg/3 mL) 2 mg (0.75 mL) subcut QWEEK #9 mL 10/06/24 12/08/24 Rx subcutaneous pen injector (Ozempic) metformin 500 mg tablet,extended 1,000 mg (2 x 500 mg) PO QDAY #90 10/09/24 12/08/24 Rx release 24 hr tabs apixaban 5 mg tablet (Eliquis) 5 mg PO BID #60 tabs 12/08/240 10/03 Rx carvedilol 12.5 mg tablet 12.5 mg PO BID #180 tabs 12/08/24 12/08/24 Rx insulin degludec 200 unit/mL (3 40 unit subcut DAILY 12/08/2410/03 History mL) subcutaneous pen (Tresiba FlexTouch U-200 insulin) Have you fallen in the past year?: No [facility] Medical History Atherosclerotic heart disease of [place] coronary artery without angina pectoris Cardiomyopathy, ischemic Contact with and (suspected) exposure to other viral communicable diseases Diabetes Essential hypertension Glucosuria Hematuria with proteinuria (more content not included)... Normal [facility] Pulmonary Visit Reporton Pulmonary Visit Report [facility] [place] [address] [place] [address] OFFICE VISIT Date of Service: 11/24/24 MR#: [id number] Acct: [id number] Name: UMAIR ECHOLS Rep #: [id number] : 1965 Provider: Lorie Riojas NP Age/Sex: 59/M Location: [facility] Status: Signed Assessment and Plan Assessment and Plan (1) ANIYAH (obstructive sleep apnea): Status: Acute Comment: AHI noted to be 31.3 start trial of CPAP 5 cm of water Plan: He is using and benefiting from Pap therapy. Apnea is well-controlled at current pressure of CPAP 5 cm. No indication for titration study at this time. Contact the office for any new or worsening symptoms in the meantime. Follow-up in 12 months. (2) Obesity: Status: Chronic Qualifiers: Body mass index: BMI 31.0-31.9 Obesity classification: adult class 1 (BMI 30 - 34.9) Obesity type: due to excess calories Serious obesity comorbidity presence: with serious comorbidity Qualified Code(s): E66.09 - Other obesity due to excess calories; Z68.31 - Body mass index [BMI] 31.0-31.9, adult Plan: Weight loss should be achieved through prudent dieting and daily exercise. Plan Details Follow Up: 12 Months (LMR) HPI HPI Comments Details: This patient presents to the office today for follow-up of his obstructive sleep apnea. He is ambulatory and currently on room air. He has not been seen in the ED or urgent care for any respiratory illness since his last office visit. He has not required any antibiotics or prednisone for any breathing problems. At last visit he had had coughing for approximately 1 month and was unable to utilize his device in a compliant manner due to the mucus. He denies shortness of breath. He denies cough, sputum production or hemoptysis. He denies wheezing, chest tightness, chest pain or palpitations. He denies any fever, chills or body aches. The patient is using CPAP without significant air leak, oral dryness, snore. He uses a nasal style mask. There are no concerns about the air pressure. Sleep is refreshing. The patient is reporting good compliance. Daytime hypersomnia is improved. He does not nap. He denies morning headache. Compliance report for the past 30 days shows 83% compliance with an average use of 6 hours and 11 minutes per night. Current setting is CPAP of 5 cmH2O with residual AHI 0.7 events per hour. Leaks do not appear to be problematic. Intake Vital Signs 10/13/24 08:06 11/24/24 08:14 Height 5 ft 11 in 5 ft 11 in Weight: 252 lb BMI 35.1 BP 122/77 H Blood Pressure Location Lt brachial Position Sitting Respiration 20 H Pulse 68 Pulse Source Monitor Temp 97.2 F L Temperature Source Temporal Artery Pulse Oximetry (%) 95 Oxygen Delivery Method room air Intake Visit Reasons: 6 wk FU Business Solutions Architect Required: No DME Vendor: [employer] Accompanied by: Self Is patient in pain?: No Allergies atorvastatin Adverse Reaction (Intermediate, Verified 11/24/24 14:20) Myalgias losartan Adverse Reaction (Intermediate, Verified 11/24/24 14:20) myalgias rosuvastatin Adverse Reaction (Intermediate, Verified 11/24/24 14:20) myalgias lisinopril Adverse Reaction (Verified 11/24/24 14:20) cough Medications ???Medication ???Instructions ???Recorded ???Confirmed ???Type docusate sodium 100 mg capsule 100 mg PO DAILY stool softener 02/2511/24/24 History aspirin 81 mg tablet,delayed 81 mg PO DAILY@0800 heart health 0 09/05/22 11/24/24 History release cholecalciferol (vitamin D3) 25 25 mcg PO DAILY 12/11/22 11/24/24 History mcg (1,000 unit) tablet vit C 250 mg-vit E 90 mg-zinc 40 1 tab PO BID 12/11/22 11/24/24 His tory mg-copper 1 ew-fpngys-uqfbeo capsule (PreserVision AREDS-2) furosemide 20 mg tablet 20 mg PO QDAY PRN edema 06/11/23 0 11/24/24 History BD Ultra-Fine Elidia Pen Needle 32 #100 ea 09/13/23 11/24/24 Rx gauge x /32 (pen needle, diabetic) apixaban 5 mg tablet (Eliquis) 5 mg PO BID #60 tabs 10/04/2311/07 Rx carvedilol 25 mg tablet 25 mg PO BID #180 tabs 01/18/24 Rx pravastatin 20 mg tablet 20 mg PO QHS #90 TABLETS 05/08/24 11/24/24 Rx valsartan 40 mg tablet 40 mg PO DAILY #90 TABLETS 4 11/24/24 Rx diltiazem HCl 120 mg 120 mg PO DAILY #90 caps 09/11/24 11/24/24 Rx capsule,extended release 24 hr Tresiba FlexTouch U-200 200 50 unit (0.25 mL) subcut DAILY #24 10/06/24 11/24/24 Rx unit/mL (3 mL) subcutaneous pen mL (insulin degludec) duloxetine 20 mg capsule,delayed 20 mg PO DAILY depression #90 caps 10/06/24 11/24/24 Rx release semaglutide 2 mg/dose (8 mg/3 mL) 2 mg (0.75 mL) subcut QWEEK #9 mL 10/06/24 11/24/24 Rx subcutaneous pen injector (Ozempic) metformin 500 mg tablet,extended 1,000 mg (2 x 500 mg) PO QDAY #9 (more content not included)... Normal [facility] Pulmonary Visit Reporton Pulmonary Visit Report [facility] [place] [address] [place] [address] OFFICE VISIT Date of Service: 10/13/24 MR#: [id number] Acct: [id number] Name: UMAIR ECHOLS Rep #: [id number] : 1965 Provider: LIZZY Rod Age/Sex: 59/M Location: [facility] Status: Signed Assessment and Plan Assessment and Plan (1) ANIYAH (obstructive sleep apnea): Status: Acute Comment: AHI noted to be 31.3 start trial of CPAP 5 cm of water Plan: He is using and benefiting from Pap therapy. Encourage better compliance. No indication for titration study at this time. Continue to encourage weight loss. Contact the office for any new or worsening symptoms in the meantime. Follow-up in 6 weeks. (2) Obesity: Status: Chronic Qualifiers: Obesity type: due to excess calories Obesity classification: adult class 1 (BMI 30 - 34.9) Serious obesity comorbidity presence: with serious comorbidity Body mass index: BMI 31.0-31.9 Qualified Code(s): E66.09 - Other obesity due to excess calories; Z68.31 - Body mass index [BMI] 31.0-31.9, adult Plan: Complicates exam, plan, care and prognosis. Continue to encourage weight loss. HPI 1 Y FU Chief Complaint: Routine follow-up HPI Comments Details: This patient presents to the office today for follow-up of his obstructive sleep apnea. He is ambulatory and currently on room air. He has not been seen in the ED or urgent care for any respiratory illness since his last office visit. He has not required any antibiotics or prednisone for any breathing problems. He has shortness of breath when bending over. He denies any cough, sputum production or hemoptysis. He does not have any wheezing, chest tightness, chest pain or palpitations. He denies any fever, chills or body aches. Patient reports that he has had a cold for the past 3 weeks and has not been able to be compliant with PAP therapy. Other than that, he reports that he uses his machine most nights. He would like to follow-up in the office in a few weeks for a better compliance report. He is not having difficulty with dry mouth or mask leaks. He does not require naps. He is not nodding off to sleep unintentionally. Compliance report for the past 30 days shows 10 % compliance with an average use of 3 hours and 48 minutes per night. Current setting is CPAP of 5 cmH2O with residual AHI 1.1 events per hour. Leaks do not appear to be problematic. Intake Vital Signs 07/14/23 11:40 07/12/24 15:52 10/13/24 08:06 Height 5 ft 11 in 5 ft 11 in 5 ft 11 in Weight: 250 lb BMI 34.8 BP 107/74 Blood Pressure Location Rt brachial Position Sitting Respiration 20 H Pulse 69 Pulse Source Monitor Temp 97.4 F L Temperature Source Temporal Artery Pulse Oximetry (%) 95 Oxygen Delivery Method room air Intake Visit Reasons: 1 Y FU Business Solutions Architect Required: No DME Vendor: [employer] Accompanied by: Self Is patient in pain?: No Allergies atorvastatin Adverse Reaction (Intermediate, Verified 10/13/24 09:01) Myalgias losartan Adverse Reaction (Intermediate, Verified 10/13/24 09:01) myalgias rosuvastatin Adverse Reaction (Intermediate, Verified 10/13/24 09:01) myalgias lisinopril Adverse Reaction (Verified 10/13/24 09:01) cough Medications ???Medication ???Instructions ???Recorded ???Confirmed ???Type docusate sodium 100 mg capsule 100 mg PO DAILY stool softener 02/2510/13/24 History aspirin 81 mg tablet,delayed 81 mg PO DAILY@0800 heart health 0 09/05/22 10/13/24 History release cholecalciferol (vitamin D3) 25 25 mcg PO DAILY 12/11/22 10/13/24 History mcg (1,000 unit) tablet vit C 250 mg-vit E 90 mg-zinc 40 1 tab PO BID 12/11/22 10/13/24 His tory mg-copper 1 pu-phkxni-uatxld capsule (PreserVision AREDS-2) furosemide 20 mg tablet 20 mg PO QDAY PRN edema 06/11/23 0 10/13/24 History BD Ultra-Fine Elidia Pen Needle 32 #100 ea 09/13/23 10/13/24 Rx gauge x 5/32 (pen needle, diabetic) apixaban 5 mg tablet (Eliquis) 5 mg PO BID #60 tabs 10/04/2303/02 Rx carvedilol 25 mg tablet 25 mg PO BID #180 tabs 01/18/24 Rx pravastatin 20 mg tablet 20 mg PO QHS #90 TABLETS 05/08/24 10/13/24 Rx valsartan 40 mg tablet 40 mg PO DAILY #90 TABLETS 4 10/13/24 Rx diltiazem HCl 120 mg 120 mg PO DAILY #90 caps 09/11/24 10/13/24 Rx capsule,extended release 24 hr Tresiba FlexTouch U-200 200 50 unit (0.25 mL) subcut DAILY #24 10/06/24 10/13/24 Rx unit/mL (3 mL) subcutaneous pen mL (insulin degludec) duloxetine 20 mg capsule,delayed 20 mg PO DAILY depression #90 caps 10/06/24 10/13/24 Rx release semaglutide 2 mg/dose (8 mg/3 mL) 2 mg (0.75 mL) subcut QWEEK #9 mL 10/06/24 10/13/24 Rx subcutaneous pen injector (Ozempic) metformin 500 mg (more content not included)... Normal [facility] Endocrinology Visit Reporton 10-06-2024 Endocrinology Visit Report [facility] [address] [place] [id number] OFFICE VISIT Date of Service: 10/06/24 MR#: [id number] Acct: [id number] Name: UMAIR ECHOLS Rep #: [id number] : 1965 Provider: Ila Montilla Age/Sex: 59/M [facility] Status: Signed Intake Vital Signs 03/31/24 08:04 07/12/24 15:52 10/06/24 15:56 Height 5 ft 11 in 5 ft 11 in 5 ft 11 in Weight: 260 lb 6 oz 257 lb 2 oz BMI 36.3 35.9 BP 133/88 H 127/83 H Blood Pressure Location Rt brachial Rt brachial Position Sitting Sitting Respiration 16 Pulse 69 68 Pulse Source Monitor Monitor Temp 98.0 F Temp Source Temporal Pulse Oximetry (%) 94 93 Oxygen Delivery Method room air room air Intake Visit Reasons: 6 M FU Chief Complaint: Diabetes Is patient in pain?: No Allergies atorvastatin Adverse Reaction (Intermediate, Verified 10/13/24 09:01) Myalgias losartan Adverse Reaction (Intermediate, Verified 10/13/24 09:01) myalgias rosuvastatin Adverse Reaction (Intermediate, Verified 10/13/24 09:01) myalgias lisinopril Adverse Reaction (Verified 10/13/24 09:01) cough Medications ???Medication ???Instructions ???Recorded ???Confirmed ???Type docusate sodium 100 mg capsule 100 mg PO DAILY stool softener 02/2510/13/24 History aspirin 81 mg tablet,delayed 81 mg PO DAILY@0800 heart health 0 09/05/22 10/13/24 History release cholecalciferol (vitamin D3) 25 25 mcg PO DAILY 12/11/22 10/13/24 History mcg (1,000 unit) tablet vit C 250 mg-vit E 90 mg-zinc 40 1 tab PO BID 12/11/22 10/13/24 His tory mg-copper 1 mg-rqfhoh-ytyupu capsule (PreserVision AREDS-2) furosemide 20 mg tablet 20 mg PO QDAY PRN edema 06/11/23 0 10/13/24 History BD Ultra-Fine Elidia Pen Needle 32 #100 ea 09/13/23 10/13/24 Rx gauge x 5/32 (pen needle, diabetic) apixaban 5 mg tablet (Eliquis) 5 mg PO BID #60 tabs 10/04/2303/02 Rx carvedilol 25 mg tablet 25 mg PO BID #180 tabs 01/18/24 Rx pravastatin 20 mg tablet 20 mg PO QHS #90 TABLETS 05/08/24 10/13/24 Rx valsartan 40 mg tablet 40 mg PO DAILY #90 TABLETS 4 10/13/24 Rx diltiazem HCl 120 mg 120 mg PO DAILY #90 caps 09/11/24 10/13/24 Rx capsule,extended release 24 hr Tresiba FlexTouch U-200 200 50 unit (0.25 mL) subcut DAILY #24 10/06/24 10/13/24 Rx unit/mL (3 mL) subcutaneous pen mL (insulin degludec) duloxetine 20 mg capsule,delayed 20 mg PO DAILY depression #90 caps 10/06/24 10/13/24 Rx release semaglutide 2 mg/dose (8 mg/3 mL) 2 mg (0.75 mL) subcut QWEEK #9 mL 10/06/24 10/13/24 Rx subcutaneous pen injector (Ozempic) metformin 500 mg tablet,extended 1,000 mg (2 x 500 mg) PO QDAY #90 10/09/24 10/13/24 Rx release 24 hr tabs PFSH Medical History (Reviewed 10/13/24 @ 09:10 by Geovanna Rod ENTRY LEVEL MANUFACTURING ENGINEER, ENTRY LEVEL MANUFACTURING ENGINEER-C) Tachycardia Hematuria with proteinuria Glucosuria Neuropathy Contact with and (suspected) exposure to other viral communicable diseases URI (upper respiratory infection) Paresthesia Obesity History of non-ST elevation myocardial infarction (NSTEMI) (12/07/17) Atherosclerotic heart disease of [place] coronary artery without angina pectoris Cardiomyopathy, ischemic Hyperlipidemia Essential hypertension Diabetes Nicotine use disorder Surgical History (Reviewed 10/13/24 @ 09:10 by Geovanna Rod ENTRY LEVEL MANUFACTURING ENGINEER, ENTRY LEVEL MANUFACTURING ENGINEER-C) History of cardiac radiofrequency ablation History of cardioversion (10/16/22) History of hernia repair S/P coronary artery stent placement (12/07/17) Family History (Reviewed 10/13/24 @ 09:10 by Geovanna Rod ENTRY LEVEL MANUFACTURING ENGINEER, ENTRY LEVEL MANUFACTURING ENGINEER-C) Mother Heart disease Breast cancer Father CVA (cerebral vascular accident) Myocardial infarction Social History (Reviewed 10/13/24 @ 09:10 by Geovanna Rod ENTRY LEVEL MANUFACTURING ENGINEER, ENTRY LEVEL MANUFACTURING ENGINEER-C) Smoking Status: Former smoker Tobacco: How many years used: 5 how long ago did patient quit smokin years ago alcohol intake: never substance use type: does not use caffeine: No what type of physical activity do you participate in: none seatbelt use: sometimes do you feel safe at home: Yes HPI HPI Chief Complaint: Diabetes Details: UMAIR ECHOLS, is a 59 M who presents to the office today for follow up. A1C is 7.1% He is taking Ozempic, metformin, and Tresiba. He is up 6 pounds. He is on statin and ARB. ROS Const Constitutional: No fatigue or weight change ENT ENT: No dizziness/vertigo Cardio Cardiology: No chest pain at rest, chest pain with exertion, shortness of breath or palpitations Skin Skin: No wounds Endo Endocrine: No fatigue or weight change Exam Const General: cooperative, healthy appearing, comfortable, no acute distress, well developed and not cushingoid Nutritional Appearance: w (more content not included)... Normal [facility] Vitamin D,25 Hydroxyon 08-14 Vitamin D 25-OH 37.4 ng/mL Normal [facility] Comment on above: Result Comment: Tawana min D 25(OH) Status Range Deficiency <20 ng/mL (50nmol/L) Insufficiency 20 - 30 ng/mL (50 - 75 nmol/L) Sufficiency 30 - 100 ng/mL (75 - 250 nmol/L) Toxicity >100 ng/mL (>250 nmol/L) Performed By: #### L 501.9910, L500.4050, L501.9520, L500.4100, L100.0100, L501.9985, L501.5200, L506.1000 ####[facility] [address] [place], [address] CBC W/Diff, Automatedon Absolute Lymph 2.52 X10 3/uL Normal 0.83-4.51 [facility] Comment on above: Performed By: #### L 501.9910, L500.4050, L501.9520, L500.4100, L100.0100, L501.9985, L501.5200, L506.1000 ####[facility] [address] [place], [address] Absolute Neut 6.3 X10 3/uL Normal 2.0-7.7 [facility] Comment on above: Performed By: #### L 501.9910, L500.4050, L501.9520, L500.4100, L100.0100, L501.9985, L501.5200, L506.1000 ####[facility] [address] [place], [address] Basophils/100 WBC (Bld) 0.3 % Normal 0-1 [facility] Comment on above: Performed By: #### L 501.9910, L500.4050, L501.9520, L500.4100, L100.0100, L501.9985, L501.5200, L506.1000 ####[facility] [address] [place], [address] Eosinophils/100 WBC (Bld) 2.1 % Normal 0-5 [facility] Comment on above: Performed By: #### L 501.9910, L500.4050, L501.9520, L500.4100, L100.0100, L501.9985, L501.5200, L506.1000 ####[facility] [address] [place], [address] Erythrocyte distribution width (RBC) [Ratio] 13.2 % Normal 11.6-14.6 [facility] Comment on above: Performed By: #### L 501.9910, L500.4050, L501.9520, L500.4100, L100.0100, L501.9985, L501.5200, L506.1000 ####[facility] [address] [place], [address] Hematocrit (Bld) [Volume fraction] 45.2 % Normal 40-54 [facility] Comment on above: Performed By: #### L 501.9910, L500.4050, L501.9520, L500.4100, L100.0100, L501.9985, L501.5200, L506.1000 ####[facility] [address] [place], [address] Hemoglobin (Bld) [Mass/Vol] 14.9 g/dL Normal 13.0-16.5 [facility] Comment on above: Performed By: #### L 501.9910, L500.4050, L501.9520, L500.4100, L100.0100, L501.9985, L501.5200, L506.1000 ####[facility] [address] [place], [address] IG% 0.300 Normal 0.0-0.9 [facility] Comment on above: Result Comment: IG% - Immature Granulocytes (promyelocytes, myelocytes and metamyelocytes) > 1% indicates that a LEFT SHIFT is Present. Performed By: #### L 501.9910, L500.4050, L501.9520, L500.4100, L100.0100, L501.9985, L501.5200, L506.1000 ####[facility] [address] [place], [address] Lymphocytes/100 WBC (Bld) 24.7 % Normal 19-41 [facility] Comment on above: Performed By: #### L 501.9910, L500.4050, L501.9520, L500.4100, L100.0100, L501.9985, L501.5200, L506.1000 ####[facility] [address] [place], [address] MCH (RBC) [Entitic mass] 28.4 pg Normal 27.0-32.0 [facility] Comment on above: Performed By: #### L 501.9910, L500.4050, L501.9520, L500.4100, L100.0100, L501.9985, L501.5200, L506.1000 ####[facility] [address] [place], [address] MCHC (RBC) [Mass/Vol] 33.0 g/dL Normal 32-36 [facility] Comment on above: Performed By: #### L 501.9910, L500.4050, L501.9520, L500.4100, L100.0100, L501.9985, L501.5200, L506.1000 ####[facility] [address] [place], [address] MCV (RBC) [Entitic vol] 86.1 fL Normal 80-94 [facility] Comment on above: Performed By: #### L 501.9910, L500.4050, L501.9520, L500.4100, L100.0100, L501.9985, L501.5200, L506.1000 ####[facility] [address] [place], [address] Monocytes/100 WBC (Bld) 10.7 % High 0-10 [facility] Comment on above: Performed By: #### L 501.9910, L500.4050, L501.9520, L500.4100, L100.0100, L501.9985, L501.5200, L506.1000 ####[facility] [address] [place], [address] Neutrophils/100 WBC (Bld) 61.9 % Normal 47-70 [facility] Comment on above: Performed By: #### L 501.9910, L500.4050, L501.9520, L500.4100, L100.0100, L501.9985, L501.5200, L506.1000 ####[facility] [address] [place], [address] Nucleated RBC (Bld) [#/Vol] 0 10*3/uL Normal 0-5 [facility] Comment on above: Performed By: #### L 501.9910, L500.4050, L501.9520, L500.4100, L100.0100, L501.9985, L501.5200, L506.1000 ####[facility] [address] [place], [address] Platelet mean volume (Bld) [Entitic vol] 9.8 fL Normal 6.2-12.0 [facility] Comment on above: Performed By: #### L 501.9910, L500.4050, L501.9520, L500.4100, L100.0100, L501.9985, L501.5200, L506.1000 ####[facility] [address] [place], [address] Platelets (Bld) [#/Vol] 273 10*3/uL Normal 150-450 [facility] Comment on above: Performed By: #### L 501.9910, L500.4050, L501.9520, L500.4100, L100.0100, L501.9985, L501.5200, L506.1000 ####[facility] [address] [place], [address] RBC (Bld) [#/Vol] 5.25 10*6/uL Normal 4.6-6.2 [facility] Comment on above: Performed By: #### L 501.9910, L500.4050, L501.9520, L500.4100, L100.0100, L501.9985, L501.5200, L506.1000 ####[facility] [address] [place], [address] RDW SD 41.0 fl Normal 35.1-43.9 [facility] Comment on above: Performed By: #### L 501.9910, L500.4050, L501.9520, L500.4100, L100.0100, L501.9985, L501.5200, L506.1000 ####[facility] [address] [place], [address] WBC (Bld) [#/Vol] 10.2 10*3/uL Normal 4.4-11.0 [facility] Comment on above: Performed By: #### L 501.9910, L500.4050, L501.9520, L500.4100, L100.0100, L501.9985, L501.5200, L506.1000 ####[facility] [address] [place], [address] Absolute Neut Normal 2.0-7.7 [facility] Comment on above: Result Comment: DUP. ORDERS Performed By: #### L 500.4100, L100.0100, L500.4050 ####[facility] [address] [place], [address] HCT Normal 40-54 [facility] Comment on above: Result Comment: DUP. ORDERS Performed By: #### L 500.4100, L100.0100, L500.4050 ####[facility] [address] [place], [address] HGB Normal 13.0-16.5 [facility] Comment on above: Result Comment: DUP. ORDERS Performed By: #### L 500.4100, L100.0100, L500.4050 ####[facility] [address] [place], [address] MCH Normal 27.0-32.0 [facility] Comment on above: Result Comment: DUP. ORDERS Performed By: #### L 500.4100, L100.0100, L500.4050 ####[facility] [address] [place], [address] MCHC Normal 32-36 [facility] Comment on above: Result Comment: DUP. ORDERS Performed By: #### L 500.4100, L100.0100, L500.4050 ####[facility] [address] [place], [address] MCV Normal 80-94 [facility] Comment on above: Result Comment: DUP. ORDERS Performed By: #### L 500.4100, L100.0100, L500.4050 ####[facility] [address] [place], [address] NEUT% Normal 47-70 [facility] Comment on above: Result Comment: DUP. ORDERS Performed By: #### L 500.4100, L100.0100, L500.4050 ####[facility] [address] [place], [address] PLT Normal 150-450 [facility] Comment on above: Result Comment: DUP. ORDERS Performed By: #### L 500.4100, L100.0100, L500.4050 ####[facility] [address] [place], [address] RBC Normal 4.6-6.2 [facility] Comment on above: Result Comment: DUP. ORDERS Performed By: #### L 500.4100, L100.0100, L500.4050 ####[facility] [address] [place], [address] RDW CV Normal 11.6-14.6 [facility] Comment on above: Result Comment: DUP. ORDERS Performed By: #### L 500.4100, L100.0100, L500.4050 ####[facility] [address] [place], [address] RDW SD Normal 35.1-43.9 [facility] Comment on above: Result Comment: DUP. ORDERS Performed By: #### L 500.4100, L100.0100, L500.4050 ####[facility] [address] [place], [address] WBC Normal 4.4-11.0 [facility] Comment on above: Result Comment: DUP. ORDERS Performed By: #### L 500.4100, L100.0100, L500.4050 ####[facility] [address] [place], [address] Comprehensive Metabolic Prof nvon 08-12-2024 Albumin [Mass/Vol] 3.7 g/dL Normal 3.2-5.0 [facility] Comment on above: Performed By: #### L 501.9910, L500.4050, L501.9520, L500.4100, L100.0100, L501.9985, L501.5200, L506.1000 ####[facility] [address] [place], [address] Albumin/Globulin [Mass ratio] 1.0 {ratio} Normal 0.9-2.4 [facility] Comment on above: Performed By: #### L 501.9910, L500.4050, L501.9520, L500.4100, L100.0100, L501.9985, L501.5200, L506.1000 ####[facility] [address] [place], [address] ALK P 121 U/L High 45-117 [facility] Comment on above: Performed By: #### L 501.9910, L500.4050, L501.9520, L500.4100, L100.0100, L501.9985, L501.5200, L506.1000 ####[facility] [address] [place], [address] ALT [Catalytic activity/Vol] 31 U/L Normal 16-61 [facility] Comment on above: Performed By: #### L 501.9910, L500.4050, L501.9520, L500.4100, L100.0100, L501.9985, L501.5200, L506.1000 ####[facility] [address] [place], [address] AST [Catalytic activity/Vol] 19 U/L Normal 15-37 [facility] Comment on above: Performed By: #### L 501.9910, L500.4050, L501.9520, L500.4100, L100.0100, L501.9985, L501.5200, L506.1000 ####[facility] [address] [place], [address] Bilirubin [Mass/Vol] 0.50 mg/dL Normal 0.20-1.00 [facility] Comment on above: Result Comment: For patients on eltrombopag therapy, use of Dimension [place] TBIL is not recommended. Performed By: #### L 501.9910, L500.4050, L501.9520, L500.4100, L100.0100, L501.9985, L501.5200, L506.1000 ####[facility] [address] [place], [address] BUN/CRE 18.5 RATIO Normal 10-20 [facility] Comment on above: Performed By: #### L 501.9910, L500.4050, L501.9520, L500.4100, L100.0100, L501.9985, L501.5200, L506.1000 ####[facility] [address] [place], [address] CA,Total 9.2 mg/dL Normal 8.5-10.1 [facility] Comment on above: Performed By: #### L 501.9910, L500.4050, L501.9520, L500.4100, L100.0100, L501.9985, L501.5200, L506.1000 ####[facility] [address] [place], [address] Chloride [Moles/Vol] 102 mmol/L Normal 98-107 [facility] Comment on above: Performed By: #### L 501.9910, L500.4050, L501.9520, L500.4100, L100.0100, L501.9985, L501.5200, L506.1000 ####[facility] [address] [place], [address] CO2 [Moles/Vol] 32.0 mmol/L Normal 21.0-32.0 [facility] Comment on above: Performed By: #### L 501.9910, L500.4050, L501.9520, L500.4100, L100.0100, L501.9985, L501.5200, L506.1000 ####[facility] [address] [place], [place], [address] Creatinine [Mass/Vol] 0.92 mg/dL Normal 0.70-1.30 [facility] Comment on above: Result Comment: The validity of the calculated GFR GFRAA in patients over 70 years has not been determined. Clinical correlation is essential. Performed By: #### L 501.9910, L500.4050, L501.9520, L500.4100, L100.0100, L501.9985, L501.5200, L506.1000 ####[facility] [address] [place], [place], [address] EST GFR - AA 108 mL/min Normal >60 [facility] Comment on above: Result Comment: Afri can Bah[place]ian GFR Calc Performed By: #### L 501.9910, L500.4050, L501.9520, L500.4100, L100.0100, L501.9985, L501.5200, L506.1000 ####[facility] [address] [place], [place], [address] GAP 5 Normal 5-15 [facility] Comment on above: Performed By: #### L 501.9910, L500.4050, L501.9520, L500.4100, L100.0100, L501.9985, L501.5200, L506.1000 ####[facility] [address] [place], [place], [phone](274) GFR/1.73 sq M.predicted among non-blacks MDRD (S/P/Bld) [Vol rate/Area] 89 mL/min/{1.73_m2} Normal >60 [facility] Comment on above: Result Comment: Non- GFR Calc Performed By: #### L 501.9910, L500.4050, L501.9520, L500.4100, L100.0100, L501.9985, L501.5200, L506.1000 ####[facility] [address] [place], [address] Globulin (S) [Mass/Vol] 3.6 g/dL Normal 2.2-4.2 [facility] Comment on above: Performed By: #### L 501.9910, L500.4050, L501.9520, L500.4100, L100.0100, L501.9985, L501.5200, L506.1000 ####[facility] [address] [place], [address] Glucose [Mass/Vol] 128 mg/dL High 74-106 [facility] Comment on above: Result Comment: Fast ing Glucose result greater than or equal to 126 mg/dL suggests DIABETES MELLITUS per A.D.A. criteria. Performed By: #### L 501.9910, L500.4050, L501.9520, L500.4100, L100.0100, L501.9985, L501.5200, L506.1000 ####[facility] [address] [place], [address] Potassium [Moles/Vol] 3.9 mmol/L Normal 3.5-5.1 [facility] Comment on above: Performed By: #### L 501.9910, L500.4050, L501.9520, L500.4100, L100.0100, L501.9985, L501.5200, L506.1000 ####[facility] [address] [place], [address] Sodium [Moles/Vol] 139 mmol/L Normal 136-145 [facility] Comment on above: Performed By: #### L 501.9910, L500.4050, L501.9520, L500.4100, L100.0100, L501.9985, L501.5200, L506.1000 ####[facility] [address] [place], [address] T PROT 7.3 g/dL Normal 6.4-8.2 [facility] Comment on above: Performed By: #### L 501.9910, L500.4050, L501.9520, L500.4100, L100.0100, L501.9985, L501.5200, L506.1000 ####[facility] [address] [place], [address] Urea nitrogen [Mass/Vol] 17 mg/dL Normal 7-18 [facility] Comment on above: Performed By: #### L 501.9910, L500.4050, L501.9520, L500.4100, L100.0100, L501.9985, L501.5200, L506.1000 ####[facility] [address] [place], [address] ALB Normal 3.2-5.0 [facility] Comment on above: Result Comment: DUP. ORDERS Performed By: #### L 500.4100, L100.0100, L500.4050 ####[facility] [address] [place], [address] ALK P Normal 45-117 [facility] Comment on above: Result Comment: DUP. ORDERS Performed By: #### L 500.4100, L100.0100, L500.4050 ####[facility] [address] [place], [address] ALT Normal 16-61 [facility] Comment on above: Result Comment: DUP. ORDERS Performed By: #### L 500.4100, L100.0100, L500.4050 ####[facility] [address] [place], [address] AST Normal 15-37 [facility] Comment on above: Result Comment: DUP. ORDERS Performed By: #### L 500.4100, L100.0100, L500.4050 ####[facility] [address] [place], [address] BUN Normal 7-18 [facility] Comment on above: Result Comment: DUP. ORDERS Performed By: #### L 500.4100, L100.0100, L500.4050 ####[facility] [address] [place], [address] BUN/CRE Normal 10-20 [facility] Comment on above: Result Comment: DUP. ORDERS Performed By: #### L 500.4100, L100.0100, L500.4050 ####[facility] [address] [place], [address] CA,Total Normal 8.5-10.1 [facility] Comment on above: Result Comment: DUP. ORDERS Performed By: #### L 500.4100, L100.0100, L500.4050 ####[facility] [address] [place], [address] CL Normal 98-107 [facility] Comment on above: Result Comment: DUP. ORDERS Performed By: #### L 500.4100, L100.0100, L500.4050 ####[facility] [address] [place], [address] CO2 Normal 21.0-32.0 [facility] Comment on above: Result Comment: DUP. ORDERS Performed By: #### L 500.4100, L100.0100, L500.4050 ####[facility] [address] [place], [address] CREAT,SERUM Normal 0.70-1.30 [facility] Comment on above: Result Comment: DUP. ORDERS Performed By: #### L 500.4100, L100.0100, L500.4050 ####[facility] [address] [place], [address] EST GFR Normal >60 [facility] Comment on above: Result Comment: DUP. ORDERS Performed By: #### L 500.4100, L100.0100, L500.4050 ####[facility] [address] [place], [address] EST GFR - AA Normal >60 [facility] Comment on above: Result Comment: DUP. ORDERS Performed By: #### L 500.4100, L100.0100, L500.4050 ####[facility] [address] [place], [address] GAP Normal 5-15 [facility] Comment on above: Result Comment: DUP. ORDERS Performed By: #### L 500.4100, L100.0100, L500.4050 ####[facility] [address] [place], [address] GLU Normal 74-106 [facility] Comment on above: Result Comment: DUP. ORDERS Performed By: #### L 500.4100, L100.0100, L500.4050 ####[facility] [address] [place], [address] Potassium Normal 3.5-5.1 [facility] Comment on above: Result Comment: DUP. ORDERS Performed By: #### L 500.4100, L100.0100, L500.4050 ####[facility] [address] [place], [address] T BILI Normal 0.20-1.00 [facility] Comment on above: Result Comment: DUP. ORDERS Performed By: #### L 500.4100, L100.0100, L500.4050 ####[facility] [address] [place], [address] T PROT Normal 6.4-8.2 [facility] Comment on above: Result Comment: DUP. ORDERS Performed By: #### L 500.4100, L100.0100, L500.4050 ####[facility] [address] [place], [address] Comprehensive Metabolic Profil Normal 136-145 [facility] Comment on above: Result Comment: DUP. ORDERS Performed By: #### L 500.4100, L100.0100, L500.4050 ####[facility] [address] [place], [address] Hemoglobin A1con 08-12-2024 HbA1c (Bld) [Mass fraction] 7.1 % High 3.8-5.6 [facility] Comment on above: Result Comment: Norm al < 5.7 % Prediabetic 5.7 - 6.4 % Diabetic >or= 6.5 % Please note range changes. Performed By: #### L 501.9910, L500.4050, L501.9520, L500.4100, L100.0100, L501.9985, L501.5200, L506.1000 ####[facility] [address] [place], [address] Lipid Profileon 08-12-2024 Cholesterol [Mass/Vol] 159 mg/dL Normal 200 [facility] Comment on above: Result Comment: <200 mg/dL Desirable 200-240 mg/dL Borderline >240 mg/dL High Risk Performed By: #### L 501.9910, L500.4050, L501.9520, L500.4100, L100.0100, L501.9985, L501.5200, L506.1000 ####[facility] [address] [place], [address] Cholesterol in HDL [Mass/Vol] 41 mg/dL Normal [facility] Comment on above: Result Comment: The drugs N-Acetylcysteine and Metamizole may falsely depress this assay. Reference Range HDL <40 mg/dL Low HDL Cholesterol HDL >or= 60 mg/dL High HDL Cholesterol Performed By: #### L 501.9910, L500.4050, L501.9520, L500.4100, L100.0100, L501.9985, L501.5200, L506.1000 ####[facility] [address] [place], [address] Cholesterol in LDL [Mass/Vol] 86 mg/dL Normal 0-130 [facility] Comment on above: Performed By: #### L 501.9910, L500.4050, L501.9520, L500.4100, L100.0100, L501.9985, L501.5200, L506.1000 ####[facility] [address] [place], [address] Cholesterol in VLDL [Mass/Vol] 32 mg/dL Normal 5-40 [facility] Comment on above: Performed By: #### L 501.9910, L500.4050, L501.9520, L500.4100, L100.0100, L501.9985, L501.5200, L506.1000 ####[facility] [address] [place], [address] Triglyceride [Mass/Vol] 162 mg/dL Normal W [facility] Comment on above: Result Comment: The drugs N-Acetylcysteine and Metamizole may falsely depress this assay. Serum Triglycerides Reference Interval Normal <150 mg/dL Borderline high 150 - 199 mg/dL High 200 - 499 mg/dL Very High > or = 500 mg/dL Performed By: #### L 501.9910, L500.4050, L501.9520, L500.4100, L100.0100, L501.9985, L501.5200, L506.1000 ####[facility] [address] [place], [address] CHOL Normal 200 [facility] Comment on above: Result Comment: DUP. ORDERS Performed By: #### L 500.4100, L100.0100, L500.4050 ####[facility] [address] [place], [address] HDL Normal [facility] Comment on above: Result Comment: DUP. ORDERS Performed By: #### L 500.4100, L100.0100, L500.4050 ####[facility] [address] [place], [address] LDL Normal 0-130 [facility] Comment on above: Result Comment: DUP. ORDERS Performed By: #### L 500.4100, L100.0100, L500.4050 ####[facility] [address] [place], [address] TRIG Normal [facility] Comment on above: Result Comment: DUP. ORDERS Performed By: #### L 500.4100, L100.0100, L500.4050 ####[facility] [address] [place], [address] VLDL Normal 5-40 [facility] Comment on above: Result Comment: DUP. ORDERS Performed By: #### L 500.4100, L100.0100, L500.4050 ####[facility] [address] [place], [address] Magnesiumon 08-12-2024 Magnesium [Mass/Vol] 1.9 mg/dL Normal 1.6-2.6 [facility] Comment on above: Performed By: #### L 501.9910, L500.4050, L501.9520, L500.4100, L100.0100, L501.9985, L501.5200, L506.1000 ####[facility] [address] [place], [address] Microalb:Creat Ratio,Random URon 08-12-2024 Creatinine [Mass/Vol] 186.00 mg/dL Normal NO RANGE EST . [facility] Comment on above: Performed By: #### L 502.0250 #### [facility] [address] [place], [address] MALB:CRE 6.6 mg/g CRE Normal <30 mg/g CRE [facility] Comment on above: Performed By: #### L 502.0250 #### [facility] [address] [place], [place], [address] MICROALBUMIN,UR 12.2 mg/L Normal NO RANGE EST. [facility] Comment on above: Performed By: #### L 502.0250 #### [facility] [address] [place], [address] PSA,Total - Annual Screenon 08-12-2024 PSA,TOT SCREEN 0.49 ng/mL Normal 0.00-4.00 [facility] Comment on above: Result Comment: This test was performed using the TPSA assay method for the [employer] chemistry system. Values obtained with different assay methods cannot be used interchangably. When changing PSA assays in the course of monitoring a patient, additional sequential testing should be carried out to confirm baseline values. Performed By: #### L 501.9910, L500.4050, L501.9520, L500.4100, L100.0100, L501.9985, L501.5200, L506.1000 ####[facility] [address] [place], [place], [address] Thyroid Stim Hormone (TSH)on 08-12-2024 TSH 1.630 uIU/mL Normal 0.358-3.740 [facility] Comment on above: Performed By: #### L 501.9910, L500.4050, L501.9520, L500.4100, L100.0100, L501.9985, L501.5200, L506.1000 ####[facility] [address] [place], [address] /Anastasiya 07-12-2024 /DARCI.BLAKE [facility] [address] [place], [place] [address] OFFICE VISIT Date of Service: 07/12/24 MR#: [id number] Acct: [id number] Name: UMAIR ECHOLS Rep #: [id number] : 1965 Provider: Dr. Yaa cleaning MD Age/Sex: 59/M Location: [facility] Status: Signed Intake Vital Signs 03/02/24 15:55 03/31/24 08:04 07/12/24 15:52 Height 5 ft 11 in 5 ft 11 in 5 ft 11 in Weight: 253 lb 260 lb 6 oz BMI 35.2 36.3 BP 165/82 H 133/88 H Blood Pressure Location Lt brachial Rt brachial Position Sitting Sitting Respiration 16 Pulse 69 69 Pulse Source Monitor Monitor Temp 98.0 F Temp Source Temporal Pulse Oximetry (%) 96 94 Oxygen Delivery Method room air room air Intake Visit Reasons: Annual/Physical Chief Complaint: annual/physical Business Solutions Architect Required: No Accompanied by: Self Is patient in pain?: No Allergies atorvastatin Adverse Reaction (Intermediate, Verified 07/12/24 15:47) Myalgias losartan Adverse Reaction (Intermediate, Verified 07/12/24 15:47) myalgias rosuvastatin Adverse Reaction (Intermediate, Verified 07/12/24 15:47) myalgias lisinopril Adverse Reaction (Verified 07/12/24 15:47) cough Medications ???Medication ???Instructions ???Recorded ???Confirmed ???Type docusate sodium 100 mg capsule 100 mg PO DAILY stool softener 07/15/20 07/12/24 History aspirin 81 mg tablet,delayed 81 mg PO DAILY@0800 heart health 09/05/22 07/12/24 History release cholecalciferol (vitamin D3) 25 25 mcg PO DAILY 12/11/22 07/12/24 History mcg (1,000 unit) tablet vit C 250 mg-vit E 90 mg-zinc 40 1 tab PO BID 12/11/22 07/12/24 History mg-copper 1 rs-bcwlwz-ssfhvm capsule (PreserVision AREDS-2) furosemide 20 mg tablet 20 mg PO QDAY PRN edema 06/11/23 07/12/24 History BD Ultra-Fine Elidia Pen Needle 32 #100 ea 09/13/23 07/12/24 Rx gauge x 5/32 (pen needle, diabetic) Tresiba FlexTouch U-200 200 40 unit (0.2 mL) subcut DAILY #18 09/13/23 07/12/24 Rx unit/mL (3 mL) subcutaneous pen mL (insulin degludec) apixaban 5 mg tablet (Eliquis) 5 mg PO BID #60 tabs 10/04/23 07/12/24 Rx diltiazem HCl 120 mg 120 mg PO DAILY #30 caps 10/15/23 07/12/24 Rx capsule,extended release 24 hr carvedilol 25 mg tablet 25 mg PO BID #180 tabs 01/18/24 07/12/24 Rx valsartan 40 mg tablet 40 mg PO QDAY 02/24/24 07/12/24 History duloxetine 20 mg capsule,delayed 20 mg PO DAILY depression #30 caps 03/02/24 07/12/24 Rx release metformin 500 mg tablet,extended 1,000 mg PO ONCE 03/17/24 07/12/24 History release 24 hr semaglutide 2 mg/dose (8 mg/3 mL) 2 mg (0.75 mL) subcut QWEEK #9 mL 03/31/24 07/12/24 Rx subcutaneous pen injector (Ozempic) pravastatin 20 mg tablet 20 mg PO QHS #90 TABLETS 05/08/24 07/12/24 Rx gabapentin 100 mg capsule 100 mg PO BID #180 caps 06/23/24 07/12/24 Rx PFSH Medical History Tachycardia Hematuria with proteinuria Glucosuria Neuropathy Contact with and (suspected) exposure to other viral communicable diseases URI (upper respiratory infection) Paresthesia Obesity History of non-ST elevation myocardial infarction (NSTEMI) (12/07/17) Atherosclerotic heart disease of [place] coronary artery without angina pectoris Cardiomyopathy, ischemic Hyperlipidemia Essential hypertension Diabetes Nicotine use disorder Surgical History History of cardiac radiofrequency ablation History of cardioversion (10/16/22) History of hernia repair S/P coronary artery stent placement (12/07/17) Family History Mother Heart disease Breast cancer Father CVA (cerebral vascular accident) Myocardial infarction Social History Smoking Status: Former smoker Tobacco: How many years used: 5 how long ago did patient quit smokin years ago alcohol intake: never substance use type: does not use caffeine: No what type of physical activity do you participate in: none seatbelt use: sometimes do you feel safe at home: Yes HPI HPI Chief Complaint: annual/physical Details: UMAIR ECHOLS, is a 59 M who presents to the office today for annual follow-up. Patient has an extensive cardiac history that includes atherosclerotic heart disease, status postcoronary stent, 2018. He has a history of atrial fibrillation, status post ablation x 2, most recent 1 earlier this year. Hyperlipidemia, essential hypertension. He has type 2 diabetes on metformin and Ozempic, as well as insulin Tresiba managed through endocrinology. From general perspective, things have been relatively stable. He has been hoping to get off of Eliquis at some point in the future however th (more content not included)... Normal [facility] Echo Complete W/ Contraston 04-14-2024 Echo Complete W/ Contrast [facility] [address] [place] [address] Echo Complete W/ Contrast 04/14/24 0907 MR#: [id number] Acct: [id number] Name: UMAIR ECHOLS Rep #: [id number] : 1965 58 From: Juan Navarro MD Attending Dr: GOPI BazziC Status: SHANNON PONCE Ordering Dr: Lizbeth Dover NP ENTRY LEVEL MANUFACTURING ENGINEER-C Date: 04/14/24 Location: [facility] Sex: M C Admitted: Reason For Study: Afib, Aflutter Procedure This was a 2D Doppler, Color Flow transthoracic echocardiogram. Contrast injection was performed. Exam performed in department. Left Ventricle Normal LV size. The left ventricular ejection fraction is 50 %. Stage 2 diastolic dysfunction. Mild segmental systolic dysfunction (see wall motion). Mid-Inferior: Mildly hypokinetic. Basal inferoseptal: Hypokinetic. Infero-Basal: Akinetic. Right Ventricle Normal RV size. Normal systolic function. Mitral Valve Normal mitral valve. Tricuspid Valve Normal tricuspid valve. Mild (1+) tricuspid valve insufficiency. Pulmonary artery systolic pressure is 40 mmHg. Aortic Valve Trisinus/trileaflet aortic valve. Pulmonic Valve Normal pulmonic valve. Great Vessels Normal aortic root. The pulmonary artery is normal size. Normal inferior vena cava. Pericardium/Pleural No pericardial effusion. Medication Diluted definity 2.5ml given slow IV push to enhance endocardial definition. MMode/2D Measurements Calculations LVIDd: 4.8 cm IVSd: 1.1 cm Ao root diam: 2.9 cm LVIDs: 3.9 cm LVPWd: 0.98 cm RVDd: 3.0 cm FS: 19.0 % LAV(MOD-bp): 51.6 ml LVAd ap4: 30.3 cm2 SV(MOD-sp4): 37.9 ml LAV(MOD-bp) Indexed: 22.1 ml/m2 LVLd ap4: 8.2 cm LAV(MOD-sp2): 71.5 ml EDV(MOD-sp4): 91.5 ml LAV(MOD-sp4): 37.1 ml EDV(sp4-el): 94.9 ml LVAs ap4: 20.6 cm2 LVLs ap4: 6.9 cm ESV(MOD-sp4): 53.7 ml ESV(sp4-el): 51.8 ml EF(MOD-sp4): 41.4 % EF(sp4-el): 45.4 % SV(sp4-el): 43.1 ml LA A4 area: 17.1 cm2 LA dimension(2D): 4.6 cm RA A4 area: 9.4 cm2 TAPSE: 1.8 cm Time Measurements MV dec time: 0.16 sec Doppler Measurements Calculations MV E max ana: 107.3 cm/sec Lat Peak E' Ana: 7.0 cm/sec Med Peak E' Ana: 6.6 cm/sec MV A max ana: 49.5 cm/sec E/E' lat: 15.3 E/E' med: 16.2 MV E/A: 2.2 Ao V2 max: 124.9 cm/sec LV V1 max: 89.6 cm/sec MV dec slope: 682.9 cm/sec2 Ao max P.2 mmHg LV V1 max P.2 mmHg Ao V2 mean: 93.0 cm/sec Ao mean P.7 mmHg Ao V2 VTI: 28.0 cm PA V2 max: 55.4 cm/sec TR max ana: 298.1 cm/sec TR max P.5 mmHg ECHO/Echo Complete W/ Contrast Interpretation Summary The left ventricular ejection fraction is 50 %. Normal LV size. Stage 2 diastolic dysfunction. Pulmonary artery systolic pressure is 40 mmHg. __ Ordering Physician: Lizbeth Dover Referring Physician: Yaa Shelton Performed By: Lila Noel, SILVERIO, RVT 04/14/24 1455 Date Juan Navarro MD CC: ENTRY LEVEL MANUFACTURING ENGINEER-C Lizbeth Dover; Dr. Yaa Shelton MD Date Dictated: 04/14/24906 Date Transcribed: 04/14/241454 Forensic Social Worker: Signed [facility] Stress Reporton 04-14-2024 Stress Report [facility] [address] [place] [id number] MR#: [id number] Acct: [id number] Name: UMAIR ECHOLS Rep #: [id number] : 1965 58 From: Juan Navarro MD Primary Care: Dr. Yaa Shelton MD Status: REG CLI Referring Dr: Lizbeth Dover ENTRY LEVEL MANUFACTURING ENGINEER ENTRY LEVEL MANUFACTURING ENGINEER-C Sex: M C Stress Test Report Pharmacologic myocardial perfusion stress test. 58-year-old man with a history of coronary artery disease Resting EKG demonstrates sinus rhythm with a rate of 64 bpm. Resting blood pressure is 124/9 mmHg. 0.4 mg of regadenoson was infused per usual protocol followed by rapid intravenous saline flush injection. Continuous EKG monitoring was performed. The maximum heart rate was 82 bpm which was 51% of max impacted heart rate the maximum workload was 1 metabolic equivalent. At rest there were no ST or T wave changes noted to suggest ischemia and at peak infusion nonspecific ST changes were noted which did not meet the criteria for ischemia. No clinical angina is noted. The final blood pressure was 110/70 mmHg. Myocardial perfusion protocol. 14.5 mCi of technetium 99m sestamibi was injected at rest. 0.4 mg of regadenoson was infused per usual protocol. At peak infusion 44 point mCi of technetium 99m sestamibi was injected stress images were obtained stress and rest images were reconstructed and compared in the short axis vertical long and horizontal long axis. Gated images were also obtained. Perfusion SPECT analysis: Review of the stress images demonstrate normal uptake of tracer noted in all areas of the myocardium, with a defect noted in the inferolateral wall which is persistent on the resting images. The above is suggestive of a previous inferolateral infarct with no areas of reversibility suggesting ischemia. Gated SPECT analysis: The gated ejection fraction is 47%. Conclusion: Normal pharmacologic myocardial perfusion stress test. Previous inferolateral infarct no ischemia Reduced ejection fraction. 04/14/241721 Date Juan Navarro MD CC: ENTRY LEVEL MANUFACTURING ENGINEERClare Dover; Dr. Yaa Shelton MD Date Dictated: 04/14/241719 Date Transcribed: 04/14/241719 Forensic Social Worker: [place] Signed [facility] Endocrinology Visit Reporton 03-31-2024 Endocrinology Visit Report [facility] [address] [place] [address] OFFICE VISIT Date of Service: 03/31/24 MR#: [id number] Acct: [id number] Name: UMAIR ECHOLS Rep #: [id number] : 1965 Provider: Ila Montilla Age/Sex: 58/M [facility] Status: Signed Intake Vital Signs 09/13/23 15:58 11/12/23 14:53 03/17/24 08:45 03/31/24 08:04 Height 5 ft 11 in 5 ft 11 in 5 ft 11 in 5 ft 11 in Weight: 253 lb BMI 35.2 BP 165/82 H Blood Pressure Location Lt brachial Position Sitting Pulse 69 Pulse Source Monitor Pulse Oximetry (%) 96 Oxygen Delivery Method room air Intake Visit Reasons: 5 M FU, RS 01/13 Chief Complaint: Diabetes Business Solutions Architect Required: No Accompanied by: Self Is patient in pain?: No Allergies atorvastatin Adverse Reaction (Intermediate, Verified 03/31/24 08:09) Myalgias losartan Adverse Reaction (Intermediate, Verified 03/31/24 08:09) myalgias rosuvastatin Adverse Reaction (Intermediate, Verified 03/31/24 08:09) myalgias lisinopril Adverse Reaction (Verified 03/31/24 08:09) cough Medications ???Medication ???Instructions ???Recorded ???Confirmed ???Type docusate sodium 100 mg capsule 100 mg PO DAILY stool softener 07/15/20 03/31/24 History aspirin 81 mg tablet,delayed 81 mg PO DAILY@0800 heart health 09/05/22 03/31/24 History release cholecalciferol (vitamin D3) 25 25 mcg PO DAILY 12/11/22 03/31/24 History mcg (1,000 unit) tablet vit C 250 mg-vit E 90 mg-zinc 40 1 tab PO BID 12/11/22 03/31/24 History mg-copper 1 iu-qmdlgi-idozgc capsule (PreserVision AREDS-2) furosemide 20 mg tablet 20 mg PO QDAY PRN edema 06/11/23 03/31/24 History pravastatin 20 mg tablet 20 mg PO QHS Stop Rosuvastatin, 06/15/23 03/31/24 Rx start Pravastatin d/t myalgias #30 tabs BD Ultra-Fine Elidia Pen Needle 32 #100 ea 09/13/23 03/31/24 Rx gauge x 5/32 (pen needle, diabetic) Tresiba FlexTouch U-200 200 40 unit (0.2 mL) subcut DAILY #18 09/13/23 03/31/24 Rx unit/mL (3 mL) subcutaneous pen mL (insulin degludec) apixaban 5 mg tablet (Eliquis) 5 mg PO BID #60 tabs 10/04/23 03/31/24 Rx diltiazem HCl 120 mg 120 mg PO DAILY #30 caps 10/15/23 03/31/24 Rx capsule,extended release 24 hr carvedilol 25 mg tablet 25 mg PO BID #180 tabs 01/18/24 03/31/24 Rx valsartan 40 mg tablet 40 mg PO QDAY 02/24/24 03/31/24 History duloxetine 20 mg capsule,delayed 20 mg PO DAILY depression #30 caps 03/02/24 03/31/24 Rx release metformin 500 mg tablet,extended 1,000 mg PO ONCE 03/17/24 03/31/24 History release 24 hr semaglutide 2 mg/dose (8 mg/3 mL) 2 mg (0.75 mL) subcut QWEEK #9 mL 03/31/24 03/31/24 Rx subcutaneous pen injector (Ozempic) [facility] Medical History Tachycardia Hematuria with proteinuria Glucosuria Neuropathy Contact with and (suspected) exposure to other viral communicable diseases URI (upper respiratory infection) Paresthesia Obesity History of non-ST elevation myocardial infarction (NSTEMI) (12/07/17) Atherosclerotic heart disease of [place] coronary artery without angina pectoris Cardiomyopathy, ischemic Hyperlipidemia Essential hypertension Diabetes Nicotine use disorder Surgical History History of cardiac radiofrequency ablation History of cardioversion (10/16/22) History of hernia repair S/P coronary artery stent placement (12/07/17) Family History Mother Heart disease Breast cancer Father CVA (cerebral vascular accident) Myocardial infarction Social History Smoking Status: Former smoker Tobacco: How many years used: 5 how long ago did patient quit smokin years ago alcohol intake: never substance use type: does not use caffeine: No what type of physical activity do you participate in: none seatbelt use: sometimes do you feel safe at home: Yes HPI HPI Chief Complaint: Diabetes Details: UMAIR ECHOLS, is a 58 M who presents to the office today for follow up. A1C is improved to 7.1% He is taking metformin 1 g am, Ozempic 2 mg, and Tresiba 40 units. He is on ARB and statin. He had cardiac ablation for a-fib since last appointment. He has some incorrect ideas that we discuss today. [metformin isn't safe, fried rice is healthy food, low blood sugar is under 90, he isn't eating very much] ROS Const Constitutional: No anorexia, excessive sweating, malaise, night sweats, weight change or change in appetite Eyes Eyes: No change in vision ENT ENT: No hearing loss, nasal congestion or difficulty swallowing Cardio Cardiology: No chest pain at r (more content not included)... [facility] 12 Lead EKG performed by [facility] on 03-17-2024 12 Lead EKG performed by [facility] [address] [place] [address] 12 Lead EKG performed by [facility] 03/17/2453 MR#: [id number] Acct: [id number] Name: UMAIR ECHOLS Rep #: [id number] : 1965 58 From: Lizbeth Dover NP ENTRY LEVEL MANUFACTURING ENGINEER-C Attending Dr: Lizbeth Dover, ENTRY LEVEL MANUFACTURING ENGINEER-C Status: DEP A FADI Ordering Dr: Lizbeth Dover NP ENTRY LEVEL MANUFACTURING ENGINEER-C Date: 03/17/24 Location: [facility] Sex: M C Admitted: [facility]/12 Lead EKG performed by [facility] ECG Report Interpretation -------Sinus Rhythm -Inferior infarct -age undetermined -Incomplete right bundle branch block and unusual T-axis -possible true posterior extension of inferior AR -Left axis -may be secondary to infarct -Possible anterior fascicular block (-possible bifascicular block). ABNORMAL Electronically signed on 03/21/2024 at 10:38 by Juan Navarro Software Version [id number] 03/21/24 1042 Date Lizbeth Dover NP ENTRY LEVEL MANUFACTURING ENGINEER-C CC: Dr. Yaa Shelton MD Date Dictated: 03/17/24852 Date Transcribed: 03/17/24852 Forensic Social Worker: NASIMA Signed [facility] Cardiology Visit Reporton Cardiology Visit Report [facility] [address] [place], [place] [address] OFFICE VISIT Date of Service: 03/17/24 MR#: [id number] Acct: [id number] Name: UMAIR ECHOLS Rep #: [id number] : 1965 Provider: LIZZY Magdaleno rts Age/Sex: 58/M Location: [facility] Status: Signed HPI [facility] History of Present Illness Details: UMAIR ECHOLS, is a 58 year old white male who presents to the office today for a cardiovascular follow up visit. He is status post ablation in January for atrial fibrillation. In December 2017 he was admitted to [facility] for acute inferior lateral wall myocardial infarction. He underwent thrombectomy with angioplasty and stenting of his circumflex. His LAD and RCA had minimal nonobstructive disease. Ejection fraction was noted to be 40 to 45%. He does have a history of coronary artery disease post STEMI post PCI, ischemic cardiomyopathy, hypertension, hyperlipidemia and diabetes. In June 2022 he was noted to be in atrial fibrillation. He was started on anticoagulation. However he could not help afford his Eliquis. He has since been switched to warfarin. He proceeded with cardioversion at 50 J that resulted in ongoing atrial fibrillation. This was followed by cardioversion at 200 J with successful conversion in October 2022. Unfortunately this did not hold and had a second DCCV in 03/2023. This did not hold also. He did see EP at [facility]. He did undergo an Atrial flutter ablation 09/30/23. Unfortunately this was not successful. He therefore underwent transseptal puncture with left atrial mapping a flutter activation as well as pulmonary vein isolation using the pulsed field ablation technique it appears that he had a successful ablation and he also had a CT after that. From a cardiac standpoint, the patient is doing well. He denies any palpitations, chest pain, pressure or heaviness. He does have SOB with bending over. He denies Orthopnea, and PND. He does not have bleeding issues; no blood in urine, stool or nosebleeds. He denies any decrease in energy level, myalgias, or claudication. He does not have edema, or sudden weight gain. He denies dizziness, lightheadedness, syncopal or near syncopal episodes, and headaches. Intake Vital Signs 03/02/24 15:55 03/17/24 08:40 03/17/24 08:45 Height 5 ft 11 in 5 ft 11 in 5 ft 11 in Weight: 250 lb BMI 34.8 BP 126/77 H Blood Pressure Location Lt brachial Position Sitting Respiration 18 Pulse 63 Pulse Source Monitor Pulse Oximetry (%) 94 Intake Visit Reasons: 4 M FU Business Solutions Architect Required: No Is patient in pain?: No Allergies atorvastatin Adverse Reaction (Intermediate, Verified 03/17/24 08:52) Myalgias losartan Adverse Reaction (Intermediate, Verified 03/17/24 08:52) myalgias rosuvastatin Adverse Reaction (Intermediate, Verified 03/17/24 08:52) myalgias lisinopril Adverse Reaction (Verified 03/17/24 08:52) cough Medications ???Medication ???Instructions ???Recorded ???Confirmed ???Type docusate sodium 100 mg capsule 100 mg PO DAILY stool softener 07/15/20 03/17/24 History aspirin 81 mg tablet,delayed 81 mg PO DAILY@0800 heart health 09/05/22 03/17/24 History release cholecalciferol (vitamin D3) 25 25 mcg PO DAILY 12/11/22 03/02/24 History mcg (1,000 unit) tablet vit C 250 mg-vit E 90 mg-zinc 40 1 tab PO BID 12/11/22 03/17/24 History mg-copper 1 io-jdnsco-mpaski capsule (PreserVision AREDS-2) furosemide 20 mg tablet 20 mg PO QDAY PRN edema 06/11/23 03/17/24 History pravastatin 20 mg tablet 20 mg PO QHS Stop Rosuvastatin, 06/15/23 03/17/24 Rx start Pravastatin d/t myalgias #30 tabs BD Ultra-Fine Elidia Pen Needle 32 #100 ea 09/13/23 03/17/24 Rx gauge x 5/32 (pen needle, diabetic) Tresiba FlexTouch U-200 200 40 unit (0.2 mL) subcut DAILY #18 09/13/23 03/17/24 Rx unit/mL (3 mL) subcutaneous pen mL (insulin degludec) apixaban 5 mg tablet (Eliquis) 5 mg PO BID #60 tabs 10/04/23 03/17/24 Rx diltiazem HCl 120 mg 120 mg PO DAILY #30 caps 10/15/23 03/02/24 Rx capsule,extended release 24 hr semaglutide 2 mg/dose (8 mg/3 mL) 2 mg (0.75 mL) subcut QWEEK #9 mL 01/06/24 03/17/24 Rx subcutaneous pen injector (Ozempic) carvedilol 25 mg tablet 25 mg PO BID #180 tabs 01/18/24 03/17/24 Rx valsartan 40 mg tablet 40 mg PO QDAY 02/24/24 03/17/24 History duloxetine 20 mg capsule,delayed 20 mg PO DAILY depression #30 caps 03/02/24 03/17/24 Rx release metformin 500 mg tablet,extended 1,000 mg PO ONCE 03/17/24 03/17/24 History release 24 hr [facility] Medical History (Reviewed 03/17/24 @ 08:48 by Lizbeth Dover ENTRY LEVEL MANUFACTURING ENGINEER, ENTRY LEVEL MANUFACTURING ENGINEER-C) Tachycardia Hematuria with proteinuria Glucosuria Neuropathy Contact with and (suspected) exposure to other viral communicable diseases URI (upper respiratory infection) Paresthesia (more content not included)... [facility] MR/BMS.Bon 03-02-2024 MR/BMS.IMB [facility] [address] [place] [address] OFFICE VISIT Date of Service: 03/02/24 MR#: [id number] Acct: [id number] Name: UMAIR ECHOLS Rep #: [id number] : 1965 Provider: Dr. Yaa cleaning MD Age/Sex: 58/M Location: [facility] Status: Signed Intake Vital Signs 02/25/23 10:52 02/24/24 16:24 03/02/24 15:55 Height 5 ft 11 in 5 ft 11 in 5 ft 11 in Weight: 246 lb 255 lb 8 oz BMI 34.2 35.6 BP 135/85 H 126/80 H Blood Pressure Location Lt brachial Lt brachial Position Sitting Sitting Respiration 16 18 Pulse 68 73 Pulse Source Monitor Monitor Temp 98.2 F Temp Source Temporal Pulse Oximetry (%) 95 Oxygen Delivery Method room air Intake Visit Reasons: 1 Y FU Chief Complaint: yearly f/u Is patient in pain?: Yes (bilateral foot pain ) Pain scale (1-10): 5 Allergies atorvastatin Adverse Reaction (Intermediate, Verified 03/02/24 15:53) Myalgias losartan Adverse Reaction (Intermediate, Verified 03/02/24 15:53) myalgias rosuvastatin Adverse Reaction (Intermediate, Verified 03/02/24 15:53) myalgias lisinopril Adverse Reaction (Verified 03/02/24 15:53) cough Medications ???Medication ???Instructions ???Recorded ???Confirmed ???Type docusate sodium 100 mg capsule 100 mg PO DAILY stool softener 07/15/20 03/02/24 History aspirin 81 mg tablet,delayed 81 mg PO DAILY@0800 heart health 09/05/22 03/02/24 History release cholecalciferol (vitamin D3) 25 25 mcg PO DAILY 12/11/22 03/02/24 History mcg (1,000 unit) tablet vit C 250 mg-vit E 90 mg-zinc 40 1 tab PO BID 12/11/22 03/02/24 History mg-copper 1 bb-ccmupu-mybggi capsule (PreserVision AREDS-2) furosemide 20 mg tablet 20 mg PO QDAY PRN edema 06/11/23 03/02/24 History pravastatin 20 mg tablet 20 mg PO QHS Stop Rosuvastatin, 06/15/23 03/02/24 Rx start Pravastatin d/t myalgias #30 tabs BD Ultra-Fine Elidia Pen Needle 32 #100 ea 09/13/23 03/02/24 Rx gauge x 5/32 (pen needle, diabetic) Tresiba FlexTouch U-200 200 40 unit (0.2 mL) subcut DAILY #18 09/13/23 03/02/24 Rx unit/mL (3 mL) subcutaneous pen mL (insulin degludec) metformin 500 mg tablet,extended 500 mg PO BID #180 tabs 09/16/23 03/02/24 Rx release 24 hr apixaban 5 mg tablet (Eliquis) 5 mg PO BID #60 tabs 10/04/23 03/02/24 Rx diltiazem HCl 120 mg 120 mg PO DAILY #30 caps 10/15/23 03/02/24 Rx capsule,extended release 24 hr semaglutide 2 mg/dose (8 mg/3 mL) 2 mg (0.75 mL) subcut QWEEK #9 mL 01/06/24 03/02/24 Rx subcutaneous pen injector (Ozempic) carvedilol 25 mg tablet 25 mg PO BID #180 tabs 01/18/24 03/02/24 Rx valsartan 40 mg tablet 40 mg PO QDAY 02/24/24 03/02/24 History duloxetine 20 mg capsule,delayed 20 mg PO DAILY depression #30 caps 03/02/24 03/02/24 Rx release Have you fallen in the past year?: No PFSH Medical History Tachycardia Hematuria with proteinuria Glucosuria Neuropathy Contact with and (suspected) exposure to other viral communicable diseases URI (upper respiratory infection) Paresthesia Obesity History of non-ST elevation myocardial infarction (NSTEMI) (12/07/17) Atherosclerotic heart disease of [place] coronary artery without angina pectoris Cardiomyopathy, ischemic Hyperlipidemia Essential hypertension Diabetes Nicotine use disorder Surgical History History of cardiac radiofrequency ablation History of cardioversion (10/16/22) History of hernia repair S/P coronary artery stent placement (12/07/17) Family History Mother Heart disease Breast cancer Father CVA (cerebral vascular accident) Myocardial infarction Social History Smoking Status: Former smoker Tobacco: How many years used: 5 how long ago did patient quit smokin years ago alcohol intake: never substance use type: does not use caffeine: No what type of physical activity do you participate in: none seatbelt use: sometimes do you feel safe at home: Yes HPI HPI Chief Complaint: yearly f/u Details: UMAIR ECHOLS, is a 58 M who presents to the office today for 6-month follow-up. 58-year-old gentleman, who has a history of atrial fibrillation. He had been dealing with this for a while but ultimately failed 2 cardioversions. He was on anticoagulation, beta-suleman. He was referred to [facility] and he has undergone ablation, successfully so far at this point. He had 2 different ablation sessions, right hand and left been doing well. He still has peripheral neuropathy discomfort, in his feet. He is following with chiropractic and doing chiropractic adjustment as well as treatment with laser therapy. He states he is ge (more content not included)... [facility] Cardiology Visit Reporton Cardiology Visit Report [facility] [address] [place] [address] OFFICE VISIT Date of Service: 02/24/24 MR#: [id number] Acct: [id number] Name: UMAIR ECHOLS Rep #: [id number] : 1965 Provider: Dr. Juan Navarro MD Age/Sex: 58/M Location: [facility] Status: Signed HPI HPI History of Present Illness Details: UMAIR ECHOLS, is a 58 year old white male who presents to the office today for concerns over atrial fibrillation. In December 2017 he was admitted to [facility] for acute inferior lateral wall myocardial infarction. He underwent thrombectomy with angioplasty and stenting of his circumflex. His LAD and RCA had minimal nonobstructive disease. Ejection fraction was noted to be 40 to 45%. He does have a history of coronary artery disease post STEMI post PCI, ischemic cardiomyopathy, hypertension, hyperlipidemia and diabetes. In June 2022 he was noted to be in atrial fibrillation. He was started on anticoagulation. However he could not help afford his Eliquis. He has since been switched to warfarin. He proceeded with cardioversion at 50 J that resulted in ongoing atrial fibrillation. This was followed by cardioversion at 200 J with successful conversion in October 2022. Unfortunately this did not hold and had a second DCCV in 03/2023. This did not hold also.He did see EP at [facility]. He did undergo an Atrial flutter ablation 09/30/23. Unfortunately this was not successful. He therefore underwent transseptal puncture with left atrial mapping a flutter activation as well as pulmonary vein isolation using the pulsed field ablation technique it appears that he had a successful ablation and he also had a CT after that. He tells me that he has continued to do well he continues to work. He denies any chest pain or paroxysmal nocturnal dyspnea or pedal edema. His physical exam is unremarkable. Intake Vital Signs 12/11/22 08:31 11/12/23 14:53 02/24/24 16:24 Height 6 ft 5 ft 11 in 5 ft 11 in Weight: 246 lb BMI 34.2 BP 135/85 H Blood Pressure Location Lt brachial Position Sitting Respiration 16 Pulse 68 Pulse Source Monitor Intake Visit Reasons: 1 Y FU needs late p.m. Business Solutions Architect Required: No Accompanied by: Self Is patient in pain?: No Allergies atorvastatin Adverse Reaction (Intermediate, Verified 02/24/24 16:24) Myalgias losartan Adverse Reaction (Intermediate, Verified 02/24/24 16:24) myalgias rosuvastatin Adverse Reaction (Intermediate, Verified 02/24/24 16:24) myalgias lisinopril Adverse Reaction (Verified 02/24/24 16:24) cough Medications ???Medication ???Instructions ???Recorded ???Confirmed ???Type docusate sodium 100 mg capsule 100 mg PO DAILY stool softener 07/15/20 02/24/24 History aspirin 81 mg tablet,delayed 81 mg PO DAILY@0800 heart health 09/05/22 02/24/24 History release cholecalciferol (vitamin D3) 25 25 mcg PO DAILY 12/11/22 02/24/24 History mcg (1,000 unit) tablet vit C 250 mg-vit E 90 mg-zinc 40 1 tab PO BID 12/11/22 02/24/24 History mg-copper 1 yd-jhtgec-yrehey capsule (PreserVision AREDS-2) furosemide 20 mg tablet 20 mg PO QDAY PRN edema 06/11/23 02/24/24 History pravastatin 20 mg tablet 20 mg PO QHS Stop Rosuvastatin, 06/15/23 02/24/24 Rx start Pravastatin d/t myalgias #30 tabs duloxetine 30 mg capsule,delayed 30 mg PO DAILY depression #90 caps 07/12/23 02/24/24 Rx release BD Ultra-Fine Elidia Pen Needle 32 #100 ea 09/13/23 09/13/23 Rx gauge x 5/32 (pen needle, diabetic) Tresiba FlexTouch U-200 200 40 unit (0.2 mL) subcut DAILY #18 09/13/23 02/24/24 Rx unit/mL (3 mL) subcutaneous pen mL (insulin degludec) metformin 500 mg tablet,extended 500 mg PO BID #180 tabs 09/16/23 02/24/24 Rx release 24 hr apixaban 5 mg tablet (Eliquis) 5 mg PO BID #60 tabs 10/04/23 02/24/24 Rx diltiazem HCl 120 mg 120 mg PO DAILY #30 caps 10/15/23 02/24/24 Rx capsule,extended release 24 hr semaglutide 2 mg/dose (8 mg/3 mL) 2 mg (0.75 mL) subcut QWEEK #9 mL 01/06/24 02/24/24 Rx subcutaneous pen injector (Ozempic) carvedilol 25 mg tablet 25 mg PO BID #180 tabs 01/18/24 02/24/24 Rx valsartan 40 mg tablet 40 mg PO QDAY 02/24/24 02/24/24 History Have you fallen in the past year?: No [facility] Medical History Tachycardia Hematuria with proteinuria Glucosuria Neuropathy Contact with and (suspected) exposure to other viral communicable diseases URI (upper respiratory infection) Paresthesia Obesity History of non-ST elevation myocardial infarction (NSTEMI) (12/07/17) Atherosclerotic heart disease of [place] coronary artery without angina pectoris Cardiomyopathy, ischemic Hyperlipidemia Essential hypertension Diabetes Nicotine use disorder Surgical History (Reviewed 02/06 (more content not included)... [facility] ACT* LOW RANGE, POCon 2023 ACT LOW RANGE, POC 332.0 High [facility] Interpretation and review of laboratory results Abnormal [facility] Test performed at address of the patient encounter. [facility] ACT LOW RANGE, POC 382.0 High [facility] Interpretation and review of laboratory results Abnormal [facility] Test performed at address of the patient encounter. [facility] ACT LOW RANGE, POC 392.0 High [facility] Interpretation and review of laboratory results Abnormal [facility] Test performed at address of the patient encounter. [facility] ACT LOW RANGE, POC [facility] Comment on above: Out of Range High. The test result is outside clinical range and should not be used for patient-management decisions. Test performed at address of the patient encounter. [facility] ACT LOW RANGE, POC [facility] Comment on above: Out of Range High. The test result is outside clinical range and should not be used for patient-management decisions. Test performed at address of the patient encounter. [facility] EX[facility]24 [facility]Con 01-25-2024 Glucose [Mass/Vol] 170 mg/dL High 70 - 99 mg/dL [facility] Interpretation and review of laboratory results Abnormal [facility] P[facility] Test performed at address of the patient encounter. [facility] Glucose [Mass/Vol] 119 mg/dL High 70 - 99 mg/dL [facility] Comment on above: Notified RNread back Interpretation and review of laboratory results Abnormal [facility] POC Sample Type CAPBL [facility] Test performed at address of the patient encounter. [facility] Glucose [Mass/Vol] 122 mg/dL High 70 - 99 mg/dL [facility] Interpretation and review of laboratory results Abnormal [facility] POC Sample Type CAPBL [facility] Test performed at address of the patient encounter. [facility] Glucose [Mass/Vol] 50 mg/dL Low 70 - 99 mg/dL [facility] Glucose [Mass/Vol] 109 mg/dL High 70 - 99 mg/dL [facility] POC Sample Type VENO [facility] POC Sample Type CAPBL [facility] No Panel Informationon 01-24 Interpretation and review of laboratory results Abnormal [facility] Test performed at address of the patient encounter. [facility] PT,INR,PTTon 01-25-2024 aPTT Coag (PPP) [Time] 29.5 s [facility] INR Coag (Bld) [Relative time] 1.1 {INR} 0.9 - 1.1 [facility] Interpretation and review of laboratory results Abnormal [facility] PT Coag (PPP) [Time] 14.3 s High [facility] Chest>Heart.atrium.left+Pulm onary veins CT angiogram and 3D reconstruction W contrast Db 01-24-[address] [facility] CT Report Name: UMAIR ECHOLS : 1965 Scan Date: 2024-01-24 15:03:34 Electronically signed by Jose Bolivar 15:39:46 VITALS HEIGHT: 72 in (182.88 cm) WEIGHT: 236.00 lbs (107.05 kgs) BSA: 2.29 m^2 BMI: 32 kg/m^2 BP: 99 / 61 mmHg BASELINE HR: 83 BPM HEART RHYTHM: Atrial fibrillation FINAL IMPRESSION CTPV - There is no evidence of LA, RA, or ROMERO thrombus. - There is coronary artery calcification within the limitation of the study. - Normal pulmonary venous anatomy. RLPV with multiple early branches. STUDY QUALITY: Study quality is good. OTHER FINDINGS: ===== Hx of atrial arrhythmia. Pulmonary CT venogram to assess left atrial (LA) and pulmonary veins (PV) anatomy. - There are 4 pulmonary veins (PV) draining to the left atrium (LA). No evidence of PV stenosis. The PV ostial dimensions are measured in mm as follows: RUPV: 17 x 13 RLPV: 29 x 17, multiple early branches LUPV: 21 x 9 LLPV: 23 x 16 - There is no LA, RA or ROMERO thrombus by first pass and delayed images. - Coronary artery calcification is seen. However, the study is not optimized for coronary calcification detection or for luminal stenosis evaluation. Extra cardiac findings: (limited field of view) Chest Wall: Normal.no evidence of major deformity. Mediastinum/Anushka: right-sided calcific hilar LAD Pleural Spaces: Normal, without thickening/effusion or pneumothorax Lung Parenchyma: Multiple small scattered noncalcific nodules <3 mm. Elevated right hemidiaphragm. Associated atelectasis. Pericardium: Normal, without thickening/effusion or calcification. SCAN INFO TEST TYPE: Venogram SCANNER MANUFACTURING QUALITY MANAGER: [employer] SCANNER MODEL: NAEOTOM Alpha DOSE REDUCTION ALGORITHM: Helical with dose modulation SCAN COVERAGE ZONE: Pulmonary Veins/ROMERO EKG GATED: No GENERAL CONTRAST AGENT -------- CONTRAST AGENT USED?: Yes TYPE: Omnipaque 350 DOSE: 50 ml RATE: 4 ml/s ROUTE: IV BOLUS TECHNIQUE: Biphasic SCAN DELAY TIME METHOD: Bolus Track SERUM CREATININE: 0.81 mg/dL GFR: 103.31 ml/min/1.73m^2 CREATININE DATE: CT CONTRAST REACTION: None RADIATION DOSE -------- DLP: 162 SETUP -------- DATE OF EVENT: SCAN TYPE: Clinical PATIENT TYPE: Outpatient REASON(S) FOR SCAN: EP procedure planning REFERRING PHYSICIAN: 1) MADY THOMAS NURSE: Natalie Cline ATTENDING PHYSICIAN: JOSE BOLIVAR TECHNOLOGIST: Floridalma Grady RT (R) (CT) BILLING Patient Account [id number] CPT Codes 17760 ICD10 Codes I48.0, I48.4 Report generated by [employer], a product of [employer] CARDIOLOGY Jose Bolivar MD - 01/24/[address] [facility] CT Report Name: UMAIR ECHOLS : 1965 Scan Date: 2024-01-24 15:03:34 Electronically signed by Jose Bolivar 15:39:46 VITALS HEIGHT: 72 in (182.88 cm) WEIGHT: 236.00 lbs (107.05 kgs) BSA: 2.29 m^2 BMI: 32 kg/m^2 BP: 99 / 61 mmHg BASELINE HR: 83 BPM HEART RHYTHM: Atrial fibrillation FINAL IMPRESSION CTPV -There is no evidence of LA, RA, or ROMERO thrombus. -There is coronary artery calcification within the limitation of the study. -Normal pulmonary venous anatomy. RLPV with multiple early branches. STUDY QUALITY: Study quality is good. OTHER FINDINGS: ===== Hx of atrial arrhythmia. Pulmonary CT venogram to assess left atrial (LA) and pulmonary veins (PV) anatomy. -There are 4 pulmonary veins (PV) draining to the left atrium (LA). No evidence of PV stenosis. The PV ostial dimensions are measured in mm as follows: RUPV: 17 x 13 RLPV: 29 x 17, multiple early branches LUPV: 21 x 9 LLPV: 23 x 16 -There is no LA, RA or ROMERO thrombus by first pass and delayed images. -Coronary artery calcification is seen. However, the study is not optimized for coronary calcification detection or for luminal stenosis evaluation. Extra cardiac findings: (limited field of view) Chest Wall: Normal.no evidence of major deformity. Mediastinum/Anushka: right-sided calcific hilar LAD Pleural Spaces: Normal, without thickening/effusion or pneumothorax Lung Parenchyma: Multiple small scattered noncalcific nodules <3 mm. Elevated right hemidiaphragm. Associated atelectasis. Pericardium: Normal, without thickening/effusion or calcification. SCAN INFO TEST TYPE: Venogram SCANNER MANUFACTURING QUALITY MANAGER: [employer] SCANNER MODEL: [employer] DOSE REDUCTION ALGORITHM: Helical with dose modulation SCAN COVERAGE ZONE: Pulmonary Veins/ROMERO EKG GATED: No GENERAL CONTRAST AGENT -------- CONTRAST AGENT USED?: Yes TYPE: Omnipaque 350 DOSE: 50 ml RATE: 4 ml/s ROUTE: IV BOLUS TECHNIQUE: Biphasic SCAN DELAY TIME METHOD: Bolus Track SERUM CREATININE: 0.81 mg/dL GFR: 103.31 ml/min/1.73m^2 CREATININE DATE: CT CONTRAST REACTION: None RADIATION DOSE -------- DLP: 162 SETUP -------- DATE OF EVENT: SCAN TYPE: Clinical PATIENT TYPE: Outpatient REASON(S) FOR SCAN: EP procedure planning REFERRING PHYSICIAN: 1) MADY THOMAS NURSE: Natalie Cline ATTENDING PHYSICIAN: JOSE BOLIVAR TECHNOLOGIST: Floridalma Grady RT (R) (CT) BILLING Patient Account [id number] CPT Codes 37292 ICD10 Codes I48.0, I48.4 Report generated by [employer], a product of [employer] [facility] Radiology Study observation (narrative) [facility] Chest>Heart.atrium.left+Pulm onary veins CT angiogram and 3D reconstruction W contrast IVOrdered By: Jose Bolivar on 01-24-2024 [facility] Work Phone: CBC AND ELECTRONIC DIFFon Basophils (Bld) [#/Vol] 0.06 10*3/uL 0.00 - 0.09 K/uL [facility] Basophils/100 WBC (Bld) 0.5 % [facility] Differential cell count method Nom (Bld) Electronic Differential [facility] Eosinophils (Bld) [#/Vol] 0.63 10*3/uL High 0. 00 - 0.48 K/uL [facility] Eosinophils/100 WBC (Bld) 5.7 % [facility] Erythrocyte distribution width (RBC) [Ratio] 13.2 % 10.9 - 14.3 % [facility] Hematocrit (Bld) [Volume fraction] 46.9 % 39.6 - 48.8 % [facility] Hemoglobin (Bld) [Mass/Vol] 15.6 g/dL 13.4 - 16.8 g/dL [facility] Immature granulocytes (Bld) [#/Vol] 0.05 10*3/uL NINF - 0.07 K/uL [facility] Immature granulocytes/100 WBC (Bld) 0.5 % [facility] Interpretation and review of laboratory results Abnormal [facility] Lymphocytes (Bld) [#/Vol] 3.34 10*3/uL 0. 83 - 3.57 K/uL [facility] Lymphocytes/100 WBC (Bld) 30.1 % [facility] MCH (RBC) [Entitic mass] 28.5 pg 26. 1 - 33.3 pg [facility] MCHC (RBC) [Mass/Vol] 33.3 g/dL 31.9 - 36.5 g/dL [facility] MCV (RBC) [Entitic vol] 85.6 fL 79.0 - 94.5 fL [facility] Monocytes (Bld) [#/Vol] 1.10 10*3/uL High 0.24 - 0.93 K/uL [facility] Monocytes/100 WBC (Bld) 9.9 % [facility] Neutrophils (Bld) [#/Vol] 5.92 10*3/uL 1. 57 - 6.19 K/uL [facility] Nucleated RBC/100 WBC (Bld) [Ratio] 0.0 % [facility] Platelet mean volume (Bld) [Entitic vol] 10.1 fL 8.7 - 12.3 fL [facility] Platelets (Bld) [#/Vol] 256 10*3/uL 146 - 337 K/uL [facility] RBC (Bld) [#/Vol] 5.48 10*6/uL [facility] Segmented neutrophils/100 WBC (Bld) 53.3 % [facility] WBC (Bld) [#/Vol] 11.10 10*3/uL High 3.73 - 10 .10 K/uL [facility] CHEM 7 (LYTES,BUN,CREA,GLUC) on 09-30-2023 Anion gap [Moles/Vol] 13 mmol/L 7 - 17 mmol/L [facility] Chloride [Moles/Vol] 101 mmol/L 98 - 10 8 mmol/L [facility] CO2 [Moles/Vol] 30 mmol/L 21 - 31 mmol/L [facility] Creatinine [Mass/Vol] 0.85 mg/dL 0.70 - 1.30 mg/dL [facility] eGFR, CKD-EPI, Male - PINF [facility] Comment on above: Reported eGFR is bas ed on the CKD-EPI 2020 equation using creatinine, age, and sex. Glucose [Mass/Vol] 159 mg/dL High 70 - 99 mg/dL [facility] Interpretation and review of laboratory results Abnormal [facility] Osmolality Calc [Osmolality] 299 [facility] Potassium [Moles/Vol] 4.0 mmol/L 3.5 - 5.0 mmol/L [facility] Sodium [Moles/Vol] 140 mmol/L 135 - 145 mmol/L [facility] Urea nitrogen [Mass/Vol] 20 mg/dL 7 - 25 mg/d L [facility] Urea nitrogen/Creatinine [Mass ratio] 24 mg/mg [facility] Electrophysiology studyon Body surface area Derived from formula 2.29 m2 [facility] Umair Echols is a 58 y.o. male with a history of typical and atypical flutter, CAD with STEMI s/p PCI, HTN, ANIYAH who was referred for EPS+/-RFA. ECG showed AFL. EF by echo is 50%. Conclusions 1. Baseline rhythm is AFL TCL 220 ms with best entrainment from distal CS indicating left sided flutter. 2. Using 3D mapping system, His cloud, CS and CTI anatomically delineated. 3. Cardioversion was performed. 4. An empiric CTI line ablation was performed given history of typical flutter. Bidirectional block was confirmed. 5. Comprehensive EP study was performed at baseline state. 6. Normal sinus node function. 7. Normal AV node function, normal infranodal conduction. 8. No evidence of accessory pathway. 9. No evidence of dual AV node physiology 10. VA conduction was present and decremental. I supervised administration of anesthesia and was present throughout the case until recovery. Recommend the followin. Continue anticoagulation with Eliquis. 2. Bedrest for 3 hours 3. Discharge home if meets criteria. 4. Follow up with EP ENTRY LEVEL MANUFACTURING ENGINEER in 3 months. 5. Event monitor in 2 months. [facility] Radiology Study observation (narrative) [facility] GLUCOSE POCon 09-30-2023 Glucose [Mass/Vol] 148 mg/dL High 70 - 99 mg/dL [facility] Interpretation and review of laboratory results Abnormal [facility] POC Sample Type VENO [facility] Test performed at address of the patient encounter. [facility] PT,INR,PTTon 09-30-2023 aPTT Coag (PPP) [Time] 28.9 s [facility] INR Coag (Bld) [Relative time] 1.1 {INR} 0.9 - 1.1 [facility] Interpretation and review of laboratory results Normal [facility] PT Coag (PPP) [Time] 13.6 s [facility] Laboratory - Hematology and Cell countson 09-13-2023 HbA1c (Bld) [Mass fraction] 7.7 % 4.2-6.3 [facility] Basophil percentageOrdered B y: Yaa Shelton on 05-04-2023 Basophil percentage 0-5 SEEN /hpf 0-5 [facility] Bilirubin Test strip Ql (U)O rdered By: Yaa Shelton on 05-04-2023 Bilirubin Ql (U) Negative Negative [facility] Ketones Test strip Ql (U)Ord ered By: Yaa Shelton on 05-04-2023 Ketones Ql (U) Negative Negative [facility] Mucus LM Ql (Urine sed)Order ed By: Yaa Shelton on 05-04-2023 Mucus Ql (Urine sed) 0 SEEN /hpf [facility] Nitrite Test strip Ql (U)Ord ered By: Yaa Shelton on 05-04-2023 Nitrite Ql (U) Negative Negative [facility] No Panel InformationOrdered By: Yaa Shelton on 05-04-2023 Prostate Specific Antigen Screen 11.20 ng/mL 0.00-4.00 [facility] Comment on above: This test was perfor med using the TPSA assay method for theWorkstir chemistry system. Values obtained with differentassay methods cannot be used interchangably.When changing PSA assays in the course of monitoring apatient, additional sequential testing should be carriedout to confirm baseline values. Protein Test strip Ql (U)Ord ered By: Yaa Shelton on 05-04-2023 Protein Ql (U) 30 mg/dl Negative [facility] Squamous epithelial cells de tection in urine sediment by light microscopyOrdered By: Yaa Shelton on 05-04-2023 Epithelial cells.squamous LM Ql (Urine sed) 0 SEEN /hpf 0-5 [facility] Urine blood detectionOrdered By: Yaa Shelton on 05-04-2023 RBC Ql (U) 10 /ul Negative [facility] RBC Ql (U) 0 SEEN /hpf 0-5 [facility] Urine clarityOrdered By: Tasha Shelton on 05-04-2023 Clarity (U) Clear Clear [facility] Urine color determinationOrd ered By: Yaa Shelton on 05-04-2023 Color (U) Yellow Yellow [facility] Urine glucose detectionOrder ed By: Yaa Shelton on 05-04-2023 Glucose Ql (U) Normal mg/dl Normal [facility] Urine leukocyte esterase det ection by dipstickOrdered By: Yaa Shelton on 05-04-2023 Leukocyte esterase Test strip Ql (U) 25 /ul Negative [facility] Urine pHOrdered By: Yaa theodore on 05-04-2023 pH (U) 5.0 [pH] 5.0 - 8.0 [facility] Urine sediment bacteria coun t by microscopy (number/high power field)Ordered By: Yaa Shelton on 05-04-2023 Bacteria LM.HPF (Urine sed) [#/Area] 0 /[HPF] None Seen [facility] Urine specific gravity measu rementOrdered By: Yaa Shelton on 05-04-2023 Specific gravity (U) [Rel density] 1.020 1.002-1.030 [facility] Urobilinogen Auto test strip Ql (U)Ordered By: Yaa Shelton on 05-04-2023 Urobilinogen Ql (U) 1 mg/dl Normal [facility] Amorphous sediment detection in urine sediment by light microscopyOrdered By: Paul Ponce on 05-02-2023 Amorphous sediment LM Ql (Urine sed) 1+ URATE [facility] Basophil percentageOrdered B y: Paul Ponce on 05-02-2023 Basophil percentage 10-25 SEEN /hpf 0-5 [facility] Bilirubin Test strip Ql (U)O rdered By: Paul Ponce on 05-02-2023 Bilirubin Ql (U) Negative Negative [facility] Culture, urineOrdered By: St shawn Ponce on 05-02-2023 Bacteria identified Cx Nom (U) Escherichia coli [facility] Ketones Test strip Ql (U)Ord ered By: Paul Ponce on 05-02-2023 Ketones Ql (U) 5 mg/dl Negative [facility] Mucus LM Ql (Urine sed)Order ed By: Paul Ponce on 05-02-2023 Mucus Ql (Urine sed) 0 SEEN /hpf [facility] Nitrite Test strip Ql (U)Ord ered By: Paul Ponce on 05-02-2023 Nitrite Ql (U) Positive Negative [facility] Protein Test strip Ql (U)Ord ered By: Paul Ponce on 05-02-2023 Protein Ql (U) 30 mg/dl Negative [facility] Squamous epithelial cells de tection in urine sediment by light microscopyOrdered By: Paul Ponce on 05-02-2023 Epithelial cells.squamous LM Ql (Urine sed) 0-5 SEEN /hpf 0-5 [facility] Urine blood detectionOrdered By: Paul Ponce on 05-02-2023 RBC Ql (U) 250 /ul Negative [facility] RBC Ql (U) 10-25 SEEN /hpf 0-5 [facility] Urine clarityOrdered By: Brandon Ponce on 05-02-2023 Clarity (U) Sl. Cloudy Clear [facility] Urine color determinationOrd ered By: Paul Ponce on 05-02-2023 Color (U) Yellow Yellow [facility] Urine glucose detectionOrder ed By: Paul Ponce on 05-02-2023 Glucose Ql (U) 1000 mg/dl Normal [facility] Urine leukocyte esterase det ection by dipstickOrdered By: Paul Ponce on 05-02-2023 Leukocyte esterase Test strip Ql (U) 100 /ul Negative [facility] Urine pHOrdered By: Paul wang on 05-02-2023 pH (U) 6.5 [pH] 5.0 - 8.0 [facility] Urine sediment bacteria coun t by microscopy (number/high power field)Ordered By: Paul Ponce on 05-02-2023 Bacteria LM.HPF (Urine sed) [#/Area] 2 /[HPF] None Seen [facility] Urine specific gravity measu rementOrdered By: Paul Ponce on 05-02-2023 Specific gravity (U) [Rel density] 1.010 1.002-1.030 [facility] Urobilinogen Auto test strip Ql (U)Ordered By: Paul Ponce on 05-02-2023 Urobilinogen Ql (U) 1 mg/dl Normal [facility] Absolute lymphocyte countOrd ered By: Reilly Olmstead on 05-01-2023 Lymphocytes Auto (Unsp spec) [#/Vol] 1.19 10*3/uL 0.83-4.51 [facility] Basophil percentageOrdered B y: Reilly Olmstead on 05-01-2023 Basophil percentage 10-25 SEEN /hpf 0-5 [facility] Basophils/100 WBC (Bld) 0.3 % 0-1 W [facility] Bilirubin [Mass/Vol] 2.20 mg/dL 0.20-1.00 [facility] Comment on above: For patients on eltr ombopag therapy, use of Dimension [place] TBIL is not recommended. Chloride [Moles/Vol] 100 mmol/L 98-107 [facility] Eosinophils/100 WBC (Bld) 2.3 % 0-5 [facility] Glucose [Mass/Vol] 230 mg/dL 74-106 [facility] Comment on above: Glucose result great er than or equal to 200 mg/dLsuggests DIABETES MELLITUS per A.D.A. criteria. Lactate [Moles/Vol] 1.3 mmol/L 0.4-2.0 [facility] Neutrophils (Bld) [#/Vol] 14.0 10*3/uL 2.0-7.7 [facility] Neutrophils/100 WBC (Bld) 76.4 % 47-70 [facility] Potassium [Moles/Vol] 3.4 mmol/L 3.5-5.1 [facility] Protein [Mass/Vol] 7.2 g/dL 6.4-8.2 [facility] Sodium [Moles/Vol] 134 mmol/L 136-145 [facility] WBC (Bld) [#/Vol] 18.2 10*3/uL 4.4-11.0 [facility] Bilirubin Test strip Ql (U)O rdered By: Reilly Olmstead on 05-01-2023 Bilirubin Ql (U) Negative Negative [facility] Blood erythrocytes count (nu mber/volume)Ordered By: Reilly Olmstead on 05-01-2023 RBC (Bld) [#/Vol] 5.13 10*6/uL 4.6-6.2 [facility] Blood hemoglobin measurement (mass/volume)Ordered By: Reilly Olmstead on 05-01-2023 Hemoglobin (Bld) [Mass/Vol] 14.6 g/dL 13.0-16.5 [facility] Blood lymphocytes/100 leukoc ytesOrdered By: Reilly Olmstead on 05-01-2023 Lymphocytes/100 WBC (Bld) 6.5 % 19-41 [facility] Blood manual differential co mment interpretation (narrative result)Ordered By: Reilly Olmstead on 05-01-2023 Manual differential comment Rene (Bld) [Interp] SCANNED [facility] Blood monocytes/100 leukocyt esOrdered By: Reilly Olmstead on 05-01-2023 Monocytes/100 WBC (Bld) 13.7 % 0-10 [facility] Blood platelet mean volumeOr dered By: Reilly Olmstead on 05-01-2023 Platelet mean volume (Bld) [Entitic vol] 10.0 fL 6.2-12.0 [facility] Culture, urineOrdered By: Chris Olmstead on 05-01-2023 Bacteria identified Cx Nom (U) Escherichia coli [facility] Determination of erythrocyte mean corpuscular volume (MCV)Ordered By: Reilly Olmstead on 05-01-2023 MCV (RBC) [Entitic vol] 85.6 fL 80-94 [facility] Hematocrit Auto (Bld) [Volum e fraction]Ordered By: Reilly Olmstead on 05-01-2023 Hematocrit (Bld) [Volume fraction] 43.9 % 40-54 [facility] INR in Blood by Coagulation assayOrdered By: Reilly Olmstead on 05-01-2023 INR Coag (Bld) [Relative time] 1.3 {INR} [facility] Ketones Test strip Ql (U)Ord ered By: Reilly Olmstead on 05-01-2023 Ketones Ql (U) 15 mg/dl Negative [facility] Laboratory - Chemistry and C hemistry - challengeOrdered By: Reilly Olmstead on 05-01-2023 ALP [Catalytic activity/Vol] 109 U/L 45-117 [facility] ALT [Catalytic activity/Vol] 28 U/L 16-61 [facility] CO2 [Moles/Vol] 28.0 mmol/L 21.0-32.0 [facility] Globulin (S) [Mass/Vol] 3.8 g/dL 2.2-4.2 [facility] Urea nitrogen/Creatinine [Mass ratio] 12.1 mg/mg 10-20 [facility] Laboratory - Chemistry and C hemistry - challengeon 05-01-2023 Bilirubin Ql (U) Negative [facility] Glucose [Mass/Vol] 268 mg/dL 70-110 [facility] Glucose Ql (U) 500 g/dL [facility] Ketones Ql (U) Negative [facility] pH (U) 7.0 [pH] [facility] Specific gravity (U) [Rel density] 1.025 [facility] Urobilinogen (U) [Mass/Vol] Negative [facility] Laboratory - CoagulationOrde red By: Reilly Olmstead on 05-01-2023 aPTT Coag (Bld) [Time] 33.3 s 24.1-36.2 [facility] PT Coag (PPP) [Time] 16.2 s 11.7-14.9 [facility] Laboratory - Hematology and Cell countsOrdered By: Reilly Olmstead on 05-01-2023 Erythrocyte distribution width (RBC) [Entitic vol] 41.3 fL 35.1-43.9 [facility] Erythrocyte distribution width (RBC) [Ratio] 13.2 % 11.6-14.6 [facility] Immature granulocytes/100 WBC (Bld) 0.800 % 0.0-0.9 [facility] Comment on above: IG% - Immature Granu locytes (promyelocytes, myelocytes and metamyelocytes) > 1% indicates that a LEFT SHIFT is Present. MCH (RBC) [Entitic mass] 28.5 pg 27.0-32.0 [facility] Nucleated RBC/100 WBC (Bld) [Ratio] 0 % 0-5 [facility] - Hematology and Cell countson 05-01-2023 Hemoglobin Ql (U) Moderate [facility] - Microbiology an d Antimicrobial susceptibilityOrdered By: Reilly Olmstead on 05-01-2023 Bacteria identified Cx Nom (Bld) No growth in 5 days. [facility] - Microbiology an d Antimicrobial susceptibilityon 05-01-2023 SARS-CoV-2 (COVID-19) RNA WALKER+probe Ql (Unsp spec) Not detected [facility] - Specimen inform ationon 05-01-2023 Clarity (U) Clear [facility] Color (U) Dk Yellow [facility] - Urinalysison Nitrite Ql (U) Positive [facility] Protein Ql (U) 2+ [facility] MCHC Auto (RBC) [Mass/Vol]Or dered By: Reilly Olmstead on 05-01-2023 MCHC (RBC) [Mass/Vol] 33.3 g/dL 32-36 [facility] Mucus LM Ql (Urine sed)Order ed By: Reilly Olmstead on 05-01-2023 Mucus Ql (Urine sed) 0 SEEN /hpf [facility] Nitrite Test strip Ql (U)Ord ered By: Reilly Olmstead on 05-01-2023 Nitrite Ql (U) Positive Negative [facility] No Panel InformationOrdered By: Reilly Olmstead on 05-01-2023 Estimated Creatinine Clearance Calc 93.09 ml/min [facility] Estimated GFR (MDRD) Amer 110 mL/min >60 [facility] Comment on above: GFR Calc Estimated GFR (MDRD) Non-Af Amer 91 mL/min >60 [facility] Comment on above: Non- GFR Calc No Panel Informationon 05-01 Urine Leukocytes Negatve [facility] Urine Non-Hemolyzed Blood [facility] Influenza Types A,B Rapid (Clinic) Not detected [facility] Platelets bldOrdered By: Dustin Olmstead on 05-01-2023 Platelets (Bld) [#/Vol] 193 10*3/uL 150-450 [facility] Protein Test strip Ql (U)Ord ered By: Reilly Olmstead on 05-01-2023 Protein Ql (U) 30 mg/dl Negative [facility] Review by pathologistOrdered By: Reilly Olmstead on 05-01-2023 Pathologist review Rene (Unsp spec) [Interp] Joann farley [facility] Pathologist review Rene (Unsp spec) [Interp] Reviewed [facility] Comment on above: Previous reported re sult: Joann farley Edited by: RGOOD on 05/04/23:0852Neutrophilic leukocytosis.Clinical correlation necessary.Mansoor Hamilton M.D. 05/04/23 AMENDED REPORT 05/04/23 0852 PATH REV previously reported as: Joann farley Serum or plasma albumin daisha urement (mass/volume)Ordered By: Reilly Olmstead on 05-01-2023 Albumin [Mass/Vol] 3.4 g/dL 3.2-5.0 [facility] Serum or plasma albumin/glob ulin mass ratioOrdered By: Reilly Olmstead on 05-01-2023 Albumin/Globulin [Mass ratio] 0.9 {ratio} 0.9-2.4 [facility] Serum or plasma calcium daisha urement (mass/volume)Ordered By: Reilly Olmstead on 05-01-2023 Calcium [Mass/Vol] 8.9 mg/dL 8.5-10.1 [facility] Serum or plasma creatinine m easurement (mass/volume)Ordered By: Reilly Olmstead on 05-01-2023 Creatinine [Mass/Vol] 0.91 mg/dL 0.70-1.30 [facility] Comment on above: The validity of the calculated GFR & GFRAA in patients over 70 years has not been determined. Clinical correlation is essential. Serum or plasma urea nitroge n measurement (mass/volume)Ordered By: Reilly Olmstead on 05-01-2023 Urea nitrogen [Mass/Vol] 11 mg/dL 7-18 [facility] Squamous epithelial cells de tection in urine sediment by light microscopyOrdered By: Reilly Olmstead on 05-01-2023 Epithelial cells.squamous LM Ql (Urine sed) 0 SEEN /hpf 0-5 [facility] Thin prep Papanicolaou smear with manual screeningOrdered By: Reilly Olmstead on 05-01-2023 Thin prep Papanicolaou smear with manual screening 11 U/L 15-37 [facility] Thin prep Papanicolaou smear with manual screening 6 5-15 [facility] Urine blood detectionOrdered By: Reilly Olmstead on 05-01-2023 RBC Ql (U) 250 /ul Negative [facility] RBC Ql (U) 0-5 SEEN /hpf 0-5 [facility] Urine clarityOrdered By: Dustin Olmstead on 05-01-2023 Clarity (U) Sl. Cloudy Clear [facility] Urine color determinationOrd ered By: Reilly Olmstead on 05-01-2023 Color (U) Yellow Yellow [facility] Urine glucose detectionOrder ed By: Reilly Olmstead on 05-01-2023 Glucose Ql (U) 250 mg/dl Normal [facility] Urine leukocyte esterase det ection by dipstickOrdered By: Reilly Olmstead on 05-01-2023 Leukocyte esterase Test strip Ql (U) 100 /ul Negative [facility] Urine pHOrdered By: Reilly navarro on 05-01-2023 pH (U) 6.5 [pH] 5.0 - 8.0 [facility] Urine sediment bacteria coun t by microscopy (number/high power field)Ordered By: Reilly Olmstead on 05-01-2023 Bacteria LM.HPF (Urine sed) [#/Area] 1 /[HPF] None Seen [facility] Urine specific gravity measu rementOrdered By: Reilly Olmstead on 05-01-2023 Specific gravity (U) [Rel density] 1.010 1.002-1.030 [facility] Urobilinogen Auto test strip Ql (U)Ordered By: Reilly Olmstead on 05-01-2023 Urobilinogen Ql (U) 1 mg/dl Normal [facility] Basophil percentageOrdered B y: Cassandra Snyder on 03-10-2023 Chloride [Moles/Vol] 103 mmol/L 98-107 [facility] Glucose [Mass/Vol] 134 mg/dL 74-106 [facility] Comment on above: Fasting Glucose resu lt greater than or equal to 126 mg/dL suggests DIABETES MELLITUS per A.D.A. criteria. Potassium [Moles/Vol] 3.6 mmol/L 3.5-5.1 [facility] Sodium [Moles/Vol] 138 mmol/L 136-145 [facility] Laboratory - Chemistry and C hemistry - challengeOrdered By: Cassandra Snyder on 03-10-2023 CO2 [Moles/Vol] 31.0 mmol/L 21.0-32.0 [facility] Urea nitrogen/Creatinine [Mass ratio] 17.8 mg/mg 10-20 [facility] No Panel InformationOrdered By: Cassandra Snyder on 03-10-2023 Estimated GFR (MDRD) Amer 111 mL/min >60 [facility] Comment on above: GFR Calc Estimated GFR (MDRD) Non-Af Amer 92 mL/min >60 [facility] Comment on above: Non- GFR Calc Serum or plasma calcium daisha urement (mass/volume)Ordered By: Cassandra Snyder on 03-10-2023 Calcium [Mass/Vol] 9.2 mg/dL 8.5-10.1 [facility] Serum or plasma creatinine m easurement (mass/volume)Ordered By: Cassandra Snyder on 03-10-2023 Creatinine [Mass/Vol] 0.90 mg/dL 0.70-1.30 [facility] Comment on above: The validity of the calculated GFR & GFRAA in patients over 70 years has not been determined. Clinical correlation is essential. Serum or plasma urea nitroge n measurement (mass/volume)Ordered By: Cassandra Snyder on 03-10-2023 Urea nitrogen [Mass/Vol] 16 mg/dL 7-18 [facility] Thin prep Papanicolaou smear with manual screeningOrdered By: Cassandra Snyder on 03-10-2023 Thin prep Papanicolaou smear with manual screening 4 5-15 [facility] Basophil percentageOrdered B y: Lizbeth Dover on 10-24-2022 Chloride [Moles/Vol] 101 mmol/L 98-107 [facility] Glucose [Mass/Vol] 157 mg/dL 74-106 [facility] Comment on above: Fasting Glucose resu lt greater than or equal to 126 mg/dL suggests DIABETES MELLITUS per A.D.A. criteria. Potassium [Moles/Vol] 4.3 mmol/L 3.5-5.1 [facility] Sodium [Moles/Vol] 141 mmol/L 136-145 [facility] Basophil percentageOrdered B y: Dr. Gonzales on 10-24-2022 Cholesterol [Mass/Vol] 95 mg/dL <200 [facility] Comment on above: <200 mg/dL Desirable 200-240 mg/dL Borderline >240 mg/dL High Risk Triglyceride [Mass/Vol] 101 mg/dL <199 [facility] Comment on above: The drugs N-Acetylcy steine and Metamizole may falsely depress this assay.Serum Triglycerides Reference Interval Normal <150 mg/dL Borderline high 150 - 199 mg/dL High 200 - 499 mg/dL Very High > or = 500 mg/dL Laboratory - Chemistry and C hemistry - challengeOrdered By: Lizbeth Dover on 10-24-2022 CO2 [Moles/Vol] 33.0 mmol/L 21.0-32.0 [facility] Natriuretic peptide B (Bld) [Mass/Vol] 114.0 pg/mL 0-100 [facility] Urea nitrogen/Creatinine [Mass ratio] 15.9 mg/mg 10-20 [facility] No Panel InformationOrdered By: Lizbeth oDver on 10-24-2022 Estimated GFR (MDRD) Amer 105 mL/min >60 [facility] Comment on above: GFR Calc Estimated GFR (MDRD) Non-Af Amer 87 mL/min >60 [facility] Comment on above: Non- GFR Calc No Panel InformationOrdered By: Dr. Gonzales on 10-24-2022 Thyroid Stimulating Hormone (TSH) 2.35 uIU/mL 0.358-3.74 [facility] Urine Microalbumin/Creatinine Ratio 8.6 mg/g CRE <30 [facility] Vitamin D 25-Hydroxy 36.6 ng/mL [facility] Comment on above: Vitamin D 25(OH) Sta tus Range Deficiency <20 ng/mL (50nmol/L) Insufficiency 20 - 30 ng/mL (50 - 75 nmol/L) Sufficiency 30 - 100 ng/mL (75 - 250 nmol/L) Toxicity >100 ng/mL (>250 nmol/L) Serum or plasma calcium daisha urement (mass/volume)Ordered By: Lizbeth Dover on 10-24-2022 Calcium [Mass/Vol] 9.4 mg/dL 8.5-10.1 [facility] Serum or plasma cholesterol in HDL measurement (mass/volume)Ordered By: Dr. Gonzales on 10-24-2022 Cholesterol in HDL [Mass/Vol] 35 mg/dL >40 [facility] Comment on above: The drugs N-Acetylcy steine and Metamizole may falsely depress this assay. Reference Range HDL <40 mg/dL Low HDL Cholesterol HDL >or= 60 mg/dL High HDL Cholesterol Serum or plasma cholesterol in VLDL measurement (mass/volume)Ordered By: Dr. Gonzales on 10-24-2022 Cholesterol in VLDL [Mass/Vol] 20 mg/dL 5-40 [facility] Serum or plasma creatinine m easurement (mass/volume)Ordered By: Lizbeth Dover on 10-24-2022 Creatinine [Mass/Vol] 0.94 mg/dL 0.70-1.30 [facility] Comment on above: The validity of the calculated GFR & GFRAA in patients over 70 years has not been determined. Clinical correlation is essential. Serum or plasma low density lipoprotein (LDL) cholesterol measurement (mass/volume)Ordered By: Dr. Gonzales on 10-24-2022 Cholesterol in LDL [Mass/Vol] 40 mg/dL 0-130 [facility] Serum or plasma urea nitroge n measurement (mass/volume)Ordered By: Lizbeth Dover on 10-24-2022 Urea nitrogen [Mass/Vol] 15 mg/dL 7-18 [facility] Thin prep Papanicolaou smear with manual screeningOrdered By: Lizbeth Dovre on 10-24-2022 Thin prep Papanicolaou smear with manual screening 7 5-15 [facility] Thin prep Papanicolaou smear with manual screeningOrdered By: Dr. Gonzales on 10-24-2022 Thin prep Papanicolaou smear with manual screening 9.5 mg/L NO RANGE EST. [facility] Urine creatinine measurement (mass/volume)Ordered By: Dr. Gonzales on 10-24-2022 Creatinine (U) [Mass/Vol] 111.00 mg/dL NO RANGE EST. [facility] - Hematology and Cell countson 10-23-2022 HbA1c (Bld) [Mass fraction] 7.1 % [facility] Basophil percentageOrdered B y: Cassandra Snyder on 10-13-2022 Chloride [Moles/Vol] 101 mmol/L 98-107 [facility] Glucose [Mass/Vol] 106 mg/dL 74-106 [facility] Comment on above: Fasting Glucose resu lt from 100 to 125 mg/dL suggests IMPAIRED HOMEOSTASIS per A.D.A. criteria. Potassium [Moles/Vol] 3.8 mmol/L 3.5-5.1 [facility] Sodium [Moles/Vol] 140 mmol/L 136-145 [facility] Laboratory - Chemistry and C hemistry - challengeOrdered By: Cassandra Snyder on 10-13-2022 CO2 [Moles/Vol] 33.0 mmol/L 21.0-32.0 [facility] Urea nitrogen/Creatinine [Mass ratio] 20.3 mg/mg 10-20 [facility] No Panel InformationOrdered By: Cassandra Snyder on 10-13-2022 Estimated GFR (MDRD) Amer 106 mL/min >60 [facility] Comment on above: GFR Calc Estimated GFR (MDRD) Non-Af Amer 88 mL/min >60 [facility] Comment on above: Non- GFR Calc Serum or plasma calcium daisha urement (mass/volume)Ordered By: Cassandra Snyder on 10-13-2022 Calcium [Mass/Vol] 9.4 mg/dL 8.5-10.1 [facility] Serum or plasma creatinine m easurement (mass/volume)Ordered By: Cassandra Snyder on 10-13-2022 Creatinine [Mass/Vol] 0.94 mg/dL 0.70-1.30 [facility] Comment on above: The validity of the calculated GFR & GFRAA in patients over 70 years has not been determined. Clinical correlation is essential. Serum or plasma urea nitroge n measurement (mass/volume)Ordered By: Cassandra Snyder on 10-13-2022 Urea nitrogen [Mass/Vol] 19 mg/dL 7-18 [facility] Thin prep Papanicolaou smear with manual screeningOrdered By: Cassandra Snyder on 10-13-2022 Thin prep Papanicolaou smear with manual screening 6 5-15 [facility] INR in Blood by Coagulation assayOrdered By: Lizbeth Dover on 09-30-2022 INR Coag (Bld) [Relative time] 3.2 {INR} [facility] - CoagulationOrde red By: Lizbeth Dover on 09-30-2022 PT Coag (PPP) [Time] 32.0 s 11.7-14.9 [facility] Absolute lymphocyte countOrd ered By: Dr. Doyle on 09-05-2022 Lymphocytes Auto (Unsp spec) [#/Vol] 2.48 10*3/uL 0.83-4.51 [facility] Basophil percentageOrdered B y: Dr. Doyle on 09-05-2022 Basophils/100 WBC (Bld) 0.4 % 0-1 [facility] Chloride [Moles/Vol] 100 mmol/L 98-107 [facility] Eosinophils/100 WBC (Bld) 1.9 % 0-5 [facility] Glucose [Mass/Vol] 171 mg/dL 74-106 [facility] Comment on above: Fasting Glucose resu lt greater than or equal to 126 mg/dL suggests DIABETES MELLITUS per A.D.A. criteria. Neutrophils (Bld) [#/Vol] 7.9 10*3/uL 2.0-7.7 [facility] Neutrophils/100 WBC (Bld) 63.9 % 47-70 [facility] Potassium [Moles/Vol] 4.4 mmol/L 3.5-5.1 [facility] Sodium [Moles/Vol] 139 mmol/L 136-145 [facility] WBC (Bld) [#/Vol] 12.4 10*3/uL 4.4-11.0 [facility] Blood erythrocytes count (nu mber/volume)Ordered By: Dr. Doyle on 09-05-2022 RBC (Bld) [#/Vol] 5.10 10*6/uL 4.6-6.2 [facility] Blood hemoglobin measurement (mass/volume)Ordered By: Dr. Doyle on 09-05-2022 Hemoglobin (Bld) [Mass/Vol] 14.2 g/dL 13.0-16.5 [facility] Blood lymphocytes/100 leukoc ytesOrdered By: Dr. Doyle on 09-05-2022 Lymphocytes/100 WBC (Bld) 20.1 % 19-41 [facility] Blood manual differential co mment interpretation (narrative result)Ordered By: Dr. Doyle on 09-05-2022 Manual differential comment Rene (Bld) [Interp] SCANNED [facility] Comment on above: MONOCYTOSIS NOTED Blood monocytes/100 leukocyt esOrdered [address]: [address] Doyle on 09-05-2022 Monocytes/100 WBC (Bld) 13.2 % 0-10 [facility] Blood platelet mean volumeOr dered By: Dr. Doyle on 09-05-2022 Platelet mean volume (Bld) [Entitic vol] 10.0 fL 6.2-12.0 [facility] COVID-19 virus antigen assay Ordered By: Dr. Doyle on 09-05-2022 SARS-CoV-2 (COVID-19) Ag IA.rapid Ql (Resp) [facility] Determination of erythrocyte mean corpuscular volume (MCV)Ordered By: Dr. Doyle on 09-05-2022 MCV (RBC) [Entitic vol] 87.8 fL 80-94 [facility] Hematocrit Auto (Bld) [Volum e fraction]Ordered By: Dr. Doyle on 09-05-2022 Hematocrit (Bld) [Volume fraction] 44.8 % 40-54 [facility] INR in Blood by Coagulation assayOrdered By: Dr. Doyle on 09-05-2022 INR Coag (Bld) [Relative time] 1.2 {INR} [facility] Laboratory - Chemistry and C hemistry - challengeOrdered By: Dr. Doyle on 09-05-2022 CO2 [Moles/Vol] 33.0 mmol/L 21.0-32.0 [facility] Natriuretic peptide B (Bld) [Mass/Vol] 135.7 pg/mL 0-100 [facility] Urea nitrogen/Creatinine [Mass ratio] 17.9 mg/mg 10-20 [facility] Laboratory - CoagulationOrde red By: Dr. Doyle on 09-05-2022 PT Coag (PPP) [Time] 15.2 s 11.7-14.9 [facility] Laboratory - Hematology and Cell countsOrdered By: Dr. Doyle on 09-05-2022 Erythrocyte distribution width (RBC) [Entitic vol] 41.7 fL 35.1-43.9 [facility] Erythrocyte distribution width (RBC) [Ratio] 12.8 % 11.6-14.6 [facility] Immature granulocytes/100 WBC (Bld) 0.500 % 0.0-0.9 [facility] Comment on above: IG% - Immature Granu locytes (promyelocytes, myelocytes and metamyelocytes) > 1% indicates that a LEFT SHIFT is Present. MCH (RBC) [Entitic mass] 27.8 pg 27.0-32.0 [facility] Nucleated RBC/100 WBC (Bld) [Ratio] 0 % 0-5 [facility] MCHC Auto (RBC) [Mass/Vol]Or dered By: Dr. Doyle on 09-05-2022 MCHC (RBC) [Mass/Vol] 31.7 g/dL 32-36 [facility] No Panel InformationOrdered By: Dr. Doyle on 09-05-2022 Estimated Creatinine Clearance Calc 91.89 ml/min [facility] Estimated GFR (MDRD) Amer 105 mL/min >60 [facility] Comment on above: GFR Calc Estimated GFR (MDRD) Non-Af Amer 86 mL/min >60 [facility] Comment on above: Non- GFR Calc Troponin I High Sensitivity 13 pg/mL 3.0-78.0 [facility] Comment on above: Please Note: New [place] t Units and Gender Specific Reference Ranges. For more information see Policy Stat Procedure [place] High Sensitivity Troponin (TNIH) and attachments. Platelets bldOrdered By: Dr. Doyle on 09-05-2022 Platelets (Bld) [#/Vol] 300 10*3/uL 150-450 [facility] Review by pathologistOrdered By: Dr. Doyle on 09-05-2022 Pathologist review Rene (Unsp spec) [Interp] Joann farley [facility] Pathologist review Rene (Unsp spec) [Interp] Reviewed [facility] Comment on above: Previous reported re sult: Joann farley Edited by: RGOOD on 09/07/22:1350Mild mature monocytosis present.Clinical correlation suggested.Alvarez Bhakta D.O. 09/07/22 AMENDED REPORT 09/07/22 1350 PATH REV previously reported as: Joann farley Serum or plasma calcium daisha urement (mass/volume)Ordered By: Dr. Doyle on 09-05-2022 Calcium [Mass/Vol] 9.4 mg/dL 8.5-10.1 [facility] Serum or plasma creatinine m easurement (mass/volume)Ordered By: Dr. Doyle on 09-05-2022 Creatinine [Mass/Vol] 0.95 mg/dL 0.70-1.30 [facility] Comment on above: The validity of the calculated GFR & GFRAA in patients over 70 years has not been determined. Clinical correlation is essential. Serum or plasma urea nitroge n measurement (mass/volume)Ordered By: Dr. Doyle on 09-05-2022 Urea nitrogen [Mass/Vol] 17 mg/dL 7-18 [facility] Thin prep Papanicolaou smear with manual screeningOrdered By: Dr. Doyle on 09-05-2022 Thin prep Papanicolaou smear with manual screening 6 5-15 [facility] - Microbiology an d Antimicrobial susceptibilityon 09-03-2022 SARS-CoV-2 (COVID-19) RNA WALKER+probe Ql (Unsp spec) Not detected [facility] No Panel Informationon 09-03 Influenza Types A,B Rapid (Clinic) Not detected [facility] INR in Blood by Coagulation assayOrdered By: Lizbeth Dover on 08-27-2022 INR Coag (Bld) [Relative time] 2.9 {INR} [facility] - CoagulationOrde red By: Lizbeth Dover on 08-27-2022 PT Coag (PPP) [Time] 30.1 s 11.7-14.9 [facility] Basophil percentageOrdered B y: Williams Noel on 08-19-2022 Chloride [Moles/Vol] 103 mmol/L 98-107 [facility] Glucose [Mass/Vol] 103 mg/dL 74-106 [facility] Comment on above: Fasting Glucose resu lt from 100 to 125 mg/dL suggests IMPAIRED HOMEOSTASIS per A.D.A. criteria. Potassium [Moles/Vol] 4.0 mmol/L 3.5-5.1 [facility] Sodium [Moles/Vol] 142 mmol/L 136-145 [facility] INR in Blood by Coagulation assayOrdered By: Williams Noel on 08-19-2022 INR Coag (Bld) [Relative time] 3.1 {INR} [facility] - Chemistry and C hemistry - challengeOrdered By: Williams Noel on 08-19-2022 CO2 [Moles/Vol] 33.0 mmol/L 21.0-32.0 [facility] Urea nitrogen/Creatinine [Mass ratio] 22.4 mg/mg 10-20 [facility] - CoagulationOrde red By: Williams Noel on 08-19-2022 PT Coag (PPP) [Time] 31.8 s 11.7-14.9 [facility] No Panel InformationOrdered By: Williams Noel on 08-19-2022 Estimated GFR (MDRD) Amer 106 mL/min >60 [facility] Comment on above: GFR Calc Estimated GFR (MDRD) Non-Af Amer 88 mL/min >60 [facility] Comment on above: Non- GFR Calc Serum or plasma calcium daisha urement (mass/volume)Ordered By: Williams Noel on 08-19-2022 Calcium [Mass/Vol] 9.4 mg/dL 8.5-10.1 [facility] Serum or plasma creatinine m easurement (mass/volume)Ordered By: Williams Noel on 08-19-2022 Creatinine [Mass/Vol] 0.94 mg/dL 0.70-1.30 [facility] Comment on above: The validity of the calculated GFR & GFRAA in patients over 70 years has not been determined. Clinical correlation is essential. Serum or plasma urea nitroge n measurement (mass/volume)Ordered By: Williams Noel on 08-19-2022 Urea nitrogen [Mass/Vol] 21 mg/dL 7-18 [facility] Thin prep Papanicolaou smear with manual screeningOrdered By: Williams Noel on 08-19-2022 Thin prep Papanicolaou smear with manual screening 6 5-15 [facility] INR in Blood by Coagulation assayOrdered By: Lizbeth Dover on 08-05-2022 INR Coag (Bld) [Relative time] 2.7 {INR} [facility] - CoagulationOrde red By: Lizbeth Dover on 08-05-2022 PT Coag (PPP) [Time] 28.6 s 11.7-14.9 [facility] Basophil percentageOrdered B y: Lizbeth Dover on 06-25-2022 Chloride [Moles/Vol] 102 mmol/L 98-107 [facility] Glucose [Mass/Vol] 137 mg/dL 74-106 [facility] Comment on above: Fasting Glucose resu lt greater than or equal to 126 mg/dL suggests DIABETES MELLITUS per A.D.A. criteria. Potassium [Moles/Vol] 5.1 mmol/L 3.5-5.1 [facility] Comment on above: Moderate Hemolysis, Result may be falsely increased. Sodium [Moles/Vol] 139 mmol/L 136-145 [facility] Laboratory - Chemistry and C hemistry - challengeOrdered By: Lizbeth Dover on 06-25-2022 CO2 [Moles/Vol] 32.0 mmol/L 21.0-32.0 [facility] Magnesium [Mass/Vol] 2.0 mg/dL 1.6-2.6 [facility] Comment on above: Moderate Hemolysis, Result may be falsely increased. Urea nitrogen/Creatinine [Mass ratio] 21.0 mg/mg 10-20 [facility] No Panel InformationOrdered By: Lizbeth Dover on 06-25-2022 Estimated GFR (MDRD) Amer 104 mL/min >60 [facility] Comment on above: GFR Calc Estimated GFR (MDRD) Non-Af Amer 86 mL/min >60 [facility] Comment on above: Non- GFR Calc Thyroid Stimulating Hormone (TSH) 2.26 uIU/mL 0.358-3.74 [facility] Serum or plasma calcium daisha urement (mass/volume)Ordered By: Lizbeth Dover on 06-25-2022 Calcium [Mass/Vol] 9.1 mg/dL 8.5-10.1 [facility] Serum or plasma creatinine m easurement (mass/volume)Ordered By: Lizbeth Dover on 06-25-2022 Creatinine [Mass/Vol] 0.95 mg/dL 0.70-1.30 [facility] Comment on above: The validity of the calculated GFR & GFRAA in patients over 70 years has not been determined. Clinical correlation is essential. Serum or plasma urea nitroge n measurement (mass/volume)Ordered By: Lizbeth Dover on 06-25-2022 Urea nitrogen [Mass/Vol] 20 mg/dL 7-18 [facility] Thin prep Papanicolaou smear with manual screeningOrdered By: Lizbeth Dover on 06-25-2022 Thin prep Papanicolaou smear with manual screening 5 5-15 [facility] Absolute lymphocyte counton 05-01-2022 Lymphocytes Auto (Unsp spec) [#/Vol] 2.74 10*3/uL 0.83-4.51 [facility] Work Phone: Basophil percentageon 2021 Basophils/100 WBC (Bld) 0.4 % 0-1 [facility] Work Phone: Bilirubin [Mass/Vol] 0.70 mg/dL 0.20-1.00 [facility] Work Phone: Comment on above: For patients on eltr ombopag therapy, use of Dimension [place] TBIL is not recommended. Chloride [Moles/Vol] 102 mmol/L 98-107 [facility] Work Phone: Cholesterol [Mass/Vol] 111 mg/dL <200 [facility] Work Phone: Comment on above: <200 mg/dL Desirable 200-240 mg/dL Borderline >240 mg/dL High Risk Eosinophils/100 WBC (Bld) 2.8 % 0-5 [facility] Work Phone: Glucose [Mass/Vol] 123 mg/dL 74-106 [facility] Work Phone: Comment on above: Fasting Glucose resu lt from 100 to 125 mg/dL suggests IMPAIRED HOMEOSTASIS per A.D.A. criteria. Neutrophils (Bld) [#/Vol] 5.4 10*3/uL 2.0-7.7 [facility] Work Phone: Neutrophils/100 WBC (Bld) 57.2 % 47-70 [facility] Work Phone: Potassium [Moles/Vol] 4.1 mmol/L 3.5-5.1 [facility] Work Phone: Protein [Mass/Vol] 6.9 g/dL 6.4-8.2 [facility] Work Phone: Sodium [Moles/Vol] 139 mmol/L 136-145 [facility] Work Phone: Triglyceride [Mass/Vol] 118 mg/dL <199 [facility] Work Phone: Comment on above: The drugs N-Acetylcy steine and Metamizole may falsely depress this assay.Serum Triglycerides Reference Interval Normal <150 mg/dL Borderline high 150 - 199 mg/dL High 200 - 499 mg/dL Very High > or = 500 mg/dL WBC (Bld) [#/Vol] 9.4 10*3/uL 4.4-11.0 [facility] Work Phone: Blood erythrocytes count (nu mber/volume)on 05-01-2022 RBC (Bld) [#/Vol] 5.17 10*6/uL 4.6-6.2 [facility] Work Phone: Blood hemoglobin measurement (mass/volume)on 05-01-2022 Hemoglobin (Bld) [Mass/Vol] 14.8 g/dL 13.0-16.5 [facility] Work Phone: Blood lymphocytes/100 leukoc yteson 05-01-2022 Lymphocytes/100 WBC (Bld) 29.1 % 19-41 [facility] Work Phone: Blood monocytes/100 leukocyt eson 05-01-2022 Monocytes/100 WBC (Bld) 10.2 % 0-10 [facility] Work Phone: Blood platelet mean volumeon 05-01-2022 Platelet mean volume (Bld) [Entitic vol] 11.0 fL 6.2-12.0 [facility] Work Phone: Determination of erythrocyte mean corpuscular volume (MCV)on 05-01-2022 MCV (RBC) [Entitic vol] 88.0 fL 80-94 [facility] Work Phone: Hematocrit Auto (Bld) [Volum e fraction]on 05-01-2022 Hematocrit (Bld) [Volume fraction] 45.5 % 40-54 [facility] Work Phone: Laboratory - Chemistry and C hemistry - challengeon 05-01-2022 ALP [Catalytic activity/Vol] 90 U/L 45-117 [facility] Work Phone: ALT [Catalytic activity/Vol] 33 U/L 16-61 [facility] Work Phone: CO2 [Moles/Vol] 30.0 mmol/L 21.0-32.0 [facility] Work Phone: Globulin (S) [Mass/Vol] 3.3 g/dL 2.2-4.2 [facility] Work Phone: Urea nitrogen/Creatinine [Mass ratio] 17.0 mg/mg 10-20 [facility] Work Phone: Laboratory - Hematology and Cell countson 05-01-2022 Erythrocyte distribution width (RBC) [Entitic vol] 41.8 fL 35.1-43.9 [facility] Work Phone: Erythrocyte distribution width (RBC) [Ratio] 12.9 % 11.6-14.6 [facility] Work Phone: Immature granulocytes/100 WBC (Bld) 0.300 % 0.0-0.9 [facility] Work Phone: Comment on above: IG% - Immature Granu locytes (promyelocytes, myelocytes and metamyelocytes) > 1% indicates that a LEFT SHIFT is Present. MCH (RBC) [Entitic mass] 28.6 pg 27.0-32.0 [facility] Work Phone: Nucleated RBC/100 WBC (Bld) [Ratio] 0 % 0-5 [facility] Work Phone: HbA1c (Bld) [Mass fraction] 6.3 % 4.2-6.3 [facility] Work Phone: MCHC Auto (RBC) [Mass/Vol]on 05-01-2022 MCHC (RBC) [Mass/Vol] 32.5 g/dL 32-36 [facility] Work Phone: No Panel Informationon 05-01 Estimated GFR (MDRD) Amer 114 mL/min >60 [facility] Work Phone: Comment on above: GFR Calc Estimated GFR (MDRD) Non-Af Amer 94 mL/min >60 [facility] Work Phone: Comment on above: Non- GFR Calc Prostate Specific Antigen Screen 0.56 ng/mL 0.00-4.00 [facility] Work Phone: Comment on above: This test was perfor med using the TPSA assay method for the[facility] chemistry system. Values obtained with differentassay methods cannot be used interchangably.When changing PSA assays in the course of monitoring apatient, additional sequential testing should be carriedout to confirm baseline values. Thyroid Stimulating Hormone (TSH) 1.69 uIU/mL 0.358-3.74 [facility] Work Phone: Vitamin D 25-Hydroxy 31.5 ng/mL [facility] Work Phone: Comment on above: Vitamin D 25(OH) Sta tus Range Deficiency <20 ng/mL (50nmol/L) Insufficiency 20 - 30 ng/mL (50 - 75 nmol/L) Sufficiency 30 - 100 ng/mL (75 - 250 nmol/L) Toxicity >100 ng/mL (>250 nmol/L) Platelets bldon 05-01-2022 Platelets (Bld) [#/Vol] 265 10*3/uL 150-450 [facility] Work Phone: Serum or plasma albumin daisha urement (mass/volume)on 05-01-2022 Albumin [Mass/Vol] 3.6 g/dL 3.2-5.0 [facility] Work Phone: Serum or plasma albumin/glob ulin mass ratioon 05-01-2022 Albumin/Globulin [Mass ratio] 1.1 {ratio} 0.9-2.4 [facility] Work Phone: Serum or plasma calcium daisha urement (mass/volume)on 05-01-2022 Calcium [Mass/Vol] 9.1 mg/dL 8.5-10.1 [facility] Work Phone: Serum or plasma cholesterol in HDL measurement (mass/volume)on 05-01-2022 Cholesterol in HDL [Mass/Vol] 41 mg/dL >40 [facility] Work Phone: Comment on above: The drugs N-Acetylcy steine and Metamizole may falsely depress this assay. Reference Range HDL <40 mg/dL Low HDL Cholesterol HDL >or= 60 mg/dL High HDL Cholesterol Serum or plasma cholesterol in VLDL measurement (mass/volume)on 05-01-2022 Cholesterol in VLDL [Mass/Vol] 24 mg/dL 5-40 [facility] Work Phone: Serum or plasma creatinine m easurement (mass/volume)on 05-01-2022 Creatinine [Mass/Vol] 0.88 mg/dL 0.70-1.30 [facility] Work Phone: Comment on above: The validity of the calculated GFR & GFRAA in patients over 70 years has not been determined. Clinical correlation is essential. Serum or plasma low density lipoprotein (LDL) cholesterol measurement (mass/volume)on 05-01-2022 Cholesterol in LDL [Mass/Vol] 46 mg/dL 0-130 [facility] Work Phone: Serum or plasma urea nitroge n measurement (mass/volume)on 05-01-2022 Urea nitrogen [Mass/Vol] 15 mg/dL 7-18 [facility] Work Phone: Thin prep Papanicolaou smear with manual screeningon 05-01-2022 Thin prep Papanicolaou smear with manual screening 18 U/L 15-37 [facility] Work Phone: Thin prep Papanicolaou smear with manual screening 7 5-15 [facility] Work Phone: Laboratory - Hematology and Cell countson 11-03-2021 HbA1c (Bld) [Mass fraction] 6.4 % [facility] Work Phone: CNOVon 03-21-2021 CNOV Office Visit (PODIWS) ---- NIXON ECHOLS ([id number]) 1965 M Date Time Provider Department 03/21/21 8:00 AM [facility] During your visit today, we recorded the following information about you: Sung Best DPM 03/21/2021 8:17 AM Sign when Signing Visit Initial Office Visit Subjective: This 55 year [...] 6.8 04/06/2019 6.1 10/17/2018 6.9 PCP: Joellen Blank MD PAST MEDICAL HISTORY Diagnosis Date - ACS (acute coronary syndrome) ([facility]) - ASHD (arteriosclerotic heart disease) - Diabetes mellitus, type II ([facility]) - Hammertoes of both feet - Obesity (BMI 30.0-34.9) - ANIYAH (obstructive sleep apnea) severe - PVC (premature ventricular contraction) - Snoring - STEMI (ST elevation myocardial infarction) ([facility]) [facility] s/p stent to circumflex, ONELIA Current Outpatient [...] daily as needed for Constipation. No current facility-administer ed medications for this visit. ALLERGIES Allergen Reactions [...] SKIN: Negative for lesions, rash, and itching. HEMATOLOGY/LYMPHOLO GY Negative for prolonged bleeding, bruising easily, and swollen nodes. ENDOCRINE: Negative for cold or heat intolerance, polyuria, polydipsia and goiter. NEURO: negative The remainder of the review of systems is noncontributory. Objective: Patient presents to clinic ambulating in [facility] Constitutional: Pt is a well [...] Vibratory sensation is decreased at the hallux bilate (more content not included)... Normal [facility] 02-12-2021 [facility] ---- NIXON ECHOLS ([id number]) 1965 M Date Time Provider Department 02/12/21 JOELLEN BLANK During your visit today, we recorded the following information about you: Corazon Long LPN 02/12/2021 12:55 PM Signed ----- Message from Nancy Seo APRN.ACADEMIC VICE PRESIDENT sent at 02/12/2021 12:00 PM EDT ----- A1c is 6.7%- continue current medications. The rest of his blood work in in acceptable limits. Follow-up with Dr. Blank as scheduled. Thanks, Nancy Seo APRN.SABRINA Long LPN 02/12/2021 12:57 PM Signed Spoke with pt gave information provided. Pt voices understanding. Allergies As of Date: 02/12/2021 Noted Allergy Reaction ACCUPRIL (QUINAPRIL HCL) 10/19/2018 3 - Cough ATORVASTATIN 10/20/2019 17 - Myalgia LISINOPRIL 01/28/2018 3 - Cough LOSARTAN 07/26/2018 17 - Myalgia Date Reviewed: 09/09/2020 Reviewed by: Mabel Metzger RN - Fully Assessed Reason for Visit: Results [95] Prescriptions as of 02/12/2021 - metFORMIN ER (GLUCOPHAGE XR) 500 mg 24 hr tablet Take 2 tablets by mouth daily with breakfast. - furosemide (LASIX) 20 mg tablet Take 1 tablet by mouth every 72 hours. - insulin detemir U-100 (LEVEMIR) 100 unit/mL (3 mL) injection pen Inject 34 Units subcutaneously daily at bedtime. - aspirin, enteric coated (ASPIR-LOW) 81 mg EC tablet Take 1 tablet by mouth once daily. - blood sugar diagnostic (BLOOD GLUCOSE TEST) test strip Test blood sugar(s) 1 times daily. Dx: Type 2 DM - Controlled E11.9 Insulin: Yes - valsartan (DIOVAN) 80 mg tablet Take 0.5 tablets by mouth once daily. - rosuvastatin (CRESTOR) 10 mg tablet Take 1 tablet by mouth daily at bedtime. - docusate sodium (COLACE) 100 mg capsule Take 1 capsule by mouth twice daily as needed for Constipation. Problem List As Of Date 02/12/2021 Noted Resolved Diabetes mellitus, type II (HCC) [E11.9] STEMI (ST elevation myocardial infarction) (HCC* ASHD (arteriosclerotic heart disease) [I25.10] ANIYAH (obstructive sleep apnea) [G47.33] Obesity (BMI 30.0-34.9) [E66.9] Hammertoes of both feet [M20.41, M20.42] Encounter Status:Closed by CORAZON LONG on 02/12/[address] [facility] Comp Metabolic Panelon 02-11 Albumin [Mass/Vol] 4.2 g/dL Normal 3.9-4.9 [facility] Comment on above: Performed By: #### L IPB, HBA1C, CMP #### [facility] [address] [place], [place] [address] ALP [Catalytic activity/Vol] 90 U/L Normal 38-[address] [facility] Comment on above: Performed By: #### L IPB, HBA1C, CMP #### [facility] [address] [place], [place] [address] ALT [Catalytic activity/Vol] 23 U/L Normal 10-[address] [facility] Comment on above: Performed By: #### L IPB, HBA1C, CMP #### [facility] [address] [place], [place] [address] Anion gap [Moles/Vol] 10 mmol/L Normal 9-18 [facility] Comment on above: Performed By: #### L IPB, HBA1C, CMP #### [facility] [address] [place], [place] [address] AST [Catalytic activity/Vol] 23 U/L Normal 14-[address] [facility] Comment on above: Performed By: #### L IPB, HBA1C, CMP #### [place] [address] [place] [address] Bilirubin [Mass/Vol] 0.5 mg/dL Normal 0.2-1.3 [facility] Comment on above: Performed By: #### L IPB, HBA1C, CMP #### [place] [address] Calcium [Mass/Vol] 9.3 mg/dL Normal 8.5-10.2 [facility] Comment on above: Performed By: #### L IPB, HBA1C, CMP #### [place] [phone] Chloride [Moles/Vol] 104 mmol/L Normal 97-105 [facility] Comment on above: Performed By: #### L IPB, HBA1C, CMP #### [place] [phone] CO2 [Moles/Vol] 26 mmol/L Normal 22-[address] [facility] Comment on above: Performed By: #### L IPB, HBA1C, CMP #### [place] [phone] Creatinine [Mass/Vol] 0.79 mg/dL Normal 0.73-1.22 [facility] Comment on above: Performed By: #### L IPB, HBA1C, CMP #### [place] [address] eGFR- Amer. >60 Normal [facility] Comment on above: Performed By: #### L IPB, HBA1C, CMP #### [place] [phone] eGFR-All Other Races >60 Normal [facility] Comment on above: Result Comment: eGFR (Estimated GFR) Units of measure: mL/min/1.73 meters squared eGFR is derived from the reexpressed MDRD Study equation using the following parameters: serum creatinine, age, gender and race. The creatinine assay has been calibrated to be traceable to IDMS. An eGFR <60 mL/min/1.73m2 for >3 months is consistent with chronic kidney disease. Refer to KDOQI guidelines for clinical interpretation. In patients with unstable renal function, e.g. those with acute kidney injury, the eGFR may not accurately reflect actual GFR. Performed By: #### L IPB, HBA1C, CMP #### [facility] [address] [place], [place] [address] Glucose [Mass/Vol] 126 mg/dL High 74-99 [facility] Comment on above: Result Comment: The [place] Diabetes Association (ADA) provides guidance for cutoff values for fasting glucose and random glucose. The ADA defines fasting as no caloric intake for at least 8 hours. Fasting plasma glucose results between 100 to 125 mg/dL indicate increased risk for diabetes (prediabetes). Fasting plasma glucose results greater than or equal to 126 mg/dL meet the criteria for diagnosis of diabetes. In the absence of unequivocal hyperglycemia, results should be confirmed by repeat testing. In a patient with classic symptoms of hyperglycemia or hyperglycemic crisis, random plasma glucose results greater than or equal to 200 mg/dL meet the criteria for diagnosis of diabetes. Reference: Standards of Medical Care in Diabetes 2016, [place] Diabetes Association. Diabetes Care. 2016.39(Suppl 1). Performed By: #### L IPB, HBA1C, CMP #### [facility] [address] [place], [place] [address] Potassium [Moles/Vol] 4.1 mmol/L Normal 3.7-5.1 [facility] Comment on above: Performed By: #### L IPB, HBA1C, CMP #### [facility] [address] [place], [place] [address] Protein [Mass/Vol] 6.5 g/dL Normal 6.3-8.0 [facility] Comment on above: Performed By: #### L IPB, HBA1C, CMP #### [facility] [address] [place], [place] [address] Sodium [Moles/Vol] 140 mmol/L Normal 136-144 [facility] Comment on above: Performed By: #### L IPB, HBA1C, CMP #### [facility] [address] [place] [id number] Urea nitrogen [Mass/Vol] 18 mg/dL Normal 9-[address] [facility] Comment on above: Performed By: #### L IPB, HBA1C, CMP #### [facility] [address] [place] [address] Hemoglobin A1con 02-11-2021 Glucose [Mass/Vol] 146 mg/dL Normal [facility] Comment on above: Result Comment: eAG: (Estimated average glucose) is a calculated value from HgbA1c and is construction sales representative of the average blood glucose level in the last 2-3 month period. Performed By: #### L IPB, HBA1C, CMP #### [place] [address] [place], [place] [address] HbA1c (Bld) [Mass fraction] 6.7 % High 4.3-5.[address] [facility] Comment on above: Result Comment: [place] Diabetes Association guidelines indicate that patients with HgbA1c in the range 5.7-6.4% are at increased risk for development of diabetes, and intervention by lifestyle modification may be beneficial. HgbA1c greater or equal to 6.5% is considered diagnostic of diabetes. Performed By: #### L IPB, HBA1C, CMP #### [facility] [address] [place], [place] [address] Lipid Panel, [place] 021 Cholesterol [Mass/Vol] 151 mg/dL Normal <200 [facility] Comment on above: Result Comment: <200 mg/dL, Desirable 200-239 mg/dL, Borderline high >239 mg/dL, High Performed By: #### L IPB, HBA1C, CMP #### [facility] [address] [place], [place] [address] Cholesterol in HDL [Mass/Vol] 36 mg/dL Low >[address] [facility] Comment on above: Result Comment: 40-5 9 mg/dL, Acceptable >59 mg/dL, High: Negative risk factor for coronary heart disease <40 mg/dL, Low: Positive risk factor for coronary heart disease Performed By: #### L IPB, HBA1C, CMP #### [facility] [address] [place] [address] Cholesterol in LDL [Mass/Vol] 93 mg/dL Normal <[address] [facility] Comment on above: Result Comment: <100 mg/dL, Optimal 100-129 mg/dL, Near optimal/above optimal 130-159 mg/dL, Borderline high 160-189 mg/dL, High >189 mg/dL, Very high Secondary prevention optimal LDL Cholesterol levels are recommended to be < 70 mg/dL Performed By: #### L IPB, HBA1C, CMP #### [place] [address] [place] [address] Fasting Time 12 hrs Normal [facility] Comment on above: Performed By: #### L IPB, HBA1C, CMP #### [facility] [address] [facility] [place] [address] LDL:HDL Ratio 2.58 High <2.[address] [facility] Comment on above: Result Comment: [place]e jose antonio: 1. National Cholesterol Education Program ATP III Guideline At-A-Glance Quick Desk Reference: National Heart, Lung, and Blood [place]. National Institutes of Health. 2001: NIH Publication No. 01-3305. 2. An International Atherosclerosis Society position paper: global recommendations for the management of dyslipidemia: executive summary, Atherosclerosis. 2014: 232(2):410-413. Performed By: #### L IPB, HBA1C, CMP #### [facility] [address] [facility] [place] [address] Non HDL Cholesterol 115 mg/dL Normal <130 [facility] Comment on above: Result Comment: <130 mg/dL, Optimal 130-159 mg/dL, Near optimal/above optimal 160-189 mg/dL, Borderline high 190-219 mg/dL, High >219 mg/dL, Very high Secondary prevention optimal non HDL Cholesterol levels are recommended to be < 100 mg/dL Performed By: #### L IPB, HBA1C, CMP #### [facility] [address] [place], [place] [address] TC:HDL Ratio 4.19 Normal <5.[address] [facility] Comment on above: Performed By: #### L IPB, HBA1C, CMP #### [facility] [address] [place] [phone] Triglyceride [Mass/Vol] 111 mg/dL Normal <150 [facility] Comment on above: Result Comment: <150 mg/dL, Normal 150-199 mg/dL, Borderline high 200-499 mg/dL, High >499 mg/dL, Very high Performed By: #### L IPB, HBA1C, CMP #### [facility] [address] [place] [phone] VLDL Cholesterol 22 mg/dL Normal <30 [facility] Comment on above: Performed By: #### L IPB, HBA1C, CMP #### [facility] [address] [place] [address] [facility] ---- NIXON ECHOLS ([id number]) 1965 Date Time Provider Department 02/04/21 JOELLEN BLANK [facility] During your visit today, we recorded the following information about you: Eva Barrios RN 02/04/2021 8:51 AM Signed Patient has 6 month follow up with PCP on 02/14/21. Asking to have lab orders filed to have drawn prior to this appointment. No need to call patient if lab orders filed today. Thank you, Eva Barrios, CHARO Seo, [employer]QUIPMENT TENDER.[facility] 02/04/2021 10:05 AM Signed Orders for blood work filed. Nancy Seo, [employer] EQUIPMENT TENDER.ACADEMIC VICE PRESIDENT Allergies As of Date: 02/04/2021 Noted Allergy Reaction ACCUPRIL (QUINAPRIL HCL) 10/19/2018 3 - Cough ATORVASTATIN 10/20/2019 17 - Myalgia LISINOPRIL 01/28/2018 3 - Cough LOSARTAN 07/26/2018 17 - Myalgia Date Reviewed: 09/09/2020 Reviewed by: Mabel Metzger RN - Fully Assessed Reason for Visit: pre-visit labs [Other] Primary Visit Diagnosis:Type 2 diabetes mellitus without complication, with long-term current use of insulin (HCC) [E11.9, Z79.4] Other Visit Diagnosis:ASHD (arteriosclerotic heart disease) [I25.10] Order(s):HGB A1C [OIEMT6Y] Order #: [id number] FUTURE COMP METABOLIC PANEL [SQCMP] Order #: [id number] FUTURE LIPID PANEL BASIC [SQLIPB] Order #: [id number] FUTURE Prescriptions as of 02/04/2021 Sig: METFORMIN ER 500 MG TABLET,EX* Take [...] mouth twice* Problem List As Of Date 02/04/2021 Noted Resolved Diabetes mellitus, type II (HCC) [E11.9] STEMI (ST elevation myocardial infarction) (HCC* ASHD (arteriosclerotic heart disease) [I25.10] ANIYAH (obstructive sleep apnea) [G47.33] Obesity (BMI 30.0-34.9) [E66.9] Hammertoes of both feet [M20.41, M20.42] Encounter Status:Closed by TERESO DIALLO MA on 02/04/21 [facility] OBSOLETEon 12-18-2020 OBSOLETE Refill (FAMPWS) ---- NIXON ECHOLS ([id number]) 1965 M Date Time Provider Department 12/18/20 JOELLEN BLANK During your visit today, we recorded the following information about you: Mary Carmen Vasquese [facility] 12/18/2020 2:11 PM Signed Patient has been identified by name and date of : Yes Pending Prescriptions Disp Refills METFORMIN ER 500 MG TABLET,EXTENDED RELEASE 24 HR 180 tablet 0 Sig: Take 2 tablets by mouth daily with breakfast. ABEBE: No RX INSTRUCTIONS: Patient is very angry. Said every month the pharmacy tells him they can't get through to office for requests for his refills. Said he wants a nurse to call him back to review all of his medications and make sure they are all up to date. Patient requesting a call when RX is approved and sent to the pharmacy. Please call patient at: [phone] Mary Carmen Radha [facility] Yeimi Anthony Ma 12/19/2020 12:12 PM Signed Last office visit: 08/13/20 F/u scheduled: 02/14/21 RX INSTRUCTIONS: Patient is very angry. Said every month the pharmacy tells him they can't get through to office for requests for his refills. Said he wants a nurse to call him back to review all of his medications and make sure they are all up to date. ? Patient requesting a call when RX is approved and sent to the pharmacy. Please call patient at: [phone] ? Yeimi Anthony Ma Aziza Pateloran [facility] 12/19/2020 12:25 PM Signed Patient Nixon called checking on status of prescription-Metsatya gray Nixon is requesting refills for 1 year, he has appointment 02/14/21 Joellen Blank MD 12/19/2020 1:22 PM Signed 90 day refill sent to mail order pharmacy. Since patient was not in for 15 months between visit in 2018 and 2020, I will not be able to give longer rx than 90 days today. Corazon Long LPN 12/20/2020 3:33 PM Signed Spoke with pt gave information provided. He states this was earliest he could get appointment. Allergies As of Date: 12/18/2020 Noted Allergy Reaction ACCUPRIL (QUINAPRIL HCL) 10/19/2018 3 - Cough ATORVASTATIN 10/20/2019 17 - Myalgia LISINOPRIL 01/28/2018 3 - Cough LOSARTAN 07/26/2018 17 - Myalgia Date Reviewed: 09/09/2020 Reviewed by: Mabel Metzger RN - Fully Assessed Reason for Visit: Refill Request [94] Visit Diagnosis:Type 2 diabetes mellitus with complication, with long-term current use of insulin ([facility]) [E11.8, Z79.4] Order(s):metFORMIN ER (GLUCOPHAGE XR) 500 mg 24 hr tabletTake 2 tablets by mouth daily with breakfast.Disp: 180 tabletRfl: 0 Prescriptions as of 12/18/2020 Sig: METFORMIN ER 500 MG TABLET,EX* Take [...] mouth twice* Problem List As Of Date 12/18/2020 Noted Resolved Diabetes mellitus, type II ([facility]) [E11.9] STEMI (ST elevation myocardial infarction) (HCC* ASHD (arteriosclerotic heart disease) [I25.10] ANIYAH (obstructive sleep apnea) [G47.33] Obesity (BMI 30.0-34.9) [E66.9] Hammertoes of both feet [M20.41, M20.42] Prescriptions ordered this encounter Disp Refills Start End METFORMIN ER 500 MG TABLET,EXTENDED * 180 * 0 12/19/2020 Route: ORAL Sig: Take 2 tablets by mouth daily with breakfast. Medications Discontinued During This Encounter Prescriptions - metFORMIN ER (GLUCOPHAGE XR) 500 mg 24 hr tablet (Discontinued) Take 2 tablets by mouth daily with breakfast. Encounter Status:Closed by CORAZON LONG on 12/20/[address] [facility] Vital Signs Date Time Vital Sign Value Performing Clinician Facility 01-11-2025 16:01-0400 Body height 180.[address] Yaa Shelton MD Work Phone: [facility] 01-11-2025 16:01-0400 Body mass index (BMI) [Ratio] 36.1 kg/m2 Dr. Yaa Shelton MD Work Phone: [facility] 01-11-2025 16:01-0400 Body temperature 98.6 [degF] Dr. Yaa Shelton MD Work Phone: [facility] 01-11-2025 16:01-0400 Body weight 117.[address] Yaa Shelton MD Work Phone: [facility] 01-11-2025 16:01-0400 Diastolic blood pressure 89 mm[Hg] Dr. Yaa Shelton MD Work Phone: [facility] 01-11-2025 16:01-0400 Heart rate 73 /min Dr. Yaa Shelton MD Work Phone: [facility] 01-11-2025 16:01-0400 Respiratory rate 16 /min Dr. Yaa Shelton MD Work Phone: [facility] 01-11-2025 16:01-0400 SaO2% (BldA) [Mass fraction] 93 % Dr. Yaa Shelton MD Work Phone: [facility] 01-11-2025 16:01-0400 Systolic blood pressure 139 mm[Hg] Dr. Yaa Shelton MD Work Phone: [facility] 12-08-2024 08:29-0400 Body mass index (BMI) [Ratio] 35.4 kg/m2 Dr. Yaa Shelton MD Work Phone: [facility] 12-08-2024 08:29-0400 Body weight 115.[address] Yaa Shelton MD Work Phone: [facility] 12-08-2024 08:29-0400 Diastolic blood pressure 77 mm[Hg] Dr. Yaa Shelton MD Work Phone: [facility] 12-08-2024 08:29-0400 Heart rate 72 /min Dr. Yaa Shelton MD Work Phone: [facility] 12-08-2024 08:29-0400 Respiratory rate 18 /min Dr. Yaa Shelton MD Work Phone: [facility] 12-08-2024 08:29-0400 Systolic blood pressure 114 mm[Hg] Dr. Yaa Shelton MD Work Phone: [facility] 11-24-2024 08:14-0400 Body mass index (BMI) [Ratio] 35.1 kg/m2 Dr. Yaa Shelton MD Work Phone: [facility] 11-24-2024 08:14-0400 Body temperature 97.2 [degF] Dr. Yaa Shelton MD Work Phone: [facility] 11-24-2024 08:14-0400 Body weight 114.[address] Yaa Shelton MD Work Phone: [facility] 11-24-2024 08:14-0400 Diastolic blood pressure 77 mm[Hg] Dr. Yaa Shelton MD Work Phone: [facility] 11-24-2024 08:14-0400 Heart rate 68 /min Dr. Yaa Shelton MD Work Phone: [facility] 11-24-2024 08:14-0400 Respiratory rate 20 /min Dr. Yaa Shelton MD Work Phone: [facility] 11-24-2024 08:14-0400 SaO2% (BldA) [Mass fraction] 95 % Dr. Yaa Shelton MD Work Phone: [facility] 11-24-2024 08:14-0400 Systolic blood pressure 122 mm[Hg] Dr. Yaa Shelton MD Work Phone: [facility] 10-13-2024 08:06-0500 Body mass index (BMI) [Ratio] 34.8 kg/m2 Dr. Yaa Shelton MD Work Phone: [facility] 10-13-2024 08:06-0500 Body temperature 97.4 [degF] Dr. Yaa Shelton MD Work Phone: [facility] 10-13-2024 08:06-0500 Body weight 113.[address] Yaa Shelton MD Work Phone: [facility] 10-13-2024 08:06-0500 Diastolic blood pressure 74 mm[Hg] Dr. Yaa Shelton MD Work Phone: [facility] 10-13-2024 08:06-0500 Heart rate 69 /min Dr. Yaa Shelton MD Work Phone: [facility] 10-13-2024 08:06-0500 Respiratory rate 20 /min Dr. Yaa Shelton MD Work Phone: [facility] 10-13-2024 08:06-0500 SaO2% (BldA) [Mass fraction] 95 % Dr. Yaa Shelton MD Work Phone: [facility] 10-13-2024 08:06-0500 Systolic blood pressure 107 mm[Hg] Dr. Yaa Shelton MD Work Phone: [facility] 10-06-2024 15:56-0500 Body mass index (BMI) [Ratio] 35.9 kg/m2 Dr. Yaa Shelton MD Work Phone: [facility] 10-06-2024 15:56-0500 Body weight 116.[address] Yaa Shelton MD Work Phone: [facility] 10-06-2024 15:56-0500 Diastolic blood pressure 83 mm[Hg] Dr. Yaa Shelton MD Work Phone: [facility] 10-06-2024 15:56-0500 Heart rate 68 /min Dr. Yaa Shelton MD Work Phone: [facility] 10-06-2024 15:56-0500 SaO2% (BldA) [Mass fraction] 93 % Dr. Yaa Shelton MD Work Phone: [facility] 10-06-2024 15:56-0500 Systolic blood pressure 127 mm[Hg] Dr. Yaa Shelton MD Work Phone: [facility] 01-25-2024 17:00-0400 Heart rate 101 /min Mady Thomas MD Work Phone: [facility] 01-25-2024 17:00-0400 Respiratory rate 16 /min Mady Thomas MD Work Phone: [facility] 01-25-2024 16:00-0400 Diastolic blood pressure 88 mm[Hg] Mady Thomas MD Work Phone: [facility] 01-25-2024 16:00-0400 SaO2% (BldA) [Mass fraction] 92 % Mady Thomas MD Work Phone: [facility] 01-25-2024 16:00-0400 Systolic blood pressure 158 mm[Hg] Mady Thomas MD Work Phone: [facility] 01-25-2024 06:04-0400 Body temperature 98.4 [degF] Mady Thomas MD Work Phone: [facility] 01-24-2024 14:51-0400 Body height 182.9 cm Mady Thomas MD Work Phone: [facility] 01-24-2024 14:51-0400 Diastolic blood pressure 61 mm[Hg] Mady Thomas MD Work Phone: [facility] 01-24-2024 14:51-0400 Heart rate 83 /min Mady Thomas MD Work Phone: 1(170)620-260715 [place] [address] Comment on above: irregular 01-24-2024 14:51-0400 Systolic blood pressure 99 mm[Hg] Mady Thomas MD Work Phone: 1(352)319-125115 [place] [address] 09-30-2023 14:15-0500 Heart rate 98 /min Mady Thomas MD Work Phone: 6(339)744-563615 [place] [address] 09-30-2023 14:15-0500 Respiratory rate 18 /min Mady Thomas MD Work Phone: 7(464)161-816115 [place] [address] 09-30-2023 14:15-0500 SaO2% (BldA) [Mass fraction] 93 % Mady Thomas MD Work Phone: 1(562)253-582815 [place] [address] 09-30-2023 14:00-0500 Diastolic blood pressure 81 mm[Hg] Mady Thomas MD Work Phone: 3(945)207-326015 [place] [address] 09-30-2023 14:00-0500 Systolic blood pressure 124 mm[Hg] Mady Thomas MD Work Phone: 4(169)862-496615 [place] [address] 09-30-2023 11:10-0500 Body temperature 98.01 [degF] Mady Thomas MD Work Phone: 5(975)517-504015 [place] [address] 09-30-2023 06:37-0500 Body height 182.9 cm Mady Thomas MD Work Phone: 3(897)547-519115 [place] [address] 09-30-2023 06:37-0500 Body mass index (BMI) [Ratio] 32.28 kg/m2 Mady Thomas MD Work Phone: 7(442)209-050915 [place] [address] 09-30-2023 06:37-0500 Body weight 107.96 kg Mady Thomas MD Work Phone: 9(788)399-472815 [place] [address] 09-13-2023 15:58-0500 Body height 180.[address] Yaa Shelton Work Phone: [facility] 09-13-2023 15:58-0500 Body mass index (BMI) [Ratio] 35.5 kg/m2 Dr. Yaa Shelton Work Phone: [facility] 09-13-2023 15:58-0500 Body temperature 97.5 [degF] Dr. Yaa Shelton Work Phone: [facility] 09-13-2023 15:58-0500 Body weight 115.[address] Yaa Shelton Work Phone: [facility] 09-13-2023 15:58-0500 Diastolic blood pressure 84 mm[Hg] Dr. Yaa Shelton Work Phone: [facility] 09-13-2023 15:58-0500 Heart rate 82 /min Dr. Yaa Shelton Work Phone: [facility] 09-13-2023 15:58-0500 SaO2% (BldA) [Mass fraction] 96 % Dr. Yaa Shelton Work Phone: [facility] 09-13-2023 15:58-0500 Systolic blood pressure 135 mm[Hg] Dr. Yaa Shelton Work Phone: [facility] 07-14-2023 11:40-0500 Body mass index (BMI) [Ratio] 35.3 kg/m2 Dr. Yaa Shelton Work Phone: [facility] 07-14-2023 11:40-0500 Body temperature 97.4 [degF] Dr. Yaa Shelton Work Phone: [facility] 07-14-2023 11:40-0500 Body weight 114.[address] Yaa Shelton Work Phone: [facility] 07-14-2023 11:40-0500 Diastolic blood pressure 89 mm[Hg] Dr. Yaa Shelton Work Phone: [facility] 07-14-2023 11:40-0500 Heart rate 90 /min Dr. Yaa Shelton Work Phone: [facility] 07-14-2023 11:40-0500 Respiratory rate 20 /min Dr. Yaa Shelton Work Phone: [facility] 07-14-2023 11:40-0500 SaO2% (BldA) [Mass fraction] 95 % Dr. Yaa Shelton Work Phone: [facility] 07-14-2023 11:40-0500 Systolic blood pressure 105 mm[Hg] Dr. Yaa Shelton Work Phone: [facility] 06-11-2023 15:35-0400 Body mass index (BMI) [Ratio] 35.2 kg/m2 Dr. Yaa Shelton Work Phone: [facility] 06-11-2023 15:35-0400 Body weight 114.[address] Yaa Shelton Work Phone: [facility] 06-11-2023 15:35-0400 Diastolic blood pressure 90 mm[Hg] Dr. Yaa Shelton Work Phone: [facility] 06-11-2023 15:35-0400 Heart rate 92 /min Dr. Yaa Shelton Work Phone: [facility] 06-11-2023 15:35-0400 Respiratory rate 18 /min Dr. Yaa Shelton Work Phone: [facility] 06-11-2023 15:35-0400 SaO2% (BldA) [Mass fraction] 96 % Dr. Yaa Shelton Work Phone: [facility] 06-11-2023 15:35-0400 Systolic blood pressure 133 mm[Hg] Dr. Yaa Shelton Work Phone: [facility] 05-07-2023 08:03-0400 Body height 180.[address] Yaa Shelton Work Phone: [facility] 05-07-2023 08:03-0400 Body mass index (BMI) [Ratio] 34 kg/m2 Dr. Yaa Shelton Work Phone: [facility] 05-07-2023 08:03-0400 Body temperature 98 [degF] Dr. Yaa Shelton Work Phone: [facility] 05-07-2023 08:03-0400 Body weight 110.[address] Yaa Shelton Work Phone: [facility] 05-07-2023 08:03-0400 Diastolic blood pressure 88 mm[Hg] Dr. Yaa Shelton Work Phone: [facility] 05-07-2023 08:03-0400 Heart rate 76 /min Dr. Yaa Shelton Work Phone: [facility] 05-07-2023 08:03-0400 Respiratory rate 18 /min Dr. Yaa Shelton Work Phone: [facility] 05-07-2023 08:03-0400 SaO2% (BldA) [Mass fraction] 96 % Dr. Yaa Shelton Work Phone: [facility] 05-07-2023 08:03-0400 Systolic blood pressure 120 mm[Hg] Dr. Yaa Shelton Work Phone: [facility] 05-01-2023 15:38-0400 Body temperature 99.4 [degF] Dr. Yaa Shelton Work Phone: [facility] 05-01-2023 15:38-0400 Diastolic blood pressure 80 mm[Hg] Dr. Yaa Shelton Work Phone: [facility] 05-01-2023 15:38-0400 Heart rate 104 /min Dr. Yaa Shelton Work Phone: [facility] 05-01-2023 15:38-0400 Respiratory rate 18 /min Dr. Yaa Shelton Work Phone: [facility] 05-01-2023 15:38-0400 SaO2% (BldA) [Mass fraction] 92 % Dr. Yaa Shelton Work Phone: [facility] 05-01-2023 15:38-0400 Systolic blood pressure 127 mm[Hg] Dr. Yaa Shelton Work Phone: [facility] 05-01-2023 13:08-0400 Body mass index (BMI) [Ratio] 34 kg/m2 Dr. Yaa Shelton Work Phone: [facility] 05-01-2023 13:08-0400 Body weight 110.[address] Yaa Shelton Work Phone: [facility] 05-01-2023 13:03-0400 Body height 180.[address] Yaa Shelton Work Phone: [facility] 05-01-2023 12:40-0400 SaO2% (BldA) [Mass fraction] 91 % Dr. Yaa Shelton Work Phone: [facility] 05-01-2023 12:16-0400 Body mass index (BMI) [Ratio] 33.9 kg/m2 Dr. Yaa Shelton Work Phone: [facility] 05-01-2023 12:16-0400 Body temperature 101 [degF] Dr. Yaa Shelton Work Phone: [facility] 05-01-2023 12:16-0400 Body weight 110.[address] Yaa Shelton Work Phone: [facility] 05-01-2023 12:16-0400 Diastolic blood pressure 80 mm[Hg] Dr. Yaa Shelton Work Phone: [facility] 05-01-2023 12:16-0400 Heart rate 115 /min Dr. Yaa Shelton Work Phone: [facility] 05-01-2023 12:16-0400 Respiratory rate 17 /min Dr. Yaa Shelton Work Phone: [facility] 05-01-2023 12:16-0400 Systolic blood pressure 126 mm[Hg] Dr. Yaa Shelton Work Phone: [facility] 03-11-2023 10:48-0400 Body height 180.34 cm MD Yaa Shelton [facility] 03-11-2023 10:48-0400 Body weight 109.31 kg MD Yaa Shelton [facility] 03-10-2023 14:21-0400 Body mass index (BMI) [Ratio] 33.6 kg/m2 MD Yaa Shelton [facility] 03-10-2023 10:55-0400 Body mass index (BMI) [Ratio] 33.6 kg/m2 MD Yaa Shelton [facility] 03-10-2023 10:55-0400 Body weight 109.31 kg MD Yaa Shelton [facility] 03-10-2023 10:55-0400 Diastolic blood pressure 70 mm[Hg] MD Yaa Shelton [facility] 03-10-2023 10:55-0400 Heart rate 123 /min MD Yaa Shelton [facility] 03-10-2023 10:55-0400 Respiratory rate 20 /min MD Yaa Shelton [facility] 03-10-2023 10:55-0400 Systolic blood pressure 104 mm[Hg] MD Yaa Shelton [facility] 02-25-2023 10:52-0400 Body mass index (BMI) [Ratio] 34.2 kg/m2 MD Yaa Shelton [facility] 02-25-2023 10:52-0400 Body temperature 98.1 [degF] MD Yaa Shelton [facility] 02-25-2023 10:52-0400 Body weight 111.3 kg MD Yaa Shelton [facility] 02-25-2023 10:52-0400 Diastolic blood pressure 83 mm[Hg] MD Yaa Shelton [facility] 02-25-2023 10:52-0400 Heart rate 95 /min MD Yaa Shelton [facility] 02-25-2023 10:52-0400 Respiratory rate 18 /min MD Yaa Shelton [facility] 02-25-2023 10:52-0400 SaO2% (BldA) [Mass fraction] 94 % MD Yaa Shelton [facility] 02-25-2023 10:52-0400 Systolic blood pressure 130 mm[Hg] MD Yaa Shelton [facility] 12-18-2022 08:25-0400 Body mass index (BMI) [Ratio] 32.5 kg/m2 MD Yaa Shelton [facility] 12-18-2022 08:25-0400 Body temperature 97.6 [degF] MD Yaa Shelton [facility] 12-18-2022 08:25-0400 Body weight 108.86 kg MD Yaa Shelton [facility] 12-18-2022 08:25-0400 Diastolic blood pressure 94 mm[Hg] MD Yaa Shelton [facility] 12-18-2022 08:25-0400 Heart rate 71 /min Yaajenaro Shelton [facility] 12-18-2022 08:25-0400 Respiratory rate 18 /min MD Yaa Shelton [facility] 12-18-2022 08:25-0400 SaO2% (BldA) [Mass fraction] 96 % MD Yaa Shelton [facility] 12-18-2022 08:25-0400 Systolic blood pressure 135 mm[Hg] MD Yaa Shelton [facility] 12-11-2022 08:31-0400 Body mass index (BMI) [Ratio] 32 kg/m2 MD Yaa Shelton [facility] 12-11-2022 08:31-0400 Body weight 107.04 kg MD Yaa Shelton [facility] 12-11-2022 08:31-0400 Diastolic blood pressure 70 mm[Hg] MD Yaa Shelton [facility] 12-11-2022 08:31-0400 Heart rate 60 /min MD Yaa Shelton [facility] 12-11-2022 08:31-0400 Respiratory rate 16 /min MD Yaa Shelton [facility] 12-11-2022 08:31-0400 Systolic blood pressure 105 mm[Hg] MD Yaa Shelton [facility] 10-23-2022 15:44-0400 Body height 182.88 cm MD Yaa Shelton [facility] 10-23-2022 15:44-0400 Body mass index (BMI) [Ratio] 33.3 kg/m2 MD Yaa Shelton [facility] 10-23-2022 15:44-0400 Body temperature 94.9 [degF] Yaajenaro Shelton [facility] 10-23-2022 15:44-0400 Body weight 111.35 kg Yaajenaro Shelton [facility] 10-23-2022 15:44-0400 Diastolic blood pressure 76 mm[Hg] Yaajenaro Shelton [facility] 10-23-2022 15:44-0400 Heart rate 72 /min Yaajenaro Shelton [facility] 10-23-2022 15:44-0400 Respiratory rate 18 /min Yaajenaro Shelton [facility] 10-23-2022 15:44-0400 SaO2% (BldA) [Mass fraction] 93 % Yaajenaro Shelton [facility] 10-23-2022 15:44-0400 Systolic blood pressure 102 mm[Hg] MD Yaa Shelton [facility] 10-16-2022 10:56-0500 Body weight 110.22 kg MD Yaa Shelton [facility] 10-15-2022 08:09-0500 Body mass index (BMI) [Ratio] 32.9 kg/m2 Yaajenaro Shelton [facility] 09-30-2022 14:59-0500 Body height 182.88 cm Yaajenaro Shelton [facility] 09-30-2022 14:59-0500 Body mass index (BMI) [Ratio] 32.9 kg/m2 Yaajenaro Shelton [facility] 09-30-2022 14:59-0500 Body weight 110.22 kg MD Yaa Shelton [facility] 09-30-2022 14:59-0500 Diastolic blood pressure 106 mm[Hg] Yaajenaro Shelton [facility] 09-30-2022 14:59-0500 Heart rate 128 /min Yaajenaro Shelton [facility] 09-30-2022 14:59-0500 Respiratory rate 18 /min MD Yaa Shelton [facility] 09-30-2022 14:59-0500 Systolic blood pressure 132 mm[Hg] Yaajenaro Shelton [facility] 09-05-2022 17:00-0500 Diastolic blood pressure 100 mm[Hg] [facility]-05-[facility] 17:00-0500 Heart rate 97 /min Yaajenaro Shelton [facility] 09-05-2022 17:00-0500 Respiratory rate 20 /min Yaa Nikita [facility] 09-05-2022 17:00-0500 SaO2% (BldA) [Mass fraction] 94 % [facility] 09-05-2022 17:00-0500 Systolic blood pressure 141 mm[Hg[facility] 09-05-2022 14:24-0500 Body height 182.88 cm Yaajenaro Shelton [facility] 09-05-2022 14:24-0500 Body mass index (BMI) [Ratio] 32.1 kg/m2 [facility] 09-05-2022 14:24-0500 Body temperature 98 [degF] MD aYa Shelton [facility] 09-05-2022 14:24-0500 Body weight 107.4 kg MD Yaa Shelton [facility] 09-03-2022 18:00-0500 Heart rate 96 /min Yaajenaro Shelton [facility] 09-03-2022 18:00-0500 Respiratory rate 14 /min Yaa Nikita [facility] 09-03-2022 18:00-0500 SaO2% (BldA) [Mass fraction] 96 % Yaa [facility] 09-03-2022 17:46-0500 Body mass index (BMI) [Ratio] 33.3 kg/m2 [facility] 09-03-2022 17:46-0500 Body temperature 97 [degF] MD Yaa Sotochner [facility] 09-03-2022 17:46-0500 Body weight 108.4 kg MD Yaa Sheltno [facility] 09-03-2022 17:46-0500 Diastolic blood pressure 68 mm[Hg] [facility] 09-03-2022 17:46-0500 Systolic blood pressure 104 mm[Hg] [facility] 08-14-2022 15:54-0500 Body height 180.34 cm Yaa [facility] 08-14-2022 15:54-0500 Body mass index (BMI) [Ratio] 33.9 kg/m2 Yaa [facility] 08-14-2022 15:54-0500 Body weight 110.22 kg Yaa [facility] 08-14-2022 15:54-0500 Diastolic blood pressure 98 mm[Hg] [facility] 08-14-2022 15:54-0500 Heart rate 96 /min Yaa [facility] 08-14-2022 15:54-0500 Respiratory rate 18 /min Yaa [facility] 08-14-2022 15:54-0500 SaO2% (BldA) [Mass fraction] 99 % Yaa [facility] 08-14-2022 15:54-0500 Systolic blood pressure 152 mm[Hg] Yaa [facility] 08-07-2022 09:57-0500 Diastolic blood pressure 100 mm[Hg] Dr. Dario Blank Work Phone: [facility] 08-07-2022 09:57-0500 Systolic blood pressure 140 mm[Hg] Dr. Dario Blank Work Phone: [facility] 08-07-2022 07:56-0500 Body height 180.[address] Dario Blank Work Phone: [facility] Work Phone: 08-07-2022 07:56-0500 Body mass index (BMI) [Ratio] 33.9 kg/m2 Dr. Dario Blank Work Phone: [facility] 08-07-2022 07:56-0500 Body temperature 97.2 [degF] Dr. Dario Blank Work Phone: 4(391)611-518871 [place] [address] 08-07-2022 07:56-0500 Body weight 110.[address] Dario Blank Work Phone: 9(723)673-917671 [place] [address] 08-07-2022 07:56-0500 Heart rate 78 /min Dr. Dario Blank Work Phone: 1(860)192-676071 [place] [address] 08-07-2022 07:56-0500 Respiratory rate 18 /min Dr. Dario Blank Work Phone: 3(984)559-147071 [place] [address] 08-07-2022 07:56-0500 SaO2% (BldA) [Mass fraction] 99 % Dr. Dario Blank Work Phone: 2(422)691-916071 [place] [address] 06-25-2022 15:48-0500 Body height 180.[address] Dario Blank Work Phone: 3(441)604-504828 [address] Work Phone: 06-25-2022 15:48-0500 Body mass index (BMI) [Ratio] 34.2 kg/m2 Dr. Dario Blank Work Phone: 5(656)732-697357 [place] [address] 06-25-2022 15:48-0500 Body weight 111.[address] Dario Blank Work Phone: 7(537)208-740971 [place] [address] 06-25-2022 15:48-0500 Diastolic blood pressure 80 mm[Hg] Dr. Dario Blank Work Phone: 8(401)410-506671 [place] [address] 06-25-2022 15:48-0500 Heart rate 96 /min Dr. Dario Blank Work Phone: [facility] 06-25-2022 15:48-0500 Respiratory rate 18 /min Dr. Dario Blank Work Phone: [facility] 06-25-2022 15:48-0500 SaO2% (BldA) [Mass fraction] 97 % Dr. Dario Blank Work Phone: [facility] 06-25-2022 15:48-0500 Systolic blood pressure 145 mm[Hg] Dr. Dario Blank Work Phone: [facility] 05-01-2022 09:26-0400 Body mass index (BMI) [Ratio] 33.6 kg/m2 Dr. Dario Blank Work Phone: [facility] Work Phone: 05-01-2022 09:26-0400 Body temperature 96.2 [degF] Dr. Dario lBank Work Phone: [facility] Work Phone: 05-01-2022 09:26-0400 Body weight 109.[address] Dario Blank Work Phone: [facility] Work Phone: 05-01-2022 09:26-0400 Diastolic blood pressure 90 mm[Hg] Dr. Dario Blank Work Phone: [facility] Work Phone: 05-01-2022 09:26-0400 Heart rate 64 /min Dr. Dario Blank Work Phone: [facility] Work Phone: 05-01-2022 09:26-0400 Respiratory rate 18 /min Dr. Dario Blank Work Phone: [facility] Work Phone: 05-01-2022 09:26-0400 SaO2% (BldA) [Mass fraction] 94 % Dr. Dario Blank Work Phone: [facility] Work Phone: 05-01-2022 09:26-0400 Systolic blood pressure 137 mm[Hg] Dr. Dario Blank Work Phone: [facility] Work Phone: 12-26-2021 14:06-0400 Body height 180.[address] Dario Blank Work Phone: [facility] Work Phone: 12-26-2021 14:06-0400 Body mass index (BMI) [Ratio] 33.2 kg/m2 Dr. Dario Blank Work Phone: [facility] Work Phone: 12-26-2021 14:06-0400 Body weight 108.[address] Dairo Blank Work Phone: [facility] Work Phone: 12-26-2021 14:06-0400 Diastolic blood pressure 70 mm[Hg] Dr. Dario Blank Work Phone: [facility] Work Phone: 12-26-2021 14:06-0400 Heart rate 60 /min Dr. Dario Blank Work Phone: [facility] Work Phone: 12-26-2021 14:06-0400 Respiratory rate 16 /min Dr. Dario Blank Work Phone: [facility] Work Phone: 12-26-2021 14:06-0400 Systolic blood pressure 116 mm[Hg] Dr. Dario Blank Work Phone: [facility] Work Phone: 11-03-2021 16:26-0400 Body mass index (BMI) [Ratio] 33 kg/m2 Dr. Dario Blank Work Phone: [facility] Work Phone: 11-03-2021 16:26-0400 Body temperature 95.2 [degF] Dr. Dario Blank Work Phone: [facility] Work Phone: 11-03-2021 16:26-0400 Body weight 107.[address] Dario Blank Work Phone: [facility] Work Phone: 11-03-2021 16:26-0400 Diastolic blood pressure 78 mm[Hg] Dr. Dario Blank Work Phone: [facility] Work Phone: 11-03-2021 16:26-0400 Heart rate 50 /min Dr. Dario Blank Work Phone: [facility] Work Phone: 11-03-2021 16:26-0400 Respiratory rate 18 /min Dr. Dario Blank Work Phone: [facility] Work Phone: 11-03-2021 16:26-0400 SaO2% (BldA) [Mass fraction] 97 % Dr. Dario Blank Work Phone: [facility] Work Phone: 11-03-2021 16:26-0400 Systolic blood pressure 120 mm[Hg] Dr. Dario Blank Work Phone: [facility] Work Phone: Encounters Encounter Date Encounter Type Care Provider Facility Start: 01-26-2025 ambulatory SELF SELF Facility:[facility] Start: 01-11-2025 End: 01-11-[address] Yaa Shelton MD -[facility] Work Phone: Start: 01-11-2025 End: 01-11-[address] Yaa Shelton MD Work Phone: [facility] Work Phone: Start: 12-08-2024 End: 12-08-2024 Patient encounter procedure Cassandra LOMBARDO -[facility] Work Phone: Start: 12-08-2024 End: 12-08-2024 ambulatory Cassandra LOMBARDO Facility:[facility] Start: 11-24-2024 End: 11-24-2024 Patient encounter procedure [employer] Lorie Riojas -[facility] Work Phone: Start: 11-24-2024 End: 11-24-2024 ambulatory Lorie Riojas Facility:[facility] Start: 10-13-2024 End: 10-13-2024 Patient encounter procedure Geovanna Rod ENTRY LEVEL MANUFACTURING ENGINEER-C -[facility] Work Phone: Start: 10-13-2024 End: 10-13-2024 ambulatory Geovanna Rod NP Facility:[facility] Start: 10-06-2024 End: 10-06-[address] Tereso Gonzales MD -[facility] Work Phone: Start: 10-06-2024 End: 10-06-2024 ambulatory Tereso Gonzales Facility:[facility] Start: 08-12-2024 End: 08-12-2024 ambulatory Yaajenaro Shelton Facility:[facility] Start: 07-12-2024 End: 07-12-2024 ambulatory Yaa Shelton Facility:[facility] Start: 04-28-2024 ambulatory RODRIGUEZ MEIER Facil ity:[facility] Start: 04-18-2024 ambulatory Lizbeth Dover ENTRY LEVEL MANUFACTURING ENGINEER Facili ty:[facility] Start: 04-14-2024 ambulatory Yaa Shelton Facility :[facility] Start: 04-14-2024 End: 04-14-2024 ambulatory Yaa Shelton Facility:[facility] Start: 03-31-2024 End: 03-31-2024 ambulatory Yaa Shelton [facility] Start: 03-17-2024 End: 03-17-2024 ambulatory Lizbeth Dover NP Facility:[facility] Start: 03-02-2024 End: 03-02-2024 ambulatory Yaa Shelton Facility:[facility] Start: 02-24-2024 End: 02-24-2024 ambulatory Juan Navarro Facility:[facility] Start: 01-25-2024 End: 01-25-2024 Subsequent hospital visit by physician Mady Thomas MD Work Phone: [facility] Comment on above: Paroxysmal atrial fi brillation Start: 01-24-2024 End: 01-24-2024 Subsequent hospital visit by physician Mady Thomas MD Work Phone: [facility] Comment on above: Arrived Start: 09-30-2023 End: 09-30-2023 Subsequent hospital visit by physician Mady Thomas MD Work Phone: [facility] Comment on above: Typical atrial flutt er Start: 09-17-2023 Non-patient / Non-visit Dr. Yaa Shelton Work Phone: [facility] Start: 09-17-2023 End: 09-17-[address] Yaa Shelton Work Phone: [facility] Work Phone: Start: 09-17-2023 End: 09-17-[address] [facility] Start: 09-13-2023 End: 09-13-[address] Yaa Shelton Work Phone: [facility] Work Phone: Start: 07-14-2023 End: 07-14-[address] Yaa Shelton Work Phone: [facility] Work Phone: Start: 06-11-2023 End: 06-11-[address] Yaa Shelton Work Phone: [facility] Work Phone: Start: 05-07-2023 End: 05-07-[address] Yaa Shelton Work Phone: [facility] Work Phone: Start: 05-04-2023 End: 05-04-[address] Yaa Shelton Work Phone: [facility] Work Phone: Start: 05-04-2023 End: 05-04-[address] Yaa Shelton Work Phone: [facility] Work Phone: Start: 05-02-2023 End: 05-02-[address] Yaa Shelton Work Phone: [facility]Laboratory, Specimen Work Phone: Start: 05-01-2023 End: 05-01-2023 Emergency department patient visit Dr. Yaa Shelton Work Phone: [facility]gency Department Work Phone: Start: 05-01-2023 End: 05-01-[address] Yaa Shelton Work Phone: [facility] Work Phone: Start: 03-19-2023 End: 03-19-[address] Yaa Shelton Work Phone: [facility] Work Phone: Start: 03-11-2023 Non-patient / Non-visit MD Yaa CAIN [facility] Start: 03-11-2023 End: 03-11-2023 Admission to same day surgery center MD Yaa CAIN [facility]Special Procedures Work Phone: Start: 03-11-2023 End: 03-11-2023 ambulatory MD Yaa CAIN [facility] Work Phone: Start: 03-10-2023 End: 03-10-2023 Patient encounter procedure MD Yaa CAIN [facility] Work Phone: Start: 02-25-2023 End: 02-25-2023 Patient encounter procedure MD Yaa CAIN [facility] Work Phone: Start: 12-18-2022 End: 12-18-2022 Patient encounter procedure MD Yaa CAIN [facility] [place] Work Phone: Start: 12-11-2022 End: 12-11-2022 Patient encounter procedure MD Yaa CAIN [facility] Work Phone: Start: 10-24-2022 End: 10-24-2022 ambulatory MD Yaa Shelton [facility] Work Phone: Start: 10-24-2022 End: 10-24-2022 Patient encounter procedure MD Yaa Shelton [facility] Start: 10-23-2022 End: 10-23-2022 Patient encounter procedure MD Yaa Shelton [facility] Start: 10-16-2022 Non-patient / [facility] Start: 10-16-2022 End: 10-16-2022 Admission to same day surgery center [facility] Start: 10-16-2022 End: 10-16-2022 ambulatory MD Yaa Sotochner [facility] Work Phone: Start: 10-16-2022 Non-patient / Non-visit MD Yaa Shelton [facility] Start: 09-30-2022 End: 09-30-2022 ambulatory MD Yaa Shelton [facility] Work Phone: Start: 09-30-2022 End: 09-30-2022 Discharged Recurring MD [facility] Start: 09-30-2022 End: 09-30-2022 Patient encounter procedure MD Yaa [facility] Start: 09-05-2022 End: 09-05-2022 Emergency department patient visit MD Yaa Shelton [facility]Emergency [facility] Start: 09-03-2022 End: 09-03-2022 Patient encounter procedure MD Yaa Shelton [facility] Start: 08-27-2022 End: 08-27-2022 ambulatory [facility] Work Phone: Start: 08-27-2022 End: 08-27-2022 Patient encounter procedure MD Yaa Sotochner [facility] Start: 08-26-2022 End: 08-26-2022 ambulatory [facility] Work Phone: Start: 08-26-2022 End: 08-26-2022 Discharged Recurring Yaa [facility] Start: 08-26-2022 Registered Recurring MD Yaa Borrero [facility] Start: 08-24-2022 End: 08-24-2022 ambulatory [facility] Work Phone: Start: 08-24-2022 End: 08-24-2022 Patient encounter procedure [facility] Start: 08-14-2022 End: 08-14-2022 Patient encounter procedure MD Yaa Sotochner [facility] Start: 08-07-2022 End: 08-07-[address] Dario Blank Work Phone: [facility] Start: 08-05-2022 End: 08-05-[address] Dario Blank Work Phone: [facility] Work Phone: Start: 08-05-2022 End: 08-05-[address] Dario Blank Work Phone: [facility] Start: 07-30-2022 End: 07-30-[address] Dario Blank Work Phone: [facility] Work Phone: Start: 07-30-2022 End: 07-30-[address] [facility] Start: 07-24-2022 End: 07-24-[address] Dario Blank Work Phone: [facility] Work Phone: Start: 07-24-2022 End: 07-24-[address] [facility] Start: 06-25-2022 End: 06-25-[address] Dario Blank Work Phone: [facility] Work Phone: Start: 06-25-2022 End: 06-25-[address] Dario Blank Work Phone: [facility] Start: 06-25-2022 End: 06-25-[address] Dario Blank Work Phone: [facility] Start: 05-01-2022 End: 05-01-[address] Dario Blank Work Phone: [facility] Start: 01-30-2022 Non-patient / Non-visit Dr. Dario Blank Work Phone: [facility] Start: 01-30-2022 End: 01-30-[address] [facility] Start: 12-26-2021 End: 12-26-[address] Dario Blank Work Phone: [facility] Start: 11-03-2021 End: 11-03-[address] Dario Blank Work Phone: [facility] Start: 12-06-2018 End: 12-06-2018 Patient encounter procedure CORAZON CURRY CRIS [facility] Start: 12-30-2017 End: 12-30-2017 Ambulatory JOELLEN ADDISON) [facility] Procedures Date Procedure Procedure Detail Performing Clinician Start: 01-25-2024 Glucose measurement, blood Mady Thomas MD Work Phone: Start: 01-25-2024 Ephys evl trnsptl tx atrial fib isolat pulm vein Mady Thomas MD Work Phone: Start: 01-25-2024 Glucose measurement, blood Mady Thomas MD Work Phone: Start: 01-25-2024 ACT* LOW RANGE, POC Irina Thomas MD Work Phone: Start: 01-25-2024 End: 01-25-2024 Glucose measurement, blood Mady Thomas MD Work Phone: Start: 01-25-2024 End: 01-25-2024 ACT* LOW RANGE, POC Mady Thomas MD Work Phone: Start: 01-25-2024 Glucose measurement, blood Mady Thomas MD Work Phone: Start: 01-25-2024 EXTRA LAVENDER TOP Ralp h Iris Thomas MD Work Phone: Start: 01-25-2024 EXTRA MINT GREEN TOP Ra lph Iris Thomas MD Work Phone: Start: 01-25-2024 EXTRA TUBES Mady S Addie white MD Work Phone: Start: 01-25-2024 Prothrombin time Shae Waldrop BLACK [employer] COATING EQUIPMENT TENDER-ACADEMIC VICE PRESIDENT Work Phone: Start: 01-24-2024 Ct heart contrast ev al cardiac structure&morph Mady Thomas MD Work Phone: Start: 09-30-2023 Ephys eval w/ablatio n supravent arrhythmia Mady Thomas MD Work Phone: Start: 09-30-2023 Glucose measurement, blood Mady Thomas MD Work Phone: Start: 09-30-2023 CBC AND ELECTRONIC DIFF Dorys A Mendenhall BLACK OXIDE COATING EQUIPMENT TENDER-ACADEMIC VICE PRESIDENT Work Phone: Start: 09-30-2023 Complete blood count with white cell differential, automated Dorys A Jone [employer] COATING EQUIPMENT TENDER-ACADEMIC VICE PRESIDENT Work Phone: Start: 09-30-2023 Creatinine blood Dorys A Jone [employer]ATING EQUIPMENT TENDER-ACADEMIC VICE PRESIDENT Work Phone: Start: 09-30-2023 Ecg routine ecg w/le ast 12 lds w/i&r Dorys A Mendenhall BL[employer]ATING EQUIPMENT TENDER-ACADEMIC VICE PRESIDENT Work Phone: Start: 05-02-[address] Yaa Shelton Work Phone: Start: 05-01-2023 Bacteria identified in Blood by Culture Dr. Yaa Shelton Work Phone: Start: 05-01-[address] Yaa Shelton Work Phone: Start: 09-05-2022 CT of thorax with contrast MD Yaa Shelton Start: 09-05-2022 Plain chest X-ray MD Sonya Shelton Start: 12-07-2017 History of placement of stent for coronary artery disease S/P coronary artery stent placement Cassandra LOMBARDO Comment on above: Stent to Circumflex 12/07/2017 Viral antigen assay MD Yaa Shelton Plan of Treatment Date Care Activity Detail Author Start: 01-23-2025 Potassium [Moles/volume] in Serum or Plasma POTASSIUM U [facility] Start: 04-26-2024 End: 04-26-2024 Patient encounter procedure 04/26/2024 2:30 PM EDT Office [facility] [address] [place] [id number] Reina Benoit, BLACK [employer] COATING EQUIPMENT TENDER-ACADEMIC VICE PRESIDENT [address] [place] [address] [facility] Start: 04-09-2024 Influenza vaccination INFLUENZA VACCINE (Season Ended) [facility] Start: 03-07-2024 End: 01-24-2025 Cardiac telemetry MOBILE CARDIAC TELEMETRY ECG Routine Typical atrial flutter Expected: 03/07/2024, Expires: 01/24/2025 [facility] Comment on above: Expected: 03/07/2024, Expires: Start: 02-01-2024 End: 02-01-2024 Patient encounter procedure 02/01/2024 12:30 PM EDT Office Visit [facility] [address] [place] [id number] Reina Benoit, BLACK [employer] COATING EQUIPMENT TENDER-ACADEMIC VICE PRESIDENT [address] [place] [id number] [facility] Start: 01-25-2024 End: 01-25-2024 Ephys evl trnsptl tx atrial fib isolat pulm vein ABLATION SCHED INTERCARDIAC A-FIB TRANSEPTAL BY PULM VEIN ISOLATION W/EP EVAL (07596) Paroxysmal atrial fibrillation Atypical atrial flutter 01/25/2024 7:28 AM EDT [facility] Start: 11-25-2023 End: 09-30-2024 Cardiac telemetry MOBILE CARDIAC TELEMETRY ECG Routine Typical atrial flutter Expected: 11/25/2023, Expires: 09/30/2024 [facility] Comment on above: Expected: 11/25/2023, Expires: Start: 05-01-2023 [facility] Start: 05-01-2023 Bacteria identified in Blood by Culture Blood Culture [facility] Start: 05-01-2023 Bacteria identified in Urine by Culture Urine Culture [facility] Start: 05-01-2023 End: 05-01-2023 Blood culture [facility] Start: 04-09-2023 COVID-19 VACCINE ( season) COVID-19 VACCINE ( season) [facility] Start: 04-09-2023 Influenza vaccination INFLUENZA VACCINE (#1) [facility] Start: 03-11-2023 Patient discharge [facility] Start: 09-09-2019 Screening for malignant neoplasm of colon COLORECTAL CANCER SCREENING DISCUSSION [facility] Start: 2013 Prostate specific antigen measurement PROSTATE CANCER SCREENING DISCUSSION [facility] Start: 2013 Zoster vaccine hzv live for subcutaneous use ZOSTER (SHINGLES) VACCINE (1 of 2) [facility] Start: 2003 Lipid panel LIPID SCREENING [facility] Start: 1982 Third diphtheria, tetanus and acellular pertussis (DTaP) vaccination TDAP (ADULT) [facility] Start: 1978 HIV screening HIV SCREENING DISCUSSION [facility] Start: 1965 Hepatitis C screening HEPATITIS C VIRUS SCREENING [facility] Start: 1965 Tetanus vaccination TETANUS [facility] Ambulatory ECG [facility] Work Phone: Blood chemistry [facility] Cardioversion [facility] Cardioversion [facility] Electrophysiology study EP PROCE DURE - EPS/ABLATION/DEVICE Electrophysiology Routine Paroxysmal atrial fibrillation Atypical atrial flutter 01/25/2024 10:05 AM EDT [facility] Patient Education [facility] Work Phone: Patient referral [facility] Work Phone: Polysomnography [facility] Work Phone: Prostate specific an tigen measurement [facility] End: 01-25-2024 Standard ECG ECG ECG STAT One Time for 1 Occurrences starting 01/25/2024 until 01/25/2024 [facility] Comment on above: One Time for 1 Occurrences starting 01/07 until 01/25/2024 Urinalysis complete panel - Urine [facility] Payers Date Payer Category Payer Self-pay [id number] 2023 Private Health Insurance LUPILLO ARANDA [id number] 2023-Present [address] [place] [address] [id number] 2022 Private Health Insurance [id number] 1965 Unknown [id number] 1965 Unknown [id number]. 594 Private Health Insurance [id number] Unknown [id number]. 462 Unknown [id number]. 462 Unknown [id number]. 462 Unknown [id number]. 462 Unknown [id number]. 462 Unknown [id number]. 462 Unknown [id number]. 462 Unknown [id number]. 462 Unknown [id number]. 462 Unknown [id number]. 462 Unknown [id number] [id number]. 462 Unknown [id number]. 462 Unknown [id number]. 462 Unknown [id number] 462 Social History Date Type Detail Facility Start: 12-26-2021 End: 09-13-2023 Tobacco smoking status VAIS Unknown if ever smoked [facility] Start: 12-07-2017 None [facility] Start: 12-07-2017 Alone [facility] Start: 12-09-2017 Cigarettes [facility] Start: 1965 Sex Assigned At Male W [facility] Start: 08-07-2022 End: 01-25-2024 History of Social function [facility] Start: 08-07-2022 End: 01-25-2024 Tobacco use panel [facility] Start: 1965 Sex assigned at Not on file [facility] Start: 11-12-2023 End: 01-25-2024 Tobacco smoking status NHIS Ex-smoker [facility] History of tobacco use Current smoker [facility] History of tobacco use Cigarette Smoker [facility] Start: 01-25-2024 Tobacco use and exposure Smokeless tobacco non-user [facility] Start: 01-25-2024 Alcoholic beverage intake Ex-drinker (finding) [facility] Medical Equipment Procedure Code Equipment Code Equipment Origin al Text Equipment Identifier Dates Pen Needle, Diab etic (Bd Ultra-Fine Elidia Pen Needle) 32 gauge x 5/32 needle Start: 09-13-2023 Pen Needle, Diab etic (Bd Ultra-Fine Elidia Pen Needle) 32 gauge x 5/32 needle Start: 09-13-2023 Mental Status Date Assessment Result Facility 09-05-2022 Cognitive function Level Of Cons ciousness Awake;Alert;Appropriate;Follow s Commands [facility] Work Phone: Clinical Notes 12-07-2017 to 10-06-2024 Note Date & Type Note Facility 10-06-2024 Evaluation note Diagnosis Onset Date Resolution Atherosclerotic heart disease of [place] coronary artery without angina pectoris chronic October 06, 2024 3:52pm Diabetes chronic October 06, 2024 3:52pm Hyperlipidemia chronic September 102024 3:52pm Obesity chronic October 06, 2024 3:52pm ANIYAH (obstructive sleep apnea) acute October 13, 2024 8:47am Obesity chronic October 13 8:47am ANIYAH (obstructive sleep apnea) acute November 24, 2024 2:13pm Obesity chronic November 24 2:13pm Atrial fibrillation acute December 082024 8:26am Cardiomyopathy, ischemic chronic December 08, 2024 8:26am Essential hypertension chronic December 08, 2024 8:26am Hyperlipidemia chronic December 08, 8:26am S/P coronary artery stent placement December 07, 2017 chronic December 08, 2024 8:26am [facility] Work Phone: [phone] 554-182306-18-2024 Nurse Note* Nursing Notes - Ghislaine Gutierrez RN - 01/25/2024 8:23 PM EDT Pt states feels much better since recent void of 100mL. Requests to go home. Discharge instructions and printed AVS reviewed with patient by CHARO King and CHARO Scanlon, all questions answered. Pt verbalizes understanding. IV dc'd with no difficulty and catheter tip intact. Telemetry dc'd. VS stable at time of discharge. Patient being discharged to home by w/c with friend. Nopatient belongings left at bedside. Post procedure recovery without events. Right groin site without bleeding or hematoma, palpable pedal pulses. Ambulates prior to DC without difficulty. [facility] Miscellaneous Notes* Nursing Notes - Ghislaine Gutierrez RN - 01/25/2024 8:23 PM EDT Pt states feels much better since recent void of 100mL. Requests to go home. Discharge instructions and printed AVS reviewed with patient by CHARO King and CHARO Scanlon, all questions answered. Pt verbalizes understanding. IV dc'd with no difficulty and catheter tip intact. Telemetry dc'd. VS stable at time of discharge. Patient being discharged to home by w/c with friend. Nopatient belongings left at bedside. Post procedure recovery without events. Right groin site without bleeding or hematoma, palpable pedal pulses. Ambulates prior to DC without difficulty. * Nursing Notes - Christine Mays RN - 01/25/2024 6:10 AM EDT Pt arrives to room 30 in IPR for Afib Ablation. ECG completed. IV started in left arm. Labs drawn and sent. 0.9 NS IVF initiated @ 10mL/ hr per pump. Pt prep completed. Valuables given to significantother. Clothes secured in room. Questions about procedure answered. Family brought to bedside. Bed in low position, side rail up x2 and call light given to pt. Tele monitor shows aflutter. [facility] Discharge instructions* Discharge Instr - Activity* Bolivar Yousif APRN-ACADEMIC VICE PRESIDENT - 01/25/2024 10:49 AM EDT Post Ablation Activity Your activity is restricted only as indicated by your physician. Please refer to education for ablation and other care recommendations. - No driving for 24 hours - Keep incision dry - Limit bending at the waist for 48 hours - May resume regular activity in 1-2 weeks unless otherwise notified - Return to work in 1 week - No tub baths or hot tub for 2 weeks or until groin site is healed - No lifting greater than 10-15 pounds for 1 week. Rest for 24 hours after you are home. You should have someone with you to help you the first night you are home. DO NOT drive for 24 hours. DO NOT make any important decisions for 24 hours. DO NOT work around the stove, machinery or power equipment for 24 hours. * Discharge Instr - Diet* NEREYDA Cortez - 01/25/2024 10:49 AM EDT Diet: Your doctor has recommended that you follow these diet instructions at home. Refer to the patient education materials you received during your hospital stay. If you would like more nutrition counseling, ask your doctor about making an appointment with an outpatient dietitian. Heart Healthy Diet to promote heart health. Choose healthy fats and oils such as canola or olive oil. Limit high cholesterol foods. Avoid added salt and caffeine in your foods. Controlled Carbohydrate Diet This diet controls carbohydrate intake to help manage and maintain consistent blood glucose levels.Simple sugars are limited and carbohydrate intake is balanced throughout the day. Avoid adding saltto your food and use heart healthy fats such as canola or olive oil. * Discharge Instr - Notify* NEREYDA Cortez - 01/25/2024 10:49 AM EDT Images from the original note were not included. NOTIFY PHYSICIAN BLEEDING/BRUISING -If severe bleeding, apply pressure -Increased bleeding from site -Increased bruising or hematoma Chest pain or shortness of breath Respiratory Changes Call your doctor or nurse if you have shortness of breath that gets worse -Cough that gets worse -Coughing up blood Stroke Symptoms Call 911 if you suddenly have any of these signs of a stroke: -Numbness or muscle weakness -Trouble swallowing -Problems talking -Dizziness or feeling unsteady -Severe headache -Confusion SYMPTOMS OF DVT DVT = Deep Vein Thrombus, or Blood Clot -any tender, swollen, or reddened areas from your groin to your heels. -numbness or tingling in groin or calf -the skin on your leg looks pale or blue or it feels cold to touch -any shortness of breath -chest pain -fever or chills NAUSEA: When you are nauseated, you may feel weak and sweaty and notice a lot of saliva in your mouth. Nausea often leads to vomiting. Most of the time you do not need to worry about nausea and vomiting, butthey can be signs of other illnesses. The doctor has checked you carefully, but problems can develop later. If you notice any problems ornew symptoms, get medical treatment right away. Follow-up care is a kyle part of your treatment and safety. Be sure to make and go to all appointments, and call your doctor if you are having problems. It's also a good idea to know your test resultsand keep a list of the medicines you take. How can you care for yourself at home? To prevent dehydration, drink plenty of fluids, enough so that your urine is light yellow or clear like water. Choose water and other caffeine-free clear liquids until you feel better. If you have kidney, heart, or liver disease and have to limit fluids, talk with your doctor before you increase the amount of fluids you drink. Rest in bed until you feel better. When you are able to eat, try clear soups, mild foods, and liquids until all symptoms are gone for 12 to 48 hours. Other good choices include dry toast, crackers, cooked cereal, and gelatin dessert, such as Jell-O. When should you call for help? Call 911 anytime you think you may need emergency care. For example, call if: You passed out (lost consciousness) Call your doctor now or seek immediate medical care if: You have symptoms of dehydration, such as: Dry eyes and a dry mouth Passing only a little dark urine Feeling thirstier than usual You have new or worsening belly pain You have a new or higher fever You vomit blood or what looks like coffee grounds Watch closely for changes in your health, and be sure to contact your doctor if: You have on going nausea and vomiting Your vomiting gets worse Your vomiting last longer than 2 days You are not getting better as expected Where can you learn more? Go to https://www.[employer].net/osumychart. * Discharge Instr - Wound Care* NEREYDA Cortez - 01/25/2024 10:49 AM EDT Catheter site care You can remove your bandages the day after the procedure. You may shower 24 to 48 hours after the procedure, if your doctor okays it. Pat the incision dry. Do not soak the catheter site until it is healed. Don't take a bath for 1 week, or until your doctor tells you it is okay. Watch for bleeding from the site. A small amount of blood (up to the size of a quarter) on the bandage can be normal. If you are bleeding, lie down and press on the area for 15 minutes to try to make it stop. If the bleeding does not stop, call your doctor or seek immediate medical care. [facility] [place] History and physical note* NEREYDA Cortez - 01/25/2024 6:30 AM EDT Chief Complaint Afib HPI Umair Echols is a 58 y.o. male with a history of typical AFL, s/p cardioversions 10/2022 and 03/2023, DM II, CAD s/p STEMI - PCI to Cx 2017, ANIYAH- wears CPAP, ICM, HTN, HLD. He was evaluated in EP clinic on 06/30/2023 for consultation of AFL management. He reported symptoms of fatigue and dyspnea on exertion at times. He is anticoagulated on Eliquis for stroke risk reduction / [id number] score of 4 (DM, CAD, ICM, HTN). Underwent typical aflutter ablation 09/30/[address] Thomas. Follow up monitor showed left sided Aflutter in November. Recommended Afib ablation. Presents today for this procedure. Denies CP or dyspnea at rest. Has been having DENISE with exertion or bending over since being out of rhythm. Denies LH or syncope. No palpitations. No recent fever/chills or s/s infection. Patient Active Problem List Diagnosis ASHD (arteriosclerotic heart disease) Diabetes mellitus, type II Hammertoes of both feet Obesity (BMI 30.0-34.9) ANIYAH (obstructive sleep apnea) STEMI (ST elevation myocardial infarction) Typical atrial flutter Past Medical History: Diagnosis Date Diabetes mellitus No past surgical history on file. Medications Prior to Admission Medication Sig Dispense Refill Last Dose aspirin 81 MG Chew Tab chewable tablet Chew 1 tablet daily. 01/24/2024 carveDILOL 25 MG tablet Take 1 tablet by mouth 2 times daily with meals. 01/24/2024 cholecalciferol 25 MCG (1000 UNIT) tablet Take 1 tablet by mouth daily. 01/24/2024 Diltiazem 120 MG Cap SR 24HR capsule XL Take 1 capsule by mouth daily. 01/24/2024 Docusate 100 MG capsule Take 1 capsule by mouth daily. 01/24/[address] Particles capsule DR Take 1 capsule by mouth daily. 01/24/2024 Eliquis 5 MG tablet Take 1 tablet by mouth every 12 hours. 01/24/2024 furOSEmide 20 MG tablet Take 1 tablet by mouth daily as needed. Past Week Insulin detemir 100 UNIT/ML vial Inject 36 Units under the skin at bedtime. 01/24/2024 metFORMIN 500 MG tablet Take 1 tablet by mouth 2 times daily with meals. 01/24/2024 Pravastatin 20 MG tablet Take 1 tablet by mouth daily. 01/24/2024 Semaglutide (OZEMPIC, 2 MG/DOSE, SC) Inject 2.5 mg under the skin. Past Month benzonatate 200 MG capsule Take 1 capsule by mouth 3 times daily as needed for Cough. More than a month Dulaglutide (Trulicity) 4.5 MG/0.5ML Solution Pen-injector Inject 4.5 mg under the skin once a week. Unknown Multiple Vitamins-Minerals (PreserVision AREDS 2) capsule Take 1 capsule by mouth 2 times daily. Unknown Allergies Allergen Reactions Atorvastatin Myalgia Lisinopril Cough Losartan Cough Social History Socioeconomic History Marital status: No family history on file. Referring MD: Melanie PCP No primary care provider on file. Lorie Forman MD: Navid Anticoagulation: eliquis Has the patient missed any doses of anticoagulation. no When was the last dose taken. This AM [id number]- Vasc score: 4 ( DM, CAD, ICM, HTN ) Previous antiarrythmic medications: none Reason stopped: n/a Prior Cardiac testing: CT scan 01/24/24 Narrative & Impression [facility] CT Report Name: UMAIR ECHOLS : 1965 Scan Date: 2024-01-24 15:03:34 Electronically signed by Jose Bolivar 15:39:46 VITALS HEIGHT: 72 in (182.88 cm) WEIGHT: 236.00 lbs (107.05 kgs) BSA: 2.29 m^2 BMI: 32 kg/m^2 BP: 99 / 61 mmHg BASELINE HR: 83 BPM HEART RHYTHM: Atrial fibrillation FINAL IMPRESSION CTPV - There is no evidence of LA, RA, or ROMERO thrombus. - There is coronary artery calcification within the limitation of the study. - Normal pulmonary venous anatomy. RLPV with multiple early branches. Results for orders placed in visit on 09/27/23 ECHOCARDIOGRAM (OUTSIDE) (Final) EF 45% Large sized inferior, posterior and lateral wall motion abnormality with hypokinesis of the segments Review of System Constitutional: Negative for fever, weight loss, weight gain and malaise/fatigue. Skin: Negative. HEENT: Negative. Cardiovascular: Negative for leg swelling. Negative for palpitations, chest pain, dyspnea, orthopnea, claudication, edema and PND. Negative for lightheadedness or syncope. Respiratory: Negative for cough. Is not experiencing shortness of breath currently. Gastrointestinal: Negative for abdominal pain, nausea, vomiting, diarrhea, melena, and constipation. Endocrine: Negative for polyuria, polydipsia, heat or cold intolerance. Genitourinary: Negative for frequency or burning with urination. Past history of BPH or difficult catheterization? none Neurological: Negative for dizziness and headaches. Psychiatric: Negative for depression, nervous/anxious and substance abuse. Telemetry/EKG: Aflutter 76 BP 125/84 (BP Location: Right arm, BP Position: Lying) Pulse 79 Temp 98.4 F (36.9 C) (Oral) Resp 16 SpO2 93% There is no height or weight on file to calculate BMI. Physical Exam General appearance - alert, LOC x 3, well appearing, and in no distress Neck - supple, no significant adenopathy, carotids upstroke normal bilaterally without bruits. Chest - lungs clear to auscultation Heart - regularly irregular, S1 and S2 normal, no murmurs, clicks, gallops or rubs, normal bilateral carotid upstroke without bruits, no JVD Abdomen - soft, nontender, nondistended, no masses or organomegaly, bowel sounds present x 4 quadrants. Extremities - peripheral pulses normal, no pedal edema, no clubbing or cyanosis Skin - normal coloration and turgor, no rashes, no suspicious skin lesions noted Lab Results Component Value Date SODIUM 142 01/24/2024 POTASSIUM 4.3 01/24/2024 CHLORIDE 102 01/24/2024 CO2 30 01/24/2024 BUN 21 01/24/2024 CREATSERUM 0.81 01/24/2024 GLUCOSE 159 (H) 01/24/2024 Lab Results Component Value Date WBC 9.88 01/24/2024 HGB 14.0 01/24/2024 HCT 44.1 01/24/2024 PLATELET 247 01/24/2024 MCV 88.0 01/24/2024 INR Date Value Ref Range Status 09/30/2023 1.1 0.9 - 1.1 Final Assessment and Plan Proceed with left sided atrial ablation with general anesthesia NPO since midnight Labs WNL Eliquis this AM ASA 81 mg this AM Associated attestation - Mady Thomas MD - 01/25/2024 7:19 AM EDT Attending Physician Note I have personally interviewed and examined this patient with the ENTRY LEVEL MANUFACTURING ENGINEER on 01/25/2024. I have reviewed the history and examination and edited these in the note above. I agree with the medical decision and components of the note as edited by me. Patient is alert and oriented and VS stable. He presents today for electiva AF/atypical AFL ablation with [place] SCI PFA for PFI and Carto 3 d mapping. The procedure was explained with indication, risks and benefits and she consents to proceed. Mady Thomas MD, [facility], [facility] Niharika Jean-Baptiste Chair in Cardiac Electrophysiology Professor of Clinical Medicine [facility] [place]06-[facility] History and physical note* Bolivar Yousif, [employer]IPMENT TENDER-ACADEMIC VICE PRESIDENT - 01/25/2024 6:30 AM EDT Chief Complaint Afib HPI Umair Echols is a 58 y.o. male with a history of typical AFL, s/p cardioversions 10/2022 and 03/2023, DM II, CAD s/p STEMI - PCI to Cx 2018, ANIYAH- wears CPAP, ICM, HTN, HLD. He was evaluated in EP clinic on 06/30/2023 for consultation of AFL management. He reported symptoms of fatigue and dyspnea on exertion at times. He is anticoagulated on Eliquis for stroke risk reduction / [id number] score of 4 (DM, CAD, ICM, HTN). Underwent typical aflutter ablation 09/30/[address] Thomas. Follow up monitor showed left sided Aflutter in November. Recommended Afib ablation. Presents today for this procedure. Denies CP or dyspnea at rest. Has been having DENISE with exertion or bending over since being out of rhythm. Denies LH or syncope. No palpitations. No recent fever/chills or s/s infection. Patient Active Problem List Diagnosis ASHD (arteriosclerotic heart disease) Diabetes mellitus, type II Hammertoes of both feet Obesity (BMI 30.0-34.9) ANIYAH (obstructive sleep apnea) STEMI (ST elevation myocardial infarction) Typical atrial flutter Past Medical History: Diagnosis Date Diabetes mellitus No past surgical history on file. Medications Prior to Admission Medication Sig Dispense Refill Last Dose aspirin 81 MG Chew Tab chewable tablet Chew 1 tablet daily. 01/24/2024 carveDILOL 25 MG tablet Take 1 tablet by mouth 2 times daily with meals. 01/24/2024 cholecalciferol 25 MCG (1000 UNIT) tablet Take 1 tablet by mouth daily. 01/24/2024 Diltiazem 120 MG Cap SR 24HR capsule XL Take 1 capsule by mouth daily. 01/24/2024 Docusate 100 MG capsule Take 1 capsule by mouth daily. 01/24/[address] Particles capsule DR Take 1 capsule by mouth daily. 01/24/2024 Eliquis 5 MG tablet Take 1 tablet by mouth every 12 hours. 01/24/2024 furOSEmide 20 MG tablet Take 1 tablet by mouth daily as needed. Past Week Insulin detemir 100 UNIT/ML vial Inject 36 Units under the skin at bedtime. 01/24/2024 metFORMIN 500 MG tablet Take 1 tablet by mouth 2 times daily with meals. 01/24/2024 Pravastatin 20 MG tablet Take 1 tablet by mouth daily. 01/24/2024 Semaglutide (OZEMPIC, 2 MG/DOSE, SC) Inject 2.5 mg under the skin. Past Month benzonatate 200 MG capsule Take 1 capsule by mouth 3 times daily as needed for Cough. More than a month Dulaglutide (Trulicity) 4.5 MG/0.5ML Solution Pen-injector Inject 4.5 mg under the skin once a week. Unknown Multiple Vitamins-Minerals (PreserVision AREDS 2) capsule Take 1 capsule by mouth 2 times daily. Unknown Allergies Allergen Reactions Atorvastatin Myalgia Lisinopril Cough Losartan Cough Social History Socioeconomic History Marital status: No family history on file. Referring MD: Melanie PCP No primary care provider on file. Lorie Forman MD: Navid Anticoagulation: eliquis Has the patient missed any doses of anticoagulation. no When was the last dose taken. This AM [id number]- Vasc score: 4 ( DM, CAD, ICM, HTN ) Previous antiarrythmic medications: none Reason stopped: n/a Prior Cardiac testing: CT scan 01/24/24 Narrative & Impression [facility] CT Report Name: UMAIR ECHOLS : 1965 Scan Date: 2024-01-24 15:03:34 Electronically signed by Jose Bolivar 15:39:46 VITALS HEIGHT: 72 in (182.88 cm) WEIGHT: 236.00 lbs (107.05 kgs) BSA: 2.29 m^2 BMI: 32 kg/m^2 BP: 99 / 61 mmHg BASELINE HR: 83 BPM HEART RHYTHM: Atrial fibrillation FINAL IMPRESSION CTPV - There is no evidence of LA, RA, or ROMERO thrombus. - There is coronary artery calcification within the limitation of the study. - Normal pulmonary venous anatomy. RLPV with multiple early branches. Results for orders placed in visit on 09/27/23 ECHOCARDIOGRAM (OUTSIDE) (Final) EF 45% Large sized inferior, posterior and lateral wall motion abnormality with hypokinesis of the segments Review of System Constitutional: Negative for fever, weight loss, weight gain and malaise/fatigue. Skin: Negative. HEENT: Negative. Cardiovascular: Negative for leg swelling. Negative for palpitations, chest pain, dyspnea, orthopnea, claudication, edema and PND. Negative for lightheadedness or syncope. Respiratory: Negative for cough. Is not experiencing shortness of breath currently. Gastrointestinal: Negative for abdominal pain, nausea, vomiting, diarrhea, melena, and constipation. Endocrine: Negative for polyuria, polydipsia, heat or cold intolerance. Genitourinary: Negative for frequency or burning with urination. Past history of BPH or difficult catheterization? none Neurological: Negative for dizziness and headaches. Psychiatric: Negative for depression, nervous/anxious and substance abuse. Telemetry/EKG: Aflutter 76 BP 125/84 (BP Location: Right arm, BP Position: Lying) Pulse 79 Temp 98.4 F (36.9 C) (Oral) Resp 16 SpO2 93% There is no height or weight on file to calculate BMI. Physical Exam General appearance - alert, LOC x 3, well appearing, and in no distress Neck - supple, no significant adenopathy, carotids upstroke normal bilaterally without bruits. Chest - lungs clear to auscultation Heart - regularly irregular, S1 and S2 normal, no murmurs, clicks, gallops or rubs, normal bilateral carotid upstroke without bruits, no JVD Abdomen - soft, nontender, nondistended, no masses or organomegaly, bowel sounds present x 4 quadrants. Extremities - peripheral pulses normal, no pedal edema, no clubbing or cyanosis Skin - normal coloration and turgor, no rashes, no suspicious skin lesions noted Lab Results Component Value Date SODIUM 142 01/24/2024 POTASSIUM 4.3 01/24/2024 CHLORIDE 102 01/24/2024 CO2 30 01/24/2024 BUN 21 01/24/2024 CREATSERUM 0.81 01/24/2024 GLUCOSE 159 (H) 01/24/2024 Lab Results Component Value Date WBC 9.88 01/24/2024 HGB 14.0 01/24/2024 HCT 44.1 01/24/2024 PLATELET 247 01/24/2024 MCV 88.0 01/24/2024 INR Date Value Ref Range Status 09/30/2023 1.1 0.9 - 1.1 Final Assessment and Plan Proceed with left sided atrial ablation with general anesthesia NPO since midnight Labs WNL Eliquis this AM ASA 81 mg this AM Associated attestation - Mady Thomas MD - 01/25/2024 7:19 AM EDT Attending Physician Note I have personally interviewed and examined this patient with the ENTRY LEVEL MANUFACTURING ENGINEER on 01/25/2024. I have reviewed the history and examination and edited these in the note above. I agree with the medical decision and components of the note as edited by me. Patient is alert and oriented and VS stable. He presents today for electiva AF/atypical AFL ablation with [place] Awd[employer] PFA for PFI and Carto 3 d mapping. The procedure was explained with indication, risks and benefits and she consents to proceed. Mady Thomas MD, [facility], [facility] Nael and Jennifer Jean-Baptiste Chair in Cardiac Electrophysiology Professor of Clinical Medicine documented in this encounter[facility] [place] Nurse Note* Nursing Notes - Christine Mays RN - 01/25/2024 6:10 AM EDT Pt arrives to room 30 in IPR for Afib Ablation. ECG completed. IV started in left arm. Labs drawn and sent. 0.9 NS IVF initiated @ 10mL/ hr per pump. Pt prep completed. Valuables given to significantother. Clothes secured in room. Questions about procedure answered. Family brought to bedside. Bed in low position, side rail up x2 and call light given to pt. Tele monitor shows aflutter. [facility] [place] Nurse Note* Nursing Notes - Kai Hill RN - 09/30/2023 1:14 PM EST Discharge instructions and printed AVS reviewed with patient by CHARO Quinn all questions answered. Pt verbalizes understanding. IV dc'd with no difficulty and catheter tip intact. Telemetry dc'd. VS stable at time of discharge. Patient being discharged to home by car with girlfriend. No patient belongings left at bedside. Post procedure recovery without events. R groin site without bleeding or hematoma, palpable +1 pulses. Ambulates prior to DC without difficulty. [facility] [place] Miscellaneous Notes* Nursing Notes - Kai Hill RN - 09/30/2023 1:14 PM EST Discharge instructions and printed AVS reviewed with patient by CHARO Quinn all questions answered. Pt verbalizes understanding. IV dc'd with no difficulty and catheter tip intact. Telemetry dc'd. VS stable at time of discharge. Patient being discharged to home by car with girlfriend. No patient belongings left at bedside. Post procedure recovery without events. R groin site without bleeding or hematoma, palpable +1 pulses. Ambulates prior to DC without difficulty. * Nursing Notes - Kai Hill RN - 09/30/2023 6:41 AM EST Pt arrives to room 2424 in IPR for EPS +/- CVS. ECG completed. IV started in L arm. Labs drawn and sent. 0.9 NS IVF initiated @ 20mL/ hr per pump. Pt prep completed. Valuables given to spouse. Clothes secured in room. Questions about procedure answered. Family brought to bedside. Bed in low position, side rail up x2 and call light given to pt. Tele monitor shows Aflutter. [facility] [place] Hospital Discharge instructions* Discharge Instr - Activity* Shae Waldrop APRN-ACADEMIC VICE PRESIDENT - 09/30/2023 9:37 AM EST Post Ablation Activity Your activity is restricted only as indicated by your physician. Please refer to education for ablation and other care recommendations. - No driving for 24 hours - Keep incision dry - Limit bending at the waist for 48 hours - May resume regular activity in 1-2 weeks unless otherwise notified - Return to work in 1 week - No tub baths or hot tub for 2 weeks or until groin site is healed - No lifting greater than 10-15 pounds for 1 week. Rest for 24 hours after you are home. You should have someone with you to help you the first night you are home. DO NOT drive for 24 hours. DO NOT make any important decisions for 24 hours. DO NOT work around the stove, machinery or power equipment for 24 hours. * Discharge Instr - Diet* NEREYDA Robledo - 09/30/2023 9:37 AM EST Diet: Cardiac 4gm NA Low sodium, low fat, low cholesterol, caffeine controlled. Sodium restricted to 4 grams. * Discharge Instr - Notify* NEREYDA Robledo - 09/30/2023 9:38 AM EST Images from the original note were not included. NOTIFY PHYSICIAN BLEEDING/BRUISING -If severe bleeding, apply pressure -Increased bleeding from site -Increased bruising or hematoma Chest pain or shortness of breath Respiratory Changes Call your doctor or nurse if you have shortness of breath that gets worse -Cough that gets worse -Coughing up blood Stroke Symptoms Call 911 if you suddenly have any of these signs of a stroke: -Numbness or muscle weakness -Trouble swallowing -Problems talking -Dizziness or feeling unsteady -Severe headache -Confusion SYMPTOMS OF DVT DVT = Deep Vein Thrombus, or Blood Clot -any tender, swollen, or reddened areas from your groin to your heels. -numbness or tingling in groin or calf -the skin on your leg looks pale or blue or it feels cold to touch -any shortness of breath -chest pain -fever or chills NAUSEA: When you are nauseated, you may feel weak and sweaty and notice a lot of saliva in your mouth. Nausea often leads to vomiting. Most of the time you do not need to worry about nausea and vomiting, butthey can be signs of other illnesses. The doctor has checked you carefully, but problems can develop later. If you notice any problems ornew symptoms, get medical treatment right away. Follow-up care is a kyle part of your treatment and safety. Be sure to make and go to all appointments, and call your doctor if you are having problems. It's also a good idea to know your test resultsand keep a list of the medicines you take. How can you care for yourself at home? To prevent dehydration, drink plenty of fluids, enough so that your urine is light yellow or clear like water. Choose water and other caffeine-free clear liquids until you feel better. If you have kidney, heart, or liver disease and have to limit fluids, talk with your doctor before you increase the amount of fluids you drink. Rest in bed until you feel better. When you are able to eat, try clear soups, mild foods, and liquids until all symptoms are gone for 12 to 48 hours. Other good choices include dry toast, crackers, cooked cereal, and gelatin dessert, such as Jell-O. When should you call for help? Call 911 anytime you think you may need emergency care. For example, call if: You passed out (lost consciousness) Call your doctor now or seek immediate medical care if: You have symptoms of dehydration, such as: Dry eyes and a dry mouth Passing only a little dark urine Feeling thirstier than usual You have new or worsening belly pain You have a new or higher fever You vomit blood or what looks like coffee grounds Watch closely for changes in your health, and be sure to contact your doctor if: You have on going nausea and vomiting Your vomiting gets worse Your vomiting last longer than 2 days You are not getting better as expected Where can you learn more? Go to https://www.[employer].net/osumychart. * Discharge Instr - Wound Care* NEREYDA Robledo - 09/30/2023 9:38 AM EST Catheter site care You can remove your bandages the day after the procedure. You may shower 24 to 48 hours after the procedure, if your doctor okays it. Pat the incision dry. Do not soak the catheter site until it is healed. Don't take a bath for 1 week, or until your doctor tells you it is okay. Watch for bleeding from the site. A small amount of blood (up to the size of a quarter) on the bandage can be normal. If you are bleeding, lie down and press on the area for 15 minutes to try to make it stop. If the bleeding does not stop, call your doctor or seek immediate medical care. * Attachments The following attachments cannot be sent through Care Everywhere. * Catheter ablation: Post-op (Brazilian) documented in this encounterOSU [facility] [place] Note* Nursing Notes - Kai Hill RN - 09/30/2023 6:41 AM EST Pt arrives to room 2424 in IPR for EPS +/- CVS. ECG completed. IV started in L arm. Labs drawn and sent. 0.9 NS IVF initiated @ 20mL/ hr per pump. Pt prep completed. Valuables given to spouse. Clothes secured in room. Questions about procedure answered. Family brought to bedside. Bed in low position, side rail up x2 and call light given to pt. Tele monitor shows Aflutter. [facility] [place] History and physical note* NEREYDA Robledo - 09/30/2023 6:21 AM EST Images from the original note were not included. Chief Complaint Dyspnea on exertion HPI Umair Echols is a 58 y.o. male with typical AFL, s/p cardioversions 10/2022 and 03/2023, DM II, CAD s/p STEMI - PCI to Cx 2018, ANIYAH- wears CPAP, ICM, HTN, HLD. He was evaluated in EP clinic on 06/30/2023 for consultation of AFL management. He reported symptoms of fatigue and dyspnea on exertion attimes. He is anticoagulated on Eliquis for stroke risk reduction / [id number] score of 4 (DM, CAD,ICM, HTN). He denies missing any doses of Eliquis >4 weeks. He presents today to proceed with AFL ablation. Patient Active Problem List Diagnosis ASHD (arteriosclerotic heart disease) Diabetes mellitus, type II Hammertoes of both feet Obesity (BMI 30.0-34.9) ANIYAH (obstructive sleep apnea) STEMI (ST elevation myocardial infarction) Typical atrial flutter No past medical history on file. No past surgical history on file. Medications Prior to Admission Medication Sig Dispense Refill Last Dose aspirin 81 MG Chew Tab chewable tablet Chew 1 tablet daily. benzonatate 200 MG capsule Take 1 capsule by mouth 3 times daily as needed for Cough. carveDILOL 25 MG tablet Take 1 tablet by mouth 2 times daily with meals. cholecalciferol 25 MCG (1000 UNIT) tablet Take 1 tablet by mouth daily. Diltiazem 120 MG Cap SR 24HR capsule XL Take 1 capsule by mouth daily. Docusate 100 MG capsule Take 1 capsule by mouth daily. Dulaglutide (Trulicity) 4.5 MG/0.5ML Solution Pen-injector Inject 4.5 mg under the skin once a week. DULoxetine [address] Particles capsule DR Take 1 capsule by mouth daily. Eliquis 5 MG tablet Take 1 tablet by mouth every 12 hours. furOSEmide 20 MG tablet Take 1 tablet by mouth daily as needed. Insulin detemir 100 UNIT/ML vial Inject 36 Units under the skin at bedtime. metFORMIN 500 MG tablet Take 1 tablet by mouth 2 times daily with meals. Multiple Vitamins-Minerals (PreserVision AREDS 2) capsule Take 1 capsule by mouth 2 times daily. Pravastatin 20 MG tablet Take 1 tablet by mouth daily. Allergies Allergen Reactions Lisinopril Cough Rosuvastatin Myalgia Social History Socioeconomic History Marital status: No family history on file. PCP No primary care provider on file. EP MD: Navid Anticoagulation: Shadia Has the patient missed any doses of anticoagulation. none When was the last dose taken. 09/29 [id number]- Vasc score: 4 ( DM, CAD, ICM, HTN ) Previous antiarrythmic medications: none Prior Cardiac testing: ECHOCARDIOGRAM (OUTSIDE) (Final) 09/17/2023 Review of System Constitutional: +fatigue, Negative for fever, weight loss, weight gain Skin: Negative. HEENT: Negative. Cardiovascular: +dyspnea on exertion, Negative for leg swelling. Negative for palpitations, chest pain, dyspnea, orthopnea, claudication, edema and PND. Negative for lightheadedness or syncope. Respiratory: Negative for cough. Is not experiencing shortness of breath currently. Gastrointestinal: Negative for abdominal pain, nausea, vomiting, diarrhea, melena, and constipation. Endocrine: Negative for polyuria, polydipsia, heat or cold intolerance. Genitourinary: Negative for frequency or burning with urination. Past history of BPH or difficult catheterization? no. Neurological: Negative for dizziness and headaches. Psychiatric: Negative for depression, nervous/anxious and substance abuse. Telemetry/EKG: [facility] BP (!) 164/98 (BP Location: Right arm, BP Position: Lying) Pulse 92 Temp 98.2 F (36.8 C) (Oral) Resp 16 Ht 1.829 m (6') Wt 108 kg (238 lb) SpO2 95% BMI 32.28 kg/m Body mass index is 32.28 kg/m . Physical Exam General appearance - alert, LOC x 3, well appearing, and in no distress Neck - supple, no significant adenopathy, carotids upstroke normal bilaterally without bruits. Chest - lungs clear to auscultation Heart - regularly irregular, no murmurs, clicks, gallops or rubs, normal bilateral carotid upstrokewithout bruits, no JVD Abdomen - soft, nontender, nondistended, no masses or organomegaly, bowel sounds present x 4 quadrants. Extremities - peripheral pulses normal, no pedal edema, no clubbing or cyanosis Skin - normal coloration and turgor, no rashes, no suspicious skin lesions noted No results found for: SODIUM, POTASSIUM, CHLORIDE, CO2, BUN, CREATSERUM, GLUCOSE No results found for: WBC, WBCCOUNT, WBCFETAL, HGB, HCT, PLATELET, MCV No results found for: INR Assessment and Plan Atrial Flutter Here for CTI RFA Arrived in [facility] NPO since 1999 No missed doses of Eliquis >4 weeks OK to proceed today pending lab results Associated attestation - Mady Thomas MD - 09/30/2023 9:47 AM EST Attending Physician Note I have personally interviewed and examined this patient with the Nurse Practitioner on 09/30/23. I have reviewed the history and examination and edited these in the note above. I agree with the medical decision and components of the note as edited by me. Patient is alert and oriented and VS stable. He remains in persistent AFL--likely atypical. We planEPS/RFA of right sided flutter if good entrainment or DC cardioversion if left atrial flutter. We will reassess the RA flutter circuit and perform RFA if isthmus conduction recurrent. The procedure was explained with indication, risks and benefits and he consents to proceed. Mady Thomas MD, [facility], [facility] Niharika Jean-Baptiste Chair in Cardiac Electrophysiology Professor of Clinical Medicine [facility]02-22-2024 History and physical note* Shae Waldrop, [employer]MENT TENDER-ACADEMIC VICE PRESIDENT - 09/30/2023 6:21 AM EST Images from the original note were not included. Chief Complaint Dyspnea on exertion HPI Umair Echols is a 58 y.o. male with typical AFL, s/p cardioversions 10/2022 and 03/2023, DM II, CAD s/p STEMI - PCI to Cx 2018, ANIYAH- wears CPAP, ICM, HTN, HLD. He was evaluated in EP clinic on 06/30/2023 for consultation of AFL management. He reported symptoms of fatigue and dyspnea on exertion attimes. He is anticoagulated on Eliquis for stroke risk reduction / [id number] score of 4 (DM, CAD,ICM, HTN). He denies missing any doses of Eliquis >4 weeks. He presents today to proceed with AFL ablation. Patient Active Problem List Diagnosis ASHD (arteriosclerotic heart disease) Diabetes mellitus, type II Hammertoes of both feet Obesity (BMI 30.0-34.9) ANIYAH (obstructive sleep apnea) STEMI (ST elevation myocardial infarction) Typical atrial flutter No past medical history on file. No past surgical history on file. Medications Prior to Admission Medication Sig Dispense Refill Last Dose aspirin 81 MG Chew Tab chewable tablet Chew 1 tablet daily. benzonatate 200 MG capsule Take 1 capsule by mouth 3 times daily as needed for Cough. carveDILOL 25 MG tablet Take 1 tablet by mouth 2 times daily with meals. cholecalciferol 25 MCG (1000 UNIT) tablet Take 1 tablet by mouth daily. Diltiazem 120 MG Cap SR 24HR capsule XL Take 1 capsule by mouth daily. Docusate 100 MG capsule Take 1 capsule by mouth daily. Dulaglutide (Trulicity) 4.5 MG/0.5ML Solution Pen-injector Inject 4.5 mg under the skin once a week. DULoxetine [address] Particles capsule DR Take 1 capsule by mouth daily. Eliquis 5 MG tablet Take 1 tablet by mouth every 12 hours. furOSEmide 20 MG tablet Take 1 tablet by mouth daily as needed. Insulin detemir 100 UNIT/ML vial Inject 36 Units under the skin at bedtime. metFORMIN 500 MG tablet Take 1 tablet by mouth 2 times daily with meals. Multiple Vitamins-Minerals (PreserVision AREDS 2) capsule Take 1 capsule by mouth 2 times daily. Pravastatin 20 MG tablet Take 1 tablet by mouth daily. Allergies Allergen Reactions Lisinopril Cough Rosuvastatin Myalgia Social History Socioeconomic History Marital status: No family history on file. PCP No primary care provider on file. EP MD: Navid Anticoagulation: Eliquis Has the patient missed any doses of anticoagulation. none When was the last dose taken. 09/29 [id number]- Vasc score: 4 ( DM, CAD, ICM, HTN ) Previous antiarrythmic medications: none Prior Cardiac testing: ECHOCARDIOGRAM (OUTSIDE) (Final) 09/17/2023 Review of System Constitutional: +fatigue, Negative for fever, weight loss, weight gain Skin: Negative. HEENT: Negative. Cardiovascular: +dyspnea on exertion, Negative for leg swelling. Negative for palpitations, chest pain, dyspnea, orthopnea, claudication, edema and PND. Negative for lightheadedness or syncope. Respiratory: Negative for cough. Is not experiencing shortness of breath currently. Gastrointestinal: Negative for abdominal pain, nausea, vomiting, diarrhea, melena, and constipation. Endocrine: Negative for polyuria, polydipsia, heat or cold intolerance. Genitourinary: Negative for frequency or burning with urination. Past history of BPH or difficult catheterization? no. Neurological: Negative for dizziness and headaches. Psychiatric: Negative for depression, nervous/anxious and substance abuse. Telemetry/EKG: AFL BP (!) 164/98 (BP Location: Right arm, BP Position: Lying) Pulse 92 Temp 98.2 F (36.8 C) (Oral) Resp 16 Ht 1.829 m (6') Wt 108 kg (238 lb) SpO2 95% BMI 32.28 kg/m Body mass index is 32.28 kg/m . Physical Exam General appearance - alert, LOC x 3, well appearing, and in no distress Neck - supple, no significant adenopathy, carotids upstroke normal bilaterally without bruits. Chest - lungs clear to auscultation Heart - regularly irregular, no murmurs, clicks, gallops or rubs, normal bilateral carotid upstrokewithout bruits, no JVD Abdomen - soft, nontender, nondistended, no masses or organomegaly, bowel sounds present x 4 quadrants. Extremities - peripheral pulses normal, no pedal edema, no clubbing or cyanosis Skin - normal coloration and turgor, no rashes, no suspicious skin lesions noted No results found for: SODIUM, POTASSIUM, CHLORIDE, CO2, BUN, CREATSERUM, GLUCOSE No results found for: WBC, WBCCOUNT, WBCFETAL, HGB, HCT, PLATELET, MCV No results found for: INR Assessment and Plan Atrial Flutter Here for CTI RFA Arrived in AFL NPO since 1999 No missed doses of Eliquis >4 weeks OK to proceed today pending lab results Associated attestation - Mady Thomas MD - 09/30/2023 9:47 AM EST Attending Physician Note I have personally interviewed and examined this patient with the Nurse Practitioner on 09/30/23. I have reviewed the history and examination and edited these in the note above. I agree with the medical decision and components of the note as edited by me. Patient is alert and oriented and VS stable. He remains in persistent AFL--likely atypical. We planEPS/RFA of right sided flutter if good entrainment or DC cardioversion if left atrial flutter. We will reassess the RA flutter circuit and perform RFA if isthmus conduction recurrent. The procedure was explained with indication, risks and benefits and he consents to proceed. Mady Thomas MD, [facility], [place] Niharika Jean-Baptiste Chair in Cardiac Electrophysiology Professor of Clinical Medicine documented [facility] [place] Procedure note [facility]08-03-2023 Procedure [facility] 10-16-2022 Procedure [facility]03-10-2023 History and physical note Author Dr. Grubbs [facility] October 16, 2022 12:30pm Note Date/Time October 16, 2022 8:5 5am [facility] Medical Records Department [address] [place] [address] History & Physical Exam 10/16/22 0852 MR#: [id number] Acct: [id number] Name: UMAIR ECHOLS Rep #:[id number] : 1965 57 From: Uriel Grubbs MD PCP: Yaa Shelton MD Status:REG [facility] Location: [facility] History and Physical Date of Admission: 10/16/22 [facility] [address] [place] [address] OFFICE VISIT Date of Service:? 09/30/22 MR#: [id number] Acct: [id number] Name:UMAIR MELO Rep #: [id number] : 1965 ?Provider: ?GRUPO Snyder Age/Sex:? 57/M Location: [facility] Status: Signed HPI HPI History of Present Illness Details: UMAIR ECHOLS, is a 57 year old white male who presents to the office today for a cardiovascular follow-up visit.? In December 2017 he was admitted to [facility] for acute inferior lateral wall myocardial infarction.? He underwent thrombectomy with angioplasty and stenting of his circumflex.? His LADand RCA had minimal nonobstructive disease.? Ejection fraction was noted to be 40 to 45%.? He does have a history of coronary artery disease post STEMI post PCI, ischemic cardiomyopathy, hypertension, hyperlipidemia and diabetes.? In June 2022 he was noted to be in atrial fibrillation.? He was started on anticoagulation.? However he could not help afford his Eliquis.? He has since been switched to warfarin and we are trying to have 30 days of therapeutic INRs.? He tells me that he is concerned about his heart rate where he tells me at home they have consistently been between 101 130.? He is also just getting over pneumonia.? Patient states that he does note that he is short of breath when he bends over.? He might have a little bit more shortness of breath with exertion.? He does not have any chest discomfort.? He does not have any lower extremity edema.? He does not have any lightheadedness or dizziness. Intake Vital Signs ? 09/05/2313:24 09/30/2313:59 Height 6 ft 6 ft Weight: ? 243 lb BMI ? 32.9 BP ? 132/106 H Blood Pressure Location ? Lt brachial Position ? Sitting Respiration ? 18 Pulse ? 128 H Pulse Source ? Monitor Intake Visit Reasons:?ER for atrial flutter, pneumonia Yoav De La [employer] Business Solutions Architect Required: No Is patient in pain?: No Allergies losartan Adverse Reaction (Intermediate, Verified 09/30/22 14:57) myalgiaslisinopril Adverse Reaction (Verified 09/30/22 14:57) cough Medications docusate sodium 100 mg capsule 100 mg PO DAILY stool softener 07/15/20 [History Confirmed 09/30/22] furosemide 20 mg tablet 20 mg PO QDAY PRN edema 06/25/22 [History Confirmed 09/30/22] insulin detemir U-100 100 unit/mL (3 mL) subcutaneous pen 28 unit subcut QHS diabetes 06/25/22 [History Confirmed 09/30/22] vitamins A,C,T-dnvp-jfstud 4,296 mcg-226 mg-90 mg capsule (ICaps AREDS) 1 cap POBID supplement 06/25/22 [History Confirmed 09/30/22] carvedilol 25 mg tablet 25 mg PO BID blood pressure/heart rate 08/11/22 [History Confirmed 09/30/22] benzonatate 200 mg capsule 200 mg PO TID PRN cough #20 caps 09/03/22 [Rx Confirmed 09/30/22] aspirin 81 mg tablet,delayed release 81 mg PO DAILY@0800 heart health 09/05/22 [History Confirmed 09/30/22] dulaglutide 3 mg/0.5 mL subcutaneous pen injector (Trulicity) 3 mg subcut QWEEK diabetes 09/05/22 [History Confirmed 09/30/22] metformin 500 mg 24 hr tablet,extended release 500 mg PO BID diabetes 09/05/22 [History Confirmed 09/30/22] rosuvastatin 10 mg tablet 10 mg PO DAILY cholesterol 09/05/22 [History Confirmed 09/30/22] valsartan 40 mg tablet 40 mg PO DAILY blood pressure 09/05/22 [History Confirmed 09/30/22] warfarin 4 mg tablet 2 - 4 mg PO DAILY blood thinner 09/05/22 [History Confirmed 09/30/22] duloxetine 30 mg capsule,delayed release 30 mg PO DAILY depression #90 caps 09/17/22 [Rx Confirmed 09/30/22] apixaban 5 mg tablet (Eliquis) 5 mg PO BID #60 tabs 09/30/22 [Rx Confirmed 09/30/22] diltiazem HCl 120 mg capsule,24 hr,extended release 120 mg PO DAILY #30 caps 09/30/22 [Rx Confirmed 09/30/22] PFSH Medical History? Atherosclerotic heart disease of [place] coronary artery without angina pectoris Cardiomyopathy, ischemic Contact with and (suspected) exposure to other viral communicable diseases Diabetes Essential hypertension History of non-ST elevation myocardial infarction (NSTEMI) (12/07/17) Hyperlipidemia Nicotine use disorder Obesity Paresthesia URI (upper respiratory infection) Surgical History? History of hernia repair S/P coronary artery stent placement (12/07/17) Family History? Mother?? Heart disease Breast cancerFather?? CVA (cerebral vascular accident) Myocardial infarction Social History? Smoking Status:? Former smoker Tobacco: How many years used:? 5 alcohol intake:? never substance use type:? does not use caffeine:? No what type of physical activity do you participate in:? none seatbelt use:? sometimes do you feel safe at home:? Yes ROS Const Const: Negative for fatigue, weakness, body ache, fever(s) or chills ENT ENT: Negative for dizziness or Nosebleed/epistaxis Cardio Chest Pain: No Palpitations: No Edema: None Muscle aches with walking: None Resp Respiratory: Positive for SOB with activity (bending forward); Negative for SOB at rest, SOB orthopnea\SOB lying down, Cough or paroxysmal nocturnal dyspnea GI GI: Negative nausea, vomiting blood/hematemesis, bright, red blood in stools or black,tarry stools : Negative for hematuria or frequent nighttime urination/ nocturia Musc Musc: Negative for muscle aches/ myalgia Skin Skin: Negative non-healing lesions or rash Neuro Neuro: Negative for dizziness, lightheadedness, near syncope, syncope, orthostatic symptoms or weakness Endo Endo: Negative for fatigue Allergy Allergy/Immunology: Negative for rash Cardiology Exam Const Appearance: cooperative, healthy appearing, comfortable, no acute distress and well developed Orientation: alert, awake and oriented x3 Head Head: normal to inspection Ears: hearing grossly normal bilaterally Nose: external nose normal Face and Sinus: face symmetric Mouth: oral mucosae normal, lip normal and moist mucous membranes Eyes General: appearance normal, both eyes and all related structures Eyelids: eyelids normal Conjunctivae: conjunctivae normal Pupils: PERRL EOM: EOM intact bilaterally Neck Neck: normal visual inspection and trachea midline; Negative no JVD Carotids: Negative bruit Chest Chest inspection: normal inspection of the chest Auscultation: Bilateral: Clear to Auscultation Cardio Palpation: normal PMI Rate: tachycardic Rhythm: irregularly irregular Heart sounds: S1 normal and S2 normal; Negative rub, gallop or murmur GI GI: soft, no hepatosplenomegaly and bowel sounds present Neuro General: patient alert, patient awake, patient oriented x3 and CN's II-XI intactbilaterally Extremities Pulses: Normal: Right Posterior Tibial Pulse, Left Posterior Tibial Pulse, RightRadial Pulse and Left Radial Pulse Lower Extremity Edema: None: Bilateral Psych Psychological: normal affect Supplemental Info Supplemental Information Echocardiogram 01/30/2022: Interpretation Summary The study was technically difficult. Contrast injection was performed. ? Mild segmental systolic dysfunction (see wall motion). The estimated ejection fraction is 45 %. The left atrium is mildly enlarged. Trivial mitral valve insufficiency. Trivial tricuspid valve insufficiency. Unable to estimate RV systolic pressure/pulmonary artery pressure due to technically difficult study. No evidence for diastolic dysfunction. Transthoracic echocardiogram: 01-31-2021 Interpretation Summary The study was technically difficult. Contrast injection was performed. ? Mild segmental systolic dysfunction (see wall motion). The estimated ejection fraction is 40 %. The left atrium is mildly enlarged. Mild (1+) mitral valve insufficiency. Trivial tricuspid valve insufficiency. Unable to estimate RV systolic pressure/pulmonary artery pressure due to technically difficult study. No evidence for diastolic dysfunction. Heart catheterization from 12/07/2017: CONCLUSIONS Single vessel CAD of the LCX Non obstructive coronary arteries Segmented LV systolic dysfunction- Moderate Successful PCI with Drug eluting stent and PTCA to the with thrombectomy assistance utilizing a 3.0 x 16 Promus Synergy, post dilated to 3.5 and 4.0 proximally; unable to cannulate OM branch despite multiple attempts with multiple wires due to acute angle of OM takeoff. RECOMMENDATIONS Referred for immediate PCI Highly recommend quitting all tobacco products Follow up with primary poultry farm supervisor Risk factor modification ASA Indefinitley Brilinta for life. Routine post interventional care Refer for Outpatient Cardiac Rehab Manual sheath removal per protocol Follow up with Dr. Mansfield Medical managment of OM ostial lesion. CORONARY ANGIOGRAPHY DOMINANCE:? Left Dominant LEFT HEART ASSESSMENT Left Ventricular Ejection Fraction: by LV Gram 45-50 % Depressed Left Ventricular systolic function Inferior Mid Hypokinesis - Moderate LEFT MAIN: Angiographically normal LEFT ANTERIOR DESCENDING ARTERY: MID LAD: Mild luminal irregularities less than 30% CIRCUMFLEX ARTERY: is occluded RIGHT CORONARY ARTERY: Mild luminal irregularities less than 30% Stress echocardiogram from 11/29/2018: Interpretation Summary The estimated ejection fraction is 45 %. Normal, adequate, dobutamine echocardiogram. The patient at baseline inferior lateral hypokinesis, which appeared to augment well at peak infusion. All other ordoñez contract normally. No anginal symptoms noted. Rare PVC noted. Appropriate blood pressure response to dobutamine. Test terminated due to attainment of target heart rate. Final LVEF of 65%. Holter monitor from 07/30/2022: Minimum heart rate 68 bpm. Average heart rate 109 bpm. Maximal heart 152 bpm. Ventricular ectopy 3.4%. Supraventricular ectopy 0.0%. Longest R to R interval 1.0 seconds. Atrial fibrillation at 96.6%. 1 ventricular run at 4 beats. The patient kept a diary with no symptoms noted. Labs: ?? ? No Data to Display Diagnostics: ?? ? Electrocardiogram ? Chest X-Ray ? Pulmonary: ?? ? No Data to Display Assessment and Plan Assessment and Plan (1) Atrial fibrillation: ?Status:?Acute ?Plan: This has been persistent.? Unfortunately his INRs have not been therapeutic.? Wewill see if he can obtain Eliquis through a co-pay card.? He will call us back with an update.? After his INRs have been therapeutic or if he has been able to switch to Eliquis he has been on them for 3 weeks we will then proceed with a cardioversion.? In the meantime he will continue with his current dose of metoprolol.? I am adding diltiazem to help with his heart rate. (2) S/P coronary artery stent placement: ?Status:?Chronic ?Comment: Stent to Circumflex 12/07/2017 ?Plan: Patient has a history of coronary artery disease with stent placement in 2018 tohis circumflex. He appears stable at this time, and denies any recent symptoms or events. He will continue with his current medical therapy, along with aggressive risk factor and lifestyle modifications. (3) Cardiomyopathy, ischemic: ?Status:?Chronic ?Comment: EF 40% ?Plan: Ischemic cardiomyopathy: Echocardiogram 01/30/2022-EF: 45% Twelve-lead EC08/14/2022-atrial fibrillation at rate of 88 bpm and QRS 106 [place] [employer] Functional Class: 1 ACC/AHA stage: C Guideline Directed Medical Therapy: Carvedilol 25 mg p.o. twice daily Valsartan 40 mg p.o. daily Lasix 20 mg p.o. as needed Patient currently does not have any symptoms of acute congestive heart failure.?Will not make any changes. (4) Hyperlipidemia: ?Status:?Chronic ?Qualifiers: ?Hyperlipidemia type:?pure hypercholesterolemia? Qualified Code(s):?E78.00 - Pure hypercholesterolemia, unspecified; E78.0 - Pure hypercholesterolemia ?Plan: Patient has a history of hyperlipidemia. His most recent lipid panel from 05/01/2022: cholesterol 111, HDL 41, LDL 46, triglycerides 118. He will continue rosuvastatin 10mg daily, along with aggressive risk factor and lifestyle modifications. (5) Essential hypertension: ?Status:?Chronic ?Plan: Blood pressure is slightly elevated, would like to add diltiazem.? Feel that this will also help with his heart rate.? Will reevaluate after cardioversion. (6) DENISE (dyspnea on exertion): ?Status:?Acute (7) ANIYAH (obstructive sleep apnea): ?Status:?Acute ?Comment: AHI noted to be 31.3 start trial of CPAP 5 cm of water ?Plan: Patient does continue with his CPAP. ? ? ? Orders: Orders 12 Lead EKG performed by [facility] 09/30/22 I48.91 - Unspeci fied atrial fibrillation ? Medications: New apixaban (Eliquis) 5 mg? PO BID 60 tabs 11RF ? ? diltiazem HCl ER 120 mg? PO DAILY 30 caps 3RF ? ? Plan Details Additional Comments: Thank you for allowing us to participate in the patients plan of care, if you have any questions please do not hesitate to call. This note was generated using a voice recognition system and there may be incorrect words, spelling or punctuation that were not noted when reviewing the office note prior to saving. Portions of this documentation were copied and pasted from previous office visitnotes to provide a cohesive continuity of the history. The note has been reviewed, edited, and updated, as necessary. Coding Level of Care Code Off vis,est,level 4 Diagnoses Atrial fibrillation? I48.91 S/P coronary artery stent placement? Z95.5 Cardiomyopathy, ischemic? I25.5 Hyperlipidemia? E78.00; E78.0 ? ? ? Hyperlipidemia type: pure hypercholesterolemia Essential hypertension? I10 DENISE (dyspnea on exertion)? R06.09 ANIYAH (obstructive sleep apnea)? G47.33 Coding Level of Care Code Off vis,est,level 4 Diagnoses Atrial fibrillation? I48.91 S/P coronary artery stent placement? Z95.5 Cardiomyopathy, ischemic? I25.5 Hyperlipidemia? E78.00; E78.0 ? ? ? Hyperlipidemia type: pure hypercholesterolemia Essential hypertension? I10 DENISE (dyspnea on exertion)? R06.09 ANIYAH (obstructive sleep apnea)? G47.33 10/01/22 1353 <Electronically signed by Cassandra LOMBARDO> Date Cassandra LOMBARDO Cosigner Signature: Date (if applicable) CC:? Yaa Shelton MD ~ Assessment & Plan Addt'l Comments Addendum: 10/16/2022 I have examined the patient the following changes are noted: The patient is reported as having appropriate anticoagulation therapy between his various anticoagulants for an appropriate period of time to proceed with synchronized biphasic DC cardioversion. The patient's case was discussed and reviewed with him. The procedure and risk were discussed and reviewed with him. He was agreeable to this approach. This note was generated using a voice recognition system and there may be incorrect words, spelling or punctuation that were not noted when reviewing the office note prior to saving. 10/16/22 1230 <Electronically signed by Uriel Grubbs MD> Cosigner Signature (if applicable): CC: Dr. Uriel Grubbs MD; Yaa Shelton MD~ Signed [facility] Work Phone: [phone]) 423-675001-28-[address] Doyle [facility] September 05, 2022 5:15pm Note Date/Time September 05, 2022 2 :45pm [facility] Medical Records Department [address] [place] [id number] Emergency Department Summary 09/05/22 MR#: [id number] Acct: [id number] Name: UMAIR ECHOLS Rep #:[id number] : 1965 57 From: Maynor Doyle MD PCP: Yaa Shelton MD Status:REG ER Location: ED HPI History of Present Illness Chief Complaint: Syncope Informant: patient Onset/Context/Timing Onset: Today (JPTA) Context: Gradual Onset Timing: - (once; less than 1 min) Quality: near-syncope Current Severity: Gone Maximum Severity: Moderate Worsened by: standing up Relieved by: rest Narrative Narrative: Patient has had and cough productive of yellow and green sputum for the past 4 days. He went to urgent care near the onset and tested negative for COVID and influenza. They told him to drink plenty of fluids. He has a history of atrialflutter, he is anticoagulated on warfarin, he is on carvedilol without any recent medication changes, and has plans to follow-up with cardiology in order to attempt cardioversion when his INR has been therapeutic for 3 weeks. Today, he was sitting in his recliner with his home pulse oximeter on his finger, he was watching his oxygen levels and his heart rate both drop whenever he would becoughing. When his oxygen levels will drop down to 87%, he then would feel himself gasp for air transiently. Just after 1 of these episodes, he stood up, felt lightheaded, was near syncopal, his significant other was there to help himdown to the ground, he states he remembers hearing her the whole time and did not lose consciousness completely and within less than 1 minute he was feeling better and back to normal while lying on the floor. It is for this reason he presents to the ER. He had no other prodromal symptoms such as chest pain, headache, focal neurologic symptoms, or acute dyspnea. He has had no leg pain or swelling recently. He states he has had paroxysmal nocturnal dyspnea in the past 4 days since he has been ill never had that before. [facility] Medical History Atherosclerotic heart disease of [place] coronary artery without angina pectoris Cardiomyopathy, ischemic Contact with and (suspected) exposure to other viral communicable diseases Diabetes Essential hypertension History of non-ST elevation myocardial infarction (NSTEMI) (12/07/17) Hyperlipidemia Nicotine use disorder Obesity Paresthesia URI (upper respiratory infection) Home Medications docusate sodium 100 mg capsule 100 mg PO DAILY stool softener 07/15/20 [History Last Taken Unknown] furosemide 20 mg tablet 20 mg PO QDAY PRN edema 06/25/22 [History Last Taken Unknown] insulin detemir U-100 100 unit/mL (3 mL) subcutaneous pen 28 unit subcut [facility] diabetes 06/25/22 [History Last Taken Unknown] vitamins A,C,F-mlvz-pyolbc 4,296 mcg-226 mg-90 mg capsule (ICaps AREDS) 1 cap POBID supplement 06/25/22 [History Last Taken Unknown] carvedilol 25 mg tablet 25 mg PO BID blood pressure/heart rate 08/11/22 [History Last Taken Unknown] benzonatate 200 mg capsule 200 mg PO TID PRN cough #20 caps 09/03/22 [Rx Last Taken Unknown] amoxicillin 875 mg-potassium clavulanate 125 mg tablet 875 mg PO Q12H #20 TABLETS 09/05/22 [Rx Last Taken Unknown] aspirin 81 mg tablet,delayed release 81 mg PO DAILY@0800 heart health 09/05/22 [History Last Taken Unknown] dulaglutide 3 mg/0.5 mL subcutaneous pen injector (Trulicity) 3 mg subcut QWEEK diabetes 09/05/22 [History Last Taken Unknown] duloxetine 30 mg capsule,delayed release 30 mg PO DAILY depression 09/05/22 [History Last Taken Unknown] metformin 500 mg 24 hr tablet,extended release 500 mg PO BID diabetes 09/05/22 [History Last Taken Unknown] rosuvastatin 10 mg tablet 10 mg PO DAILY cholesterol 09/05/22 [History Last Taken Unknown] valsartan 40 mg tablet 40 mg PO DAILY blood pressure 09/05/22 [History Last Taken Unknown] warfarin 4 mg tablet 2 - 4 mg PO DAILY blood thinner 09/05/22 [History Last Taken Unknown] Allergy/AdvReac Type Severity Reaction Status Date / Time losartan AdvReac Intermediate myalgias Verified 09/05/22 14:23 lisinopril AdvReac cough Verified 09/05/22 14:23 Family History Mother Heart disease Breast cancer Father CVA (cerebral vascular accident) Myocardial infarction Surgical History History of hernia repair S/P coronary artery stent placement (12/07/17) Social History Smoking Status: Former smoker Tobacco: How many years used: 5 alcohol intake: never substance use type: does not use caffeine: No what type of physical activity do you participate in: none seatbelt use: sometimes do you feel safe at home: Yes ROS ROS ED Constitutional Constitutional ED: Denies chills or fever(s) Eyes Eyes: Denies change in vision or diplopia ENT ENT ED: Reports rhinorrhea; Denies ear pain or sore throat Cardiovascular Cardiovascular: Reports as per HPI, lightheadedness and paroxysmal nocturnal dyspnea; Denies chest pain, orthopnea or palpitations Respiratory/Chest Respiratory/Chest: Reports cough, dyspnea, paroxysmal nocturnal dyspnea and sputum; Denies orthopnea Gastrointestinal Gastrointestinal: Denies abdominal pain, diarrhea, nausea or vomiting Genitourinary Genitourinary ED: Denies dysuria or hematuria Musculoskeletal Musculoskeletal: Denies back pain or neck pain Integumentary Denies abscess or rash Neurologic Neurologic: Denies headache(s), paresthesias or weakness Psychiatric Psychiatric: Denies anxiety or suicidal thoughts EXAM Physical Exam Const Vital Signs: 09/05/22 14:24 09/05/22 14:26 09/05/22 15:02 Temperature 98.0 F Temperature Source Oral Pulse Rate 84 84 Respiratory Rate 16 20 H Respiratory Effort Normal Non-Labored Respiratory Pattern Normal Blood Pressure 123/87 H 91/68 Blood Pressure Mean 99 75 Pulse Ox 95 94 Oxygen Delivery Method Room Air Room Air 09/05/22 16:00 Temperature Temperature Source Pulse Rate 87 Respiratory Rate 21 H Respiratory Effort Respiratory Pattern Blood Pressure 141/98 H Blood Pressure Mean 112 Pulse Ox 94 Oxygen Delivery Method Room Air Positive well nourished and well developed General Appearance ED: well developed and NAD HEENT Reports moist mucous membranes normocephalic and atraumatic Eyes PERRL and EOMs intact bilaterally Neck full ROM and supple Resp normal respiratory effort and clear to auscultation bilaterally Cardio no murmurs Rate: Negative for bradycardia or tachycardic Rhythm: abnormal rhythm irregularly irregular GI non-tender and non-distended Auscultation: normoactive bowel sounds Palpation: soft Back/Spine no CVA tenderness General Back: other FROM Extremity normal to inspection, full ROM and no calf tenderness General Extremety ED: Negative for edema, pulses abnormal or tenderness General Extremity: Negative for edema or pulses abnormal Neuro oriented x3, CN's II-XII intact bilaterally and no sensory deficits noted Sensorium / Orientation: awake and alert Motor Exam: strength 5/5 throughout Skin no rashes or lesions noted and no wounds MDM MDM MDM Narrative Medical decision making narrative: I reviewed the outside cardiology clinic note from his recent visit this month, several weeks ago. His current EKG shows atrial flutter, patient states he was diagnosed with that in the office. He has no acute ischemic abnormalities rightnow. I also reviewed his last echocardiogram from January last year that showed anejection fraction of 45% a mildly enlarged left atrium. Patient states that his heart rate was going down into the 40s at times while hewas watching his pulse ox. My suspicion is if he was mildly hypoxic and mildly bradycardic, then suddenly stood up from his chair, he had limited blood flow tothe brain and had a near syncopal episode as a result of this. He had no other dangerous prodromal symptoms just lightheadedness. His heart rate is in the 80snow. He is on a relatively high dose of carvedilol, twice daily. 25 mg. He states that was recently increased from half that because he was tachycardic in the office. I discussed with Dr. Hoskins, he agrees with decreasing the dose and having the patient follow-up. I would recommend that he decrease to 12.5 mg twice daily, and if he becomes too tachycardic to go back up, taking care not tostand up too quickly especially if he is relatively bradycardic. I think that is why he had a near syncopal episode today, patient is in agreement with all ofthat. With regards to his two-view chest x-ray, my interpretation it does show some decreased airspace in the right base, radiology recommended a CT to further evaluate why his right hemidiaphragm is elevated acutely. I reviewed the CT images, appears to show an infiltrate in the right base which is probably causing this appearance. My interpretation of the CT disagrees with that of theradiologist. Therefore I spoke with the radiologist Dr. Rutherford regarding this,he reviewed the images and states that this appears to represent a noninfectiouscompressive atelectasis in the right lower lobe. Since the patient has cough, dyspnea, transient hypoxemia, and a mild leukocytosis, we will treat the patientempirically for pneumonia with antibiotics as an outpatient after an initial dose of Rocephin here; he is not hypoxic here or bradycardic, he has been between 70-95 throughout his stay and feeling fine at rest. He is comfortable treating as an outpatient as well. Close outpatient follow-up advised. Lab Data Attestation: I reviewed the patient's lab results. Labs: Laboratory Results - last 24 hr 09/05/22 09/05/22 09/05/22 14:32 14:32 14:32 WBC 12.4 H RBC 5.10 Hgb 14.2 Hct 44.8 MCV 87.8 MCH 27.8 MCHC 31.7 L RDW Std Deviation 41.7 RDW Coeff of Nusrat 12.8 Plt Count 300 MPV 10.0 Immature Gran % (Auto) 0.500 Neut % (Auto) 63.9 Lymph % (Auto) 20.1 [place] % (Auto) 13.2 H Eos % (Auto) 1.9 Baso % (Auto) 0.4 Absolute Neuts (auto) 7.9 H Absolute Lymphs (auto) 2.48 Nucleated RBC % 0 Differential Comment SCANNED Diff Path Review May foll PT INR Sodium 139 Potassium 4.4 Chloride 100 Carbon Dioxide 33.0 H Anion Gap 6 BUN 17 Creatinine 0.95 Estim Creat Clear Calc 91.89 Est GFR (MDRD) Af Amer 105 Est GFR (MDRD) Non-Af 86 BUN/Creatinine Ratio 17.9 Glucose 171 H Calcium 9.4 Troponin I High Sens 13 B-Natriuretic Peptide 135.7 H 09/05/22 14:32 WBC RBC Hgb Hct MCV MCH MCHC RDW Std Deviation RDW Coeff of Nusrat Plt Count MPV Immature Gran % (Auto) Neut % (Auto) Lymph % (Auto) [place] % (Auto) Eos % (Auto) Baso % (Auto) Absolute Neuts (auto) Absolute Lymphs (auto) Nucleated RBC % Differential Comment Diff Path Review PT 15.2 H INR 1.2 Sodium Potassium Chloride Carbon Dioxide Anion Gap BUN Creatinine Estim Creat Clear Calc Est GFR (MDRD) Af Amer Est GFR (MDRD) Non-Af BUN/Creatinine Ratio Glucose Calcium Troponin I High Sens B-Natriuretic Peptide Radiography Diagnostic Testing: Clinical Impression(s) from Imaging Studies Chest X-Ray 09/05/22 15:05 IMPRESSION: Elevated right hemidiaphragm, possible subpleural effusion versus other subphrenic process. Consider chest CT with contrast for evaluation. No acute consolidative process. Electronically Signed: Siddharth Rutherford MD at 15:25 EST , Chest CT 09/05/22 15:31 IMPRESSION: No acute pulmonary findings. Electronically Signed: Siddharth Rutherford MD at 16:46 EST , Rhythm Strip Rhythm Strip: Atrial flutter Rate: 85 Ectopy: None EKG Initial EKG: Attestation: I personally reviewed and interpreted this EKG as follows: Interpretation: No Acute Injury Pattern, Atrial Flutter (With variable conduction) and LAFB Prior EKG tracings: available for review (Morphology and axis is similar) Discharge Plan Triage Chief Complaint: Syncope ED Provider: Maynor Doyle Dx/Rx/DC Orders Clinical Impression: Pneumonia, Postural dizziness with near syncope, Atrial flutter, Subtherapeuticinternational normalized ratio (INR) Instructions: Orthostatic Hypotension, ED Pneumonia (Adult) Prescriptions: New amoxicillin-pot clavulanate [amoxicillin-pot clavulanate] 875-125 mg tablet 875 mg PO Q12H Qty: 20 0RF No Action docusate sodium 100 mg capsule 100 mg PO DAILY ICaps AREDS [id number],[id number] [id number]-im-[id number] capsule 1 cap PO BID furosemide 20 mg tablet 20 mg PO QDAY PRN (Reason: edema) Rx Instructions: q 3rd day insulin detemir U-100 100 unit/mL (3 mL) insulin pen 28 unit SC QHS benzonatate 200 mg capsule 200 mg PO TID PRN (Reason: cough) Qty: 20 0RF aspirin 81 mg tablet,delayed release (DR/EC) 81 mg PO DAILY@0800 warfarin 4 mg tablet 2 - 4 mg PO DAILY Protocol: Dose Management Condition: Wednesday Dose/Route: 2 mg Instruction: 0.5 x 4 mg tablets Condition: Wednesday Dose/Route: 2 mg Instruction: 0.5 x 4 mg tablets Condition: Wednesday Dose/Route: 4 mg Instruction: 1 x 4 mg tablet Condition: Wednesday Dose/Route: 2 mg Instruction: 0.5 x 4 mg tablets Condition: Dose/Route: 4 mg Instruction: 1 x 4 mg tablet Condition: Wednesday Dose/Route: 2 mg Instruction: 0.5 x 4 mg tablets Condition: Wednesday Dose/Route: 2 mg Instruction: 0.5 x 4 mg tablets Protocol Text: Adjustment Start Date: 08/27/22 INR Value: 2.9 INR Date: 08/27/22 Recheck Date: 09/02/22 Rx Instructions: 2 , 4 valsartan 40 mg tablet 40 mg PO DAILY rosuvastatin 10 mg tablet 10 mg PO DAILY duloxetine 30 mg capsule,delayed release(DR/EC) 30 mg PO DAILY metformin 500 mg tablet,ER natty.retention 24 hr 500 mg PO BID Trulicity 3 mg/0.5 mL pen injector 3 mg subcut QWEEK Rx Instructions: carvedilol 25 mg tablet 25 mg PO BID Rx Instructions: must administer with a meal/food Primary Care Provider: Yaa Shelton Referrals: Yaa Shelton MD [Primary Care Provider] - 3-5 Days if not improving (and 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 If your heart rate stays in the 120-140 range, you may try going back to your 25 mg twice daily dosing, but be careful not to stand up too fast if your heart rate is below 50. Disposition Disposition: Home, Self Care What to do if you have Problems For any increased pain, shortness of breath, bleeding, nausea or vomiting, chestpain, or any unexpected problems, contact your Primary Care Provider. Call [facility] ([phone]) or report to the closest Emergency Room. Call 911 if necessary. 09/05/22 1714 <Electronically signed by Maynor Doyle MD> Cosigner Signature (if applicable): CC: Yaa Shelton MD ~ Signed [facility] Work Phone: 1(304) 129-207308-13-2021 NoteHNO ID: [id number] Author: Sung Best Service: ? Author Type: Physician Type: [...] 6.8 04/06/2019 6.1 10/17/2018 6.9 PCP: Joellen Blank MD PAST MEDICAL HISTORY Diagnosis Date - ACS (acute coronary syndrome) ([facility]) - ASHD (arteriosclerotic heart disease) - Diabetes mellitus, type II (HCC) - Hammertoes of both feet - Obesity (BMI 30.0-34.9) - ANIYAH (obstructive sleep apnea) severe - PVC (premature ventricular contraction) - Snoring - STEMI (ST elevation myocardial infarction) ([facility]) [facility] s/p stent to circumflex, ONELIA [...] Objective: Patient presents to clinic ambulating in [facility] Constitutional: Pt is a well [...] noted to not pr (more content not included)...[facility]07-09-2021 NoteHNO ID: [id number] Author: Joellen Blank MD Service: ? Author Type: Physician Type: [...] Diagnosis Date - ACS (acute coronary syndrome) ([facility]) - ASHD (arteriosclerotic heart disease) - Diabetes mellitus, type II ([facility]) - Hammertoes of both feet - Obesity (BMI 30.0-34.9) - ANIYAH (obstructive sleep apnea) severe - PVC (premature ventricular contraction) - Snoring - STEMI (ST elevation myocardial infarction) ([facility]) [facility] s/p stent to circumflex, [...] . Health Maintenance List DTAP,TDAP,TD(1 - Tdap) Neve (more content not included)...[facility]06-08-2021 NoteHNO ID: [id number] Author: Suresh Adams Service: ? Author Type: [...] future healthcare decisions with a power of securities attorney, living will, or advance directives? Referrals: Message Sent to Practice: Navigation Signature: Suresh Adams January 14, 2021 4:25 [facility]06-08-2021 NotePatient Outreach (NETNAV) NIXON ECHOLS ([id number]) 1965 M Date Time Provider Department 01/14/21 [...] future healthcare decisions with a power of securities attorney, living will, or advance directives? Referrals: [...] M20.42] Encounter Status:Closed by SURESH ADDISON on 01/14/21[facility]05-01-2018 Evaluation note* Diagnosis Onset Date Resolution Status Atrial fibrillation acute Cardiomyopathy, ischemic chr onic Essential hypertension chron ic Hyperlipidemia chronic S/P coronary artery stent placement December 07, 2017 chronic ANIYAH (obstructive sleep apnea) acute Nicotine use disorder chroni c Atrial fibrillation acute Atherosclerotic heart diseas e of [place] coronary artery without angina pectoris chronic Diabetes chronic Essential hypertension chron ic Hyperlipidemia chronic S/P coronary artery stent placement December 07, 2017 chronic Atrial fibrillation acute Atrial flutter acute Cardiomyopathy, ischemic chr onic Essential hypertension chron ic Hyperlipidemia chronic S/P coronary artery stent placement December 07, 2017 [facility] Work Phone: 1(367) 241-447105-01-2018 Evaluation note* Diagnosis Onset Date Resolution Status Atrial fibrillation acute Cardiomyopathy, ischemic chr onic Essential hypertension chron ic Hyperlipidemia chronic S/P coronary artery stent placement December 07, 2017 chronic ANIYAH (obstructive sleep apnea) acute Diabetes chronic Essential hypertension chron ic Hyperlipidemia chronic Obesity [facility] Work Phone: evaluation note* Diagnosis Onset Date Resolution Status Obesity acute Diabetes chronic Essential hypertension chron ic Hyperlipidemia chronic Atherosclerotic heart diseas e of [place] coronary artery without angina pectoris chronic Cardiomyopathy, ischemic chr onic Essential hypertension chron ic History of non-ST elevation myocardial infarction (NSTEMI) December 07, 2017 chronic Hyperlipidemia chronic S/P coronary artery stent placement December 07, 2017 [facility] Work Phone: evaluation note* Diagnosis Onset Date Resolution Status Obesity acute Diabetes chronic Essential hypertension chron ic Hyperlipidemia chronic Atrial fibrillation acute Hypersomnolence acute Atherosclerotic heart diseas e of [place] coronary artery without angina pectoris chronic Cardiomyopathy, ischemic chr onic Essential hypertension chron ic Hyperlipidemia chronic S/P coronary artery stent placement December 07, 2017 [facility] Work Phone: evaluation note* Diagnosis Onset Date Resolution Status Obesity acute Diabetes chronic Essential hypertension chron ic Hyperlipidemia chronic Atrial fibrillation acute Hypersomnolence acute Atherosclerotic heart diseas e of [place] coronary artery without angina pectoris chronic Cardiomyopathy, ischemic chr onic Essential hypertension chron ic Hyperlipidemia chronic S/P coronary artery stent placement December 07, 2017 chronic Atrial fibrillation acute Obesity acute ANIYAH (obstructive sleep apnea) acute [facility] Work Phone: evaluation note* Diagnosis Onset Date Resolution Status Atrial fibrillation acute Hypersomnolence acute Atherosclerotic heart diseas e of [place] coronary artery without angina pectoris chronic Cardiomyopathy, ischemic chr onic Essential hypertension chron ic Hyperlipidemia chronic S/P coronary artery stent placement December 07, 2017 chronic Atrial fibrillation acute Obesity acute ANIYAH (obstructive sleep apnea) acute Atrial fibrillation acute Atherosclerotic heart diseas e of [place] coronary artery without angina pectoris chronic Cardiomyopathy, ischemic chr onic Essential hypertension chron ic Hyperlipidemia chronic S/P coronary artery stent placement December 07, 2017 [facility] Work Phone: Evaluation note* Diagnosis Onset Date Resolution Status Atrial fibrillation acute Hypersomnolence acute Atherosclerotic heart diseas e of [place] coronary artery without angina pectoris chronic Cardiomyopathy, ischemic chr onic Essential hypertension chron ic Hyperlipidemia chronic S/P coronary artery stent placement December 07, 2017 chronic Atrial fibrillation acute Obesity acute ANIYAH (obstructive sleep apnea) acute Atrial fibrillation acute Atherosclerotic heart diseas e of [place] coronary artery without angina pectoris chronic Cardiomyopathy, ischemic chr onic Essential hypertension chron ic Hyperlipidemia chronic S/P coronary artery stent placement December 07, 2017 chronic Contact with and (suspected) exposure to other viral communicable diseases acute URI (upper respiratory infection) acute [facility] Work Phone: evaluation note* Diagnosis Onset Date Resolution Status Atrial fibrillation acute Hypersomnolence acute Atherosclerotic heart diseas e of [place] coronary artery without angina pectoris chronic Cardiomyopathy, ischemic chr onic Essential hypertension chron ic Hyperlipidemia chronic S/P coronary artery stent placement December 07, 2017 chronic Atrial fibrillation acute Obesity acute ANIYAH (obstructive sleep apnea) acute Atrial fibrillation acute Atherosclerotic heart diseas e of [place] coronary artery without angina pectoris chronic Cardiomyopathy, ischemic chr onic Essential hypertension chron ic Hyperlipidemia chronic S/P coronary artery stent placement December 07, 2017 chronic Contact with and (suspected) exposure to other viral communicable diseases acute URI (upper respiratory infection) acute Atrial fibrillation acute DENISE (dyspnea on exertion) ac mentasta ANIYAH (obstructive sleep apnea) acute Cardiomyopathy, ischemic chr onic Essential hypertension chron ic Hyperlipidemia chronic S/P coronary artery stent placement December 07, 2017 [facility] Work Phone: Evaluation note* Diagnosis Onset Date Resolution Status Atrial fibrillation acute Obesity acute ANIYAH (obstructive sleep apnea) acute Atrial fibrillation acute Atherosclerotic heart diseas e of [place] coronary artery without angina pectoris chronic Cardiomyopathy, ischemic chr onic Essential hypertension chron ic Hyperlipidemia chronic S/P coronary artery stent placement December 07, 2017 chronic Contact with and (suspected) exposure to other viral communicable diseases acute URI (upper respiratory infection) acute Atrial fibrillation acute DENISE (dyspnea on exertion) ac mentasta ANIYAH (obstructive sleep apnea) acute Cardiomyopathy, ischemic chr onic Essential hypertension chron ic Hyperlipidemia chronic S/P coronary artery stent placement December 07, 2017 chronic Obesity acute Diabetes chronic Essential hypertension chron ic Hyperlipidemia [facility] Work Phone: Evaluation note* Diagnosis Onset Date Resolution Status Atrial fibrillation acute Atherosclerotic heart diseas e of [place] coronary artery without angina pectoris chronic Diabetes chronic Essential hypertension chron ic Hyperlipidemia chronic S/P coronary artery stent placement December 07, 2017 chronic Atrial fibrillation acute Atrial flutter acute Cardiomyopathy, ischemic chr onic Essential hypertension chron ic Hyperlipidemia chronic S/P coronary artery stent placement December 07, 2017 chronic DENISE (dyspnea on exertion) ac mentasta Glucosuria acute Hematuria with proteinuria a cute Tachycardia acute [facility] Work Phone: Evaluation note* Diagnosis Onset Date Resolution Status Atrial fibrillation acute Atherosclerotic heart diseas e of [place] coronary artery without angina pectoris chronic Diabetes chronic Essential hypertension chron ic Hyperlipidemia chronic S/P coronary artery stent placement December 07, 2017 chronic Atrial fibrillation acute Atrial flutter acute Cardiomyopathy, ischemic chr onic Essential hypertension chron ic Hyperlipidemia chronic S/P coronary artery stent placement December 07, 2017 chronic DENISE (dyspnea on exertion) ac mentasta Glucosuria acute Hematuria with proteinuria a cute Tachycardia acute Diabetes chronic Essential hypertension chron ic Hyperlipidemia chronic Obesity [facility] Work Phone: Evaluation note* Diagnosis Typical atrial flutter Atrial flutter Typical atrial flutter Atrial [facility] Diagnosis Paroxysmal atrial fibrillation Atrial fibrillation Atypical atrial flutter Atrial flutter [facility] Diagnosis Typical atrial flutter- Primary Atrial flutter Paroxysmal atrial fibrillation Atrial fibrillation Atypical atrial flutter Atrial flutter Paroxysmal atrial fibrillation Atrial fibrillation Atypical atrial flutter Atrial flutter [facility] Additional Instructions Decrease your carvedilol dose back down to 12.5 mg twice daily. If your heart rate stays in the 120-140 range, you may try going back to your 25 mg twice daily dosing, but be careful not to stand up too fast if your heart rate is below 50.[facility] Work Phone: Reason for referral (narrative)No reason for [facility] Summary Purpose Family History No Family History Records Found Relationship Condition Age at Onset Recorded Date/T tristan mother Cardiac disease Unknown Malignant neoplasm of breast Unknown father Cerebrovascular accident (CVA) Unknown Myocardial infarction Unknown Advance Directives No Advanced Directives Records Found Advance Directive Response Recorded Date/ Time Living Will No April 13 020 1:35pm Power of Front End Loader Driver No April 13, 2020 1:35pm Advance Directive Response Recorded Date/ Time Living Will No April 13 12:35pm Power of Front End Loader Driver No April 13, 2020 12:35pm Advance Directive Response Recorded Date/ Time Living Will No September 05 2:26pm Power of Front End Loader Driver No September 05, 2022 2:26pm Advance Directive Response Recorded Date/ Time Advance Directives on File No October 16, 2022 10:56am Name of Medical Power of Front End Loader Driver Bridgette Huntercastronaty momo October 16, 2022 10:56am Advance Directives Yes October 16 023 1:36pm Living Will Yes October 16, 2022 1:36pm Power of Front End Loader Driver Yes October 16 1:36pm Advance Directive Response Recorded Date/ Time Advance Directives Yes October 16 023 2:36pm Living Will Yes October 16, 2022 2:36pm Power of Front End Loader Driver Yes October 16 2:36pm Advance Directives on File No October 16, 2022 11:56am Name of Medical Power of Front End Loader Driver Bridgette Huntercastronaty momo October 16, 2022 11:56am Advance Directive Response Recorded Date/ Time Advance Directives No March 11 023 10:48am Living Will No March 11, 2023 10:48am Power of Front End Loader Driver No March 11 10:48am Advance Directive Response Recorded Date/ Time Name of Medical Power of Front End Loader Driver May 01, 2023 1:08pm Advance Directives No March 11 10:48am Living Will Yes May 01, 2023 1:08pm Power of Front End Loader Driver Yes April 1:08pm Advance Directive Response Recorded Date/ Time Advance Directives No March 11 9:48am Living Will Yes May 01, 2023 12:08pm Power of Front End Loader Driver Yes April 12:08pm Latest Code Status on File Code Status Date Activated Date Inactivated Comments Full Code 09/30/2023 10:29 AM Date Activated Date Inactivated Comments 09/30/2023 10:29 AM Date Activated Date Inactivated Comments 01/25/2024 10:13 AM Date Activated Date Inactivated Comments 09/30/2023 10:29 AM 01/25/2024 10:13 AM Advance Directive Response Recorded Date/ Time Living Will Yes May 01, 2023 1:08pm Do you have a Healthcare Power of Front End Loader Driver? Yes May 01, 2023 1:08pm Advance Directives No March 11 10:48am Chief Complaint and Reason for Visit Chief Complaint 6 MO FU 1 y fu Old myocardial infarction Reason for Visit Obesity Diabetes Essential hypertension Hyperlipidemia Atherosclerotic heart disease of [place] coronary artery without angina pectoris Cardiomyopathy, ischemic Essential hypertension History of non-ST elevation myocardial infarction (NSTEMI) Hyperlipidemia S/P coronary artery stent placement Chief Complaint 6 M FU 6 M FU E ORDER Reason for Visit Obesity Diabetes Essential hypertension Hyperlipidemia Atrial fibrillation Hypersomnolence Atherosclerotic heart disease of [place] coronary artery without angina pectoris Cardiomyopathy, ischemic Essential hypertension Hyperlipidemia S/P coronary artery stent placement Chief Complaint 6 M FU 6 M FU E ORDER HYPERSOMNOLENCE REDO/BAD CONNECTION-NO CHARGE E ORDER Reason for Visit Obesity Diabetes Essential hypertension Hyperlipidemia Atrial fibrillation Hypersomnolence Atherosclerotic heart disease of [place] coronary artery without angina pectoris Cardiomyopathy, ischemic Essential hypertension Hyperlipidemia S/P coronary artery stent placement Chief Complaint 6 M FU 6 M FU E ORDER HYPERSOMNOLENCE REDO/BAD CONNECTION-NO CHARGE E ORDER Sleep problems Reason for Visit Obesity Diabetes Essential hypertension Hyperlipidemia Atrial fibrillation Hypersomnolence Atherosclerotic heart disease of [place] coronary artery without angina pectoris Cardiomyopathy, ischemic Essential hypertension Hyperlipidemia S/P coronary artery stent placement Atrial fibrillation Obesity ANIYAH (obstructive sleep apnea) Chief Complaint 6 M FU E ORDER HYPERSOMNOLENCE REDO/BAD CONNECTION-NO CHARGE E ORDER Sleep problems 6 wk fu per KR/ needs 4pm on or Wed ANIYAH; CPAP SETUP *DEVICE TAGGED S/O INR Reason for Visit Atrial fibrillation Hypersomnolence Atherosclerotic heart disease of [place] coronary artery without angina pectoris Cardiomyopathy, ischemic Essential hypertension Hyperlipidemia S/P coronary artery stent placement Atrial fibrillation Obesity ANIYAH (obstructive sleep apnea) Atrial fibrillation Atherosclerotic heart disease of [place] coronary artery without angina pectoris Cardiomyopathy, ischemic Essential hypertension Hyperlipidemia S/P coronary artery stent placement Chief Complaint 6 M FU E ORDER HYPERSOMNOLENCE REDO/BAD CONNECTION-NO CHARGE E ORDER Sleep problems 6 wk fu per KR/ needs 4pm on or Wed ANIYAH; CPAP SETUP *DEVICE TAGGED S/O INR COUGH/CONGESTION SYNCOPE Reason for Visit Atrial fibrillation Hypersomnolence Atherosclerotic heart disease of [place] coronary artery without angina pectoris Cardiomyopathy, ischemic Essential hypertension Hyperlipidemia S/P coronary artery stent placement Atrial fibrillation Obesity ANIYAH (obstructive sleep apnea) Atrial fibrillation Atherosclerotic heart disease of [place] coronary artery without angina pectoris Cardiomyopathy, ischemic Essential hypertension Hyperlipidemia S/P coronary artery stent placement Contact with and (suspected) exposure to other viral communicable diseases URI (upper respiratory infection) Chief Complaint 6 M FU E ORDER HYPERSOMNOLENCE REDO/BAD CONNECTION-NO CHARGE E ORDER Sleep problems 6 wk fu per KR/ needs 4pm on or Wed ANIYAH; CPAP SETUP *DEVICE TAGGED S/O INR COUGH/CONGESTION SYNCOPE ER for atrial flutter, pneumonia Yoav L.L. S/O INR Reason for Visit Atrial fibrillation Hypersomnolence Atherosclerotic heart disease of [place] coronary artery without angina pectoris Cardiomyopathy, ischemic Essential hypertension Hyperlipidemia S/P coronary artery stent placement Atrial fibrillation Obesity ANIYAH (obstructive sleep apnea) Atrial fibrillation Atherosclerotic heart disease of [place] coronary artery without angina pectoris Cardiomyopathy, ischemic Essential hypertension Hyperlipidemia S/P coronary artery stent placement Contact with and (suspected) exposure to other viral communicable diseases URI (upper respiratory infection) Atrial fibrillation DENISE (dyspnea on exertion) ANIYAH (obstructive sleep apnea) Cardiomyopathy, ischemic Essential hypertension Hyperlipidemia S/P coronary artery stent placement Chief Complaint 6 M FU E ORDER HYPERSOMNOLENCE REDO/BAD CONNECTION-NO CHARGE E ORDER Sleep problems 6 wk fu per KR/ needs 4pm on or Wed ANIYAH; CPAP SETUP *DEVICE TAGGED S/O INR COUGH/CONGESTION SYNCOPE ER for atrial flutter, pneumonia Yoav L.L. S/O INR afib afib afib Reason for Visit Atrial fibrillation Hypersomnolence Atherosclerotic heart disease of [place] coronary artery without angina pectoris Cardiomyopathy, ischemic Essential hypertension Hyperlipidemia S/P coronary artery stent placement Atrial fibrillation Obesity ANIYAH (obstructive sleep apnea) Atrial fibrillation Atherosclerotic heart disease of [place] coronary artery without angina pectoris Cardiomyopathy, ischemic Essential hypertension Hyperlipidemia S/P coronary artery stent placement Contact with and (suspected) exposure to other viral communicable diseases URI (upper respiratory infection) Atrial fibrillation DENISE (dyspnea on exertion) ANIYAH (obstructive sleep apnea) Cardiomyopathy, ischemic Essential hypertension Hyperlipidemia S/P coronary artery stent placement Chief Complaint HYPERSOMNOLENCE REDO/BAD CONNECTION-NO CHARGE E ORDER Sleep problems 6 wk fu per KR/ needs 4pm on or Wed ANIYAH; CPAP SETUP *DEVICE TAGGED S/O INR COUGH/CONGESTION SYNCOPE ER for atrial flutter, pneumonia Yoav L.L. S/O INR afib afib afib 1 week post DCCV, pt needs after work 6 M FU E ORDER Reason for Visit Atrial fibrillation Obesity ANIYAH (obstructive sleep apnea) Atrial fibrillation Atherosclerotic heart disease of [place] coronary artery without angina pectoris Cardiomyopathy, ischemic Essential hypertension Hyperlipidemia S/P coronary artery stent placement Contact with and (suspected) exposure to other viral communicable diseases URI (upper respiratory infection) Atrial fibrillation DENISE (dyspnea on exertion) ANIYAH (obstructive sleep apnea) Cardiomyopathy, ischemic Essential hypertension Hyperlipidemia S/P coronary artery stent placement Obesity Diabetes Essential hypertension Hyperlipidemia Chief Complaint 3 M FU 6 wk FU Annual EKG PER L. LORSON A FLUTTER A FLUTTER A FLUTTER Reason for Visit Atrial fibrillation Cardiomyopathy, ischemic Essential hypertension Hyperlipidemia S/P coronary artery stent placement ANIYAH (obstructive sleep apnea) Nicotine use disorder Atrial fibrillation Atherosclerotic heart disease of [place] coronary artery without angina pectoris Diabetes Essential hypertension Hyperlipidemia S/P coronary artery stent placement Atrial fibrillation Atrial flutter Cardiomyopathy, ischemic Essential hypertension Hyperlipidemia S/P coronary artery stent placement Chief Complaint Annual EKG PER L. LORSON A FLUTTER A FLUTTER A FLUTTER 1 week s/p DCCV WEAK, UTI Reason for Visit Atrial fibrillation Atherosclerotic heart disease of [place] coronary artery without angina pectoris Diabetes Essential hypertension Hyperlipidemia S/P coronary artery stent placement Atrial fibrillation Atrial flutter Cardiomyopathy, ischemic Essential hypertension Hyperlipidemia S/P coronary artery stent placement DENISE (dyspnea on exertion) Glucosuria Hematuria with proteinuria Tachycardia Chief Complaint Annual EKG PER L. LORSON A FLUTTER A FLUTTER A FLUTTER 1 week s/p DCCV WEAK, UTI E-ORDER 6 M FU Reason for Visit Atrial fibrillation Atherosclerotic heart disease of [place] coronary artery without angina pectoris Diabetes Essential hypertension Hyperlipidemia S/P coronary artery stent placement Atrial fibrillation Atrial flutter Cardiomyopathy, ischemic Essential hypertension Hyperlipidemia S/P coronary artery stent placement DENISE (dyspnea on exertion) Glucosuria Hematuria with proteinuria Tachycardia Diabetes Essential hypertension Hyperlipidemia Obesity Chief Complaint 6 M FU 6 M FU 4 M FU A-FLUTTER Reason for Visit Atrial fibrillation Cardiomyopathy, ischemic Essential hypertension Hyperlipidemia S/P coronary artery stent placement ANIYAH (obstructive sleep apnea) Diabetes Essential hypertension Hyperlipidemia Obesity Chief Complaint Admit Date 6 M FU October 06, 2024 3:52pm 1 Y FU October 13, 2024 8:47 am 6 wk FU November 24, 2024 2:1 3pm 9 M FU December 08, 2024 8:26am Annual/Physical January 11, 2025 3:56p m Reason for Visit Admit Date Atherosclerotic heart diseas e of [place] coronary artery without angina pectoris October 06, 2024 3:52pm Diabetes October 06, 2024 3:52pm Hyperlipidemia October 06, 2024 3:52pm Obesity October 06, 2024 3:52pm ANIYAH (obstructive sleep apnea) October 13, 2024 8:47am Obesity October 13, 2024 8:47 am ANIYAH (obstructive sleep apnea) November 2:13pm Obesity November 24, 2024 2:1 3pm Atrial fibrillation December 08, 2024 8:26am Cardiomyopathy, ischemic December 08, 2024 8 :26am Essential hypertension December 08, 2024 8:2 6am Hyperlipidemia December 08, 2024 8:26am S/P coronary artery stent placement December 08, 2024 8:26am Reason for Referral Specialty Diagnoses / Procedures Referred By Puneet t Referred To Contact Diagnoses Typical atrial flutter Procedures MOBILE CARDIAC TELEMETRY Shae Waldrop, BLACK [employer] COATING EQUIPMENT TENDER-ACADEMIC VICE PRESIDENT [address] [place] [address] Referral ID Status Reason Start Date Expiration Date V isits Requested Visits Authorized [id number] New Request 09/30/2023 10/24/2024 1 1 Specialty Diagnoses / Procedures Referred By Contac t Referred To Contact Procedures ECG Dorys Becerril, LYNDA-ACADEMIC VICE PRESIDENT [address] [facility] [address] [place] [address] Referral ID Status Reason Start Date Expiration Date V isits Requested Visits Authorized [id number] New Request 09/30/2023 10/24/2024 1 1 Specialty Diagnoses / Procedures Referred By Contac t Referred To Contact Diagnoses Paroxysmal atrial fibrillation Atypical atrial flutter Procedures CT CARDIAC PULMONARY VENOGRAM CA CHG CT HEART CONTRAST EVAL CARDIAC STRUCT/MORPH Mady Thomas MD [address] [place] [address] Referral ID Status Reason Start Date Expiration Date Visits Re quested Visits Authorized [id number] Closed 11/29/2023 12/23/2024 1 1 Specialty Diagnoses / Procedures Referred By Contac t Referred To Contact Diagnoses Typical atrial flutter Procedures MOBILE CARDIAC TELEMETRY Bolivar Yousif, BLACK [employer] COATING EQUIPMENT TENDER-ACADEMIC VICE PRESIDENT [address] [place] [address] Referral ID Status Reason Start Date Expiration Date V isits Requested Visits Authorized [id number] New Request 01/25/2024 02/18/2025 1 1 Specialty Diagnoses / Procedures Referred By Contac t Referred To Contact Procedures ECG Shae Waldrop, LYNDA-ACADEMIC VICE PRESIDENT [address] [place] [address] Referral ID Status Reason Start Date Expiration Date V isits Requested Visits Authorized [id number] New Request 01/25/2024 02/18/2025 1 1 Additional Source Comments (unrecognized sect ion and content) No Status Records FoundNo Status Records FoundNo Status Records FoundNo Status Records FoundNo Status Records Found INFORMATION SOURCE (unrecogn ized section and content) DATE CREATED AUTHOR 01/25/2018 [facility] DATE CREATED AUTHOR AUTHOR'S ORGANIZ ATION 12/10/2018 [facility] DATE CREATED AUTHOR AUTHOR'S ORGANIZ ATION 09/26/[address] [facility] DATE CREATED AUTHOR AUTHOR'S ORGANIZ ATION 01/13/2025 [facility] DATE CREATED AUTHOR AUTHOR'S ORGANIZ ATION 01/31/2025 [facility] Goals (unrecognized section and content) Goals may be documented in a n alternate sectionGoals may be documented in an alternate sectionGoals may be documented in an alternate sectionGoals may be documented in an alternate sectionGoals may be documented in an alternate sectionGoals may be documented in an alternate sectionGoals may be documented in an alternate sectionGoals may be documented in an alternate sectionGoals may be documented in an alternate sectionGoals may be documented in an alternate sectionGoals may be documented in an alternate sectionGoals may be documented in an alternate sectionGoals may be documented in an alternate sectionGoals may be documented in an alternate sectionGoals may be documented in an alternate sectionGoals may be documented in an alternate sectionGoals may be documented in an alternate section Care Teams (unrecognized sec tion and content) Team Status: Active Member Role Status Dates Dr. Dario Blank MD Family Provider Active Yaa Shelton MD Primary Care Provider Active Team Status: Inactive Member Role Status Dates Yaa Shelton MD Primary Care Provider, Referring P rovider Active Lizbeth Dover ENTRY LEVEL MANUFACTURING ENGINEER, ENTRY LEVEL MANUFACTURING ENGINEER-C Attending Provider Active Team Status: Inactive Member Role Status Dates Yaa Shelton MD Primary Care Provider, Referring P rovider Active Williams Noel ENTRY LEVEL MANUFACTURING ENGINEER, ENTRY LEVEL MANUFACTURING ENGINEER-C Attending Provider Active Team Status: Inactive Member Role Status Dates Yaa Shelton MD Primary Care Provider, Referring P rovider Active Geovanna Rod ENTRY LEVEL MANUFACTURING ENGINEER, ENTRY LEVEL MANUFACTURING ENGINEER-C Attending Provider Active Team Status: Inactive Member Role Status Dates Yaa Shelton MD Primary Care Provider Active Lizbeth Dover ENTRY LEVEL MANUFACTURING ENGINEER, ENTRY LEVEL MANUFACTURING ENGINEER-C Attending Provider Active Team Status: Inactive Member Role Status Dates Yaa Shelton MD Primary Care Provider Active Lizbeth Dover ENTRY LEVEL MANUFACTURING ENGINEER, ENTRY LEVEL MANUFACTURING ENGINEER-C Attending Provider, Referring P rovider Active Team Status: Active Member Role Status Dates Yaa Shelton MD Primary Care Provider Active Lizbeth Dover ENTRY LEVEL MANUFACTURING ENGINEER, ENTRY LEVEL MANUFACTURING ENGINEER-C Attending Provider, Referring P rovider Active Team Status: Inactive Member Role Status Dates Yaa Shelton MD Primary Care Provider Active Geovanna Rod ENTRY LEVEL MANUFACTURING ENGINEER, ENTRY LEVEL MANUFACTURING ENGINEER-C Attending Provider Active Team Status: Inactive Member Role Status Meena Shelton MD Primary Care Provider, Referring P rovider Active Paul Ponce PA, PA Attending Provider Active Team Status: Inactive Member Role Status Meena Shelton MD Primary Care Provider Active Dr. Maynor Doyle MD Emergency Provider Active Team Status: Inactive Member Role Status Meena Shelton MD Primary Care Provider, Referring P rovider Active Lizbeth Dover ENTRY LEVEL MANUFACTURING ENGINEER, ENTRY LEVEL MANUFACTURING ENGINEER-C Active Cassandra Snyder PA, PA Attending Provider Active Team Status: Inactive Member Role Status Meena Shelton MD Primary Care Provider Active Dr. Maynor Doyle MD Attending Provider, Emergency Provider Active Team Status: Active Member Role Status Meena Shelton MD Primary Care Provider Active Dr. Uriel Grubbs MD Attending Provider, Other Prov ider Active Dr. Uriel Grubbs MD Referring Provider Active Team Status: Active Member Role Status Meena Shelton MD Primary Care Provider Active Dr. Uriel Grubbs MD Other Provider Active Dr. Uriel Grubbs MD Referring Provider Active Dr. Yemi Dudley DO Attending Provider Active Team Status: Inactive Member Role Status Meena Shelton MD Primary Care Provider Active Dr. Uriel Grubbs MD Attending Provider Active Dr. Uriel Grubbs MD Referring Provider Active Team Status: Active Member Role Status Meena Blank MD Family Provider Active Dr. Yaa Shelton MD Primary Care Provider Active Team Status: Inactive Member Role Status Meena CAIN MD Primary Care Provider, Referrin g Provider Active Dr. Tereso Gonzales MD Attending Provider Active Team Status: Inactive Member Role Status Meena CAIN MD Primary Care Provider, Referrin g Provider Active Williams Noel ENTRY LEVEL MANUFACTURING ENGINEER, ENTRY LEVEL MANUFACTURING ENGINEER-C Attending Provider Active Team Status: Inactive Member Role Status Meena CAIN MD Primary Care Provider, Referrin g Provider Active Geovanna Rod ENTRY LEVEL MANUFACTURING ENGINEER, ENTRY LEVEL MANUFACTURING ENGINEER-C Attending Provider Active Team Status: Inactive Member Role Status Meena CAIN MD Primary Care Provider, Referrin g Provider Active Paul Ponce PA, PA Attending Provider Active Team Status: Inactive Member Role Status Meena CAIN MD Primary Care Provider, Referrin g Provider Active Lizbeth Dover ENTRY LEVEL MANUFACTURING ENGINEER, ENTRY LEVEL MANUFACTURING ENGINEER-C Active Cassandra Snyder PA, PA Attending Provider Active Team Status: Active Member Role Status Meena CAIN MD Primary Care Provider Active Dr. Uriel Grubbs MD Attending Provider, Other Prov ider Active Dr. Uriel CAIN MD Referring Provider Active Team Status: Active Member Role Status Meena CAIN MD Primary Care Provider Active Dr. Uriel Grubbs MD Other Provider Active Dr. Uriel CAIN MD Referring Provider Active Dr. Yemi Dudley DO Attending Provider Active Team Status: Inactive Member Role Status Meena CAIN MD Primary Care Provider, Referrin g Provider Active Dr. Uriel Grubbs MD Attending Provider Active Team Status: Inactive Member Role Status Meena CAIN MD Primary Care Provider Active Lizbeth Dover ENTRY LEVEL MANUFACTURING ENGINEER, ENTRY LEVEL MANUFACTURING ENGINEER-C Attending Provider, Referring P susan Active Team Status: Inactive Member Role Status Meena CAIN MD Primary Care Provider Active Lizbeth Dover ENTRY LEVEL MANUFACTURING ENGINEER, ENTRY LEVEL MANUFACTURING ENGINEER-C Attending Provider Active Team Status: Inactive Member Role Status Meena CAIN MD Primary Care Provider Active Geovanna Rod ENTRY LEVEL MANUFACTURING ENGINEER, ENTRY LEVEL MANUFACTURING ENGINEER-C Attending Provider Active Team Status: Inactive Member Role Status Meena CAIN MD Primary Care Provider Active Dr. Maynor Doyle MD Attending Provider, Emergency Provider Active Team Status: Inactive Member Role Status Meena CAIN MD Primary Care Provider Active Dr. Uriel Grubbs MD Attending Provider Active Dr. Uriel CAIN MD Referring Provider Active Team Status: Inactive Member Role Status Dates Dr. Yaa Shelton MD Primary Care Provider Active Lizbeth Dover ENTRY LEVEL MANUFACTURING ENGINEER, ENTRY LEVEL MANUFACTURING ENGINEER-C Attending Provider Active Team Status: Inactive Member Role Status Meena CAIN MD Referring Provider Active Williams Noel ENTRY LEVEL MANUFACTURING ENGINEER, ENTRY LEVEL MANUFACTURING ENGINEER-C Attending Provider Active Dr. Yaa Shelton MD Primary Care Provider Active Team Status: Inactive Member Role Status Dates Dr. Yaa Shelton MD Primary Care Provider, Attendi ng Provider Active Team Status: Inactive Member Role Status Dates Dr. Yaa Shelton MD Primary Care Provider, Referri ng Provider Active Geovanna Rod ENTRY LEVEL MANUFACTURING ENGINEER, ENTRY LEVEL MANUFACTURING ENGINEER-C Attending Provider Active Team Status: Inactive Member Role Status Dates Dr. Yaa Shelton MD Primary Care Provider, Referri ng Provider Active Natalie Evans Attending Provider Active Team Status: Inactive Member Role Status Dates Dr. Yaa Shelton MD Primary Care Provider, Referri ng Provider Active Cassandra Snyder PA, PA Attending Provider Active Team Status: Active Member Role Status Dates Dr. Yaa Sehlton MD Primary Care Provider Active Dr. Juan Navarro MD Referring Provider, Other Provide r Active Dr. Tuan Bustos MD Attending Provider Active Team Status: Active Member Role Status Dates Dr. Yaa Shelton MD Primary Care Provider Active Dr. Juan Navarro MD Attending Provider, Referring Provider, Other Provider Active Team Status: Inactive Member Role Status Dates Dr. Yaa Shelton MD Primary Care Provider Active Dr. Juan Navarro MD Attending Provider, Referring Pro vider Active Team Status: Inactive Member Role Status Dates Dr. Yaa Shelton MD Primary Care Provider, Referri ng Provider Active Dr. Juan Navarro MD Attending Provider Active Team Status: Inactive Member Role Status Dates Dr. Yaa Shelton MD Primary Care Provider, Referri ng Provider Active Paul LOMBARDO, PA Attending Provider Active Team Status: Inactive Member Role Status Dates Dr. Yaa Shelton MD Primary Care Provider Active Dr. Reilly Olmstead DO Emergency Provider Active Team Status: Inactive Member Role Status Dates Yaa CAIN MD Referring Provider Active Dr. Tereso Gonzales MD Attending Provider Active Dr. Yaa Shelton MD Primary Care Provider Active Team Status: Inactive Member Role Status Dates Dr. Yaa Shelton MD Primary Care Provider Active Dr. Reilly Olmstead DO Attending Provider, [facility] Active Team Status: Inactive Member Role Status Dates Dr. Yaa Shelton MD Primary Care Pro vider, Attending Provider, Referring Provider Active Team Status: Inactive Member Role Status Dates Dr. Yaa Shelton MD Primary Care Provider Active Paul LOMBARDO, PA Attending Provider Active Team Status: Inactive Member Role Status Dates Dr. Yaa Shelton MD Primary Care Provider, Referri ng Provider Active Dr. Yemi Dudley DO Attending Provider Active Team Status: Inactive Member Role Status Dates Dr. Yaa Shelton MD Primary Care Provider, Referri ng Provider Active Dr. Tereso Gonzales MD Attending Provider Active Team Status: Active Member Role Status Dates Dr. Yaa Shelton MD Primary Care Provider Active Dr. Segun Bond MD Attending Provider Active Team Status: Inactive Member Role Status Dates Dr. Yaa Shelton MD Primary Care Provider Active MADY THOMAS MD Attending Provider, Referring Pro vider Active Conveyor Weigher Operator Relationship Specialty Start Date End Date Juan Navarro MD [address] [place] [address] Cardiovascular Disease 05/31/23 Conveyor Weigher Operator Relationship Specialty Start Date End Date Juan Navarro MD [address] [place] [address] Cardiovascular Disease 05/31/23 Conveyor Weigher Operator Relationship Specialty Start Date End Date Juan Navarro MD [address] [place] [address] Cardiovascular Disease 05/31/23 Team Status: Active Member Role Status Dates Dr. Yaa Shelton MD Primary Care Provider Active Team Status: Inactive Member Role Status Dates Dr. Yaa Shelton MD Primary Care Provider Active Start: October 06, 2024 End: October 06, 2024 Dr. Yaa Shelton MD Referring Provider Active Start: October 06, 2024 End: October 06, 2024 Dr. Tereso Gonzales MD Attending Provider Active Sta rt: October 06, 2024 End: October 06, 2024 Team Status: Inactive Member Role Status Dates Dr. Yaa Shelton MD Primary Care Provider Active Start: October 13, 2024 End: October 13, 2024 Dr. Yaa Shelton MD Referring Provider Active Start: October 13, 2024 End: October 13, 2024 Geovanna Rod ENTRY LEVEL MANUFACTURING ENGINEER, ENTRY LEVEL MANUFACTURING ENGINEER-C Attending Provider Active Start: October 13, 2024 End: October 13, 2024 Team Status: Inactive Member Role Status Dates Dr. Yaa Shelton MD Primary Care Provider Active Start: November 24, 2024 End: November 24, 2024 Dr. Yaa Shelton MD Referring Provider Active Start: November 24, 2024 End: November 24, 2024 LIZZY Camarena Attending Provider Active Start: November 24, 2024 End: November 24, 2024 Team Status: Inactive Member Role Status Dates Dr. Yaa Shelton MD Primary Care Provider Active Start: December 08, 2024 End: December 08, 2024 Dr. Yaa Shelton MD Referring Provider Active Start: December 08, 2024 End: December 08, 2024 Cassandra Snyder PA, PA Attending Provider Active Start: December 08, 2024 End: December 08, 2024 Team Status: Inactive Member Role Status Dates Dr. Yaa Shelton MD Primary Care Provider Active Start: January 11, 2025 End: January 11, 2025 Dr. Yaa Shelton MD Attending Provider Active Start: January 11, 2025 End: January 11, 2025 Reason for Visit (unrecogniz ed section and content) Specialty Diagnoses / Procedures Referred By Contac t Referred To Contact Diagnoses Typical atrial flutter Typical atrial flutter [I48.3] Procedures CA COMPRE ELECTROPHYSIOLOGIC ARRHYTHMIA INDUCTION CA COMPRE EP EVAL ABLTJ 3D MAPG TX SVT ATRIAL FLUTTER ABLATION Mady Thomas MD [address] [place] [phone] [facility] [address] [place] [id number] Referral ID Status Reason Start Date Expiration Date Visits Re quested Visits Authorized [id number] 1 1 Specialty Diagnoses / Procedures Referred By Contac t Referred To Contact Diagnoses Paroxysmal atrial fibrillation Atypical atrial flutter Procedures CT CARDIAC PULMONARY VENOGRAM CA CHG CT HEART CONTRAST EVAL CARDIAC STRUCT/MORPH Mady Thomas MD [address] [place] [id number] Referral ID Status Reason Start Date Expiration Date Visits Re quested Visits Authorized [id number] Closed 11/29/2023 12/23/2024 1 1 Specialty Diagnoses / Procedures Referred By Contac t Referred To Contact Diagnoses Paroxysmal atrial fibrillation Atypical atrial flutter Paroxysmal atrial fibrillation [I48.0] Atypical atrial flutter [I48.4] Procedures CA COMPRE EP EVAL ABLTJ ATR FIB PULM VEIN ISOLATION ABLATION SCHED INTERCARDIAC A-FIB TRANSEPTAL BY PULM VEIN ISOLATION W/EP EVAL ([id number]) Mady Thomas MD [address] [place] [phone] [facility] [address] [place] [id number] Referral ID Status Reason Start Date Expiration Date Visits Re quested Visits Authorized [id number] 1 1 Scheduled Active and Recently Administ ered Medications (unrecognized section and content) Medication Order 09/28/2023 09/29/2023 09/30/2023 apixaban (ELIQUIS) tablet 5 mg 5 mg, Oral, EVERY 12 HOURS, First dose on Lilly 09/30/23 at 1430, Until Discontinued, Due to the rapid onset of action of apixaban, no overlap is needed with other anticoagulants (e.g. enoxaparin, heparin)., Indications: Atrial Fibrillation 1432 (Given - Provid er: Kai Hill RN) Continuous Medication Order 09/28/2023 09/29/2023 09/30/2023 Sodium chloride 0.9% IV solution 500 mL Intravenous, at 20 mL/hr, CONTINUOUS, Starting on Lilly 09/30/23 at 0630, Until Lilly 24 at 1718, KVO fluids, start the morning of procedure., Pre-op/Pre-Proc 0636 ($$New Bag$$ - Provider: Kai Hill RN) PRN Medication Order 09/28/2023 09/29/2023 09/30/2023 Acetaminophen (TYLENOL) tablet 650 mg 650 mg, Oral, EVERY 6 HOURS NEEDED, Starting on Lilly 24 at 1028, Until Lilly 24 at 1718, Mild Pain, Maximum dose of acetaminophen is 4000 mg from all sources in 24 hours., Post-op/Post-Proc alum/mag hydrox.-simethicone oral suspension 30 mL 30 mL, Oral, EVERY 6 HOURS NEEDED, Starting on Lilly 09/30/23 at 1028, Until Lilly 09/30/23 at 1718, Indigestion, Per 5 mL is equivalent to: (Alum-Mag Hydroxide 200-225 mg and Simethicone 20 mg) and (Alum-Mag Hydroxide 200-200 mg and Simethicone 20 mg), Post-op/Post-Proc fentaNYL (SUBLIMAZE) injection (CANCELED) Administer over 2 Minutes, NEEDED, Starting on Lilly 09/30/23 at 0844, Until Lilly 09/30/23 at 1028, Intra-op/Intra-Proc 0844 (Given - Provid er: Megan Isaac RN) HYDROmorphone (DILAUDID) injection 0.2 mg 0.2 mg, Intravenous, EVERY 2 HOURS NEEDED, Starting on Lilly 09/30/23 at 1028, Until Lilly 09/30/23 at 1718, Severe Pain, If unable to tolerate PO, Post-op/Post-Proc Lidocaine (XYLOCAINE) 10 mg/mL injection (CANCELED) NEEDED, Starting on Lilly 09/30/23 at 0850, Until Lilly 09/30/23 at 1028, Intra-op/Intra-Proc 0850 (Given - Provid er: Ginger Rolon MD) Melatonin tablet 3 mg 3 mg, Oral, DAILY AT BEDTIME NEEDED, Starting on Lilly 09/30/23 at 1028, Until Lilly 09/30/23 at 1718, Insomnia, Post-op/Post-Proc Methohexital (BREVITAL) injection (CANCELED) NEEDED, Starting on Lilly 09/30/23 at 0931, Until Lilly 09/30/23 at 1028, Intra-op/Intra-Proc 0931 (Given - Provid er: Ginger Rolon MD) Midazolam HCl (PF) (VERSED) injection (CANCELED) NEEDED, Starting on Lilly 09/30/23 at 0844, Until Lilly 09/30/23 at 1028, Intra-op/Intra-Proc 0844 (Given - Provid er: Megan Isaac RN) Ondansetron 4mg/2ml (ZOFRAN) injection 4 mg 4 mg, Intravenous, EVERY 4 HOURS NEEDED, Starting on Lilly 09/30/23 at 1028, Until Lilly 09/30/23 at 1718, Nausea / Vomiting, Post-op/Post-Proc oxyCODONE (ROXICODONE) tablet 5 mg(Linked Group 1) 5 mg, Oral, EVERY 4 HOURS NEEDED, Starting on Lilly 09/30/23 at 1028, Until Lilly 09/30/23 at 1718, Moderate Pain, Severe Pain, PRN for Moderate Pain. Use for Severe Pain if IV not available for use as initial dose. Higher dose may be administred if lower dose was previously documented as ineffective and did not result in adverse effects (RR<10, decrease in level of consciousness)., Post-op/Post-Proc oxyCODONE HCl (ROXICODONE) tablet 10 mg(Linked Group 1) 10 mg, Oral, EVERY 4 HOURS NEEDED, Starting on Lilly 09/30/23 at 1028, Until Lilly 09/30/23 at 1718, Moderate Pain, Severe Pain, PRN for Moderate Pain. Use for Severe Pain if IV not available for use as initial dose. Higher dose may be administred if lower dose was previously documented as ineffective and did not result in adverse effects (RR<10, decrease in level of consciousness), Post-op/Post-Proc Polyethylene glycol (MIRALAX) packet 17 g 17 g, Oral, DAILY NEEDED, Starting on Lilly 09/30/23 at 1028, Until Lilly 09/30/23 at 1718, Constipation 1st Line, Post-op/Post-Proc Sodium chloride 0.9% IV solution Intravenous, at 1 mL/hr, CONTINUOUS NEEDED, Starting on Lilly 09/30/23 at 1028, Until Lilly 09/30/23 at 1718, See administration instructions, Per pressure bag for all transduced lines., Post-op/Post-Proc No Frequency Medication Order 09/28/2023 09/29/2023 09/30/2023 Sodium chloride 0.9% IV solution 1 dose, Starting on Lilly 09/30/23 at 0625, Until Lilly 09/30/23 at 1718, Created by cabinet override [id number] (Canceled Entry - Provider: Kai Hill RN) Linked Groups Order Group 1: oxyCODONE (ROXICODONE) tablet 5 mgJump to med 5 mg, Oral, EVERY 4 HOURS NEEDED, Starting on Lilly 09/30/23 at 1028, Until Lilly 09/30/23 at 1718, Moderate Pain, Severe Pain, PRN for Moderate Pain. Use for Severe Pain if IV not available for use as initial dose. Higher dose may be administred if lower dose was previously documented as ineffective and did not result in adverse effects (RR<10, decrease in level of consciousness)., Post-op/Post-Proc Or oxyCODONE HCl (ROXICODONE) tablet 10 mgJump to med 10 mg, Oral, EVERY 4 HOURS NEEDED, Starting on Lilly 09/30/23 at 1028, Until Lilly 09/30/23 at 1718, Moderate Pain, Severe Pain, PRN for Moderate Pain. Use for Severe Pain if IV not available for use as initial dose. Higher dose may be administred if lower dose was previously documented as ineffective and did not result in adverse effects (RR<10, decrease in level of consciousness), Post-op/Post-Proc Scheduled Medication Order 01/23/2024 01/24/2024 01/25/2024 apixaban (ELIQUIS) tablet 5 mg 5 mg, Oral, EVERY 12 HOURS, First dose on Wed01/25/24 at 0700, Until Discontinued, Due to the rapid onset of action of apixaban, no overlap is needed with other anticoagulants (e.g. enoxaparin, heparin)., Indications: Atrial Fibrillation 0705 (Given - Provid er: Christine Mays RN)2100 (Canceled Entry - Provider: System Discharge - Comment: Automatically canceled at discontinue of medication order) aspirin chewable tablet 81 mg 81 mg, Oral, DAILY, First dose on Wed01/25/24 at 0730, Until Discontinued 0720 (Given - Provid er: Christine Mays RN) carveDILOL (COREG) tablet 25 mg 25 mg, Oral, EVERY 12 HOURS, First dose on Wed01/25/24 at 2100, Until Discontinued 2100 (Canceled Entry - Provider: System Discharge - Comment: Automatically canceled at discontinue of medication order) Diltiazem (CARDIZEM CD) capsule XL 120 mg 120 mg, Oral, DAILY EARLY EVENING, First dose on Wed01/25/24 at 1800, Until Discontinued, Slow release product. Do not chew or crush. 1800 (Canceled Entry - Provider: System Discharge - Comment: Automatically canceled at discontinue of medication order) Docusate (COLACE) capsule 100 mg 100 mg, Oral, DAILY, First dose on Wed01/26/24 at 0900, Until Discontinued DULoxetine (CYMBALTA) capsule DR 30 mg 30 mg, Oral, DAILY EARLY EVENING, First dose on Wed01/25/24 at 1800, Until Discontinued, Swallow capsule whole; do not crush or chew. May add contents of capsule to apple juice or applesauce (but NOT chocolate) taking care not to crush the pellets and damage the enteric coating. 1800 (Canceled Entry - Provider: System Discharge - Comment: Automatically canceled at discontinue of medication order) insulin glargine-yfgn (SEMGLEE) injection 40 Units 40 Units, Subcutaneous, DAILY EARLY EVENING, First dose on Wed01/25/24 at 1800, Until Discontinued 2100 (Canceled Entry - Provider: System Discharge - Comment: Automatically canceled at discontinue of medication order) Pravastatin (PRAVACHOL) tablet 20 mg 20 mg, Oral, DAILY, First dose on Wed01/26/24 at 0900, Until Discontinued Continuous Medication Order 01/23/2024 01/24/2024 01/25/2024 Sodium chloride 0.9% IV solution 500 mL Intravenous, at 20 mL/hr, CONTINUOUS, Starting on Wed01/25/24 at 0600, Until Wed01/25/24 at 1759, KVO fluids, start the morning of procedure., Pre-op/Pre-Proc 0612 ($$New Bag$$ - Provider: Christine Mays RN)1043 (Stopped - Provider: Christine Mays RN) Sodium chloride 0.9% IV solution Intravenous, at 80 mL/hr, CONTINUOUS, Starting on Wed01/25/24 at 1015, Until Wed01/25/24 at 2228 1038 (Restarted - Pr ovider: Christine Mays RN)1726 (Stopped - Provider: Christine Mays RN) PRN Medication Order 01/23/2024 01/24/2024 01/25/2024 Acetaminophen (TYLENOL) tablet 650 mg 650 mg, Oral, EVERY 6 HOURS NEEDED, Starting on Wed01/25/24 at 1010, Until Wed01/25/24 at 2228, Mild Pain, Maximum dose of acetaminophen is 4000 mg from all sources in 24 hours., Post-op/Post-Proc alum/mag hydrox.-simethicone oral suspension 30 mL 30 mL, Oral, EVERY 6 HOURS NEEDED, Starting on Wed01/25/24 at 1010, Until Wed01/25/24 at 2228, Indigestion, Per 5 mL is equivalent to: (Alum-Mag Hydroxide 200-225 mg and Simethicone 20 mg) and (Alum-Mag Hydroxide 200-200 mg and Simethicone 20 mg), Post-op/Post-Proc HYDROmorphone (DILAUDID) injection 0.2 mg 0.2 mg, Intravenous, EVERY 10 MINUTES NEEDED, 10 doses, Starting on Wed01/25/24 at 0726, Until Wed01/25/24 at 2228, Moderate Pain, Severe Pain, May give a total of 2mg in PACU., Recovery Lidocaine (XYLOCAINE) 10 mg/mL injection (CANCELED) NEEDED, Starting on Wed01/25/24 at 0801, Until Wed01/25/24 at 1024, Intra-op/Intra-Proc 0801 (Given - Provid er: Efrain Andrade MD) magnesium oxide (MAG-OX) tablet 800 mg 800 mg, Oral, ADMINISTER DIRECTED, Starting on Wed01/25/24 at 1010, Until Wed01/25/24 at 2228, See admin instructions, For Magnesium 1.6 - 2.0, give 800 mg of Magnesium oxide, Post-op/Post-Proc Magnesium sulfate 4 g in sterile water 50 ml premix IVPB 4 g, Intravenous, Administer over 4 Hours, ADMINISTER DIRECTED, Starting on Wed01/25/24 at 1010, Until Wed01/25/24 at 2228, Other, Magnesium Replacement Therapy, If Magnesium less than 1.6, give 4 g Magnesium Sulfate IVPB over 4 hours (may give over 1 hour if arrhythmias present)., Post-op/Post-Proc Melatonin tablet 3 mg 3 mg, Oral, DAILY AT BEDTIME NEEDED, Starting on Wed01/25/24 at 1010, Until Wed01/25/24 at 2228, Insomnia, Post-op/Post-Proc Ondansetron 4mg/2ml (ZOFRAN) injection 4 mg 4 mg, Intravenous, ONCE NEEDED, 1 dose, Starting on Wed01/25/24 at 0725, Until Wed01/25/24 at 2228, Nausea / Vomiting, FIRST line antiemetic, Do not administer within 6 hours of intra-operative dose., Recovery Ondansetron 4mg/2ml (ZOFRAN) injection 4 mg 4 mg, Intravenous, EVERY 4 HOURS NEEDED, Starting on Wed01/25/24 at 1010, Until Wed01/25/24 at 2228, Nausea / Vomiting, Post-op/Post-Proc oxyCODONE (ROXICODONE) tablet 5 mg(Linked Group 1) 5 mg, Oral, EVERY 4 HOURS NEEDED, Starting on Wed01/25/24 at 1010, Until Wed01/25/24 at 2228, Moderate Pain, Severe Pain, PRN for Moderate Pain. Use for Severe Pain if IV not available for use as initial dose. Higher dose may be administred if lower dose was previously documented as ineffective and did not result in adverse effects (RR<10, decrease in level of consciousness)., Post-op/Post-Proc oxyCODONE HCl (ROXICODONE) tablet 10 mg(Linked Group 1) 10 mg, Oral, EVERY 4 HOURS NEEDED, Starting on Wed01/25/24 at 1010, Until Wed01/25/24 at 2228, Moderate Pain, Severe Pain, PRN for Moderate Pain. Use for Severe Pain if IV not available for use as initial dose. Higher dose may be administred if lower dose was previously documented as ineffective and did not result in adverse effects (RR<10, decrease in level of consciousness), Post-op/Post-Proc Polyethylene glycol (MIRALAX) packet 17 g 17 g, Oral, DAILY NEEDED, Starting on Wed01/25/24 at 1010, Until Wed01/25/24 at 2228, Constipation 1st Line, Post-op/Post-Proc Potassium chloride (K-DUR) tablet ER 20 mEq 20 mEq, Oral, ADMINISTER DIRECTED, Starting on Wed01/25/24 at 1010, Until Wed01/25/24 at 2228, See admin instructions, If Cr 2.0 - 2.5 mg/dL For Potassium less than 3.6, give 20 mEq Potassium Chloride orally, recheck in AM. If Cr greater than 2.5 mg/dL contact physician/LIP for Potassium less than 3.6 for replacement orders. If potassium is low please administer magnesium first if indicated, Post-op/Post-Proc Potassium chloride (K-DUR) tablet ER 40-60 mEq 40-60 mEq, Oral, ADMINISTER DIRECTED, Starting on Wed01/25/24 at 1010, Until Wed01/25/24 at 2228, See admin instructions, If Cr less than 2.0 mg/dL 1. For Potassium 3.6 - 4.0, give 40 mEq of Potassium Chloride orally, recheck in the AM. 2. For Potassium less than 3.6, give 60 mEq Potassium Chloride orally, recheck in 8 hours. 3. If potassium is low please administer magnesium first if indicated., Post-op/Post-Proc No Frequency Medication Order 01/23/2024 01/24/2024 01/25/2024 Sodium chloride 0.9% IV solution 1 dose, Starting on Wed01/25/24 at 1041, Until Wed01/25/24 at 2228, Created by cabinet override [id number] (Hold - Provide r: Christine Mays RN - Reason: Other) Linked Groups Order Group 1: oxyCODONE (ROXICODONE) tablet 5 mgJump to med 5 mg, Oral, EVERY 4 HOURS NEEDED, Starting on Wed01/25/24 at 1010, Until Wed01/25/24 at 2228, Moderate Pain, Severe Pain, PRN for Moderate Pain. Use for Severe Pain if IV not available for use as initial dose. Higher dose may be administred if lower dose was previously documented as ineffective and did not result in adverse effects (RR<10, decrease in level of consciousness)., Post-op/Post-Proc Or oxyCODONE HCl (ROXICODONE) tablet 10 mgJump to med 10 mg, Oral, EVERY 4 HOURS NEEDED, Starting on Wed01/25/24 at 1010, Until Wed01/25/24 at 2228, Moderate Pain, Severe Pain, PRN for Moderate Pain. Use for Severe Pain if IV not available for use as initial dose. Higher dose may be administred if lower dose was previously documented as ineffective and did not result in adverse effects (RR<10, decrease in level of consciousness), Post-op/Post-Proc FOR RECORDS PERTAINING TO PATIENTS WHO ARE [...] BE BASED ON THE PRIMARY CLINICAL RECORDS. [facility]. provides no warranty or guarantee of the accuracy or completeness of information in this document.
--- NOTE | 2025-02-03 13:15 | MRI_ITS ---
PROCEDURE: SPINE LUMBAR (ROUTINE) 02/03/2025 REASON FOR EXAM: LUMBAR SPINAL STENOSIS TECHNIQUE: SPINE LUMBAR (ROUTINE) COMPARISON: None FINDINGS: There is grade 1 retrolisthesis at L2-3, 0.3 cm. There is grade 1 retrolisthesis at L3-4, 0.4 cm. There is grade 1 spondylolisthesis at L4-5, 0.8 cm. There is grade 1 retrolisthesis at L5-S1, 0.5 cm. The vertebral body height is maintained. Vertebral body marrow signal is normal. Intervertebral disc signal shows desiccation. The facets are aligned. The L1-L2 level: There is no significant disk protrusion. There is no lateral recess stenosis or foraminal stenosis. There is no critical central canal stenosis. The L2-L3 level: There is moderate central and right and left paracentral disc and osteophyte protrusion. There is moderate bilateral lateral recess stenosis. There is moderate bilateral foraminal narrowing secondary to disc protrusion and facet hypertrophy. There is mild central canal stenosis. Trace bilateral facet effusions are present. The L3-L4 level: There is moderate central, moderate right and severe left paracentral disc and osteophyte protrusion. There is moderate right and severe left lateral recess stenosis. There is moderate bilateral foraminal narrowing secondary to disc and osteophyte protrusion. There is severe central canal stenosis, partly secondary to ligamentous hypertrophy. The L4-L5 level: There is broad-based central and right and left paracentral disc and osteophyte protrusion. There is severe bilateral lateral recess stenosis. There is moderate bilateral foraminal narrowing secondary to disc protrusion and facet hypertrophy. There is severe central canal stenosis, partly secondary to ligamentous hypertrophy. Trace bilateral facet effusions are present. The L5-S1 level: There is moderate central and right paracentral, mild left paracentral disc and osteophyte protrusion with increased signal in the margin of the disc consistent with a fissure. There is moderate right and mild left lateral recess stenosis. There is moderate bilateral foraminal narrowing secondary to disc protrusion and facet hypertrophy. There is mild central canal stenosis. A small right facet effusion is present. The visualized conus shows normal signal characteristics. Adjacent soft tissues are unremarkable. MRI/Spine Lumbar (Routine) IMPRESSION: There is grade 1 retrolisthesis at L2-3, 0.3 cm. There is grade 1 retrolisthesi s at L3-4, 0.4 cm. There is grade 1 spondylolisthesis at L4-5, 0.8 cm. There is grade 1 retrolisthesis at L5-S1, 0. 5 cm. There is mild central canal stenosis at L2-3, severe central canal stenosis at L3-4 and L4-5, mild central canal stenosis at L5-S1, with lateral recess and foraminal narrowing. Reading Location: [facility]
== END | disposition home or self-care (01) ==
LOC: OPMRI 12:46
PROVIDERS: PCP Internal Medicine; Referring Provider Internal Medicine; Visit Provider Internal Medicine
DX: M48.061 Spinal stenosis, lumbar region without neurogenic claudication (principal); M79.604 Pain in right leg; M79.605 Pain in left leg; M79.671 Pain in right foot; M79.672 Pain in left foot
CPT/HCPCS: 72148